=== PATIENT | male | born 1960 | race African-American/Black ===

== ENCOUNTER 2017-06-20 12:14 | Inpatient (IN) | payer OTHER ==
[~2017-06-20] VITALS: Ht 177.8 cm; Wt 77.1 kg
[~2017-06-20 12:14] MED LIST: DOXYCYCLINE HY100 M4 PO; HYDROXYZINE HCL25 M2 PO; IBUPROFEN600 M1 PO; ULTRAM50 M1 PO
[2017-06-20 13:00] LABS: ABSOLUTE BASOPHIL COUNT 0 /CUMM (0.0-0.2); ABSOLUTE EOSINOPHIL COUNT 0.6 /CUMM (0.0-0.7); ABSOLUTE GRANULOCYTE CT 2.3 /CUMM (1.4-6.5); ABSOLUTE LYMPH COUNT 2.7 /CUMM (1.2-3.4); ABSOLUTE MONOCYTE COUNT 0.5 /CUMM (0.10-0.60); BASOPHIL % 0.5 % (0.0-2.0); EOSINOPHIL % 9.7 % (0-5); GRANULOCYTE % 37.1 % (42.2-75.2); HEMATOCRIT 42.4 % (42-52); MEAN CORPUSCULAR HGB 28.7 PG (27.0-31.0); MEAN CORPUSCULAR HGB CONC 32.3 G/DL (33.0-37.0); MEAN CORPUSCULAR VOLUME 89.1 FL (80.0-94.0); MEAN PLATELET VOLUME 7.6 FL (7.4-10.4); RBC DISTRIBUTION WIDTH 15.8 % (11.5-14.5); RED BLOOD CELL CT 4.76 /CUMM (4.70-6.10); WHITE BLOOD CELL COUNT 6.1 /CUMM (4.8-10.8)
[2017-06-20 13:16] LABS: PLATELET COUNT 245 /CUMM (130-400)
--- NOTE | 2017-06-20 13:20 | ED AMS/SEIZURE/WEAK/DIZZY ---
History of Present Illness General Chief Complaint: General Adult Stated Complaint: DIZZY,WEAKNESS Source: patient, family (BROTHER) Exam Limitations: no limitations Vital Signs & Intake/Output Vital Signs & Intake/Output Vital Signs Date Time Temp Pulse Resp B/P B/P Pulse O2 O2 Flow FiO2 Mean Ox Delivery Rate 06/20 1845 46 16 122/74 100 Room Air 06/20 1834 97.4 50 16 122/72 97 Nasal 2.0L Cannula 06/20 1614 97.3 44 16 116/73 100 Room Air 06/20 1612 44 116/73 06/20 1442 98.0 46 18 142/90 100 Nasal Cannula 06/20 1311 99 Nasal 2.0L Cannula 06/20 1252 47 20 126/78 100 Room Air 06/20 1220 96.2 78 20 116/80 98 Room Air Allergies Coded Allergies: Iodinated Contrast- Oral and IV Dye (IODINATED CONTRAST MEDIA - IV DYE) (Severe, ANAPHYLAXIS 12/03/15) Sulfa (Sulfonamide Antibiotics) (Severe, HIVES 12/03/15) shellfish derived (Severe, ANAPHYLAXIS 12/03/15) Reconcile Medications Aspirin (Lo-Dose Aspirin EC) 81 MG TABLET.DR 1 TAB PO DAILY HEART/BLOOD ( Reported) Atorvastatin Calcium 20 MG TABLET 1 TAB PO DAILY CHOLESTEROL (Reported) Clopidogrel Bisulfate (Clopidogrel) 75 MG TABLET 1 TAB PO DAILY BLOOD THINNER (Reported) Levetiracetam 1,000 MG TABLET 1,500 MG PO BID SEIZURES (Reported) Lisinopril 2.5 MG TABLET 1 TAB PO DAILY BP (Reported) Metoprolol Tartrate 25 MG TABLET 1 TAB PO BID HEART/BP (Reported) Spironolactone 25 MG TABLET 1 TAB PO DAILY DIURETIC (Reported) Triage Note: PT TO ED C/O DIZZY AND LIGHTHEADED X 2 HOURS. DENIES ANY PAIN. H/O AR WITH CARDIAC STENTS. PT STATES "SOMETHING AIN'T RIGHT". PT APPEARS LETHARGIC IN TRIAGE, FALLING ASLEEP AND THEN TEXTING. Triage Nurses Notes Reviewed? yes Onset: Abrupt Duration: day(s): (1), changing over time, continues in ED Timing: single episode today Injury Environment: home Severity: moderate, severe No Modifying Factors: none Associated Symptoms: MEMORY LOSS, DIFFICULTY FINDING WORDS, WEAKNESS, LETHARGY HPI: 56-year-old male past medical history of coronary artery disease, AR with associated cardiac arrest and seizure disorder presents for evaluation of change in mental status weakness and dizziness. PatienTS brother reports that today he has been more lethargic than usual. He feels like he looks tired and his words have been slurred. His BRother feels like he is having difficulty finding words. Patient reports that he feels very dizzy both at rest and exertion. No chest pain no shortness of breath. No new medications. He says he smokes marijuana but no drug use. He is to take his medications as directed. Patients brother reports that he is concerned because patient has a history of seizures and had a seizure about a month and a half ago and these similar symptoms preceded the seizure. Additionally patient has a history of cardiac arrest back in January 2017 associated with the AR. Patient states he's been taking Keppra as directed. No sweats chills nausea vomiting fever or changes in vision. (Dino David) Past History Travel History Traveled to [place] past 21 day No Medical History Any Pertinent Medical History? see below for history Neurological: seizure EENT: NONE Cardiovascular: myocardial infarction Respiratory: NONE Gastrointestinal: NONE Hepatic: NONE Renal: NONE Musculoskeletal: NONE Psychiatric: NONE Endocrine: NONE Blood Disorders: NONE Cancer(s): NONE CHICKEN TENDER/Reproductive: NONE Surgical History Surgical History: non-contributory Psychosocial History What is your primary language Vietnamese Tobacco Use: Current Daily Use Daily Tobacco Use Amount/Type: => 5 Cigarettes daily ETOH Use: denies use Illicit Drug Use: denies illicit drug use Family History Hx Contributory? No (Dino David) Review of Systems Review of Systems Constitutional: Reports: malaise, weakness. EENTM: Reports: no symptoms. Respiratory: Reports: no symptoms. Cardiovascular: Reports: no symptoms. GI: Reports: no symptoms. Genitourinary: Reports: no symptoms. Musculoskeletal: Reports: no symptoms. Skin: Reports: no symptoms. Neurological/Psychological: Reports: see HPI, confusion, emotional problems, weakness, other (DIZZY, LIGHTHEADED). Hematologic/Endocrine: Reports: no symptoms. Immunologic/Allergic: Reports: no symptoms. All Other Systems: Reviewed and Negative (Dino David) Physical Exam Physical Exam General Appearance: well developed/nourished, no apparent distress, alert, awake Head: atraumatic, normal appearance Eyes: Bilateral: normal appearance, PERRL, EOMI. Ears, Nose, Throat: normal pharynx, normal ENT inspection, hearing grossly normal Neck: normal inspection, supple, full range of motion Respiratory: normal breath sounds, chest non-tender, no respiratory distress, lungs clear Cardiovascular: normal peripheral pulses, bradycardia (46 BPM) Peripheral Pulses: 2+ radial (R), 2+ radial (L) Gastrointestinal: soft, non-tender Back: normal inspection, normal range of motion, no vertebral tenderness Extremities: normal range of motion Neurologic/Psych: no motor/sensory deficits, awake, alert, oriented x 3, PATIENT IS SLURRING SOME WORDS AND SEEMS TO HAVE DIFFICULTY FINDING WORDS AND IS STUTTERING Skin: intact, normal color, warm/dry Lymphatic: no anterior cervical simin Core Measures ACS in differential dx? No CVA/TIA Diagnosis No NIH Stroke Scale (24 Hours) NIH Stroke Scale (24 Hours) Response Value Level of Consciousness alert 0 LOC Questions answers both correctly 0 LOC Commands obeys both correctly 0 Best Gaze normal 0 Visual Romero no visual loss 0 Facial Paresis normal 0 Motor Arm - Left no drift 0 Motor Arm - Right no drift 0 Motor Leg - Left no drift 0 Motor Leg - Right no drift 0 Limb Ataxia no ataxia 0 Sensory normal 0 Best Language mild to moderate aphasia 1 Dysarthria mild/mod slurring words 1 Extinction and Inattention no neglect 0 Total 2 Sepsis Present: No Sepsis Focused Exam Completed? No (Jorge A AVINA,Dino) Progress Differential Diagnosis: arrythmia, alcohol intoxication, anemia, CVA/stroke, dehydration, drug intoxication, electrolyte imbalance, postural hypotension, presyncope, seizure disorder, subarachnoid Hem., SICK SINUS SYNDROME, av BLOCK, MEDICATION SIDE EFFECT Plan of Care: Orders Procedure Date/time Status Heart Healthy Diet 06/21 B Active Patient Data 06/20 1844 Active ED Holding Orders 06/20 181 Active Admit to inpatient 06/20 1819 Active Vital Signs 06/20 1819 Active Code Status 06/20 1819 Active Add-on Test (ER Only) 06/20 1651 Active RAPID VIRAL INFLUENZA A 06/20 1643 Complete Add-on Test (ER Only) 06/20 1618 Active TROPONIN LEVEL 06/20 1604 Complete EKG 06/20 1604 Active URINALYSIS 06/20 1340 Complete Add-on Test (ER Only) 06/20 1320 Active MISTAKE 06/20 1311 Active Intake & Output 06/20 1256 Active TSH REFLEX 06/20 1241 Complete MAGNESIUM 06/20 1241 Complete FingerStick- Glucose 06/20 1227 Active URINE DRUG SCREEN FOR ER ONLY 06/20 1227 Complete TROPONIN LEVEL 06/20 1227 Complete COMPREHENSIVE METABOLIC PANEL 06/20 1227 Complete CBC WITHOUT DIFFERENTIAL 06/20 122 Complete EKG 06/20 1223 Active Laboratory Tests 06/20/17 1616: Troponin I < 0.01 06/20/17 1340: Urine Opiates Screen < 100.00, Methadone Screen < 40, Barbiturate Screen < 60, Ur Phencyclidine Scrn < 6.00, Amphetamines Screen < 100, U Benzodiazepines Scrn < 85, Urine Cocaine Screen < 50, Urine Cannabis Screen > 80.00 H, Urine Color YEL, Urine Clarity CLEAR, Urine pH 6.0, Ur Specific [place] <= 1.005, Urine Protein NEG, Urine Ketones NEG, Urine Nitrite NEG, Urine Bilirubin NEG, Urine Urobilinogen 0.2, Ur Leukocyte Esterase NEG, Ur Microscopic EXAM NOT REQUIRED, Urine Hemoglobin NEG, Urine Glucose NEG 06/20/17 1241: Anion Gap 12, Estimated GFR > 60, BUN/Creatinine Ratio 11.3, Glucose 113 H, Calcium 9.6, Magnesium 1.7, Total Bilirubin 0.4, AST 31, ALT 34, Alkaline Phosphatase 124, Troponin I < 0.01, Total Protein 7.6, Albumin 4.3, Globulin 3.3 , Albumin/Globulin Ratio 1.3, TSH &T3 &Free T4 Intrp 0.859, CBC w Diff NO MAN DIFF REQ, RBC 4.76, MCV 89.1, MCH 28.7, MCHC 32.3 L, RDW 15.8 H, MPV 7.6, Gran % 37.1 L, Lymphocytes % 43.9, Monocytes % 8.8, Eosinophils % 9.7 H, Basophils % 0.5, Absolute Granulocytes 2.3, Absolute Lymphocytes 2.7, Absolute Monocytes 0.5, Absolute Eosinophils 0.6, Absolute Basophils 0 Microbiology 06/20 1650 NASOPHARYN: Influenza Virus A & B Rapid Smear - COMP Patient seen and evaluated. He has a significant previous history of seizure disorder and acute coronary syndrome with cardiac arrest back in 2016. Patient denies any chest pain or shortness of breath but is reporting dizziness. He is bradycardic here to the 40s consistently for several hours now. He does take metoprolol 25 mg twice a day but this is nothing new. His EKG shows some inverted T waves in the chest leads that improved on the repeat EKG. Troponin is negative 2. Patient is not orthostatic. CT scan of the brain is not showing any acute findings. Additionally the patient's brother reports the patient is not acting like his usual self is more lethargic having difficulty finding words and slurring words. Patient denies any drug use other than marijuana. The brother also reports that patient presented this way before having a seizure. Spoke with Dr. 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 They did recommend ADDMission to rule out acute coronary syndrome/seizure disorder. Patient will be admitted to the hospital for symptomatically bradycardia and change in mental status. He will require serial labs, serial EKGs, telemetry, cardiology consult, medication adjustment, MRI, EEG, neurology consult. Premature discharge could result in a negative health effects that could include . Case discussed with Dr. Alaniz HE agrees. Diagnostic Imaging: Viewed by Me: Radiology Read, CT Scan. Discussed w/RAD: Radiology Read, CT Scan. Radiology Impression: PATIENT: LANA TOUSSAINT PRESENT AGE: 56 PATIENT ACCOUNT NO: [id number] : 61 LOCATION: [facility] ORDERING PHYSICIAN: Dino AVINA SERVICE DATE: 06/20/17 EXAM TYPE: CAT - CT HEAD WO IV CONTRAST EXAMINATION: CT HEAD WITHOUT CONTRAST CLINICAL INFORMATION: Dizziness and headache. COMPARISON: None. TECHNIQUE: Contiguous axial imaging was performed from the skull base to vertex without intravenous administration of contrast. DLP: 616 mGy-cm. FINDINGS: There is no intracranial hemorrhage, large infarction, or mass lesion. There is no extra-axial collection. The ventricles are normal in size and configuration without evidence of hydrocephalus. The visualized paranasal sinuses are essentially clear. The mastoids and middle ear cavities are clear. On the hamper maker view there is evidence of screw plate fixation within the mandible. IMPRESSION: No intracranial hemorrhage, large infarction, mass lesion or hydrocephalus. DICTATED BY: Connie Hunter MD DATE/TIME DICTATED:06/20/171343 ECONOMIC DEVELOPMENT SPECIALIST:GLORIA DATE/ TIME TRANSCRIBED:06/20/171343 CONFIDENTIAL, DO NOT COPY WITHOUT APPROPRIATE AUTHORIZATION. CXR Impression: PATIENT: LANA TOUSSAINT PRESENT AGE: 56 PATIENT ACCOUNT NO: [id number] : 62 LOCATION: [facility] ORDERING PHYSICIAN: Dino AVINA SERVICE DATE: 06/20/17 EXAM TYPE: RAD - XRY-CHEST XRAY, TWO VIEWS EXAMINATION: XR CHEST CLINICAL INFORMATION: Question pneumonia. Altered mental status. COMPARISON: None TECHNIQUE: 2 views of the chest were obtained. FINDINGS: Lungs are clear and well expanded. No focal consolidative disease, pleural effusion, or pneumothorax. The cardiac silhouette and upper mediastinal contours are normal. No acute osseous finding. IMPRESSION: Unremarkable chest radiograph. No consolidative disease or effusion. DICTATED BY : Sang Goode MD DATE/TIME DICTATED:06/20/171612 ECONOMIC DEVELOPMENT SPECIALIST: GLORIA DATE/TIME TRANSCRIBED:06/20/171612 CONFIDENTIAL, DO NOT COPY WITHOUT APPROPRIATE AUTHORIZATION. Initial ED EKG: SINUS BRADYCARDIA RATE 49, LEFT ATRIAL ABNORMALITY, t-WAVE INVERSIONS v2, 3 5 AND v6 Repeat EKG: unchanged (Dino David) Differential Diagnosis: arrythmia (Corbin GARCÍA,Rocky Garza) Departure Departure Disposition: STILL A PATIENT Condition: Stable Clinical Impression Primary Impression: Symptomatic bradycardia Secondary Impressions: Change in mental status Qualifiers: Altered mental status type: unspecified Qualified Code: R41.82 - Altered mental status, unspecified Referrals: Unknown (PCP/Family) Departure Forms: Customer Survey General Discharge Information (Dino David) Admission Note Spoke With: Tabitha Ardon MD Documentation of Exam: Documentation of any treatments & extenuating circumstances including Concerns Regarding Discharge (functional status, medication knowledge or non-compliance, living conditions, etc.) that warrant an admission rather than observation: [The patient remains bradycardic and thus needs continued cardiac monitoring, he has symptomatic bradycardia. He needs a cardiology consultation. Dr. Lombardi was notified. He will need serial troponins and observation after holding his beta ramiro. He will need consideration for pacemaker if does not improve] PA/POLICE JUDGE Co-Sign Statement Statement: ED Attending supervision documentation- [x] I saw and evaluated the patient. I have also reviewed all the pertinent lab results and diagnostic results. I agree with the findings and the plan of care as documented in the PA's/POLICE JUDGE's documentation. [] I have reviewed the ED Record and agree with the PA's/POLICE JUDGE's documentation. [] Additions or exceptions (if any) to the PAs/POLICE JUDGE's note and plan are summarized below: [] (Rocky Alaniz DO)
--- NOTE | 2017-06-20 13:51 | CT SCAN REPORT ---
EXAMINATION: CT HEAD WITHOUT CONTRAST CLINICAL INFORMATION: Dizziness and headache. COMPARISON: None. TECHNIQUE: Contiguous axial imaging was performed from the skull base to vertex without intravenous administration of contrast. DLP: 616 mGy-cm. FINDINGS: There is no intracranial hemorrhage, large infarction, or mass lesion. There is no extra-axial collection. The ventricles are normal in size and configuration without evidence of hydrocephalus. The visualized paranasal sinuses are essentially clear. The mastoids and middle ear cavities are clear. On the senior biostatistician view there is evidence of screw plate fixation within the mandible. IMPRESSION: No intracranial hemorrhage, large infarction, mass lesion or hydrocephalus.
--- NOTE | 2017-06-20 16:16 | RADIOLOGY REPORT ---
EXAMINATION: XR CHEST CLINICAL INFORMATION: Question pneumonia. Altered mental status. COMPARISON: None TECHNIQUE: 2 views of the chest were obtained. FINDINGS: Lungs are clear and well expanded. No focal consolidative disease, pleural effusion, or pneumothorax. The cardiac silhouette and upper mediastinal contours are normal. No acute osseous finding. IMPRESSION: Unremarkable chest radiograph. No consolidative disease or effusion.
[2017-06-20] MEDS ORDERED: ATORVASTATIN CA20 M1 PO (17:36)
[2017-06-20] MEDS ORDERED: LISINOPRIL2.5 M1 PO (17:36)
[2017-06-20] MEDS ORDERED: METOPROLOL TART25 M1 PO (17:36)
[2017-06-20] MEDS ORDERED: SPIRONOLACTONE25 M1 PO (17:36)
[2017-06-20] MEDS ORDERED: CLOPIDOGREL75 M1 PO (17:37)
[2017-06-20] MEDS ORDERED: LO-DOSE ASPIRIN81 MG PO (17:38)
[2017-06-20] MEDS ORDERED: LEVETIRACETAM1000 M1 PO (17:40)
--- NOTE | 2017-06-20 20:14 | History & Physical ---
Alvarez Riley MD 06/20/17 2013: General Information and HPI MD Statement: I have seen and personally examined LANA TOUSSAINT and documented this H&P. The patient is a 56 year old M who presented with a patient stated chief complaint of [altered mental status, dysarthria, aphasia]. Source of Information: patient, family Exam Limitations: poor historian History of Present Illness: Patient is a 51-year-old male with PMH significant for cardiac arrest status post 2 stents placed, CAD, seizure disorder, who presented to the ED complaining of lethargy, difficulty finding words, slurred speech and feeling "slow." This began the day of admission at 3-4 AM, he was able to sleep and awoke with similar symptoms. He also states that he hit his head on the corner of a table this morning but did not lose consciousness. He had one episode of diziness this morning with associated palpitations that lasted for less than one minute. He has never experienced symptoms like this before, but reports significant improvement of his symptoms since this moring. His most recent seizure was 1 month ago, and his Keppra dose was increased from 1 g BID to 1.5 g BID at this time. He denies any chest pain, chest discomfort, lightheadedness, LOC, numbness, or weakness. Allergies/Medications Allergies: Coded Allergies: Iodinated Contrast- Oral and IV Dye (IODINATED CONTRAST MEDIA - IV DYE) (Severe, ANAPHYLAXIS 12/03/15) Sulfa (Sulfonamide Antibiotics) (Severe, HIVES 12/03/15) shellfish derived (Severe, ANAPHYLAXIS 12/03/15) Home Med list Aspirin (Lo-Dose Aspirin EC) 81 MG TABLET.DR 1 TAB PO DAILY HEART/BLOOD ( Reported) Atorvastatin Calcium 20 MG TABLET 1 TAB PO DAILY CHOLESTEROL (Reported) Clopidogrel Bisulfate (Clopidogrel) 75 MG TABLET 1 TAB PO DAILY BLOOD THINNER (Reported) Levetiracetam 1,000 MG TABLET 1,500 MG PO BID SEIZURES (Reported) Lisinopril 2.5 MG TABLET 1 TAB PO DAILY BP (Reported) Metoprolol Tartrate 25 MG TABLET 1 TAB PO BID HEART/BP (Reported) Spironolactone 25 MG TABLET 1 TAB PO DAILY DIURETIC (Reported) Past History Travel History Traveled to [place] past 21 day No Medical History Neurological: seizure EENT: NONE Cardiovascular: myocardial infarction, cardaic arrest Respiratory: NONE Gastrointestinal: NONE Hepatic: NONE Renal: NONE Musculoskeletal: NONE Psychiatric: NONE Endocrine: NONE Blood Disorders: NONE Cancer(s): 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 brother and niece Primary Language: Jamaican Smoking Status: Current Everyday Smoker ETOH Use: denies use Illicit Drug Use: denies illicit drug use Review of Systems Review of Systems Constitutional: Reports: malaise. Denies: chills, fever, weakness. EENTM: Denies: blurred vision, double vision, visual changes, eye pain. Cardiovascular: Reports: palpitations. Denies: chest pain, syncope. Respiratory: Denies: cough, short of breath, wheezing. GI: Denies: abdominal pain, constipation, melena, nausea, bloody stool, vomiting. Genitourinary: Denies: dysuria, frequency, hematuria. Musculoskeletal: Reports: no symptoms. Skin: Reports: no symptoms. Neurological/Psychological: Reports: see HPI, headache, other. Denies: numbness, paresthesia, tingling, tremors. Exam & Diagnostic Data Last 24 Hrs of Vital Signs/I&O Vital Signs Date Time Temp Pulse Resp B/P B/P Pulse O2 O2 Flow FiO2 Mean Ox Delivery Rate 06/20 2233 97.9 64 20 104/68 98 Room Air 06/20 2132 97.8 48 18 110/57 99 Room Air 06/20 2015 51 16 118/72 100 Room Air 06/20 1845 46 16 122/74 100 Room Air 06/20 1834 97.4 50 16 122/72 97 Nasal 2.0L Cannula 06/20 1614 97.3 44 16 116/73 100 Room Air 06/20 1612 44 116/73 06/20 1442 98.0 46 18 142/90 100 Nasal Cannula 06/20 1311 99 Nasal 2.0L Cannula 06/20 1252 47 20 126/78 100 Room Air 06/20 1220 96.2 78 20 116/80 98 Room Air Intake & Output 06/21 0800 06/21 0000 06/20 1600 Intake Total Output Total Balance Patient 170 lb 170 lb Weight Weight Reported by Patient Reported by Patient Measurement Method Physical Exam General Appearance Alert, Oriented X3, Cooperative, No Acute Distress Skin Temp/Moisture Exam: Warm/Dry HEENT Atraumatic, PERRLA, EOMI, Mucous Membr. moist/pink, no maxillary teeth Cardiovascular Normal S1, Normal S2, No Murmurs, Gallops, Rubs, bradycardia, HR 48 Lungs Clear to Auscultation, Normal Air Movement Abdomen Soft, No Tenderness, large surgical midline scar Neurological Strength at 5/5 X4 Ext, Normal Tone, Sensation Intact, Cranial Nerves 3-12 NL, mild expressive aphasia, no dysarthria Extremities No Clubbing, No Cyanosis, No Edema, Normal Pulses, No Tenderness/ Swelling Last 24 Hrs of Labs/[place]: Laboratory Tests 06/21/17 0055: Troponin I Pending 06/20/17 1616: Troponin I < 0.01 06/20/17 1340: Urine Opiates Screen < 100.00, Methadone Screen < 40, Barbiturate Screen < 60, Ur Phencyclidine Scrn < 6.00, Amphetamines Screen < 100, U Benzodiazepines Scrn < 85, Urine Cocaine Screen < 50, Urine Cannabis Screen > 80.00 H, Urine Color YEL, Urine Clarity CLEAR, Urine pH 6.0, Ur Specific [place] <= 1.005, Urine Protein NEG, Urine Ketones NEG, Urine Nitrite NEG, Urine Bilirubin NEG, Urine Urobilinogen 0.2, Ur Leukocyte Esterase NEG, Ur Microscopic EXAM NOT REQUIRED, Urine Hemoglobin NEG, Urine Glucose NEG 06/20/17 1241: Anion Gap 12, Estimated GFR > 60, BUN/Creatinine Ratio 11.3, Glucose 113 H, Calcium 9.6, Magnesium 1.7, Total Bilirubin 0.4, AST 31, ALT 34, Alkaline Phosphatase 124, Troponin I < 0.01, Total Protein 7.6, Albumin 4.3, Globulin 3.3 , Albumin/Globulin Ratio 1.3, TSH &T3 &Free T4 Intrp 0.859, CBC w Diff NO MAN DIFF REQ, RBC 4.76, MCV 89.1, MCH 28.7, MCHC 32.3 L, RDW 15.8 H, MPV 7.6, Gran % 37.1 L, Lymphocytes % 43.9, Monocytes % 8.8, Eosinophils % 9.7 H, Basophils % 0.5, Absolute Granulocytes 2.3, Absolute Lymphocytes 2.7, Absolute Monocytes 0.5, Absolute Eosinophils 0.6, Absolute Basophils 0 Microbiology 06/20 1650 NASOPHARYN: Influenza Virus A & B Rapid Smear - COMP Diagnostic Data EKG Results sinus bradycardia CXR Results Unremarkable chest radiograph. No consolidative disease or effusion. Other Results Head CT No intracranial hemorrhage, large infarction, mass lesion or hydrocephalus. Assessment/Plan Assessment: Patient is a 51-year-old male with PMH significant for cardiac arrest status post 2 stents placed, CAD, seizure disorder, who presented to the ED complaining of lethargy, difficulty finding words, slurred speech and feeling "slow." Problem list #sinus bradycardia #rule out ACS #rule out TIA #chornic medical problems inlcuding seizure disorder, nicotine dependence, CAD Plan - admit to telemetry -continous tele monitoring - MRI head - seizure precuations -neuro checks Q4 hours - neuro consult placed - serial troponins and ekg - echocardiogram, may need ICD based on results - hold home metoprolol -cardiology consult - PT consult -continue home medicaitons including Keppra, Lisinopril, plavix, spironolactone - nicotine patch #DVT prophylaxis: Lovenox, ALPS #COde stauts: full code As Ranked By This Provider Problem List: 1. Change in mental status Qualifiers Altered mental status type: unspecified Qualified Code: R41.82 - Altered mental status, unspecified 2. Symptomatic bradycardia Core Measures/Misc (02/04) Acute Coronary Syndrome ACS Diagnosis: No Congestive Heart Failure Congestive Heart Failure Diagnosis No Cerebrovascular Accident CVA/TIA Diagnosis: No VTE (View Protocol) VTE Risk Factors Age>40 No Mechanical VTE Prophylaxis d/t N/A MechProphylax Ordered No VTE Pharm Prophylaxis d/t NA PharmProphylax ordered Sepsis (View protocol) Sepsis Present: No Nelida Trujillo MD 06/20/17 2237: Resident Review Statement Resident Statement: examined this patient, discussed with culinary internship Other Findings: H: Mr Toussaint is a 56-year-old gentleman with past medical history of coronary artery disease, stent placement in December of this year, Cardiac arrest (in February of this year, unsure of cause, Hospitalized at [facility], had to be placed in a medically induce coma > 2 months) and seizure disorder (status post anoxic event) who was brought into the emergency department by his brother after he felt that he was more lethargic and had also endorsed a change in mentation as the patient was off his baseline. The patient himself was a poor historian, although was able to provide some clinical information. He reported that his symptoms started at approximately 4 AM on the day of admission. He states he did "not feel himself". It must be noted that the patient has a tendency to remain awake all night and sleep during the day. The patient's reported that his speech was slurred and also concominanatly experienced heart palpitations. At this time he also reports that he had a brief feeling of the room spinning. He denies any loss of consciousness, but does state that he hit his head on the corner of a table. The patient has been on Keppra for seizure prophylaxis. His Keppra dose was recently increased approximately 1 month ago as the patient had recently had a seizure. He follows up with you neurologist Dr. Harkins ([phone]) at [place]. He has been following up with the shipping manager Dr Mcelroy since 05/29/17. He was currently undergoing a study with a 30 day event monitor. He is a current every day smoker approximately half a pack per day. Does not endorse any alcohol usage. Uses cannaboid derivatives, last smoked/Ingested this on the day prior to admission. R: The patient did not endorse any chest pain although did state that he had a brief episode of heart palpitations lasting approximately 1 minute. Denied any fever, chills, nausea, vomiting. E: Blood pressure: 96.2. RR: 20. Heart rate: 78--> 46. General Appearance: well developed/nourished, no apparent distress, alert and oriented. Head: atraumatic, normal appearance Eyes: PERRLA Ears, Nose, Throat: hearing grossly normal Neck: scar present from previous tracheostomy tube, supple, full range of motion Respiratory: Clear to auscultation. Chest non-tender, no respiratory distress Cardiovascular: Bradycardia, no murmurs gallops or rubs. Gastrointestinal: normal bowel sounds, soft, non-tender, surgical scar noted, anterior abdominal wall. Back: normal inspection, normal range of motion Extremities: normal inspection, normal range of motion. No Edema Neurologic/Psych: no motor/sensory deficits, awake, alert, oriented x 3 Skin: warm/dry L: WBC 6.1. H&H 13.7/42.4. Platelets 245. Sodium 142, potassium 4.0, BUN 9, creatinine 0.8. Chloride: 102. Cr 0.8. I: EXAMINATION: CT HEAD WITHOUT CONTRAST IMPRESSION: No intracranial hemorrhage, large infarction, mass lesion or hydrocephalus. SERVICE DATE: 06/20/17 EXAM TYPE: RAD - XRY-CHEST XRAY, TWO VIEWS EKG: Sinus Bradycardia. T Wave inversions noted on initial EKG IMPRESSION: Unremarkable chest radiograph. No consolidative disease or effusion. A/P Problem List: Coronary artery disease with stent placement in January 2017 Altered mentation likely due to polypharmacy versus recreational drug use vs hypoperfusion due to bradycardia Rule out ACS Sinus Bradycardia History of seizure disorder History of Nicotine dependence Admit the patient to telemetry. Will obtain neurology consultation in the a.m. to question adequate Keppra dosing. Will check a head MRI to rule out any acute pathology. Maintain Seizure Precautions. Maintain Neurochecks Q4 Hours. Trend Troponin and monitor EKG. Echocardiogram in AM, to evaluate LVEF. If < 35% will likely require an ICD If continues to be asymptomatic over admission, will likely benefit from Insertable Cardiac monitoring System as an outpatient. Hold beta blockers for now, may consider a lower dose prior to discharge. Continue Home Medications: Keppra 1500 mg BID, Lisinopril, Plavix, Spironolactone Nicotine Patch PRN. Bedside swallow evaluation showed no acute pathology, diet to be advance as tolerated. Obtain records from prior hospitalizations. 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 He had one episode of transient dizziness but did not lose consciousness at that time he also noticed his heart was racing. According to family patient had word finding difficulty. Only change of medication dimension is increased dose of Keppra approximately 4 weeks back when he had another seizure episode. He was expected to get MRI and 2-D echocardiogram tomorrow for follow-up. Vitals: Afebrile, pulse 78 decreased to 40s, RR 20, blood pressure 116/73, saturating well on room air On exam: A O 3, cooperative, slow to respond, no acute distress, neck supple, JVD normal, no lymphadenopathy, mucosa moist, complete neurological examination unremarkable, negative cerebellar signs, negative nystagmus, no dependent edema, no obvious skin rashes or inflammation CVS: S1-S2, RRR. RS: Clear to auscultate bilaterally. Abdomen: Soft, NT, ND, bowel sounds present. Labs: WBC 6.1, hemoglobin 13.7, hematocrit 42.4, platelet 245, sodium 142, potassium 4.0, chloride 102, bicarbonate 27, BUN 9, creatinine 0.8, glucose 113, calcium 9.6, LFT unremarkable troponin less than 0.012, TSH 0.859, rapid influenza negative UA unremarkable U tox positive for cannabis CT head:No intracranial hemorrhage, large infarction, mass lesion or hydrocephalus. CXR:Unremarkable chest radiograph. No consolidative disease or effusion. Assessment and plan 56-year-old male with past medical history significant for CAD, cardiac arrest S /P 2 stents, seizure disorder since that episode presented in ER for feeling weak and lethargic. Patient had a seizure episode approximately a month back when he had similar feeling PT at this time patient did not have any seizure- like episode but was worried about it. He also felt he had word finding difficulty which lasted for some time now much better. His found to have significant bradycardia up to 40s in ER. This could be cause of his lethargy but given his transient a face area TIA should be ruled out. Watch for seizure episode. Of note Keppra may be causing the sluggishness and lethargy. Patient may have residual effects of anoxic brain injury given his cardiac arrest and prolonged hospitalization history. + Symptomatic bradycardia + Rule out TIA + History of CAD S/P stents - Admit to telemetry - Continuous telemetry monitoring - Serial troponin and EKGs - Hold metoprolol - 2-D echocardiogram in a.m. - MRI brain without contrast - Serial neuro checks - Seizure precaution - Continue his home medications of aspirin, statin, Keppra, lisinopril, spironolactone, Plavix - Neurologic consult: ?. Adjust dose of Keppra
--- NOTE | 2017-06-20 20:36 | Cons- Cardiology ---
General Information and HPI Consulting Request Date of Consult: 06/20/17 Requested By: Tabitha Ardon MD Reason for Consult: bradycardia Source of Information: patient Exam Limitations: no limitations History of Present Illness: Asked by ER physician to evaluate patient in ER. 56 year old male with h/o CAD, LAD and LCX stents in [place] in 2016, s/p cardiac arrest in [place] in January,found to have ISR, s/p angioplasty, anoxic brain injury with resultant seizure.He is unable to work due seizure and anoxic brain injury. He still smokes 1/2 ppd. He had seizure episode in April 2017, troponin was 0.21, diagnostic cath revealed patent LAD, LCX stents, 30% distal RCA stenosis. Dose of Keppra was increased. I saw him in our office for the first time on 05/29/17. We decided to place 30 day event monitor to evaluate for bri or tachyarrhytmia as a cause of his seizure/ syncope. He states that monitor patch irritates his chest and he dose not wear it all the time. Today in the morning his sister noticed that his speed was more slurred and he acted slow. He felt weak and dizzy. Similar symptoms preceded his previous seizure episode so he was brought to ER. Ekg in ER showed sinus bradycardia with 2 junctional beats, rate 45 bpm. His LVEF is unknown and his sister is supposed to bring old records from [facility] in [facility]. Allergies/Medications Allergies: Coded Allergies: Iodinated Contrast- Oral and IV Dye (IODINATED CONTRAST MEDIA - IV DYE) (Severe, ANAPHYLAXIS 12/03/15) Sulfa (Sulfonamide Antibiotics) (Severe, HIVES 12/03/15) shellfish derived (Severe, ANAPHYLAXIS 12/03/15) Home Med List: Aspirin (Lo-Dose Aspirin EC) 81 MG TABLET.DR 1 TAB PO DAILY HEART/BLOOD ( Reported) Atorvastatin Calcium 20 MG TABLET 1 TAB PO DAILY CHOLESTEROL (Reported) Clopidogrel Bisulfate (Clopidogrel) 75 MG TABLET 1 TAB PO DAILY BLOOD THINNER (Reported) Levetiracetam 1,000 MG TABLET 1,500 MG PO BID SEIZURES (Reported) Lisinopril 2.5 MG TABLET 1 TAB PO DAILY BP (Reported) Metoprolol Tartrate 25 MG TABLET 1 TAB PO BID HEART/BP (Reported) Spironolactone 25 MG TABLET 1 TAB PO DAILY DIURETIC (Reported) Review of Systems Review of Systems Constitutional: Reports: weakness. Denies: no symptoms, see HPI, chills, diaphoresis, fever, malaise, unexplained weight loss. EENTM: Reports: blurred vision. Denies: no symptoms, see HPI, double vision, visual changes, eye pain, eye drainage, eye tearing, icterus, ear discharge, ear pain, ear redness, hearing changes, nasal congestion, epistaxis, nasal pain, throat pain, throat swelling, mouth pain, tooth pain. Cardiovascular: Denies: no symptoms, see HPI, chest pain, edema, orthopena, palpitations, peripheral edema, syncope. Respiratory: Denies: no symptoms, see HPI, cough, hemoptysis, orthopnea, short of breath, sputum production, stridor, wheezing. GI: Denies: no symptoms, see HPI, abdominal pain, bloating, constipation, diarrhea, distention, bowel incontinence, melena, nausea, bloody stool, changes in stool, vomiting, steatorrhea. Genitourinary: Denies: no symptoms, see HPI, discharge, dysuria, frequency, hematuria, hesitation, nocturia, pain, urgency. Musculoskeletal: Denies: no symptoms, see HPI, back pain, gout, joint pain, joint swelling, muscle pain, muscle stiffness, neck pain. Skin: Denies: no symptoms, see HPI, cysts, change in skin color, change in hair/nails, dryness, erythema, jaundice, lesions, lymphangitis, lumps, moles, rash. Neurological/Psychological: Reports: cognitive dysfunction (dizziness). Denies: no symptoms, see HPI, anxiety, ataxia, confusion, depressed, dementia, emotional problems, headache, numbness, paresthesia, pre-existing deficit, petit mal seizures, tingling, tremors, tonic-clonic seizures, unable to move lower ext, unable to move upper ext, weakness, other. Hematologic/Endocrine: Denies: no symptoms, see HPI, bruising, bleeding, polyuria, polydipsia, other. Immunologic/Allergic: Denies: no symptoms, see HPI, splenectomy, HIV/AIDS, lymphadenopathy, other. 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 Surgical History Surgical History: non-contributory Psychosocial History ETOH Use: denies use Illicit Drug Use: denies illicit drug use Exam & Diagnostic Data Vital Signs and I&O Vital Signs Date Time Temp Pulse Resp B/P B/P Pulse O2 O2 Flow FiO2 Mean Ox Delivery Rate 06/20 1845 46 16 122/74 100 Room Air 06/20 1834 97.4 50 16 122/72 97 Nasal 2.0L Cannula 06/20 1614 97.3 44 16 116/73 100 Room Air 06/20 1612 44 116/73 06/20 1442 98.0 46 18 142/90 100 Nasal Cannula 06/20 1311 99 Nasal 2.0L Cannula 06/20 1252 47 20 126/78 100 Room Air 06/20 1220 96.2 78 20 116/80 98 Room Air Intake & Output 06/20 1600 06/20 0800 06/20 0000 06/19 1600 06/19 0800 06/19 0000 Intake Total Output Total Balance Patient 170 lb Weight Weight Reported by Patient Measurement Method Physical Exam: HEENT-PERRLA Neck-JVP normal, no bruits Lungs-clear bilaterally Heart-S1S2 regular bradycardia, no murmur Abdomen-soft, not tender, BS+,no organomegaly, no masses Extr-no edema, 2+ pulses, Skin-no rash Neuro-non focal Vascular-no carotid bruits, good peripheral pulses Labs/Misbah Results: Laboratory Tests 06/20 06/20 1616 1340 Chemistry Troponin I (<0.11 ng/ml) < 0.01 Toxicology Urine Opiates Screen (>2000 NG/ML) < 100.00 Methadone Screen (>300 NG/ML) < 40 Barbiturate Screen (>200 NG/ML) < 60 Ur Phencyclidine Scrn (>25 NG/ML) < 6.00 Amphetamines Screen (>1000 NG/ML) < 100 U Benzodiazepines Scrn (>200 NG/ML) < 85 Urine Cocaine Screen (>300 NG/ML) < 50 Urine Cannabis Screen (>50 NG/ML) > 80.00 H Urines Urine Color (YEL,AMB,STR) YEL Urine Clarity (CLEAR) CLEAR Urine pH (5.0 - 8.0) 6.0 Ur Specific Moon (1.001 - 1.035) <= 1.005 Urine Protein (NEG,<30 MG/DL) NEG Urine Ketones (NEG) NEG Urine Nitrite (NEG) NEG Urine Bilirubin (NEG) NEG Urine Urobilinogen (0.1 - 1.0 EU/dl) 0.2 Ur Leukocyte Esterase (NEG) NEG Ur Microscopic EXAM NOT REQUIRED Urine Hemoglobin (NEG) NEG Urine Glucose (N MG/DL) NEG 06/20 1241 Chemistry Sodium (137 - 145 mmol/L) 142 Potassium (3.5 - 5.1 mmol/L) 4.0 Chloride (98 - 107 mmol/L) 102 Carbon Dioxide (22 - 30 mmol/L) 27 Anion Gap (5 - 16) 12 BUN (9 - 20 mg/dL) 9 Creatinine (0.7 - 1.2 mg/dL) 0.8 Estimated GFR (>60 ml/min) > 60 BUN/Creatinine Ratio (7 - 25 %) 11.3 Glucose (65 - 99 mg/dL) 113 H Calcium (8.4 - 10.2 mg/dL) 9.6 Magnesium (1.6 - 2.3 mg/dL) 1.7 Total Bilirubin (0.2 - 1.3 mg/dL) 0.4 AST (17 - 59 U/L) 31 ALT (21 - 72 U/L) 34 Alkaline Phosphatase (< 127 U/L) 124 Troponin I (<0.11 ng/ml) < 0.01 Total Protein (6.3 - 8.2 g/dL) 7.6 Albumin (3.5 - 5.0 g/dL) 4.3 Globulin (1.9 - 4.2 gm/dL) 3.3 Albumin/Globulin Ratio (1.1 - 2.2 %) 1.3 TSH &T3 &Free T4 Intrp (0.27 - 4.20 uIU/mL) 0.859 Hematology CBC w Diff NO MAN DIFF REQ WBC (4.8 - 10.8 /CUMM) 6.1 RBC (4.70 - 6.10 /CUMM) 4.76 Hgb (14.0 - 18.0 G/DL) 13.7 L Hct (42 - 52 %) 42.4 MCV (80.0 - 94.0 FL) 89.1 MCH (27.0 - 31.0 PG) 28.7 MCHC (33.0 - 37.0 G/DL) 32.3 L RDW (11.5 - 14.5 %) 15.8 H Plt Count (130 - 400 /CUMM) 245 MPV (7.4 - 10.4 FL) 7.6 Gran % (42.2 - 75.2 %) 37.1 L Lymphocytes % (20.5 - 51.1 %) 43.9 Monocytes % (1.7 - 9.3 %) 8.8 Eosinophils % (0 - 5 %) 9.7 H Basophils % (0.0 - 2.0 %) 0.5 Absolute Granulocytes (1.4 - 6.5 /CUMM) 2.3 Absolute Lymphocytes (1.2 - 3.4 /CUMM) 2.7 Absolute Monocytes (0.10 - 0.60 /CUMM) 0.5 Absolute Eosinophils (0.0 - 0.7 /CUMM) 0.6 Absolute Basophils (0.0 - 0.2 /CUMM) 0 Diagnostic Data EKG Results Sinus bradycardia, 2 junctional beats, 45 bpm, old septal Mi, early repolarization on inferior leads CXR Results CXR-NAD Other Results CT head-no acute IC abnormality Assessment/Plan Assessment/Plan 56 year old male with h/o CAD, LAD and LCX stents in [place] in 2016, s/p cardiac arrest in [place] in January,found to have ISR, s/p angioplasty, anoxic brain injury with resultant seizure disorder. He presents with slurred speech, dizziness. Found to have sinus bradycardia with intermittent junctional beats which likely contributes to his symptoms. He is on low dose betablockers. His LVEF is unknown. He is scheduled to have echo and MRI brain in [place] tomorrow. Non compliant with 30 day event monitor (he did not have it on today). Plan: cindy under hospitalist service hold metoprolol for now, will likely restart at lower dose given his significant CAD MRI brain and echo tomorrow continue ASA, statin, clopidogrel, Keppra, lisinopril, spironolactone If LVEF below 35%, he will need ICD Hopefully heart rate will improve on lower dose of metoprolol I discussed with him possible need of Linq to evaluate for severe bri or tachyarrhytmia causing syncope/seizure disorder (can be done as outpatient). Consult Acknowledgment - Thank you for your consult request.
[2017-06-20 22:34] VITALS: BP 104/68
[2017-06-21 06:00] VITALS: BP 108/78
--- NOTE | 2017-06-21 06:43 | PN- Housestaff ---
Tate WHITING,Kendra 06/21/17 0643: Subjective Follow-up For: Confusion Complaints: no complaints Tele-Events Since Last Visit: Sinus rhythm heart rate 70 Subjective: Patient was seen and examined at bedside. No overnight events. He offers no complaints. He is alert and oriented 3. He denies weakness, altered sensation , dizziness, imbalance, confusion, weakness, chest pain, palpitation. Review of Systems Constitutional: Reports: no symptoms. Cardiovascular: Reports: no symptoms. Respiratory: Reports: no symptoms. Gastrointestinal: Reports: no symptoms. Genitourinary: Reports: no symptoms. Musculoskeletal: Reports: no symptoms. Objective Last 24 Hrs of Vital Signs/I&O Vital Signs Date Time Temp Pulse Resp B/P B/P Pulse O2 O2 Flow FiO2 Mean Ox Delivery Rate 06/21 08 20 06/21 06 97.8 51 28 108/78 96 Room Air 06/21 0542 51 108/78 06/20 2234 97.9 64 20 104/68 98 Room Air 06/20 2132 97.8 48 18 110/57 99 Room Air 06/20 2014 51 16 118/72 100 Room Air 06/20 1845 46 16 122/74 100 Room Air 06/20 1834 97.4 50 16 122/72 97 Nasal 2.0L Cannula 06/20 1614 97.3 44 16 116/73 100 Room Air 06/20 1612 44 116/73 06/20 1442 98.0 46 18 142/90 100 Nasal Cannula Intake & Output 06/21 1600 06/21 0800 06/21 0000 Intake Total 480 Output Total Balance 480 Intake, Oral 480 Patient 170 lb Weight Weight Reported by Patient Measurement Method Physical Exam General Appearance: Alert, Oriented X3, Cooperative, No Acute Distress Cardiovascular: Regular Rate, Normal S1, Normal S2 Lungs: Normal Air Movement Abdomen: No Tenderness, No Hepatospenomegaly Neurological: Strength at 5/5 X4 Ext Extremities: No Edema Vascular: Pulses Symmetrical Current Medications: Current Medications Sig/Haven Start time Last Medication Dose Route Stop Time Status Admin Aspirin Buffered 81 MG DAILY 06/20 2040 AC 06/21 PO 0536 Atorvastatin Calcium 20 MG DAILY 06/20 2040 AC 06/21 PO 0536 Clopidogrel Bisulfate 75 MG DAILY 06/20 2040 AC 06/21 PO 0536 Enoxaparin Sodium 40 MG DAILY 06/21 1000 AC 06/21 SC 0824 Levetiracetam 1,500 MG BID 06/21 2199 AC PO Levetiracetam 1,500 MG BID 06/20 2200 DC 06/21 PO 0535 Lisinopril 2.5 MG DAILY 06/20 2040 AC 06/21 PO 0542 Metoprolol Succinate 12.5 MG DAILY 06/21 1419 AC PO Multivitamins 1 TAB DAILY 06/21 1000 AC 06/21 PO 0824 Nicotine 14 MG DAILY PRN 06/21 0200 AC TOP Spironolactone 25 MG DAILY 06/21 1000 AC 06/21 PO 0824 Last 24 Hrs of Lab/Misbah Results Last 24 Hrs of Labs/Mics: Laboratory Tests 06/21/17 1330: Lyme Disease Antibody Pending 06/21/17 0647: Anion Gap 12, Estimated GFR > 60, BUN/Creatinine Ratio 10.0, Troponin I 0.01, CBC w Diff NO MAN DIFF REQ, RBC 4.46 L, MCV 88.7, MCH 29.3, MCHC 33.0, RDW 15.5 H, MPV 8.0, Gran % 37.6 L, Lymphocytes % 41.6, Monocytes % 9.8 H, Eosinophils % 10.2 H, Basophils % 0.8, Absolute Granulocytes 2.3, Absolute Lymphocytes 2.6, Absolute Monocytes 0.6, Absolute Eosinophils 0.6, Absolute Basophils 0, Levetiracetam Pending 06/21/17 0055: Troponin I < 0.01 06/20/17 1616: Troponin I < 0.01 Microbiology 06/20 1650 NASOPHARYN: Influenza Virus A & B Rapid Smear - COMP Assessment/Plan Assessment: Patient is a 51-year-old male with PMH significant for cardiac arrest status post 2 stents placed, CAD, seizure disorder, who presented to the ED complaining of lethargy, difficulty finding words, slurred speech and feeling "slow." Problem list #sinus bradycardia #rule out ACS #rule out TIA #chornic medical problems inlcuding seizure disorder, nicotine dependence, CAD Plan Sinus bradycardia/ACS Patient is off beta ramiro. Lyme titer sent. No acute EKG changes. Troponin negative thus far. Head CT negative. MRI shows chronic small vessel ischemic changes. Awaiting echocardiogram. He was seen by charging board operator who suggested to start him on 12.5 mg of metoprolol. According to charging board operator if ejection fraction is less than 35 is a candidate for ICD on will send him with linQ monitor. Appreciate neurology CONSULT. Please recommend on the dose of Keppra. - PT consult -continue home medicaitons including Keppra, Lisinopril, plavix, spironolactone - nicotine patch #DVT prophylaxis: Lovenox, ALPS #COde stauts: full code Problem List: 1. Change in mental status 2. Symptomatic bradycardia Pain Ratin Pain Location: NONE Pain Goal: Remain pain free Pain Plan: TYLENOL Tomorrow's Labs & Rationales: CHARLES Bhatti MD,Edithrebeccaswathi 06/21/17 1326: Attending MD Review Statement Attending Statement Attending MD Statement: examined this patient, discuss w/resident/PA/CODING COMPLIANCE MANAGER, agreed w/resident/PA/CODING COMPLIANCE MANAGER, reviewed EMR data (avail), discussed with nursing, discussed with case mgmt, amended to note Attending Assessment/Plan: Patient seen and examined. Resting comfortably not in any acute distress. No issues overnight. No events on telemetry monitoring. Heart rate is in the 50s- 60s off beta-ramiro therapy. On examination he has no focal neurologic deficit. MRI of the brain showed no acute infarct. His neurologic symptoms likely related to hypoperfusion brought about by his bradycardia. Recommendations: Patient remains bradycardic with heart rate in the 50s-60s. His charging board operator is recommending reinitiation of metoprolol at a lower dose. We will start this medication today and monitor the patient overnight on telemetry. If he remains asymptomatic and clinically stable on this regimen he may be discharged home tomorrow. Follow-up results of echocardiogram.
--- NOTE | 2017-06-21 07:24 | Admission Certification ---
Admission Certification Certification Statement - As attending physician, I certify that at the time of - admission, based on clinical presentation, severity of - symptoms, need for further diagnostic testing and - therapeutic interventions, and risk of adverse outcomes - without in-hospital treatment, in my clinical assessment, - this patient requires an acute hospital stay for a minimum - of two nights or longer. I have also considered psychsocial - factors such as support system, advanced age, financial - issues, cognitive issues, and failed out-patient treatments, - past re-admission history, safety of patient, and lack of - compliance as applicable. Specific rationale supporting this admission is: Symptomatic bradycardia, rule out TIA
--- NOTE | 2017-06-21 07:44 | PN- Cardiology ---
Subjective Subjective: Patient feels better than yesterday, more energy, no CP or SOB Objective Vital Signs and I&Os Vital Signs Date Time Temp Pulse Resp B/P B/P Pulse O2 O2 Flow FiO2 Mean Ox Delivery Rate 06/21 0542 51 108/78 06/20 2234 97.9 64 20 104/68 98 Room Air 06/20 2132 97.8 48 18 110/57 99 Room Air 06/20 2014 51 16 118/72 100 Room Air 06/20 1845 46 16 122/74 100 Room Air 06/20 1834 97.4 50 16 122/72 97 Nasal 2.0L Cannula 06/20 1614 97.3 44 16 116/73 100 Room Air 06/20 1612 44 116/73 06/20 1442 98.0 46 18 142/90 100 Nasal Cannula 06/20 1311 99 Nasal 2.0L Cannula 06/20 1252 47 20 126/78 100 Room Air 06/20 1220 96.2 78 20 116/80 98 Room Air Intake & Output 06/21 0800 06/21 0000 06/20 1600 06/20 0800 06/20 0000 06/19 1600 Intake Total Output Total Balance Patient 170 lb 170 lb Weight Weight Reported by Patient Reported by Patient Measurement Method Physical Exam: HEENT-PERRLA Neck-JVP normal, no bruit Lungs-clear bilaterally Heart-S1S2 regular, rate 55 bpm Abdomen-soft, not tender, BS+, no organomegaly Extr-no edema, 2+ pulses Neuro-non focal Skin no rash Current Medications: Current Medications Sig/Haven Start time Last Medication Dose Route Stop Time Status Admin Aspirin Buffered 81 MG DAILY 06/20 2040 AC 06/21 PO 0536 Atorvastatin Calcium 20 MG DAILY 06/20 2040 AC 06/21 PO 0536 Clopidogrel Bisulfate 75 MG DAILY 06/20 2040 AC 06/21 PO 0536 Enoxaparin Sodium 40 MG DAILY 06/21 1000 AC SC Levetiracetam 1,500 MG BID 06/20 2199 AC 06/21 PO 0535 Lisinopril 2.5 MG DAILY 06/20 2040 AC 06/21 PO 0542 Multivitamins 1 TAB DAILY 06/21 1000 AC PO Nicotine 14 MG DAILY PRN 06/21 0200 AC TOP Spironolactone 25 MG DAILY 06/21 1000 AC PO Results Last 48 Hrs of Labs/Mics: Laboratory Tests 06/21/17 0647: Sodium Pending, Potassium Pending, Chloride Pending, Carbon Dioxide Pending, Anion Gap Pending, BUN Pending, Creatinine Pending, BUN/Creatinine Ratio Pending , Troponin I Pending, CBC w Diff Pending, WBC Pending, RBC Pending, Hgb Pending, Hct Pending, MCV Pending, MCH Pending, MCHC Pending, RDW Pending, Plt Count Pending, MPV Pending, Levetiracetam Pending 06/21/17 0055: Troponin I < 0.01 06/20/17 1616: Troponin I < 0.01 06/20/17 1340: Urine Opiates Screen < 100.00, Methadone Screen < 40, Barbiturate Screen < 60, Ur Phencyclidine Scrn < 6.00, Amphetamines Screen < 100, U Benzodiazepines Scrn < 85, Urine Cocaine Screen < 50, Urine Cannabis Screen > 80.00 H, Urine Color YEL, Urine Clarity CLEAR, Urine pH 6.0, Ur Specific [place] <= 1.005, Urine Protein NEG, Urine Ketones NEG, Urine Nitrite NEG, Urine Bilirubin NEG, Urine Urobilinogen 0.2, Ur Leukocyte Esterase NEG, Ur Microscopic EXAM NOT REQUIRED, Urine Hemoglobin NEG, Urine Glucose NEG 06/20/17 1241: Anion Gap 12, Estimated GFR > 60, BUN/Creatinine Ratio 11.3, Glucose 113 H, Calcium 9.6, Magnesium 1.7, Total Bilirubin 0.4, AST 31, ALT 34, Alkaline Phosphatase 124, Troponin I < 0.01, Total Protein 7.6, Albumin 4.3, Globulin 3.3 , Albumin/Globulin Ratio 1.3, TSH &T3 &Free T4 Intrp 0.859, CBC w Diff NO MAN DIFF REQ, RBC 4.76, MCV 89.1, MCH 28.7, MCHC 32.3 L, RDW 15.8 H, MPV 7.6, Gran % 37.1 L, Lymphocytes % 43.9, Monocytes % 8.8, Eosinophils % 9.7 H, Basophils % 0.5, Absolute Granulocytes 2.3, Absolute Lymphocytes 2.7, Absolute Monocytes 0.5, Absolute Eosinophils 0.6, Absolute Basophils 0 Microbiology 06/20 1650 NASOPHARYN: Influenza Virus A & B Rapid Smear - COMP Recent Imaging Studies: Tely-Sinus bradycardia 55-62 bpm, no ventricular ectopy Assessment/Plan Assessment/Plan 56 year old male with h/o CAD, LAD and LCX stents in [place] in 2016, s/p cardiac arrest in [place] in January,found to have ISR, s/p angioplasty, anoxic brain injury with resultant seizure disorder. He presents with slurred speech, dizziness. Found to have sinus bradycardia with intermittent junctional beats which likely contributes to his symptoms. He is on low dose betablockers. Rate improved now mostly in 50's, he feels better, troponins negative. Plan: hold metoprolol today MRI brain and echo today If LVEF below 35%, he will need ICD as outpatient Hopefully heart rate will improve on lower dose of metoprolol If he feels good, he can be discharged after echo and MRI done. Please give him prescription for metoprolol succinate 25 mg 1/2 tablet daily- starting tomorrow\ f/u with me next week (will schedule for next Sunday in [place] office). Continue telemetry? Yes
[2017-06-21 08:55] LABS: ABSOLUTE BASOPHIL COUNT 0 /CUMM (0.0-0.2); ABSOLUTE EOSINOPHIL COUNT 0.6 /CUMM (0.0-0.7); ABSOLUTE GRANULOCYTE CT 2.3 /CUMM (1.4-6.5); ABSOLUTE LYMPH COUNT 2.6 /CUMM (1.2-3.4); ABSOLUTE MONOCYTE COUNT 0.6 /CUMM (0.10-0.60); BASOPHIL % 0.8 % (0.0-2.0); EOSINOPHIL % 10.2 % (0-5); GRANULOCYTE % 37.6 % (42.2-75.2); HEMATOCRIT 39.6 % (42-52); MEAN CORPUSCULAR HGB 29.3 PG (27.0-31.0); MEAN CORPUSCULAR VOLUME 88.7 FL (80.0-94.0); RBC DISTRIBUTION WIDTH 15.5 % (11.5-14.5); RED BLOOD CELL CT 4.46 /CUMM (4.70-6.10); WHITE BLOOD CELL COUNT 6.2 /CUMM (4.8-10.8)
[2017-06-21 09:59] LABS: PLATELET COUNT 251 /CUMM (130-400)
--- NOTE | 2017-06-21 11:09 | MRI REPORT ---
EXAMINATION: MR BRAIN WITHOUT CONTRAST CLINICAL INFORMATION: History of seizure disorder. Speech irregularity. Worse finding difficulty. Evaluate for intracranial pathology. COMPARISON: CT head 06/20/2017. TECHNIQUE: MRI of the brain without contrast was obtained using routine sequences. FINDINGS: There are scattered nonspecific foci of T2 FLAIR signal hyperintensity within the periventricular white matter. No acute territorial infarct. No pathological magnetic susceptibility artifact. Intracranial vascular flow voids are grossly maintained. There is no intracranial mass effect or midline shift. No abnormal extra axial collection. Lateral and third ventricles are normal. No hydrocephalus. Midline structures including the cervicomedullary junction are normal. Bone marrow signal intensity is normal. There are trace bilateral mastoid tip effusions and mild paranasal sinus disease. Globes and orbits are symmetric. IMPRESSION: There are scattered chronic small vessel ischemic changes within the periventricular white matter. No evidence of acute territorial infarct or hemorrhage.
[2017-06-21 15:22] VITALS: BP 104/76
--- NOTE | 2017-06-21 19:54 | ECHOCARDIOGRAM REPORT ---
LANA TOUSSAINT Age: 56 : 1960 Gender: M Exam Date: 06/21/2017 10:13 Exam Location: [address] Ht (in): 70 Wt (lb): 170 BSA: 1.96 BP: 108 / 78 Ordering Physician: Nelida Trujillo MD Referring Physician: Nelida Trujillo MD Technologist: Elpidio Butt [facility] Room Number: 174-2 Indications: Bradycardia Rhythm: Sinus Technical Quality: Good FINDINGS Left Ventricle Normal size left ventricle. Normal left ventricular size and wall thickness. Normal left ventricular ejection fraction visually estimated at >60%. Normal left ventricular wall motion. Abnormal relaxation filling pattern of the left ventricle for age (stage 1 diastolic dysfunction). Right Ventricle Normal right ventricular size and function. Right Atrium Normal right atrial size. Left Atrium Normal left atrial size. Mitral Valve Mitral annular calcification. Trace mitral regurgitation. Aortic Valve Structurally normal trileaflet aortic valve. No aortic stenosis. No aortic regurgitation. Tricuspid Valve Tricuspid valve not well visualized, grossly normal. Trace tricuspid regurgitation. No evidence of pulmonary hypertension. Pulmonic Valve Pulmonic valve not well visualized, grossly normal. Trace pulmonic regurgitation. Pericardium No pericardial effusion. Great Vessels Normal size aortic root. CONCLUSIONS Normal size left ventricle. Normal left ventricular size and wall thickness. Normal left ventricular ejection fraction visually estimated at > 60%. Abnormal relaxation filling pattern of the left ventricle for age (stage 1 diastolic dysfunction). Trace mitral regurgitation. Trace tricuspid regurgitation. Trace pulmonic regurgitation. Tobi Macdonald M.D. (Electronically Signed) Final Date: 21 June 2017 19:54 MEASUREMENTS (Male / Female) Normal Values 2D ECHO LV Diastolic Diameter PLAX 4.8 cm 4.2 - 5.9 / 3.9 - 5.3 cm LV Systolic Diameter PLAX 3.2 cm 2.1 - 4.0 cm LV Fractional Shortening PLAX 33.3 % 25 - 46 % LV Ejection Fraction 2D Teich 61.9 % IVS Diastolic Thickness 0.9 cm LVPW Diastolic Thickness 0.9 cm LV Relative Wall Thickness 0.4 RV Internal Dim ED PLAX 3.0 cm 1.9 - 3.8 cm LVOT Diameter 2.2 cm LA Systolic Diameter LX 2.8 cm 3.0 - 4.0 / 2.7 - 3.8 cm LA Volume 39.0 cm 18 - 58 / 22 - 52 cm Ascending Aorta Diameter 2.8 cm DOPPLER AV Peak Velocity 121.0 cm/s AV Peak Gradient 5.9 mmHg AV Mean Velocity 83.7 cm/s AV Mean Gradient 3.0 mmHg AV Velocity Time Integral 29.9 cm LVOT Peak Velocity 95.5 cm/s LVOT Peak Gradient 3.6 mmHg LVOT Mean Velocity 56.7 cm/s LVOT Mean Gradient 2.0 mmHg LVOT Velocity Time Integral 20.1 cm LVOT Stroke Volume 76.4 cm AV Area Cont Eq vti 2.6 cm AV Area Cont Eq pk 3.0 cm MV Peak Velocity 84.1 cm/s MV Peak Gradient 2.8 mmHg MV Mean Velocity 45.7 cm/s MV Mean Gradient 1.0 mmHg Mitral E Point Velocity 73.5 cm/s Mitral A Point Velocity 87.9 cm/s Mitral E to A Ratio 0.8 MV PHT Velocity 81.4 cm/s MV Deceleration [place] 197.0 cm/s MV Pressure Half Time 124.0 ms MV Area PHT 1.8 cm MV Deceleration Time 264.0 ms TR Peak Velocity 170.0 cm/s TR Peak Gradient 11.6 mmHg Right Atrial Pressure 5.0 mmHg Pulmonary Artery Systolic Pressu 16.6 mmHg Right Ventricular Systolic Press 16.6 mmHg PV Peak Velocity 85.5 cm/s PV Peak Gradient 2.9 mmHg PV Mean Velocity 55.1 cm/s PV Mean Gradient 1.0 mmHg PV Velocity Time Integral 19.8 cm
--- NOTE | 2017-06-21 20:15 | Cons- Neurology ---
General Information and HPI Consulting Request Date of Consult: 06/21/17 Requested By: Davy WHITING,Casandra Source of Information: patient History of Present Illness: 56-year-old male with seizure disorder status post anoxic event About a month ago had an observed seizure and medications were adjusted where he was followed at [facility] Yesterday he felt out of sorts. He states that his speech slowed and he seemed more forgetful than usual There was no observed convulsion He has been taking his medications regularly There was no fall or head injury Symptoms seem to have improved today Allergies/Medications Allergies: Coded Allergies: Iodinated Contrast- Oral and IV Dye (IODINATED CONTRAST MEDIA - IV DYE) (Severe, ANAPHYLAXIS 12/03/15) Sulfa (Sulfonamide Antibiotics) (Severe, HIVES 12/03/15) shellfish derived (Severe, ANAPHYLAXIS 12/03/15) Home Med List: Aspirin (Lo-Dose Aspirin EC) 81 MG TABLET.DR 1 TAB PO DAILY HEART/BLOOD ( Reported) Atorvastatin Calcium 20 MG TABLET 1 TAB PO DAILY CHOLESTEROL (Reported) Clopidogrel Bisulfate (Clopidogrel) 75 MG TABLET 1 TAB PO DAILY BLOOD THINNER (Reported) Levetiracetam 1,000 MG TABLET 1,500 MG PO BID SEIZURES (Reported) Lisinopril 2.5 MG TABLET 1 TAB PO DAILY BP (Reported) Metoprolol Tartrate 25 MG TABLET 1 TAB PO BID HEART/BP (Reported) Spironolactone 25 MG TABLET 1 TAB PO DAILY DIURETIC (Reported) Current Medications: Current Medications Sig/Haven Start time Last Medication Dose Route Stop Time Status Admin Aspirin Buffered 81 MG DAILY 06/20 2040 AC 06/21 PO 0536 Atorvastatin Calcium 20 MG DAILY 06/20 2040 AC 06/21 PO 0536 Clopidogrel Bisulfate 75 MG DAILY 06/20 2040 AC 06/21 PO 0536 Enoxaparin Sodium 40 MG DAILY 06/21 999 AC 06/21 SC 0824 Levetiracetam 1,500 MG BID 06/21 2199 AC PO Levetiracetam 1,500 MG BID 06/20 2199 DC 06/21 PO 0535 Lisinopril 2.5 MG DAILY 06/20 2040 AC 06/21 PO 0542 Metoprolol Succinate 12.5 MG DAILY 06/21 1419 AC 06/21 PO 1715 Multivitamins 1 TAB DAILY 06/21 1000 AC 06/21 PO 0824 Nicotine 14 MG DAILY PRN 06/21 0200 TOP Spironolactone 25 MG DAILY 06/21 1000 AC 06/21 PO 0824 Review of Systems Review of Systems: No headache, diplopia, vertigo, fall, chest pain, breathing difficulty, nausea or vomiting, swelling, focal weakness Other systems reviewed and negative Past History Travel History Traveled to [place] past 21 day No Medical History Blood Transfusion Hx: No Neurological: seizure EENT: NONE Cardiovascular: myocardial infarction, cardaic arrest Respiratory: NONE Gastrointestinal: NONE Hepatic: NONE Renal: NONE Musculoskeletal: NONE Psychiatric: NONE Endocrine: NONE Blood Disorders: NONE Cancer(s): NONE CLOUD CONSULTANT/Reproductive: NONE Surgical History Surgical History: PCI with stent placemnet splenectomy Psychosocial History Where Do You Live? Home Who Do You Live With? brother and niece Primary Language: Bur[place]ian Smoking Status: Current Everyday Smoker ETOH Use: denies use Illicit Drug Use: denies illicit drug use Exam & Diagnostic Data Vital Signs and I&O Vital Signs Date Time Temp Pulse Resp B/P B/P Pulse O2 O2 Flow FiO2 Mean Ox Delivery Rate 06/21 1715 74 104/76 06/21 1522 97.3 74 20 104/76 98 06/21 0800 20 06/21 0600 97.8 51 28 108/78 96 Room Air 06/21 0542 51 108/78 06/20 2234 97.9 64 20 104/68 98 Room Air 06/20 2132 97.8 48 18 110/57 99 Room Air 06/20 2014 51 16 118/72 100 Room Air Intake & Output 06/21 1600 06/21 0800 06/21 0000 Intake Total 480 Output Total Balance 480 Intake, Oral 480 Patient 170 lb Weight Weight Reported by Patient Measurement Method Alert Speech mildly not fluent Extraocular movements full Memory difficulties Visual dunlap intact Pupils equal reactive Facial asymmetry but no weakness Palate tongue and shoulders intact Hearing grossly intact Normal tone and strength upper and lower extremities No sensory loss to light touch Deep tendon reflexes hypoactive throughout Adan to functions and gait intact Last 48 Hours of Lab Results: Laboratory Tests 06/21 06/21 06/21 1330 0647 0055 Chemistry Sodium (137 - 145 mmol/L) 143 Potassium (3.5 - 5.1 mmol/L) 4.0 Chloride (98 - 107 mmol/L) 103 Carbon Dioxide (22 - 30 mmol/L) 28 Anion Gap (5 - 16) 12 BUN (9 - 20 mg/dL) 9 Creatinine (0.7 - 1.2 mg/dL) 0.9 Estimated GFR (>60 ml/min) > 60 BUN/Creatinine Ratio (7 - 25 %) 10.0 Troponin I (<0.11 ng/ml) 0.01 < 0.01 Hematology CBC w Diff NO MAN DIFF REQ WBC (4.8 - 10.8 /CUMM) 6.2 RBC (4.70 - 6.10 /CUMM) 4.46 L Hgb (14.0 - 18.0 G/DL) 13.1 L Hct (42 - 52 %) 39.6 L MCV (80.0 - 94.0 FL) 88.7 MCH (27.0 - 31.0 PG) 29.3 MCHC (33.0 - 37.0 G/DL) 33.0 RDW (11.5 - 14.5 %) 15.5 H Plt Count (130 - 400 /CUMM) 251 MPV (7.4 - 10.4 FL) 8.0 Gran % (42.2 - 75.2 %) 37.6 L Lymphocytes % (20.5 - 51.1 %) 41.6 Monocytes % (1.7 - 9.3 %) 9.8 H Eosinophils % (0 - 5 %) 10.2 H Basophils % (0.0 - 2.0 %) 0.8 Absolute Granulocytes (1.4 - 6.5 /CUMM) 2.3 Absolute Lymphocytes (1.2 - 3.4 /CUMM) 2.6 Absolute Monocytes (0.10 - 0.60 /CUMM) 0.6 Absolute Eosinophils (0.0 - 0.7 /CUMM) 0.6 Absolute Basophils (0.0 - 0.2 /CUMM) 0 Serology Lyme Disease Antibody Pending Toxicology Levetiracetam Pending 06/20 06/20 1616 1340 Chemistry Troponin I (<0.11 ng/ml) < 0.01 Toxicology Urine Opiates Screen (>2000 NG/ML) < 100.00 Methadone Screen (>300 NG/ML) < 40 Barbiturate Screen (>200 NG/ML) < 60 Ur Phencyclidine Scrn (>25 NG/ML) < 6.00 Amphetamines Screen (>1000 NG/ML) < 100 U Benzodiazepines Scrn (>200 NG/ML) < 85 Urine Cocaine Screen (>300 NG/ML) < 50 Urine Cannabis Screen (>50 NG/ML) > 80.00 H Urines Urine Color (YEL,AMB,STR) YEL Urine Clarity (CLEAR) CLEAR Urine pH (5.0 - 8.0) 6.0 Ur Specific [place] (1.001 - 1.035) <= 1.005 Urine Protein (NEG,<30 MG/DL) NEG Urine Ketones (NEG) NEG Urine Nitrite (NEG) NEG Urine Bilirubin (NEG) NEG Urine Urobilinogen (0.1 - 1.0 EU/dl) 0.2 Ur Leukocyte Esterase (NEG) NEG Ur Microscopic EXAM NOT REQUIRED Urine Hemoglobin (NEG) NEG Urine Glucose (N MG/DL) NEG 06/20 1241 Chemistry Sodium (137 - 145 mmol/L) 142 Potassium (3.5 - 5.1 mmol/L) 4.0 Chloride (98 - 107 mmol/L) 102 Carbon Dioxide (22 - 30 mmol/L) 27 Anion Gap (5 - 16) 12 BUN (9 - 20 mg/dL) 9 Creatinine (0.7 - 1.2 mg/dL) 0.8 Estimated GFR (>60 ml/min) > 60 BUN/Creatinine Ratio (7 - 25 %) 11.3 Glucose (65 - 99 mg/dL) 113 H Calcium (8.4 - 10.2 mg/dL) 9.6 Magnesium (1.6 - 2.3 mg/dL) 1.7 Total Bilirubin (0.2 - 1.3 mg/dL) 0.4 AST (17 - 59 U/L) 31 ALT (21 - 72 U/L) 34 Alkaline Phosphatase (< 127 U/L) 124 Troponin I (<0.11 ng/ml) < 0.01 Total Protein (6.3 - 8.2 g/dL) 7.6 Albumin (3.5 - 5.0 g/dL) 4.3 Globulin (1.9 - 4.2 gm/dL) 3.3 Albumin/Globulin Ratio (1.1 - 2.2 %) 1.3 TSH &T3 &Free T4 Intrp (0.27 - 4.20 uIU/mL) 0.859 Hematology CBC w Diff NO MAN DIFF REQ WBC (4.8 - 10.8 /CUMM) 6.1 RBC (4.70 - 6.10 /CUMM) 4.76 Hgb (14.0 - 18.0 G/DL) 13.7 L Hct (42 - 52 %) 42.4 MCV (80.0 - 94.0 FL) 89.1 MCH (27.0 - 31.0 PG) 28.7 MCHC (33.0 - 37.0 G/DL) 32.3 L RDW (11.5 - 14.5 %) 15.8 H Plt Count (130 - 400 /CUMM) 245 MPV (7.4 - 10.4 FL) 7.6 Gran % (42.2 - 75.2 %) 37.1 L Lymphocytes % (20.5 - 51.1 %) 43.9 Monocytes % (1.7 - 9.3 %) 8.8 Eosinophils % (0 - 5 %) 9.7 H Basophils % (0.0 - 2.0 %) 0.5 Absolute Granulocytes (1.4 - 6.5 /CUMM) 2.3 Absolute Lymphocytes (1.2 - 3.4 /CUMM) 2.7 Absolute Monocytes (0.10 - 0.60 /CUMM) 0.5 Absolute Eosinophils (0.0 - 0.7 /CUMM) 0.6 Absolute Basophils (0.0 - 0.2 /CUMM) 0 Imaging/Other Studies: MRI brain IMPRESSION: There are scattered chronic small vessel ischemic changes within the periventricular white matter. No evidence of acute territorial infarct or hemorrhage. Assessment/Plan Assessment: Seizure disorder Possible unwitnessed nonconvulsive seizure Recommendations: Patient resumed previous status Follow-up with [facility] neurology Consult Acknowledgment - Thank you for your consult request.
[2017-06-21 22:45] VITALS: BP 94/58
[2017-06-22 06:43] VITALS: BP 118/72
--- NOTE | 2017-06-22 07:05 | PN- Housestaff ---
Tate WHITING,Kendra 06/22/17 0704: Subjective Follow-up For: Seizure Complaints: no complaints Tele-Events Since Last Visit: Sinus bradycardia heart rate 50 Subjective: Patient was seen and examined at bedside. No overnight events. He offers no complaints. He is alert and oriented 3 He denies confusion, weakness, lethargy, altered sensation, palpitations, chest pain Review of Systems Constitutional: Reports: no symptoms. Cardiovascular: Reports: no symptoms. Respiratory: Reports: no symptoms. Gastrointestinal: Reports: no symptoms. Genitourinary: Reports: no symptoms. Objective Last 24 Hrs of Vital Signs/I&O Vital Signs Date Time Temp Pulse Resp B/P B/P Pulse O2 O2 Flow FiO2 Mean Ox Delivery Rate 06/22 0841 49 118/72 06/22 0643 97.9 49 20 118/72 95 Room Air 06/21 2245 98.4 62 20 94/58 96 Room Air 06/21 1715 74 104/76 06/21 1522 97.3 74 20 104/76 98 Intake & Output 06/22 1600 06/22 0800 06/22 0000 Intake Total 240 450 Output Total Balance 240 450 Intake, Oral 240 450 Number 1 Bowel Movements Physical Exam General Appearance: Alert, Oriented X3, Cooperative, No Acute Distress Cardiovascular: Regular Rate, Normal S1, Normal S2, No Murmurs Lungs: Clear to Auscultation, Normal Air Movement Abdomen: Normal Bowel Sounds, Soft, No Tenderness, No Hepatospenomegaly Neurological: Strength at 5/5 X4 Ext, Normal Tone, Sensation Intact Extremities: No Edema Current Medications: Current Medications Sig/Haven Start time Last Medication Dose Route Stop Time Status Admin Aspirin Buffered 81 MG DAILY 06/20 2040 AC 06/22 PO 0841 Atorvastatin Calcium 20 MG DAILY 06/20 2040 AC 06/22 PO 0841 Clopidogrel Bisulfate 75 MG DAILY 06/20 2040 AC 06/22 PO 0841 Enoxaparin Sodium 40 MG DAILY 06/21 1000 AC 06/22 SC 0904 Levetiracetam 1,500 MG BID 06/21 2199 AC 06/22 PO 0841 Levetiracetam 1,500 MG BID 06/20 2199 DC 06/21 PO 0535 Lisinopril 2.5 MG DAILY 06/20 2040 06/22 PO 0841 Metoprolol Succinate 12.5 MG DAILY 06/21 1419 DC 06/21 PO 1715 Multivitamins 1 TAB DAILY 06/21 1000 AC 06/22 PO 0841 Nicotine 14 MG DAILY PRN 06/21 0200 AC TOP Spironolactone 25 MG DAILY 06/21 1000 AC 06/22 PO 0841 Last 24 Hrs of Lab/Misbah Results Last 24 Hrs of Labs/Mics: Laboratory Tests 06/22/17 0625: Anion Gap 12, Estimated GFR > 60, BUN/Creatinine Ratio 13.0 06/21/17 1330: Lyme Disease Antibody Pending Assessment/Plan Assessment: Patient is a 51-year-old male with PMH significant for cardiac arrest status post 2 stents placed, CAD, seizure disorder, who presented to the ED complaining of lethargy, difficulty finding words, slurred speech and feeling "slow." Problem list #sinus bradycardia #rule out ACS #rule out TIA #chornic medical problems inlcuding seizure disorder, nicotine dependence, CAD Plan Sinus bradycardia/ACS Patient is off beta ramiro. Lyme titer sent. No acute EKG changes. Troponin negative thus far. Head CT negative. MRI shows chronic small vessel ischemic changes. His confusion upon admission can be secondary due to unwitnessed seizures. Echocardiogram shows stage I diastolic dysfunction with an ejection fraction of 60. He is advised to follow up with steam cleaner Dr. Gerber Foster next Sunday. Patient planned to discharge to home today. He is advised to follow-up with the primary care provider and neurologist. He will continue rest of his home medication. #DVT prophylaxis: Lovenox, ALPS #COde stauts: full code Problem List: 1. Change in mental status 2. Symptomatic bradycardia Pain Ratin Pain Location: none Pain Goal: Remain pain free Pain Plan: tylenol Tomorrow's Labs & Rationales: cbc,bep Davy WHITING,Casandra 06/22/17 1138: Attending MD Review Statement Attending Statement Attending MD Statement: examined this patient, discuss w/resident/PA/DIRECTOR OF STUDENT AID, agreed w/resident/PA/DIRECTOR OF STUDENT AID, discussed with family, reviewed EMR data (avail), discussed with nursing, discussed with case mgmt, amended to note Attending Assessment/Plan: Patient seen and examined. Resting comfortably and not in any acute distress. Beta-ramiro therapy was resumed yesterday at the lower dose as recommended by the cardiology service. Overnight he was bradycardic with heart rate in the 40s. He was asymptomatic. He is alert and oriented 3. He is conversing appropriately. MRI shows no evidence of an acute intracranial process. Echocardiogram shows normal ejection fraction with no wall motion abnormality. Symptoms on presentation were likely related to his bradycardia. Cardiology service is recommending discontinuation of beta-ramiro therapy for now. Patient will be discharged home with recommendations to follow-up with the cardiology service as an outpatient.
--- NOTE | 2017-06-22 07:26 | PN- Cardiology ---
Subjective Subjective: Patient remained on tely. He reports no complaints. Objective Vital Signs and I&Os Vital Signs Date Time Temp Pulse Resp B/P B/P Pulse O2 O2 Flow FiO2 Mean Ox Delivery Rate 06/22 0643 97.9 49 20 118/72 95 Room Air 06/21 2245 98.4 62 20 94/58 96 Room Air 06/21 1715 74 104/76 02 1522 97.3 74 20 104/76 98 06/21 0800 20 Intake & Output 06/22 0806/22 0000 06/21 1600 06/21 0806/21 0000 06/20 1600 Intake Total 240 450 480 Output Total Balance 240 450 480 Intake, Oral 240 450 480 Number 1 Bowel Movements Patient 170 lb 170 lb Weight Weight Reported by Patient Reported by Patient Measurement Method Physical Exam: HEENT-PERRLA Neck-JVP normal, no bruits Lungs-clear bilaterally Heart-S1S2 regular bradycardia, no murmur Abdomen-soft, not tender, BS+,no organomegaly, no masses Extr-no edema, 2+ pulses, Skin-no rash Neuro-non focal Vascular-no carotid bruits, 2+ distal pulses Current Medications: Current Medications Sig/Haven Start time Last Medication Dose Route Stop Time Status Admin Aspirin Buffered 81 MG DAILY 06/20 2040 AC 06/21 PO 0536 Atorvastatin Calcium 20 MG DAILY 06/20 2040 AC 06/21 PO 0536 Clopidogrel Bisulfate 75 MG DAILY 06/20 2040 AC 06/21 PO 0536 Enoxaparin Sodium 40 MG DAILY 06/21 999 AC 06/21 SC 0824 Levetiracetam 1,500 MG BID 06/21 2199 AC 06/21 PO 2049 Levetiracetam 1,500 MG BID 06/20 2199 DC 06/21 PO 0535 Lisinopril 2.5 MG DAILY 06/20 2040 AC 06/21 PO 0542 Metoprolol Succinate 12.5 MG DAILY 06/21 1419 AC 06/21 PO 1715 Multivitamins 1 TAB DAILY 06/21 999 AC 06/21 PO 0824 Nicotine 14 MG DAILY PRN 06/21 0200 AC TOP Spironolactone 25 MG DAILY 06/21 999 AC 06/21 PO 0824 Results Last 48 Hrs of Labs/Mics: Laboratory Tests 06/22/17 0625: Sodium Pending, Potassium Pending, Chloride Pending, Carbon Dioxide Pending, Anion Gap Pending, BUN Pending, Creatinine Pending, BUN/Creatinine Ratio Pending 06/21/17 1330: Lyme Disease Antibody Pending 06/21/17 0647: Anion Gap 12, Estimated GFR > 60, BUN/Creatinine Ratio 10.0, Troponin I 0.01, CBC w Diff NO MAN DIFF REQ, RBC 4.46 L, MCV 88.7, MCH 29.3, MCHC 33.0, RDW 15.5 H, MPV 8.0, Gran % 37.6 L, Lymphocytes % 41.6, Monocytes % 9.8 H, Eosinophils % 10.2 H, Basophils % 0.8, Absolute Granulocytes 2.3, Absolute Lymphocytes 2.6, Absolute Monocytes 0.6, Absolute Eosinophils 0.6, Absolute Basophils 0, Levetiracetam Pending 06/21/17 0055: Troponin I < 0.01 06/20/17 1616: Troponin I < 0.01 06/20/17 1340: Urine Opiates Screen < 100.00, Methadone Screen < 40, Barbiturate Screen < 60, Ur Phencyclidine Scrn < 6.00, Amphetamines Screen < 100, U Benzodiazepines Scrn < 85, Urine Cocaine Screen < 50, Urine Cannabis Screen > 80.00 H, Urine Color YEL, Urine Clarity CLEAR, Urine pH 6.0, Ur Specific [place] <= 1.005, Urine Protein NEG, Urine Ketones NEG, Urine Nitrite NEG, Urine Bilirubin NEG, Urine Urobilinogen 0.2, Ur Leukocyte Esterase NEG, Ur Microscopic EXAM NOT REQUIRED, Urine Hemoglobin NEG, Urine Glucose NEG 06/20/17 1241: Anion Gap 12, Estimated GFR > 60, BUN/Creatinine Ratio 11.3, Glucose 113 H, Calcium 9.6, Magnesium 1.7, Total Bilirubin 0.4, AST 31, ALT 34, Alkaline Phosphatase 124, Troponin I < 0.01, Total Protein 7.6, Albumin 4.3, Globulin 3.3 , Albumin/Globulin Ratio 1.3, TSH &T3 &Free T4 Intrp 0.859, CBC w Diff NO MAN DIFF REQ, RBC 4.76, MCV 89.1, MCH 28.7, MCHC 32.3 L, RDW 15.8 H, MPV 7.6, Gran % 37.1 L, Lymphocytes % 43.9, Monocytes % 8.8, Eosinophils % 9.7 H, Basophils % 0.5, Absolute Granulocytes 2.3, Absolute Lymphocytes 2.7, Absolute Monocytes 0.5, Absolute Eosinophils 0.6, Absolute Basophils 0 Microbiology 06/20 1650 NASOPHARYN: Influenza Virus A & B Rapid Smear - COMP Recent Imaging Studies: Echo-normal LVEF, trace MR, TR, MR MRI-results noted Assessment/Plan Assessment/Plan 56 year old male with h/o CAD, LAD and LCX stents in [place] in 2016, s/p cardiac arrest in [place] in January,found to have ISR, s/p angioplasty, anoxic brain injury with resultant seizure disorder. He presents with slurred speech, dizziness. Found to have sinus bradycardia with intermittent junctional beats with resolution of symptoms off beta blockers. Rate improved now mostly in 50's, he feels better, troponins negative. Plan: His LVEF is normal, risk of malignant ventricular arrhytmia is low and we can keep him off betablockers for little longer. I will restart metoprolol succinate when he sees me next week. OK to discharge home off beta blockers. f/u with me next week, then I will schedule ILR (Linq) to evaluated unexplained syncope. Continue Keppra for now. continue other cardiac medications Continue telemetry? No
[2017-06-22 08:41] VITALS: BP 118/72
--- NOTE | 2017-06-22 09:11 | Patient Discharge Instructions ---
Discharge Instructions General Discharge Information You were seen/treated for: Possible unwitnessed seizure, symptomatic bradycardia, Watch for these problems: In case of chest pain, chest pressure, palpitation, loss of consciousness, she says please go to the nearest emergency room Special Instructions: Please follow-up with your neurologist at [facility] within 1-2 weeks of discharge. please follow-up with your primary care physician Kylie Navarro within 1-2 weeks of discharge Please follow-up with your pipe fitter next 06/26/2017 We have held your metoprolol medicine, please discuss with your pipe fitter regarding resuming the medication. Diet Continue normal diet: No Recommended Diet: Heart Healthy Activity Full Activity/No Limits: No Activity Self Limited: Yes Acute Coronary Syndrome Inclusion Criteria At DC or during hospital stay patient has or had the following: ACS DIAGNOSIS No Discharge Core Measures Meds if any: Prescribed or Continued at Discharge Meds if any: NOT Prescribed or Continued at Discharge Congestive Heart Failure Inclusion Criteria At DC or during hospital stay patient has or had the following: CHF DIAGNOSIS No Discharge Core Measures Meds if any: Prescribed or Continued at Discharge Meds if any: NOT Prescribed or Continued at Discharge Cerebrovascular accident Inclusion Criteria At DC or during hospital stay patient has or had the following: CVA/TIA Diagnosis No Discharge Core Measures Meds if any: Prescribed or Continued at Discharge Meds if any: NOT Prescribed or Continued at Discharge Venous thromboembolism Inclusion Criteria VTE Diagnosis No VTE Type NONE VTE Confirmed by (Test) NONE Discharge Core Measures - Per Current guidelines, there needs to be overlap - treatment for the first 5 days of Warfarin therapy. - If discharged on Warfarin prior to 5 days of - overlap therapy, the patient will need to be - assessed for post discharge needs including - *Post discharge parental anticoagulation - *Warfarin and/or parental anticoagulation education - *Follow up date to check INR post discharge At least 5 days overlap therapy as Inpatient No Meds if any: Prescribed or Continued at Discharge Note: Overlap Therapy is Warfarin and Anticoagulant Meds if any: NOT Prescribed or Continued at Discharge
--- NOTE | 2017-06-22 10:31 | Discharge Summary ---
Visit Information Visit Dates Admission Date: 06/20/17 Discharge Date: 06/22/17 Hospital Course Course Attending Physician: Casandra Bhatti MD Primary Care Physician: Unknown Hospital Course: Patient is a 51-year-old male with PMH significant for cardiac arrest status post 2 stents placed, CAD, seizure disorder, who presented to the ED complaining of lethargy, difficulty finding words, slurred speech and feeling "slow." This began the day of admission at 3-4 AM, he was able to sleep and awoke with similar symptoms. He also stated that he hit his head on the corner of a table, but did not lose consciousness. He had one episode of diziness this morning with associated palpitations that lasted for less than one minute. He has never experienced symptoms like this before, but reported significant improvement of his symptoms since this moring. His most recent seizure was 1 month ago, and his Keppra dose was increased from 1 g BID to 1.5 g BID at this time. He denied any chest pain, chest discomfort, lightheadedness, LOC, numbness, or weakness. He follows a neurologist at [facility]. Patient previously used to live in [place] 9 months ago. Recently he moved to [place]. He is following Dr. Smith crisis mental health therapist as an outpatient for the past 2 weeks. Hospital course Possible Unwitnessed seizure/symptomatic bradycardia: His acute confusion and altered mental status can be secondary due to unwitnessed seizures/stroke-head CT and MRI-were negative. He had elevated troponin with no EKG changes. This was most likely demand ischemia. He also presented with symptomatic bradycardia. His metoprolol was held during the hospital course. He was followed by Dr. Alvarez who suggested to monitor him off metoprolol and follow up with him next week. He has planned to do Linq monitor as outpatient. Lyme titer sent. We will send him home today with his home medication. He is advised to follow- up with Dr. Lombardi, his neurologist and primary care physician as outpatient. Complications: none Allergies: Coded Allergies: Iodinated Contrast- Oral and IV Dye (IODINATED CONTRAST MEDIA - IV DYE) (Severe, ANAPHYLAXIS 12/03/15) Sulfa (Sulfonamide Antibiotics) (Severe, HIVES 12/03/15) shellfish derived (Severe, ANAPHYLAXIS 12/03/15) Pertinent Lab Results: heat ct IMPRESSION: No intracranial hemorrhage, large infarction, mass lesion or hydrocephalus. chest xray IMPRESSION: Unremarkable chest radiograph. No consolidative disease or effusion. Echo CONCLUSIONS Normal size left ventricle. Normal left ventricular size and wall thickness. Normal left ventricular ejection fraction visually estimated at > 60%. Abnormal relaxation filling pattern of the left ventricle for age (stage 1 diastolic dysfunction). Trace mitral regurgitation. Trace tricuspid regurgitation. Trace pulmonic regurgitation. head MRI IMPRESSION: There are scattered chronic small vessel ischemic changes within the periventricular white matter. No evidence of acute territorial infarct or hemorrhage. Disposition Summary Disposition Principal Diagnosis: Symptomatic bradycardia Seizure disorder Additional Diagnosis: Coronary artery disease. Discharge Disposition: home or self care Discharge Instructions General Discharge Information Code Status: Full Code Patient's Diet: REGULAR DIET Patient's Activity: TOLERATED Follow-Up Instructions/Appts: Special Instructions: Please follow-up with your neurologist at [facility] within 1-2 weeks of discharge. please follow-up with your primary care physician Kylie Navarro within 1-2 weeks of discharge Please follow-up with your crisis mental health therapist next 06/26/2017 We have held your metoprolol medicine, please discuss with your crisis mental health therapist regarding resuming the medication. Medications at Discharge Discharge Medications: Stop taking the following medications: Metoprolol Tartrate (Metoprolol Tartrate) 25 MG TABLET ORAL TWICE DAILY Qty = 180 Continue taking these medications: Lisinopril (Lisinopril) 2.5 MG TABLET 1 Tablet ORAL DAILY Qty = 90 Comments: Last Taken: 06/22/17 Time: 0840 AM Atorvastatin Calcium (Atorvastatin Calcium) 20 MG TABLET 1 Tablet ORAL DAILY Qty = 90 Comments: Last Taken: 06/22/17 Time: 0840 AM Spironolactone (Spironolactone) 25 MG TABLET 1 Tablet ORAL DAILY Qty = 90 Comments: Last Taken: 06/22/17 Time: 0840 AM Clopidogrel Bisulfate (Clopidogrel) 75 MG TABLET 1 Tablet ORAL DAILY Qty = 90 Comments: Last Taken: 06/22/17 Time: 0840 AM Aspirin (Lo-Dose Aspirin EC) 81 MG TABLET.DR 1 Tablet ORAL DAILY Qty = 30 Comments: Last Taken: 06/22/17 Time: 0840 AM Levetiracetam (Levetiracetam) 1,000 MG TABLET 1,500 Milligram ORAL TWICE DAILY Qty = 90 Comments: Last Taken: 06/22/17 Time: 0840 AM Copies To: Lilibeth WHITING,Gerber Attending MD Review Statement Documenting Attending: Casandra Bhatti MD Other Findings: Discharged in stable condition.
== END 2017-06-22 12:00 | DRG 53 ==
LOC: ERH 12:14 → 1NO 18:19 → ERHI 18:19 → ENRESERV 19:39 → ENTRNSPT 22:10 → EDTRNSPTSTS 22:16 → 1NO 22:23 → CMPTRNSPT 22:35 → 1NO 06-21 08:22 → ENPENDDIS 06-22 10:27 → 1NO 06-22 12:00
PROVIDERS: Emergency Medicine; Student in an Organized Health Care Education/Training Program
DX: G40.909 Epilepsy, unspecified, not intractable, without status epilepticus (principal); R00.1 Bradycardia, unspecified; F17.200 Nicotine dependence, unspecified, uncomplicated; I25.10 Atherosclerotic heart disease of native coronary artery without angina pectoris; Z95.5 Presence of coronary angioplasty implant and graft; I25.2 Old myocardial infarction; Z86.74 Personal history of sudden cardiac arrest; F17.210 Nicotine dependence, cigarettes, uncomplicated; Z91.19 Patient's noncompliance with other medical treatment and regimen; G93.1 Anoxic brain damage, not elsewhere classified; I65.21 Occlusion and stenosis of right carotid artery
CPT/HCPCS: 1NSP; 70551; 86618; 36415; 71046; 80307; 81003; 82436; 87804; 87804-59; 93005; 93010; 93306; J1650; J1953

== ENCOUNTER 2017-07-25 17:07 | Inpatient (IN) | payer OTHER ==
[~2017-07-25] VITALS: Ht 175.3 cm; Wt 83.6 kg
[~2017-07-25 17:07] MED LIST changes: +ATORVASTATIN CA20 M1 PO; +CLOPIDOGREL75 M1 PO; +LEVETIRACETAM1000 M1 PO; +LISINOPRIL2.5 M1 PO; +LO-DOSE ASPIRIN81 MG PO; +METOPROLOL TART25 M1 PO; +SPIRONOLACTONE25 M1 PO
--- NOTE | 2017-07-25 17:21 | ED CARDIAC/CP/PALPITATIONS ---
History of Present Illness General Chief Complaint: General Adult Stated Complaint: PT IS HAVING SEZUIRES AND LIGHT HEADED Source: patient, old records Exam Limitations: no limitations Vital Signs & Intake/Output Vital Signs & Intake/Output Vital Signs Date Time Temp Pulse Resp B/P B/P Pulse O2 O2 Flow FiO2 Mean Ox Delivery Rate 07/25 1815 78 18 127/84 100 Room Air 07/25 1714 103 15 151/99 97 Room Air Room Air Allergies Coded Allergies: Iodinated Contrast- Oral and IV Dye (IODINATED CONTRAST MEDIA - IV DYE) (Severe, ANAPHYLAXIS 07/25/17) Sulfa (Sulfonamide Antibiotics) (Severe, HIVES 07/25/17) shellfish derived (Severe, ANAPHYLAXIS 07/25/17) blueberry (HIVES 07/25/17) Reconcile Medications Aspirin (Lo-Dose Aspirin EC) 81 MG TABLET.DR 1 TAB PO DAILY HEART/BLOOD ( Reported) Atorvastatin Calcium 20 MG TABLET 1 TAB PO DAILY CHOLESTEROL (Reported) Clopidogrel Bisulfate (Clopidogrel) 75 MG TABLET 1 TAB PO DAILY BLOOD THINNER (Reported) Levetiracetam 1,000 MG TABLET 1,500 MG PO BID SEIZURES (Reported) Lisinopril 2.5 MG TABLET 1 TAB PO DAILY BP (Reported) Metoprolol Tartrate 25 MG TABLET 1 TAB PO BID HEART/BP (Reported) Spironolactone 25 MG TABLET 1 TAB PO DAILY DIURETIC (Reported) Triage Note: PT TO ED FOR C/C OF SUDDEN ONSET OF CHEST PAIN 10 WHILE WATCHING TV 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 PT HAS HX OF MA AND CARDIAC ARREST. ALSO FEELS LIGHTHEADED AND FEELS LIKE HE MIGHT HAVE A SEIZURE. Triage Nurses Notes Reviewed? yes Onset: Abrupt Duration: minute(s): (30), better, resolved prior to arrival Timing: recent history Quality/Severity: moderate, aching Location: substernal Radiation: no radiation Activities at Onset: none Prior Chest Pain/Card Workup: cardiac cath, heart attack Nitro Today/Relief: no nitro taken today Aspirin Today: 325 mg x 1, provided at home Associated Symptoms: denies HPI: 56 Year old male with history of CAD, LAD and LCX stents in 2017, s/p cardiac arres,found to have anoxic brain injury with resultant seizure disorder compliant on keppra presents to the ER for evaluation today c/o sudden onset of chest pain substernal in nature nonradiating 30 minutes ago now resolved. pain was nonradiating he was watching TV when it started. no dyspnea, no abd pain, n/ v/d however pt reports he feels like he is going to have a seizure. last seizure was 1 week ago. his firmware developer is dr samson. no pain at this time. he reports to cannabis use, no cocaine etoh or drug use. He took asa captain cannery tender. nothing made pain better or worse. (Sai Murphy) Past History Travel History Traveled to [place] past 21 day No Medical History Any Pertinent Medical History? see below for history Neurological: seizure EENT: NONE Cardiovascular: myocardial infarction, cardaic arrest Respiratory: NONE Gastrointestinal: NONE Hepatic: NONE Renal: NONE Musculoskeletal: NONE Psychiatric: NONE Endocrine: NONE Blood Disorders: NONE Cancer(s): NONE FAMILY DINNER SERVICE SPECIALIST/Reproductive: NONE History of MRSA: No History of VRE: No History of CDIFF: No Surgical History Surgical History: PCI with stent placemnet splenectomy Psychosocial History Who do you live with Brother What is your primary language Azeri Tobacco Use: Current Daily Use Daily Tobacco Use Amount/Type: => 5 Cigarettes daily ETOH Use: denies use Illicit Drug Use: marijuana Family History Hx Contributory? No (Sai Murphy) Review of Systems Review of Systems Constitutional: Reports: see HPI. Comments Review of systems: See HPI, All other systems negative. Constitutional, no chills no fever, HEENT: no sore throat no congestion Cardiovascular: chest pain, no palpitation Skin: no rashes, no change in skin Respiratory: No dyspnea no cough no sputum GI: No nausea no vomiting, no diarrhea, Muscle skeletal: No joint pain, no back pain Neurologic: , no headache Heme/endocrine: No bruising (Sai Murphy) Physical Exam Physical Exam General Appearance: well developed/nourished, no apparent distress, alert Cardiovascular: regular rate/rhythm Comments: Well-developed well-nourished person in no acute distress HEENT: Normal EENT exam; PERRL, EOMI. HEAD is atraumatic. moist mucous membranes. Neck: Supple, no lymphadenopathy, normal range of motion Back: Nontender, no CVA tenderness. Full range of motion Cardiovascular: Regular rate and rhythms no murmurs rub Respiratory: Chest nontender.There were no bony deformities, no asymmetry. No respiratory distress. Patient speaking in full complete sentences. Breath sounds clear to auscultation bilaterally: NO W/R/R Abdomen: Soft, nontender nondistended Extremity: No edema, full range of motion of extremities, Neuro: Alert oriented x3, motor sensory normal, There were no obvious focal neurologic abnormalities. Skin: No appreciable rash on exposed skin, skin is warm and dry. Psych: Mood and affect is normal, memory and judgment is normal. Core Measures ACS in differential dx? Yes CVA/TIA Diagnosis No Sepsis Present: No Sepsis Focused Exam Completed? No (Mayito AVINA,Sai) Progress Differential Diagnosis: AMI, aortic dissection, atrial fibrillation, CHF/pulm edema, musculoskeletal pain, myocarditis, pancreatitis, pericarditis, pneumonia, pneumothorax, pulmonary embolism, PVCs/PACs, unstable angina Plan of Care: Orders Procedure Date/time Status Heart Healthy Diet 07/[address] in observation 07/25 1904 Active ED Holding Orders 07/25 190 Active Vital Signs 07/25 190 Active Code Status 07/25 190 Active PARTIAL THROMBOPLASTIN TIME 07/25 172 Complete PROTHROMBIN TIME 07/25 1724 Complete Telemetry/Card Lacer 07/25 1721 Active URINE DRUG SCREEN FOR ER ONLY 07/25 1721 Active TROPONIN LEVEL 07/25 1721 Complete ETHANOL 07/25 172 Complete COMPREHENSIVE METABOLIC PANEL 07/25 1721 Complete CBC WITHOUT DIFFERENTIAL 07/25 172 Complete EKG 07/25 1708 Active Laboratory Tests 07/25/17 1723: Anion Gap 12, Estimated GFR > 60, BUN/Creatinine Ratio 15.0, Glucose 83, Calcium 9.5, Total Bilirubin 0.6, AST 34, ALT 42, Alkaline Phosphatase 141 H, Troponin I < 0.01, Total Protein 7.5, Albumin 4.4, Globulin 3.1, Albumin/Globulin Ratio 1.4, PT 12.4, INR 1.14, APTT 33, CBC w Diff NO MAN DIFF REQ, RBC 4.98, MCV 88.8, MCH 28.4, MCHC 32.0 L, RDW 15.1 H, MPV 7.6, Gran % 54.9, Lymphocytes % 33.0, Monocytes % 9.8 H, Eosinophils % 1.9, Basophils % 0.4, Absolute Granulocytes 6.1, Absolute Lymphocytes 3.7 H, Absolute Monocytes 1.1 H, Absolute Eosinophils 0.2, Absolute Basophils 0, Serum Alcohol < 10.0 Labs ordered old records reviewed patient denies pain at this time case discussed with Dr. Krueger who agrees with plan. 1800 pt resting in nad, nsr on monitor. call placed to dr samson 1819 I left a message with Dr. Samson's voicemail for callback, case d/w and signed out to dr krueger pending call back from cardio (Sai Murphy) 7 PM D/W DR SAMSON, WILL EVALUATE THE PATIENT. D/W HOSPITALIST DR SORIANO FOR TELE OBSERVATION. (Gabi Krueger MD) Diagnostic Imaging: Viewed by Me: Radiology Read. Discussed w/RAD: Radiology Read. Radiology Impression: PATIENT: LANA TOUSSAINT PRESENT AGE: 56 PATIENT ACCOUNT NO: [id number] : 61 LOCATION: [facility] ORDERING PHYSICIAN: Sai AVINA SERVICE DATE: 07/25/17 EXAM TYPE: RAD - XRY- PORTABLE CHEST XRAY EXAMINATION: XR PORTABLE CHEST CLINICAL INFORMATION: Chest pain. COMPARISON: Chest x-ray 06/20/2017 TECHNIQUE: Portable frontal view of the chest was obtained. 5:23 PM FINDINGS: No significant abnormality is noted involving the heart, lungs, mediastinum, bony thorax or soft tissues. There is an electronic device projecting over the left cardiac silhouette. There is a tiny metallic foci in the left upper quadrant unchanged since prior chest x-ray. IMPRESSION: No acute abnormality of the chest. DICTATED BY: Ant Estrada MD DATE /TIME DICTATED:07/25/171754 MANAGER MAC:GLORIA DATE/TIME TRANSCRIBED: 07/25/171754 CONFIDENTIAL, DO NOT COPY WITHOUT APPROPRIATE AUTHORIZATION. < Electronically signed in Other Vendor System> SIGNED BY: Ant Estrada MD 1800 Initial ED EKG: normal sinus rhythm, nonspecific ST T wave chg Prior EKG: changed (06/2017) Rhythm Strip: normal sinus rhythm Hand-Off Endorsed To: Gabi Krueger MD Endorsed Time: 1837 Pending: consult (cardio) (Sai Murphy) Departure Departure Disposition: STILL A PATIENT Condition: Stable Clinical Impression Primary Impression: Chest pain Secondary Impressions: Acute electrocardiogram changes Referrals: Unknown (PCP/Family) Departure Forms: Customer Survey General Discharge Information (Sai Murphy) Departure Time of Disposition: 1905 Observation Note Spoke With: Nomi WHITING,Bryce Physician Advisor Notified: LESLIE GARCÍAMARGARITA Greg Place Patient In: Non-ED OBS Care Area Rationale for Observation: My rational for observation is as follows [TELE MONITOR, SERIAL EKG/TROPONIN, ASPIRIN, NITRATES, BETA BLOCKERS, ECHOCARDIOGRAM, CARDIOLOGY EVALUATION]. PA/MACHINE COMPOSITOR Co-Sign Statement Statement: ED Attending supervision documentation- [X] I saw and evaluated the patient. I have also reviewed all the pertinent lab results and diagnostic results. I agree with the findings and the plan of care as documented in the PA's/MACHINE COMPOSITOR's documentation. [X] I have reviewed the ED Record and agree with the PA's/MACHINE COMPOSITOR's documentation. [] Additions or exceptions (if any) to the PAs/MACHINE COMPOSITOR's note and plan are summarized below: [] (Jas WHITING,Gabi) Critical Care Note Critical Care Note Critical Care Time: non-applicable (Sai Murphy)
[2017-07-25 17:33] LABS: ABSOLUTE BASOPHIL COUNT 0 /CUMM (0.0-0.2); ABSOLUTE EOSINOPHIL COUNT 0.2 /CUMM (0.0-0.7); ABSOLUTE GRANULOCYTE CT 6.1 /CUMM (1.4-6.5); ABSOLUTE LYMPH COUNT 3.7 /CUMM (1.2-3.4); ABSOLUTE MONOCYTE COUNT 1.1 /CUMM (0.10-0.60); BASOPHIL % 0.4 % (0.0-2.0); EOSINOPHIL % 1.9 % (0-5); GRANULOCYTE % 54.9 % (42.2-75.2); HEMATOCRIT 44.2 % (42-52); MEAN CORPUSCULAR HGB 28.4 PG (27.0-31.0); MEAN CORPUSCULAR VOLUME 88.8 FL (80.0-94.0); MEAN PLATELET VOLUME 7.6 FL (7.4-10.4); PLATELET COUNT 259 /CUMM (130-400); RBC DISTRIBUTION WIDTH 15.1 % (11.5-14.5); RED BLOOD CELL CT 4.98 /CUMM (4.70-6.10); WHITE BLOOD CELL COUNT 11.1 /CUMM (4.8-10.8)
[2017-07-25 17:41] LABS: PT 12.4 SEC (9.4-12.5); PTT 33 SEC (25-37)
--- NOTE | 2017-07-25 18:00 | RADIOLOGY REPORT ---
EXAMINATION: XR PORTABLE CHEST CLINICAL INFORMATION: Chest pain. COMPARISON: Chest x-ray 06/20/2017 TECHNIQUE: Portable frontal view of the chest was obtained. 5:23 PM FINDINGS: No significant abnormality is noted involving the heart, lungs, mediastinum, bony thorax or soft tissues. There is an electronic device projecting over the left cardiac silhouette. There is a tiny metallic foci in the left upper quadrant unchanged since prior chest x-ray. IMPRESSION: No acute abnormality of the chest.
[2017-07-25] MEDS ORDERED: METOPROLOL TART25 M1 PO (18:26)
--- NOTE | 2017-07-25 20:01 | History & Physical ---
Alejo WHITING,[facility] 07/25/17 2000: General Information and HPI Statement: I have seen and personally examined LANA TOUSSAINT and documented this H&P. The patient is a 56 year old M who presented with a patient stated chief complaint of [CHEST PAIN]. Source of Information: patient Exam Limitations: no limitations History of Present Illness: 51-year-old male with PMH significant for cardiac arrest status post 2 stents placed, CAD, and seizure disorder presenting for chest pain. The patient states he was sitting in his chair and states he had a palpitation and then diffuse left chest pain. States he had had this pain before but does not exactly remember. The patient states that he walked to the ED. He states that the CP subsided in the ED after his medication (which was lorazepam). He also states that his hands were cramping and he is unsure wether this is a seizure symptom because he cannot remember his seizures. The patient staets he was in [place] last week and also had a seizure. He states that he had increased keppra. He also states he had sweating, fatigue, and lightheadedness. He denies SOB and dizzyness. Allergies/Medications Allergies: Coded Allergies: Iodinated Contrast- Oral and IV Dye (IODINATED CONTRAST MEDIA - IV DYE) (Severe, ANAPHYLAXIS 07/25/17) Sulfa (Sulfonamide Antibiotics) (Severe, HIVES 07/25/17) shellfish derived (Severe, ANAPHYLAXIS 07/25/17) blueberry (HIVES 07/25/17) Past History Travel History Traveled to [place] past 21 day No Medical History Neurological: seizure EENT: NONE Cardiovascular: myocardial infarction, cardaic arrest Respiratory: NONE Gastrointestinal: NONE Hepatic: NONE Renal: NONE Musculoskeletal: NONE Psychiatric: NONE Endocrine: NONE Blood Disorders: NONE Cancer(s): NONE 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 brother and niece Primary Language: Indonesian Smoking Status: Current Everyday Smoker ETOH Use: denies use Illicit Drug Use: marijuana Review of Systems Review of Systems Constitutional: Reports: see HPI, diaphoresis, malaise, weakness. Neurological/Psychological: Reports: see HPI (lightheadedness). Exam & Diagnostic Data Last 24 Hrs of Vital Signs/I&O Vital Signs Date Time Temp Pulse Resp B/P B/P Pulse O2 O2 Flow FiO2 Mean Ox Delivery Rate 07/25 2149 Room Air 07/25 2120 87 16 112/78 97 Room Air 07/25 2005 89 18 112/67 97 Room Air 07/25 1815 78 18 127/84 100 Room Air 07/25 1714 103 15 151/99 97 Room Air Room Air Physical Exam General Appearance Alert, Oriented X3, Cooperative, patient appears lethargic. possibly 2/2 to lorazepam. states he uses marijuana and continues to smoke cigarettes Cardiovascular Regular Rate, Normal S1, Normal S2 Lungs Clear to Auscultation, Normal Air Movement Abdomen Normal Bowel Sounds, Soft, No Tenderness Extremities 2+ radial, mild L chest tenderness to palpation Last 24 Hrs of Labs/Misbah: Laboratory Tests 07/25/17 1723: Anion Gap 12, Estimated GFR > 60, BUN/Creatinine Ratio 15.0, Glucose 83, Calcium 9.5, Total Bilirubin 0.6, AST 34, ALT 42, Alkaline Phosphatase 141 H, Troponin I < 0.01, Total Protein 7.5, Albumin 4.4, Globulin 3.1, Albumin/Globulin Ratio 1.4, PT 12.4, INR 1.14, APTT 33, CBC w Diff NO MAN DIFF REQ, RBC 4.98, MCV 88.8, MCH 28.4, MCHC 32.0 L, RDW 15.1 H, MPV 7.6, Gran % 54.9, Lymphocytes % 33.0, Monocytes % 9.8 H, Eosinophils % 1.9, Basophils % 0.4, Absolute Granulocytes 6.1, Absolute Lymphocytes 3.7 H, Absolute Monocytes 1.1 H, Absolute Eosinophils 0.2, Absolute Basophils 0, Serum Alcohol < 10.0 Assessment/Plan Assessment: A: 51-year-old male with PMH significant for cardiac arrest status post 2 stents placed, CAD, and seizure disorder presenting for chest pain. P: #chest pain r/o ACS Trop <.01 CXR negative -serial ekg and trops to r/o ACS #hx of seizures Pt thought he was about to have a seizure in ED Received 1mg lorazepam -cont keppra 1500 BID #lethargy? ?2/2 to ativan or illicit drugs -f/u utox #mild leukocytosis WBC 11.1 -most likely reactive. cont to monitor. pt afebrile #cad s/p stent -cont aspirin, plavix #hx of bradycardia seen by cardiology in ED -will reduce metorpolol to 12.5mg BID in AM #htn -cont spironolactone, lisinopril, #DVT ppx -heparin subq #FULL CODE As Ranked By This Provider Problem List: 1. Chest pain 2. Seizure Core Measures/Misc (02/04) Acute Coronary Syndrome ACS Diagnosis: No Congestive Heart Failure Congestive Heart Failure Diagnosis No Cerebrovascular Accident CVA/TIA Diagnosis: No VTE (View Protocol) VTE Risk Factors Acute Medical Illness No Mechanical VTE Prophylaxis d/t Other No VTE Pharm Prophylaxis d/t NA PharmProphylax ordered Sepsis (View protocol) Sepsis Present: No Nomi WHITING, [facility] 07/25/17 2006: Attending MD Review Statement Attending Statement Attending MD Statement: examined this patient, discuss w/resident/PA/FACING CUTTING MACHINE OPERATOR, agreed w/resident/PA/FACING CUTTING MACHINE OPERATOR, reviewed images, amended to note Attending Assessment/Plan: 56 yo M smoker, with h/o CAD s/p LAD and LCX stents (2016), subsequent cardiac arrest in Jan 2017 instent thrombosis requiring angioplasty, anoxic brain injury resulting in seizure disorder, is here for evaluation of left sided sharp chest pain that occurred at rest while he was watching TV. This was associated with dyspnea, headache, dizziness and palpitations. He felt as if he was going to have a seizure. So he walked up to the ED. He received ativan but did not have a tonic-clonic seizure. His last seizure was 1 week ago when he was at [place] unclear if his keppra dose was increased (claim history reports 1500 BID). He reports he is compliant with his medications. He continues to use marijuana. Patient was recently admitted to [facility] (06/20 06/22) for symptomatic bradycardia, was taken off metoprolol and he followed up with Dr. Mcelroy who placed a Linq monitor 3 weeks ago. Vitals stable, except for HR 80-100's. Exam: awake, slightly lethargic but reports that he is feeling tired. Linq device subcutaneous in the left chest. Unremarkable exam. Labs: WBC 11.1, trop neg. Alcohol < 10. CXR: no abnormality. EKG: sinus rhythm, T-wave flattening V4-6 (were inverted on previous EKG), Qtc 450. Echo (2018): EF > 60%, stage 1 diastolic dysfunction. Assessment and plan: 1. Chest pain, rule out ACS 2. History of CAD s/p stents and cardiac arrest from instent thrombosis 3. History of bradycardia 4. Seizure disorder from underlying anoxic brain injury - 23 hour observation on Telemetry - Monitor for arrhythmias - Serial EKG and troponin - No need to repeat echo - Resume metoprolol at lower dose, watch for bradycardia - ?Interrogate Linq device - Cardio Dr. Mcelroy seen patient in ER - PRN nitro SL for chest pain - Continue aspirin, plavix, atorvastatin, lisinopril and spirinolactone - Watch for seizures - Continue keppra 1500 BID - Consider checking keppra levels - Smoking cessation counseling - Check urine tox screen - Hold off nicotine patch DVT ppx Lovenox. Full code. Observation Initial Note - I have personally examined LANA TOUSSAINT on 07/25/17 at 2006. The disposition of LANA TOUSSAINT is uncertain at this time and before a determination can be made, he requires a period of observation for the following reasons [Chest pain at rest in a patient with history of CAD] Isabella Silva 07/25/17 2017: General Information and HPI Allergies/Medications Home Med list Aspirin (Lo-Dose Aspirin EC) 81 MG TABLET.DR 1 TAB PO DAILY HEART/BLOOD ( Reported) Atorvastatin Calcium 20 MG TABLET 1 TAB PO DAILY CHOLESTEROL (Reported) Clopidogrel Bisulfate (Clopidogrel) 75 MG TABLET 1 TAB PO DAILY BLOOD THINNER (Reported) Levetiracetam 1,000 MG TABLET 1,500 MG PO BID SEIZURES (Reported) Lisinopril 2.5 MG TABLET 1 TAB PO DAILY BP (Reported) Metoprolol Tartrate 25 MG TABLET 1 TAB PO DAILY ARRYTHMIA Spironolactone 25 MG TABLET 1 TAB PO DAILY DIURETIC (Reported) Resident Review Statement Resident Statement: discussed with international banker, agreed with international banker, amended to note Other Findings: Ms Toussaint is a 56 year old man with a past history of coronary artery disease status post PCI (LAD, LCx dx'ed 2017 , history of cardiac arrest resulting in anoxic brain injury and seizure disorder on Keppra, 9 history of stent stenosis status post angioplasty, came to [facility] for chief concern of acute onset of chest pain that started approximately 30 minutes prior to presentation. Nonexertional, he was watching TV at the time, and walked up to the ED. Symptoms resolved after he received ativan in the ED. No associated dyspnea, abdominal pain, nausea or vomiting. As per the patient, it felt like he was going to have a seizure at that time. Follows up with Dr. Foster. No history of IVDA, but uses cannabis regularly. Last use of cocaine was many years ago, and give no history of recent use of cocaine. Linq device in place. Current smoker 30 pack year history, but decreased to 2-5cigarettes a day. At the time of admission, vitals pulse rate 103, blood pressure 151/99 (improved to 127/84, pulse ox 97% on room air. White count 11.1, hemoglobin 14.1, platelets 259. Sodium 140, potassium 3.7, bicarbonate 27, renal function: BUN 12, serum creatinine 0.8, liver chemistries-AST 34, ALT 42, alkaline phosphatase 141. Cardiac enzymes-troponin I0.01, required ventilation profile: PT 12.4, INR 1.14. U jfw-[id number]-[id number] alcohol less than 10. General Exam: AAOx3, No acute distress, Skin: No rashes, no breakdown, mild tenderness around the area where the device is in place. HEENT: PERRLA, EOMI Neck: Supple, No JVD No cervical lymphadenopathy CVS: Reg Rate, Normal S1,S2, No MGR Resp: Normal air entry, no ronchi/rales Abdomen: Soft, No tenderness, Normal Bowel Sounds Neuro: Normal Speech, Strength 5/5 b/l x 4 extremities, Sensation intact, CN III -XII NL, Reflexes 2+ Extremities: No cyanosis, pedal edema Last echocardiogram 2018: Normal size left ventricle. Normal left ventricular size and wall thickness. Normal left ventricular ejection fraction visually estimated at > 60%. Abnormal relaxation filling pattern of the left ventricle for age (stage 1 diastolic dysfunction). Trace mitral regurgitation. Trace tricuspid regurgitation. Trace pulmonic regurgitation. #1 rule out ACS #2 history of seizures Etiology in his case would very well be cardiac, given his risk factors and his recent cardiac history. Other causes such as costochondritis, gastroesophageal reflux, anxiety could be possible. Regardless, he needs to be monitored for at least 24 hours with serial EKGs and cardiac enzymes. Plan: #1 chest pain-likely unstable angina, rule out ACS -Aspirin 3251 given in ED - Monitor - 23 hr obs on tele -Aspirin 81 mg, plavix daily -Serial EKGs, troponins -Beta ramiro, statin. -Monitor for any chest pain, nitroglycerin if needed #2 history of seizure secondary to anoxic brain injury -Continue home dose of Keppra - Check Keppra levels #3 history of bradycardia - Currently has HR above 90s - As per the mud mixer, would start metoprolol at a low dose 12.5 mg BID. Housekeeping: #1 DVT prophylaxis-subcutaneous heparin #2 GI prophylaxis-Protonix prn #3 medical reconciliation- #4 CODE STATUS-full code #5 diet-heart healthy diet #6 lines-peripheral
--- NOTE | 2017-07-25 21:03 | Cons- Cardiology ---
General Information and HPI Consulting Request Date of Consult: 07/25/17 Requested By: Gabi Mark MD Reason for Consult: Chest pain Source of Information: patient Exam Limitations: no limitations History of Present Illness: I was asked by Dr. Gabi Mark in ED to evaluate patient for chest pain. 56 year old male with h/o CAD, LAD and LCX stents in [place] in 2016, s/p cardiac arrest in [place] in January,found to have ISR, s/p angioplasty, anoxic brain injury with resultant seizure.He is unable to work due seizure and anoxic brain injury. He still smokes 1/2 ppd. He had seizure episode in April 2017, troponin was 0.21, diagnostic cath revealed patent LAD, LCX stents, 30% distal RCA stenosis. Patient was hospitalized at [facility] 5 weeks ago with generalized weakniess, bradycardia, weaned off metoprolol. He was discharged home and I implanted Linq monitor 2 weeks later for unexplained syncope. His echo showed normal LVEF, MRI brain normal. He was hospitalized in [place] last week with another seizure episode without syncope. Patient tells me that his dose of Keppra was increased. He developed left sided chest pressure today in the afernoon which lasted for about 30 min and was associated with diaphoresis. He did not feel good and walked to ER. He is currently chest pain free. Allergies/Medications Allergies: Coded Allergies: Iodinated Contrast- Oral and IV Dye (IODINATED CONTRAST MEDIA - IV DYE) (Severe, ANAPHYLAXIS 07/25/17) Sulfa (Sulfonamide Antibiotics) (Severe, HIVES 07/25/17) shellfish derived (Severe, ANAPHYLAXIS 07/25/17) blueberry (HIVES 07/25/17) Home Med List: Aspirin (Lo-Dose Aspirin EC) 81 MG TABLET.DR 1 TAB PO DAILY HEART/BLOOD ( Reported) Atorvastatin Calcium 20 MG TABLET 1 TAB PO DAILY CHOLESTEROL (Reported) Clopidogrel Bisulfate (Clopidogrel) 75 MG TABLET 1 TAB PO DAILY BLOOD THINNER (Reported) Levetiracetam 1,000 MG TABLET 1,500 MG PO BID SEIZURES (Reported) Lisinopril 2.5 MG TABLET 1 TAB PO DAILY BP (Reported) Metoprolol Tartrate 25 MG TABLET 1 TAB PO BID HEART/BP (Reported) Spironolactone 25 MG TABLET 1 TAB PO DAILY DIURETIC (Reported) Current Medications: Current Medications Sig/Haven Start time Last Medication Dose Route Stop Time Status Admin Aspirin 0 .STK-MED ONE 07/25 2053 DC PO Aspirin 325 MG ONCE ONE 07/25 2044 UNVr 07/25 PO 07/25 Lorazepam 1 MG ONCE ONE 07/25 1814 DC 07/25 IV 07/25 Lorazepam 0 .STK-MED ONE 07/25 1813 DC .ROUTE Review of Systems Review of Systems Constitutional: Reports: weakness. Denies: no symptoms, see HPI, chills, diaphoresis, fever, malaise, unexplained weight loss. EENTM: Denies: no symptoms, see HPI, blurred vision, double vision, visual changes, eye pain, eye drainage, eye tearing, icterus, ear discharge, ear pain, ear redness, hearing changes, nasal congestion, epistaxis, nasal pain, throat pain, throat swelling, mouth pain, tooth pain. Cardiovascular: Reports: chest pain. Denies: no symptoms, see HPI, edema, orthopena, palpitations, peripheral edema, syncope. Respiratory: Denies: no symptoms, see HPI, cough, hemoptysis, orthopnea, short of breath, sputum production, stridor, wheezing. GI: Denies: no symptoms, see HPI, abdominal pain, bloating, constipation, diarrhea, distention, bowel incontinence, melena, nausea, bloody stool, changes in stool, vomiting, steatorrhea. Genitourinary: Denies: no symptoms, see HPI, discharge, dysuria, frequency, hematuria, hesitation, nocturia, pain, urgency. Musculoskeletal: Denies: no symptoms, see HPI, back pain, gout, joint pain, joint swelling, muscle pain, muscle stiffness, neck pain. Skin: Denies: no symptoms, see HPI, cysts, change in skin color, change in hair/nails, dryness, erythema, jaundice, lesions, lymphangitis, lumps, moles, rash. Neurological/Psychological: Denies: no symptoms, see HPI, anxiety, ataxia, cognitive dysfunction, confusion, depressed, dementia, emotional problems, headache, numbness, paresthesia, pre- existing deficit, petit mal seizures, tingling, tremors, tonic-clonic seizures, unable to move lower ext, unable to move upper ext, weakness, other. Hematologic/Endocrine: Denies: no symptoms, see HPI, bruising, bleeding, polyuria, polydipsia, other. Immunologic/Allergic: Denies: no symptoms, see HPI, splenectomy, HIV/AIDS, lymphadenopathy, other. 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 brother and niece Primary Language: Mauritanian ETOH Use: denies use Illicit Drug Use: marijuana Exam & Diagnostic Data Vital Signs and I&O Vital Signs Date Time Temp Pulse Resp B/P B/P Pulse O2 O2 Flow FiO2 Mean Ox Delivery Rate 07/25 2005 89 18 112/67 97 Room Air 07/25 1815 78 18 127/84 100 Room Air 07/25 1714 103 15 151/99 97 Room Air Room Air Physical Exam: He appers somwhat lethargic No acute distress Skin-no rash HEENT-PERRLA Neck-JVP normal, no bruits Lungs-clear bilaterally Heart-S1S2 regular, no murmur, rub or gallop +mild tenderness on palpation over left chest Linq device stable Abdomen-soft, not tender, BS+, no organomegaly, no masses Extremities-no edema, 2+ pulses Neuro-non focal, AAOx3, mildly lethargic Vascular-2+ distal pulses, no bruits Labs/Misbah Results: Laboratory Tests 07/25 1723 Chemistry Sodium (137 - 145 mmol/L) 140 Potassium (3.5 - 5.1 mmol/L) 3.7 Chloride (98 - 107 mmol/L) 101 Carbon Dioxide (22 - 30 mmol/L) 27 Anion Gap (5 - 16) 12 BUN (9 - 20 mg/dL) 12 Creatinine (0.7 - 1.2 mg/dL) 0.8 Estimated GFR (>60 ml/min) > 60 BUN/Creatinine Ratio (7 - 25 %) 15.0 Glucose (65 - 99 mg/dL) 83 Calcium (8.4 - 10.2 mg/dL) 9.5 Total Bilirubin (0.2 - 1.3 mg/dL) 0.6 AST (17 - 59 U/L) 34 ALT (21 - 72 U/L) 42 Alkaline Phosphatase (< 127 U/L) 141 H Troponin I (<0.11 ng/ml) < 0.01 Total Protein (6.3 - 8.2 g/dL) 7.5 Albumin (3.5 - 5.0 g/dL) 4.4 Globulin (1.9 - 4.2 gm/dL) 3.1 Albumin/Globulin Ratio (1.1 - 2.2 %) 1.4 Coagulation PT (9.4 - 12.5 SEC) 12.4 INR (0.90 - 1.17) 1.14 APTT (25 - 37 SEC) 33 Hematology CBC w Diff NO MAN DIFF REQ WBC (4.8 - 10.8 /CUMM) 11.1 H RBC (4.70 - 6.10 /CUMM) 4.98 Hgb (14.0 - 18.0 G/DL) 14.1 Hct (42 - 52 %) 44.2 MCV (80.0 - 94.0 FL) 88.8 MCH (27.0 - 31.0 PG) 28.4 MCHC (33.0 - 37.0 G/DL) 32.0 L RDW (11.5 - 14.5 %) 15.1 H Plt Count (130 - 400 /CUMM) 259 MPV (7.4 - 10.4 FL) 7.6 Gran % (42.2 - 75.2 %) 54.9 Lymphocytes % (20.5 - 51.1 %) 33.0 Monocytes % (1.7 - 9.3 %) 9.8 H Eosinophils % (0 - 5 %) 1.9 Basophils % (0.0 - 2.0 %) 0.4 Absolute Granulocytes (1.4 - 6.5 /CUMM) 6.1 Absolute Lymphocytes (1.2 - 3.4 /CUMM) 3.7 H Absolute Monocytes (0.10 - 0.60 /CUMM) 1.1 H Absolute Eosinophils (0.0 - 0.7 /CUMM) 0.2 Absolute Basophils (0.0 - 0.2 /CUMM) 0 Toxicology Serum Alcohol (<10 MG/DL) < 10.0 Diagnostic Data EKG Results SR, septal old infarct, non specific diffuse T flattening-improved T abnormalities compared to previous tracing CXR Results No acute disease Assessment/Plan Assessment/Plan 56 year old male with h/o CAD, LAD and LCX stents in [place] in 2016, s/p cardiac arrest in [place] in January,found to have ISR, s/p angioplasty, anoxic brain injury with resultant seizure, HLP, unexplained syncope (s/p Linq implant 3 weeks ago) presents with chest pain, probably musculoskeletal (+ tenderness on palpation). Ekg showed improved T abnormalities. CAth on 05/01/17 revealed patents stents, 30% distal RCA stenosis. Plan observation on telemetry serial troponins continue ASA, plavix, statin he has h/o bradycardia and I would lower metrolol and use long acting metoprolol succinate 12.5 mg qd continue Keppra for seizure disorder. Plan discussed with patient and housestaff Consult Acknowledgment - Thank you for your consult request.
[2017-07-25 21:30] VITALS: BP 132/90
--- NOTE | 2017-07-26 06:01 | Event Note ---
Event Note Event Note: S: New ?EKG changes in V4 B: Pt admitted for chest pain A/R: Spoke with Dr. Mcelroy regarding sending him a picture of the ekg with changes. V2,V3 and V4 appears to have an ?ST elevation vs reporalizartion artifact with new changes in V4. He stated there was no need tot send the ekg.
[2017-07-26 07:20] VITALS: BP 124/76
--- NOTE | 2017-07-26 07:29 | PN- Cardiology ---
Subjective Subjective: Patient feels littly dizzy (chronic) but otherwise OK. No recurrent chest pain. Objective Vital Signs and I&Os Vital Signs Date Time Temp Pulse Resp B/P B/P Pulse O2 O2 Flow FiO2 Mean Ox Delivery Rate 07/27 719 98.2 72 18 124/76 94 Room Air 07/25 2251 100 112/78 07/25 2148 Room Air 07/25 2129 98.0 94 16 132/90 95 Room Air 07/25 2120 87 16 112/78 97 Room Air 07/25 2005 89 18 112/67 97 Room Air 07/25 1815 78 18 127/84 100 Room Air 07/25 1714 103 15 151/99 97 Room Air Room Air Intake & Output 07/26 0000 07/25 1600 07/25 0807/25 0000 07/24 1600 Intake Total 0 Output Total Balance 0 Intake, Oral 0 Patient 176 lb 180 lb Weight Physical Exam: HEENT-PERRLA Neck-JVP normal, no bruit Lungs-clear bilaterally Heart-S1S2 regular, no murmur, rub or gallop\ +tenderness on chest palpation Abdomen-soft, not tender, BS+, no organomegaly Extr-no edema, 2+ pulses Neuro-non focal Current Medications: Current Medications Sig/Haven Start time Last Medication Dose Route Stop Time Status Admin Acetaminophen 650 MG Q8P PRN 07/26 0030 AC PO Aspirin 0 .STK-MED ONE 07/25 2053 DC PO Aspirin 325 MG ONCE ONE 07/25 2044 DC 07/25 PO 07/25 Aspirin Buffered 81 MG DAILY 07/26 1000 AC PO Atorvastatin Calcium 20 MG DAILY 07/26 1000 AC PO Clopidogrel Bisulfate 75 MG DAILY 07/26 1000 AC PO Heparin Sodium 5,000 UNIT Q8 07/25 2199 AC 07/26 (Porcine) SC 0656 Levetiracetam 1,500 MG BID 07/25 2199 AC 07/25 PO 2250 Lisinopril 2.5 MG DAILY 07/26 999 AC PO Lorazepam 1 MG ONCE ONE 07/25 1814 DC 07/25 IV 07/25 Lorazepam 0 .STK-MED ONE 07/25 1813 DC .ROUTE Metoprolol Succinate 12.5 MG DAILY 07/26 999 AC PO Metoprolol Tartrate 12.5 MG BID 07/25 2199 DC 07/25 PO 2251 Nitroglycerin 0.4 MG Q 5 MINUTES X 3 DO.. 07/26 0615 AC SL Spironolactone 25 MG DAILY 07/26 1000 AC PO Tramadol HCl 50 MG Q8P PRN 07/26 0030 AC PO Results Last 48 Hrs of Labs/Mics: Laboratory Tests 07/26/17 0630: Sodium Pending, Potassium Pending, Chloride Pending, Carbon Dioxide Pending, Anion Gap Pending, BUN Pending, Creatinine Pending, BUN/Creatinine Ratio Pending , CBC w Diff Pending, WBC Pending, RBC Pending, Hgb Pending, Hct Pending, MCV Pending, MCH Pending, MCHC Pending, RDW Pending, Plt Count Pending, MPV Pending, Levetiracetam Pending 07/26/17 0230: Troponin I < 0.01 07/25/17 1723: Anion Gap 12, Estimated GFR > 60, BUN/Creatinine Ratio 15.0, Glucose 83, Calcium 9.5, Total Bilirubin 0.6, AST 34, ALT 42, Alkaline Phosphatase 141 H, Troponin I < 0.01, Total Protein 7.5, Albumin 4.4, Globulin 3.1, Albumin/Globulin Ratio 1.4, PT 12.4, INR 1.14, APTT 33, CBC w Diff NO MAN DIFF REQ, RBC 4.98, MCV 88.8, MCH 28.4, MCHC 32.0 L, RDW 15.1 H, MPV 7.6, Gran % 54.9, Lymphocytes % 33.0, Monocytes % 9.8 H, Eosinophils % 1.9, Basophils % 0.4, Absolute Granulocytes 6.1, Absolute Lymphocytes 3.7 H, Absolute Monocytes 1.1 H, Absolute Eosinophils 0.2, Absolute Basophils 0, Serum Alcohol < 10.0 Recent Imaging Studies: f/u ekg-sr, old septal infarct1 mm ST elevation with biphasic T wave in V3, V4- present on previous ekg from early June Assessment/Plan Assessment/Plan Impression: 1. Chest pain, likely musculoskeletal-tendernss on chest palpation, troponin negative. 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 Cath in April showed patent stent 30% distal RCA stenosis 2. h/o bradycardia on betablockers 3. h/o Seizure-now on higher dose of Keppra Plan: repeat Troponin today ambulate patient if troponin negative, OK to discharge home, f/u with me tomorrow is scheduled continue pre admit meds but use lower dose of long acting metoprolol succinate 25 mg qd (patient was on tartarate 25 mg bid) Continue telemetry? Yes
[2017-07-26] MEDS ORDERED: METOPROLOL TART25 M1 PO (07:49)
--- NOTE | 2017-07-26 07:59 | Patient Discharge Instructions ---
Discharge Instructions General Discharge Information You were seen/treated for: Chest pain,we observed you in telemetry floor. Serial troponins were negative. 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 Please f/u with your new GI specialist in 1-2 weeks for persistent nase[place] and vomiting. Diet Recommended Diet: Heart Healthy Acute Coronary Syndrome Inclusion Criteria At DC or during hospital stay patient has or had the following: ACS DIAGNOSIS No Discharge Core Measures Meds if any: Prescribed or Continued at Discharge Meds if any: NOT Prescribed or Continued at Discharge Congestive Heart Failure Inclusion Criteria At DC or during hospital stay patient has or had the following: CHF DIAGNOSIS No Discharge Core Measures Meds if any: Prescribed or Continued at Discharge Meds if any: NOT Prescribed or Continued at Discharge Cerebrovascular accident Inclusion Criteria At DC or during hospital stay patient has or had the following: CVA/TIA Diagnosis No Discharge Core Measures Meds if any: Prescribed or Continued at Discharge Meds if any: NOT Prescribed or Continued at Discharge Venous thromboembolism Inclusion Criteria VTE Diagnosis No VTE Type NONE VTE Confirmed by (Test) NONE Discharge Core Measures - Per Current guidelines, there needs to be overlap - treatment for the first 5 days of Warfarin therapy. - If discharged on Warfarin prior to 5 days of - overlap therapy, the patient will need to be - assessed for post discharge needs including - *Post discharge parental anticoagulation - *Warfarin and/or parental anticoagulation education - *Follow up date to check INR post discharge At least 5 days overlap therapy as Inpatient No Meds if any: Prescribed or Continued at Discharge Note: Overlap Therapy is Warfarin and Anticoagulant Meds if any: NOT Prescribed or Continued at Discharge
[2017-07-26 08:21] LABS: ABSOLUTE BASOPHIL COUNT 0 /CUMM (0.0-0.2); ABSOLUTE EOSINOPHIL COUNT 0.5 /CUMM (0.0-0.7); ABSOLUTE GRANULOCYTE CT 2.7 /CUMM (1.4-6.5); ABSOLUTE LYMPH COUNT 2.6 /CUMM (1.2-3.4); ABSOLUTE MONOCYTE COUNT 0.6 /CUMM (0.10-0.60); BASOPHIL % 0.6 % (0.0-2.0); EOSINOPHIL % 8.3 % (0-5); GRANULOCYTE % 41.3 % (42.2-75.2); HEMATOCRIT 42.3 % (42-52); MEAN CORPUSCULAR HGB 29.1 PG (27.0-31.0); MEAN CORPUSCULAR HGB CONC 33.1 G/DL (33.0-37.0); MEAN CORPUSCULAR VOLUME 88.1 FL (80.0-94.0); MEAN PLATELET VOLUME 8.1 FL (7.4-10.4); PLATELET COUNT 263 /CUMM (130-400); RBC DISTRIBUTION WIDTH 15.7 % (11.5-14.5); WHITE BLOOD CELL COUNT 6.5 /CUMM (4.8-10.8)
--- NOTE | 2017-07-26 08:46 | PN-Observation ---
See Addendum Observation Note Observation Note _ I have personally examined LANA TOUSSAINT. him disposition is uncertain at this time. Before a determination can be made, he requires continued observation for the following reasons L-sided CP. Assessment/Plan Medical Assessment: Mr. Toussaint is a 56 year old male current smoke (1/2 PPD) with PMH of CAD s/p LAD and LCX stents (2016), s/p cardiac arrest in [place] (01/2017) found to have ISR, s/p angioplasty, anoxic brain injury with resultant seizure who presented with L- sided CP. His PCP Kylie Navarro L-sided CP most likely [facility] Patient reported he feels a tenderness on L side of chest. Serial ECG shows an old infart. Patient had a cath recently that showed a patent stent 30% distal RCA stenosis. Patient was initially on Metoprolol 25 mg BID that has been changed as per Cardio to Metoprolol 25 mg daily most likely due to his history of bradycardia * TROP negative * Utox positive for cocaine and cannabis * Discontinue Metoprolol because will exacerbate alpha action that will lead to vasocontriction History of seizures Hospitalized in [place] last week for a seizure episode without LOC and another episode this morning with ? seizure with post ictal confusion without LOC or jerky movements * Continue Keppra dose * EEG pending * Prolactin wnl * CT head reports a small scalp contusion in the right parasagittal parietal region Problem List: 1. Chest pain Subjective Follow-up For: L-sided CP Seizure without LOC Tele-Events Since Last Visit: NS HR 74-87 Subjective: Patient reports chest tenderness this morning and lightheadedness Review of Systems Constitutional: Reports: see HPI. Objective Last 24 Hrs of Vital Signs/I&O Vital Signs Date Time Temp Pulse Resp B/P B/P Pulse O2 O2 Flow FiO2 Mean Ox Delivery Rate 07/26 0834 118/74 /08 0833 118/74 /08 0720 98.2 72 18 124/76 94 Room Air / 2251 100 112/78 /2148 Room Air 07/25 2129 98.0 94 16 132/90 95 Room Air 07/25 2120 87 16 112/78 97 Room Air 07/25 2005 89 18 112/67 97 Room Air 07/25 1815 78 18 127/84 100 Room Air 07/25 1714 103 15 151/99 97 Room Air Room Air Intake & Output 07/26 1600 07/26 0800 07/26 0000 Intake Total 420 0 Output Total 525 Balance -105 0 Intake, Oral 420 0 Output, Urine 525 Patient 176 lb 180 lb Weight Physical Exam General Appearance: Alert, Oriented X3, Cooperative, No Acute Distress Cardiovascular: Regular Rate, Normal S1, Normal S2, No Murmurs, Chest tenderness on palpation Lungs: Clear to Auscultation, Normal Air Movement Abdomen: Normal Bowel Sounds, Soft, No Tenderness Current Medications: Current Medications Sig/Haven Start time Last Medication Dose Route Stop Time Status Admin Acetaminophen 650 MG Q8P PRN 07/26 0030 AC PO Aspirin 0 .STK-MED ONE 07/25 2053 DC PO Aspirin 325 MG ONCE ONE 07/25 2044 DC 07/25 PO 07/25 Aspirin Buffered 81 MG DAILY 07/26 999 AC 07/26 PO 0834 Atorvastatin Calcium 20 MG DAILY 07/26 1000 AC 07/26 PO 0834 Clopidogrel Bisulfate 75 MG DAILY 07/26 1000 AC 07/26 PO 0834 Heparin Sodium 5,000 UNIT Q8 07/25 2199 AC 07/26 (Porcine) SC 0656 Levetiracetam 1,500 MG BID 07/25 2199 AC 07/26 PO 0834 Lisinopril 2.5 MG DAILY 07/26 1000 AC 07/26 PO 0834 Lorazepam 1 MG ONCE ONE 07/25 1814 DC 07/25 IV 07/26 1815 181 Lorazepam 0 .STK-MED ONE 07/25 1813 DC .ROUTE Metoprolol Succinate 12.5 MG DAILY 07/26 1000 AC 07/26 PO 0833 Metoprolol Tartrate 12.5 MG BID 07/25 2199 DC 07/25 PO 2251 Nitroglycerin 0.4 MG Q 5 MINUTES X 3 DO.. 07/26 0615 AC SL Spironolactone 25 MG DAILY 07/26 1000 AC 07/26 PO 0834 Tramadol HCl 50 MG Q8P PRN 07/26 0030 AC PO Last 24 Hrs of Labs/Mics: Laboratory Tests 07/26/17 0630: Anion Gap 14, Estimated GFR > 60, BUN/Creatinine Ratio 17.0, CBC w Diff NO MAN DIFF REQ, RBC 4.80, MCV 88.1, MCH 29.1, MCHC 33.1, RDW 15.7 H, MPV 8.1, Gran % 41.3 L, Lymphocytes % 40.8, Monocytes % 9.0, Eosinophils % 8.3 H, Basophils % 0.6, Absolute Granulocytes 2.7, Absolute Lymphocytes 2.6, Absolute Monocytes 0.6 , Absolute Eosinophils 0.5, Absolute Basophils 0, Levetiracetam Pending 07/26/17 0230: Troponin I < 0.01 07/25/17 1723: Anion Gap 12, Estimated GFR > 60, BUN/Creatinine Ratio 15.0, Glucose 83, Calcium 9.5, Total Bilirubin 0.6, AST 34, ALT 42, Alkaline Phosphatase 141 H, Troponin I < 0.01, Total Protein 7.5, Albumin 4.4, Globulin 3.1, Albumin/Globulin Ratio 1.4, PT 12.4, INR 1.14, APTT 33, CBC w Diff NO MAN DIFF REQ, RBC 4.98, MCV 88.8, MCH 28.4, MCHC 32.0 L, RDW 15.1 H, MPV 7.6, Gran % 54.9, Lymphocytes % 33.0, Monocytes % 9.8 H, Eosinophils % 1.9, Basophils % 0.4, Absolute Granulocytes 6.1, Absolute Lymphocytes 3.7 H, Absolute Monocytes 1.1 H, Absolute Eosinophils 0.2, Absolute Basophils 0, Serum Alcohol < 10.0
--- NOTE | 2017-07-26 09:33 | Event Note ---
Event Note Event Note: S: RN reported approx 9:30 am patient seem to be having a seizure. Housestaff and Attending evaluated patient. Patient mildly confused. Patient's neuro exam was unremarkable except slurred speech and unsteadiness. No events on the director of human resources noted. B: Mr. Roth is a 56 year old male current smoke (1/2 PPD) with PMH of CAD s/p LAD and LCX stents (2016), s/p cardiac arrest in [place] (01/2017) found to have ISR, s/p angioplasty, anoxic brain injury with resultant seizure who presented with L -sided CP, hospitalized in [place] last week for a seizure episode without LOC. A/R: * Vitals * STAT EEG and Prolactin level * Continue Levetiracetam dose * Neuro consult * Consider extendeing OBS if labs abnormal Update: RN called rapid response approx 10:20 am because patient was diaphoretic , vomiting and could not get an audible blood pressure. No events on the director of human resources noted. Stat ECG, CT head ordered. Repeat vitals stable. NS IVF x 1 bag given. Neurology updated.
--- NOTE | 2017-07-26 11:04 | CT SCAN REPORT ---
EXAMINATION: CT HEAD WITHOUT CONTRAST CLINICAL INFORMATION: Seizures. Assess for acute pathology. COMPARISON: MRI scan of the head 06/21/2017. CT scan of the head 06/20/2017. TECHNIQUE: Contiguous axial imaging was performed from the skull base to vertex without intravenous administration of contrast. DLP: 687.55 mGy-cm FINDINGS: There is no evidence of acute intracranial hemorrhage or territorial infarction. No abnormal mass effect or midline shift is seen. Resendiz to white matter differentiation is well preserved. No extra-axial fluid collections are identified. The ventricles are normal in size. There is no abnormal attenuation within the brain parenchyma. There are no acute osseous findings. There is a small scalp contusion in the right parasagittal parietal region. There is no adjacent or remote acute osseous finding. The mastoid air cells are well-aerated. There is mild mucoperiosteal thickening in the bilateral maxillary, ethmoid and sphenoid sinuses. IMPRESSION: 1. There are no acute bleeds or territorial infarcts. No masses or fluid collections are demonstrated. 2. There is a small scalp contusion in the right parasagittal parietal region. There are no acute osseous findings.
[2017-07-26 15:08] VITALS: BP 112/60
--- NOTE | 2017-07-26 15:51 | Cons- Neurology ---
General Information and HPI Consulting Request Date of Consult: 07/26/17 Requested By: Stella Moss MD Reason for Consult: evaluate for possible seizure Source of Information: patient, old records Exam Limitations: poor historian History of Present Illness: 51-year-old man with hx of cardiac arrest, anoxic brain injury and seizures on keppra was admitted yesterday with chest pain. This AM a rapid response was called due to suspicion of a seizure. The patient was found diaphoretic with confusion and slurred speech, nausea, but remained at least partially awake with no seizure activity, incontinence, Prolactin level drawn and returned normal. He reports seizures dating from last January when the cardiac arrest occurred. He describes them as occurring when he stands up, he becomes dizzy and sometimes tremulous. When asked if he shakes he says whenever he is cold. Seemed unwilling to speak or elaborate further on his medical history. Tox screen for cocaine positive Allergies/Medications Allergies: Coded Allergies: Iodinated Contrast- Oral and IV Dye (IODINATED CONTRAST MEDIA - IV DYE) (Severe, ANAPHYLAXIS 07/25/17) Sulfa (Sulfonamide Antibiotics) (Severe, HIVES 07/25/17) shellfish derived (Severe, ANAPHYLAXIS 07/25/17) blueberry (HIVES 07/25/17) Home Med List: Aspirin (Lo-Dose Aspirin EC) 81 MG TABLET.DR 1 TAB PO DAILY HEART/BLOOD ( Reported) Atorvastatin Calcium 20 MG TABLET 1 TAB PO DAILY CHOLESTEROL (Reported) Clopidogrel Bisulfate (Clopidogrel) 75 MG TABLET 1 TAB PO DAILY BLOOD THINNER (Reported) Levetiracetam 1,000 MG TABLET 1,500 MG PO BID SEIZURES (Reported) Lisinopril 2.5 MG TABLET 1 TAB PO DAILY BP (Reported) Metoprolol Tartrate 25 MG TABLET 1 TAB PO DAILY ARRYTHMIA Spironolactone 25 MG TABLET 1 TAB PO DAILY DIURETIC (Reported) Current Medications: Current Medications Sig/Haven Start time Last Medication Dose Route Stop Time Status Admin Acetaminophen 650 MG Q8P PRN 07/26 0030 AC PO Aspirin 0 .STK-MED ONE 07/25 2053 DC PO Aspirin 325 MG ONCE ONE 07/25 2044 DC 07/25 PO 07/25 Aspirin Buffered 81 MG DAILY 07/26 1000 AC 07/26 PO 833 Atorvastatin Calcium 20 MG DAILY 07/26 1000 AC 07/26 PO 0834 Clopidogrel Bisulfate 75 MG DAILY 07/26 1000 AC 07/26 PO 0834 Heparin Sodium 5,000 UNIT Q8 07/25 2200 AC 07/26 (Porcine) SC 1413 Levetiracetam 1,500 MG BID 07/25 2200 AC 07/26 PO 0834 Lisinopril 2.5 MG DAILY 07/26 1000 AC 07/26 PO 0834 Lorazepam 1 MG ONCE ONE 07/25 1815 DC 07/25 IV 07/25 1816 1814 Lorazepam 0 .STK-MED ONE 07/25 1814 DC .ROUTE Metoprolol Succinate 12.5 MG DAILY 07/26 1000 DC 07/26 PO 0833 Metoprolol Tartrate 12.5 MG BID 07/25 2200 DC 07/25 PO 2251 Nitroglycerin 0.4 MG Q 5 MINUTES X 3 DO.. 07/26 0615 AC SL Ondansetron HCl 4 MG Q6P PRN 07/26 1030 AC 07/26 IV 1029 Sodium Chloride 1,000 ML ONCE ONE 07/26 1145 AC 07/26 IV 07/27 0104 1144 Spironolactone 25 MG DAILY 07/26 1000 AC 07/26 PO 0834 Tramadol HCl 50 MG Q8P PRN 07/26 0030 AC PO Review of Systems Review of Systems: ROS: A complete medical systems review was obtained. No pertinent complaints were found. Past History Travel History Traveled to [place] past 21 day No Medical History Blood Transfusion Hx: No Neurological: seizure, ANOXIC BRAIN INJURY EENT: NONE Cardiovascular: myocardial infarction, CARDIAC ARREST Respiratory: NONE Gastrointestinal: NONE Hepatic: NONE Renal: NONE Musculoskeletal: NONE Psychiatric: NONE Endocrine: NONE Blood Disorders: NONE Cancer(s): NONE CLUTCH SPECIALIST/Reproductive: NONE Surgical History Surgical History: PCI with stent placemnet splenectomy Psychosocial History Where Do You Live? Home Who Do You Live With? brother and niece Primary Language: Slovenian Smoking Status: Current Everyday Smoker ETOH Use: denies use Illicit Drug Use: marijuana Exam & Diagnostic Data Vital Signs and I&O Vital Signs Date Time Temp Pulse Resp B/P B/P Pulse O2 O2 Flow FiO2 Mean Ox Delivery Rate 07/26 1508 98.5 77 20 112/60 96 07/26 0834 118/74 07/26 0833 118/74 07/26 0720 98.2 72 18 124/76 94 Room Air 07/25 2251 100 112/78 07/259 Room Air 07/250 98.0 94 16 132/90 95 Room Air 07/25 2120 87 16 112/78 97 Room Air 07/25 2005 89 18 112/67 97 Room Air 07/25 1815 78 18 127/84 100 Room Air 07/25 1714 103 15 151/99 97 Room Air Room Air Intake & Output 07/26 1600 07/26 0800 07/26 0000 Intake Total 1050 420 0 Output Total 200 525 Balance 850 -105 0 Intake, IV 450 Intake, Oral 600 420 0 Number 1 Bowel Movements Output, Urine 200 525 Patient 176 lb 180 lb Weight Physical Exam: On exam the patient appeared generally well and in no distress. Mental status: Sleepy, rolled over to try to go back to sleep during the exam. Oriented, no language errors Visual dunlap full , Eye movements full without nystagmus, pupils midsize equal round and reactive to light. Facial movement normal bilaterally Hearing intact bilaterally Tongue protrusion is midline Motor power and tone normal in all 4 extremities Sensation intact to primary modes Tendon reflexes normal and symmetric without pathologic signs Coordination no ataxia Gait [testing deferred Last 48 Hours of Lab Results: Laboratory Tests 07/26 07/26 07/26 0940 0929 0630 Chemistry Sodium (137 - 145 mmol/L) 141 Potassium (3.5 - 5.1 mmol/L) 4.5 Chloride (98 - 107 mmol/L) 102 Carbon Dioxide (22 - 30 mmol/L) 24 Anion Gap (5 - 16) 14 BUN (9 - 20 mg/dL) 17 Creatinine (0.7 - 1.2 mg/dL) 1.0 Estimated GFR (>60 ml/min) > 60 BUN/Creatinine Ratio (7 - 25 %) 17.0 Troponin I (<0.11 ng/ml) < 0.01 Prolactin (3.7 - 17.9 ng/mL) 6.2 Cancelled Hematology CBC w Diff NO MAN DIFF REQ WBC (4.8 - 10.8 /CUMM) 6.5 RBC (4.70 - 6.10 /CUMM) 4.80 Hgb (14.0 - 18.0 G/DL) 14.0 Hct (42 - 52 %) 42.3 MCV (80.0 - 94.0 FL) 88.1 MCH (27.0 - 31.0 PG) 29.1 MCHC (33.0 - 37.0 G/DL) 33.1 RDW (11.5 - 14.5 %) 15.7 H Plt Count (130 - 400 /CUMM) 263 MPV (7.4 - 10.4 FL) 8.1 Gran % (42.2 - 75.2 %) 41.3 L Lymphocytes % (20.5 - 51.1 %) 40.8 Monocytes % (1.7 - 9.3 %) 9.0 Eosinophils % (0 - 5 %) 8.3 H Basophils % (0.0 - 2.0 %) 0.6 Absolute Granulocytes (1.4 - 6.5 /CUMM) 2.7 Absolute Lymphocytes (1.2 - 3.4 /CUMM) 2.6 Absolute Monocytes (0.10 - 0.60 /CUMM) 0.6 Absolute Eosinophils (0.0 - 0.7 /CUMM) 0.5 Absolute Basophils (0.0 - 0.2 /CUMM) 0 Toxicology Urine Opiates Screen (>2000 NG/ML) < 100 Methadone Screen (>300 NG/ML) < 40 Barbiturate Screen (>200 NG/ML) 67 Levetiracetam Pending Ur Phencyclidine Scrn (>25 NG/ML) < 6.00 Amphetamines Screen (>1000 NG/ML) < 100 U Benzodiazepines Scrn (>200 NG/ML) < 85 Urine Cocaine Screen (>300 NG/ML) > 800 H Urine Cannabis Screen (>50 NG/ML) 77.20 H 07/26 02/ 0230 1723 Chemistry Sodium (137 - 145 mmol/L) 140 Potassium (3.5 - 5.1 mmol/L) 3.7 Chloride (98 - 107 mmol/L) 101 Carbon Dioxide (22 - 30 mmol/L) 27 Anion Gap (5 - 16) 12 BUN (9 - 20 mg/dL) 12 Creatinine (0.7 - 1.2 mg/dL) 0.8 Estimated GFR (>60 ml/min) > 60 BUN/Creatinine Ratio (7 - 25 %) 15.0 Glucose (65 - 99 mg/dL) 83 Calcium (8.4 - 10.2 mg/dL) 9.5 Total Bilirubin (0.2 - 1.3 mg/dL) 0.6 AST (17 - 59 U/L) 34 ALT (21 - 72 U/L) 42 Alkaline Phosphatase (< 127 U/L) 141 H Troponin I (<0.11 ng/ml) < 0.01 < 0.01 Total Protein (6.3 - 8.2 g/dL) 7.5 Albumin (3.5 - 5.0 g/dL) 4.4 Globulin (1.9 - 4.2 gm/dL) 3.1 Albumin/Globulin Ratio (1.1 - 2.2 %) 1.4 Coagulation PT (9.4 - 12.5 SEC) 12.4 INR (0.90 - 1.17) 1.14 APTT (25 - 37 SEC) 33 Hematology CBC w Diff NO MAN DIFF REQ WBC (4.8 - 10.8 /CUMM) 11.1 H RBC (4.70 - 6.10 /CUMM) 4.98 Hgb (14.0 - 18.0 G/DL) 14.1 Hct (42 - 52 %) 44.2 MCV (80.0 - 94.0 FL) 88.8 MCH (27.0 - 31.0 PG) 28.4 MCHC (33.0 - 37.0 G/DL) 32.0 L RDW (11.5 - 14.5 %) 15.1 H Plt Count (130 - 400 /CUMM) 259 MPV (7.4 - 10.4 FL) 7.6 Gran % (42.2 - 75.2 %) 54.9 Lymphocytes % (20.5 - 51.1 %) 33.0 Monocytes % (1.7 - 9.3 %) 9.8 H Eosinophils % (0 - 5 %) 1.9 Basophils % (0.0 - 2.0 %) 0.4 Absolute Granulocytes (1.4 - 6.5 /CUMM) 6.1 Absolute Lymphocytes (1.2 - 3.4 /CUMM) 3.7 H Absolute Monocytes (0.10 - 0.60 /CUMM) 1.1 H Absolute Eosinophils (0.0 - 0.7 /CUMM) 0.2 Absolute Basophils (0.0 - 0.2 /CUMM) 0 Toxicology Serum Alcohol (<10 MG/DL) < 10.0 Imaging/Other Studies: CT scan of head: There is no evidence of acute intracranial hemorrhage or territorial infarction. No abnormal mass effect or midline shift is seen. Resendiz to white matter differentiation is well preserved. No extra-axial fluid collections are identified. The ventricles are normal in size. There is no abnormal attenuation within the brain parenchyma. There are no acute osseous findings. There is a small scalp contusion in the right parasagittal parietal region. There is no adjacent or remote acute osseous finding. The mastoid air cells are well-aerated. There is mild mucoperiosteal thickening in the bilateral maxillary, ethmoid and sphenoid sinuses. Assessment/Plan Assessment: The event described is more consistent with a syncopal or presyncopal episode than with a seizure. The patient's descriptions of his prehospital seizures also sounds more like syncope Recommendations: Will check EEG Continue Keppra empirically at the current dose No additional neurodiagnostic testing Further cardiac evaluation Consult Acknowledgment - Thank you for your consult request.
--- NOTE | 2017-07-26 18:55 | ELECTROENCEPHALOGRAM REPORT ---
Electroencephalogram Report Electroencephalogram Results Date of service: 07/26/17 Attending MD: Stella Moss MD Programmable Logic Controller Assembler: Greg Nelson EEG Number: [id number] Test Utilizes: 10-20 system, 21 lead 18 channel digital recording Pertinent Hx/Physical/Neuro Findings/Clin Diagnosis: 56-year-old man being evaluated for possible seizures. History of anoxic brain injury from cardiac arrest in January 2017 and carrying a diagnosis of seizures Inpatient Medications: Current Medications Sig/Haven Start time Last Medication Dose Route Stop Time Status Admin Acetaminophen 650 MG Q8P PRN 07/26 0030 AC PO Aspirin 0 .STK-MED ONE 07/25 2053 DC PO Aspirin 325 MG ONCE ONE 07/25 2044 DC 07/25 PO 07/25 Aspirin Buffered 81 MG DAILY 07/26 1000 AC 07/26 PO 0834 Atorvastatin Calcium 20 MG DAILY 07/26 1000 AC 07/26 PO 0834 Clopidogrel Bisulfate 75 MG DAILY 07/26 1000 AC 07/26 PO 0834 Heparin Sodium 5,000 UNIT Q8 07/25 2200 AC 07/26 (Porcine) SC 1413 Levetiracetam 1,500 MG BID 07/25 2200 AC 07/26 PO 0834 Lisinopril 2.5 MG DAILY 07/26 1000 AC 07/26 PO 0834 Metoprolol Succinate 12.5 MG DAILY 07/26 1000 DC 07/26 PO 0833 Metoprolol Tartrate 12.5 MG BID 07/25 2200 DC 07/25 PO 2251 Nitroglycerin 0.4 MG Q 5 MINUTES X 3 DO.. 07/26 0615 AC SL Ondansetron HCl 4 MG Q6P PRN 07/26 1030 AC 07/26 IV 1818 Sodium Chloride 1,000 ML ONCE ONE 07/26 1145 AC 07/26 IV 07/27 0104 1144 Spironolactone 25 MG DAILY 07/26 1000 AC 07/26 PO 0834 Tramadol HCl 50 MG Q8P PRN 07/26 0030 AC PO Interpretation: The background is composed of somewhat irregular posterior rhythms ranging from 7-9 Hz. Low voltage beta is intermixed in the frontal regions. Occasional muscle artifact is seen. There is a run of small sharp waves phase reversing at the T6 electrode lasting about 20 seconds, the sharp waves are rhythmic starting at 7 Hz, increasing to about 10 and then trailing off at the end. There is no spread to any adjacent channels on the EEG. Activation procedures were deferred as the patient was nauseous during the test Impression: Abnormal due to mild generalized slowing of the backgrounds and also due to a single run of small sharp waves in the right temporal region which are potentially epileptogenic
[2017-07-26 23:03] VITALS: BP 122/80
[2017-07-27 06:16] VITALS: BP 128/80
--- NOTE | 2017-07-27 07:36 | PN- Cardiology ---
Subjective Subjective: Events noted, he feels good now, no complaints Objective Vital Signs and I&Os Vital Signs Date Time Temp Pulse Resp B/P B/P Pulse O2 O2 Flow FiO2 Mean Ox Delivery Rate 07/27 0516 98.6 80 22 128/80 95 07/26 2303 98.9 70 16 122/80 94 Room Air 07/26 1508 98.5 77 20 112/60 96 07/26 0834 118/74 07/26 0833 118/74 Intake & Output 07/27 0807/27 0000 07/26 1600 07/26 0807/26 0000 07/25 1600 Intake Total 642 641 3985 420 0 Output Total 300 600 200 525 Balance 310 -180 850 -105 0 Intake, IV 610 300 450 Intake, Oral 120 600 420 0 Number 1 Bowel Movements Output, Urine 300 600 200 525 Patient 181 lb 176 lb 180 lb Weight Physical Exam: No acute distress HEENT-PERRLA Neck-JVP normal, no bruits Lungs-clear bilaterally Heart-S1S2 regular, no murmur Abdomen-soft, not tender, BS+, no organomegaly Extr-no edema, 2+ pulsesl, no cyanosis Neuro-non focal, alert and oriented Vascular-good peripheral pulsation Skin-no rash Current Medications: Current Medications Sig/Haven Start time Last Medication Dose Route Stop Time Status Admin Acetaminophen 650 MG Q8P PRN 07/26 0030 AC PO Aspirin Buffered 81 MG DAILY 07/26 1000 AC 07/26 PO 0834 Atorvastatin Calcium 20 MG DAILY 07/26 1000 AC 07/26 PO 0834 Clopidogrel Bisulfate 75 MG DAILY 07/26 1000 AC 07/26 PO 0834 Heparin Sodium 5,000 UNIT Q8 07/250 AC 07/27 (Porcine) SC 0543 Levetiracetam 1,500 MG Q12 07/26 2200 AC 07/26 N/A 1 UNIT IV 2144 Levetiracetam 1,500 MG BID 07/25 2200 DC 07/26 PO 0834 Lisinopril 2.5 MG DAILY 07/26 1000 AC 07/26 PO 0834 Metoprolol Succinate 12.5 MG DAILY 07/26 1000 DC 07/26 PO 0833 Nitroglycerin 0.4 MG Q 5 MINUTES X 3 DO.. 07/26 0615 AC SL Ondansetron HCl 4 MG Q6P PRN 07/26 1030 AC 07/26 IV 1818 Sodium Chloride 1,000 ML ONCE ONE 07/27 0200 AC 07/27 IV 07/27 1519 0228 Sodium Chloride 1,000 ML ONCE ONE 07/26 1145 DC 07/26 IV 07/27 0104 1144 Spironolactone 25 MG DAILY 07/26 1000 AC 07/26 PO 0834 Tramadol HCl 50 MG Q8P PRN 07/26 0030 AC PO Trimethobenzamide HCl 200 MG ONCE ONE 07/26 2114 DC 07/26 IM 07/26 Results Last 48 Hrs of Labs/Mics: Laboratory Tests 07/27/17 0520: Troponin I < 0.01 07/26/17 2345: Lactic Acid 0.8 07/26/17 0940: Troponin I < 0.01, Prolactin 6.2 07/26/17 0929: Prolactin Cancelled, Urine Opiates Screen < 100, Methadone Screen < 40, Barbiturate Screen 67, Ur Phencyclidine Scrn < 6.00, Amphetamines Screen < 100, U Benzodiazepines Scrn < 85, Urine Cocaine Screen > 800 H, Urine Cannabis Screen 77.20 H 07/26/17 0630: Anion Gap 14, Estimated GFR > 60, BUN/Creatinine Ratio 17.0, CBC w Diff NO MAN DIFF REQ, RBC 4.80, MCV 88.1, MCH 29.1, MCHC 33.1, RDW 15.7 H, MPV 8.1, Gran % 41.3 L, Lymphocytes % 40.8, Monocytes % 9.0, Eosinophils % 8.3 H, Basophils % 0.6, Absolute Granulocytes 2.7, Absolute Lymphocytes 2.6, Absolute Monocytes 0.6 , Absolute Eosinophils 0.5, Absolute Basophils 0, Levetiracetam Pending 07/26/17 0230: Troponin I < 0.01 07/25/17 1723: Anion Gap 12, Estimated GFR > 60, BUN/Creatinine Ratio 15.0, Glucose 83, Calcium 9.5, Total Bilirubin 0.6, AST 34, ALT 42, Alkaline Phosphatase 141 H, Troponin I < 0.01, Total Protein 7.5, Albumin 4.4, Globulin 3.1, Albumin/Globulin Ratio 1.4, PT 12.4, INR 1.14, APTT 33, CBC w Diff NO MAN DIFF REQ, RBC 4.98, MCV 88.8, MCH 28.4, MCHC 32.0 L, RDW 15.1 H, MPV 7.6, Gran % 54.9, Lymphocytes % 33.0, Monocytes % 9.8 H, Eosinophils % 1.9, Basophils % 0.4, Absolute Granulocytes 6.1, Absolute Lymphocytes 3.7 H, Absolute Monocytes 1.1 H, Absolute Eosinophils 0.2, Absolute Basophils 0, Serum Alcohol < 10.0 Recent Imaging Studies: CT head-no acute intracranial abnormality Assessment/Plan Assessment/Plan Problems: 1. CAD, s/p cardiac arrest, s/p PCI stable, no recurrent chest pain 2. cocaine, cannabis screen postive-chest pain could be due to cocaine but he was not hypertensive on admission and clearly had some chest tenderness, which he still has, but only mild. 3. Episode of ?vasovagal syncope vs seizure yesterday am. He now feels good, no symptoms. No arrhytmia on tely during the episode. CT head was negative. Prolactin level normal. 4. Tobacco use Plan: agree to keep him of beta blockers for now continue ASA+Plavix, spironolactone, statin, Keppra, low dose lisinopril patient can be discharged from cardiac standpoint later today if no recurrent symptoms increase oral fluid intake f/u with me next week (I will schedule) Continue telemetry? Yes
--- NOTE | 2017-07-27 07:59 | PN- Housestaff ---
See Addendum Subjective Follow-up For: Seizures CAD chest pain Tele-Events Since Last Visit: sinus rhythm HR 60s-80s, no arrhythmias Subjective: patient had multiple episodes of nausea and vomiting that he attributed to chicken salad chest pain is improved, rapid response yesterday for confusion, dysarthria, diaphoresis concerning for seizure without arrythmia on telemetry currently NPO but requesting to eat Review of Systems Constitutional: Reports: see HPI. Objective Last 24 Hrs of Vital Signs/I&O Vital Signs Date Time Temp Pulse Resp B/P B/P Pulse O2 O2 Flow FiO2 Mean Ox Delivery Rate 07/27 0616 98.6 80 22 128/80 95 07/26 2303 98.9 70 16 122/80 94 Room Air 07/26 1508 98.5 77 20 112/60 96 Intake & Output 07/27 1600 07/27 0800 07/27 0000 Intake Total 610 420 Output Total 300 600 Balance 310 -180 Intake, IV 610 300 Intake, Oral 120 Output, Urine 300 600 Patient 82.129 kg Weight Physical Exam General Appearance: Alert, Oriented X3, Cooperative, No Acute Distress Cardiovascular: Regular Rate, Normal S1, Normal S2, No Murmurs Lungs: Clear to Auscultation, Normal Air Movement Abdomen: Normal Bowel Sounds, Soft, No Tenderness, No Masses Extremities: No Clubbing, No Cyanosis, No Edema, Normal Pulses Current Medications: Current Medications Sig/Haven Start time Last Medication Dose Route Stop Time Status Admin Acetaminophen 650 MG Q8P PRN 07/26 0030 AC PO Aspirin Buffered 81 MG DAILY 07/26 999 AC 07/26 PO 0834 Atorvastatin Calcium 20 MG DAILY 07/26 1000 AC 07/26 PO 0834 Clopidogrel Bisulfate 75 MG DAILY 07/26 1000 AC 07/26 PO 0834 Heparin Sodium 5,000 UNIT Q8 07/25 2199 AC 07/27 (Porcine) SC 0543 Levetiracetam 1,500 MG Q12 07/26 2199 AC 07/26 N/A 1 UNIT IV 2144 Levetiracetam 1,500 MG BID 07/25 2199 DC 07/26 PO 0834 Lisinopril 2.5 MG DAILY 07/26 999 AC 07/26 PO 0834 Metoprolol Succinate 12.5 MG DAILY 07/26 999 DC 07/26 PO 0833 Nitroglycerin 0.4 MG Q 5 MINUTES X 3 DO.. 07/26 0615 AC SL Ondansetron HCl 4 MG Q6P PRN 07/26 1030 AC 07/26 IV 1818 Sodium Chloride 1,000 ML ONCE ONE 07/27 0200 AC 07/27 IV 07/27 1519 0228 Sodium Chloride 1,000 ML ONCE ONE 07/26 1145 DC 07/26 IV 07/27 0104 1144 Spironolactone 25 MG DAILY 07/26 1000 AC 07/26 PO 0834 Tramadol HCl 50 MG Q8P PRN 07/26 0030 AC PO Trimethobenzamide HCl 200 MG ONCE ONE 07/26 2115 DC 07/26 IM 07/26 Last 24 Hrs of Lab/Misbah Results Last 24 Hrs of Labs/Mics: Laboratory Tests 07/27/17 0520: Troponin I < 0.01 07/26/17 2345: Lactic Acid 0.8 07/26/17 0940: Troponin I < 0.01, Prolactin 6.2 07/26/17 0929: Prolactin Cancelled, Urine Opiates Screen < 100, Methadone Screen < 40, Barbiturate Screen 67, Ur Phencyclidine Scrn < 6.00, Amphetamines Screen < 100, U Benzodiazepines Scrn < 85, Urine Cocaine Screen > 800 H, Urine Cannabis Screen 77.20 H Assessment/Plan Assessment: 51-year-old male with PMH significant for CAD s/p cardiac arrest and LAD Lcx stents and seizure disorder presented with chest pain. Chest pain: Nausea and vomiting Evaluated by cardiology, appreciate recommendations, outpatient follow up Serial troponins all <.01 Urine toxicology positive for cocaine/MJ, beta blockade held Patient denying use CXR negative Echocardiogram 07/08-lvef wnl, stage I diastolic dysfunction, no sig valvular disease Seizures: Neurology evaluation, appreciate recommendations Continue Keppra 1500mg IV BID, resume PO dose if tolerating diet CAD s/p LAD/Lcx stent Continue statin, aspirin, and plavix HTN Continue lisinopril very low dose, off beta ramiro for now, spironolactone? not class 3-4 NPO-advanced to full liquid diet with plan to advance as tolerated DVT ppx: heparin 5000 units subcutaneous Q8H Full code Problem List: 1. Chest pain 2. Seizure Pain Ratin Pain Location: n/a Pain Goal: Pain 4 or less Pain Plan: prn Tomorrow's Labs & Rationales: none
[2017-07-27 14:00] VITALS: BP 118/70
[2017-07-27 22:25] VITALS: BP 112/70
[2017-07-28 00:20] VITALS: BP 108/74
--- NOTE | 2017-07-28 08:38 | PN- Housestaff ---
Miladis Chinchilla 07/28/17 0837: Subjective Follow-up For: Seizures CAD chest pain Subjective: Patient reports nausea and vomiting throughout the morning accompanied by abdominal discomfort. Review of Systems Constitutional: Reports: see HPI. Objective Last 24 Hrs of Vital Signs/I&O Vital Signs Date Time Temp Pulse Resp B/P B/P Pulse O2 O2 Flow FiO2 Mean Ox Delivery Rate 07/28 1451 98.5 65 18 110/68 95 Room Air 07/28 1119 98.5 53 18 108/68 94 Room Air 07/28 0020 98.3 56 18 108/74 95 Room Air 07/27 2225 98.2 57 19 112/70 97 Intake & Output 07/28 1600 07/28 0800 07/28 0000 Intake Total 616 305 1989 Output Total 425 225 Balance -75 -25 1260 Intake, IV 827 138 0674 Intake, Oral 200 100 160 Output, Urine 425 225 Patient 192 lb Weight Physical Exam General Appearance: Alert, Oriented X3, Cooperative, Mild Distress Cardiovascular: Regular Rate, Normal S1, Normal S2, No Murmurs, Gallops, Rubs Lungs: Clear to Auscultation, Normal Air Movement Abdomen: Normal Bowel Sounds, Soft, No Tenderness, No Hepatospenomegaly, No Masses Current Medications: Current Medications Sig/Haven Start time Last Medication Dose Route Stop Time Status Admin Acetaminophen 650 MG Q8P PRN 07/26 0030 AC PO Al Hydroxide/Mg 30 ML Q4-6 PRN PRN 07/27 1500 AC Hydroxide PO Aspirin Buffered 81 MG DAILY 07/26 1000 AC 07/27 PO 1017 Atorvastatin Calcium 20 MG DAILY 07/26 1000 AC 07/27 PO 1018 Clopidogrel Bisulfate 75 MG DAILY 07/26 1000 AC 07/27 PO 1019 Heparin Sodium 5,000 UNIT Q8 07/25 2200 AC 07/28 (Porcine) SC 1505 Levetiracetam 1,500 MG Q12 07/27 2200 AC 07/28 N/A 1 UNIT IV 1022 Lisinopril 2.5 MG DAILY 07/26 1000 AC 07/27 PO 1019 Metoclopramide HCl 10 MG ONCE ONE 07/28 1245 DC 07/28 IV 07/28 1246 1300 Metoclopramide HCl 10 MG ONCE ONE 07/28 1015 DC 07/28 PO 07/28 1016 1021 Nitroglycerin 0.4 MG Q 5 MINUTES X 3 DO.. 07/26 0615 AC SL Ondansetron HCl 4 MG .STK-MED ONE 07/28 0748 DC IM 07/28 0749 Ondansetron HCl 4 MG .STK-MED ONE 07/27 1903 DC IM 07/27 1904 Ondansetron HCl 4 MG Q6P PRN 07/26 1030 AC 07/28 IV 0749 Sodium Chloride 1,000 ML Q8H 07/27 1600 DC 07/27 IV 07/27 2359 1604 Spironolactone 25 MG DAILY 07/26 1000 AC 07/27 PO 1017 Tramadol HCl 50 MG Q8P PRN 07/26 0030 AC PO Last 24 Hrs of Lab/Misbah Results Last 24 Hrs of Labs/Mics: Laboratory Tests 07/28/17 1435: Troponin I < 0.01 07/28/17 1435: Anion Gap 7, Estimated GFR > 60, BUN/Creatinine Ratio 10.0, CBC w Diff NO MAN DIFF REQ, RBC 4.26 L, MCV 88.2, MCH 29.6, MCHC 33.6, RDW 15.4 H, MPV 7.7, Gran % 50.9, Lymphocytes % 34.6, Monocytes % 9.0, Eosinophils % 5.0, Basophils % 0.5, Absolute Granulocytes 4.8, Absolute Lymphocytes 3.3, Absolute Monocytes 0.8 H, Absolute Eosinophils 0.5, Absolute Basophils 0 Assessment/Plan Assessment: Mr. Roth is a 56 year old male current smoke (1/2 PPD) with PMH of CAD s/p LAD and LCX stents (2016), s/p cardiac arrest in [place] (01/2017) found to have ISR, s/p angioplasty, anoxic brain injury with resultant seizure who presented with L- sided CP. His PCP ? Kylie Navarro L-sided CP most likely [facility] Patient reported he feels a tenderness on L side of chest. Serial ECG shows an old infart. Patient had a cath recently that showed a patent stent 30% distal RCA stenosis. Patient was initially on Metoprolol 25 mg BID that has been changed as per Cardio to Metoprolol 25 mg daily most likely due to his history of bradycardia * TROP negative * Utox positive for cocaine and cannabis * Discontinue Metoprolol because will exacerbate alpha action that will lead to vasocontriction * Cardiology recommendations appreciated History of seizures Hospitalized in [place] last week for a seizure episode without LOC and another episode this morning with ? 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 Chest pain 2. Seizure 3. Abdominal discomfort 4. Fall Pain Ratin Pain Location: NA Pain Goal: Remain pain free Pain Plan: NA Tomorrow's Labs & Rationales: CBC, BEP Stella Moss 07/28/17 1339: Attending MD Review Statement Attending Statement Attending MD Statement: examined this patient, discuss w/resident/PA/[employer], agreed w/resident/PA/[employer], reviewed EMR data (avail), discussed with nursing Attending Assessment/Plan: Pt doing ok but still having persistent nausea . given the pts history of abdominal surgery in the past would get abdominal xray. Pt denies any abdominal pain and has been passing gas. Had BM on day of admission. Given one dose of Reglan, if it helps would cont with prn reglan and f/u on xray results.
--- NOTE | 2017-07-28 08:48 | PN- Cardiology ---
Subjective Subjective: Patient developed nausea, unable to keep food down yesterday. Feels little better but he received Zofran prior to breakfast today. He reports intermittent palpitations corrrelating with PVC's. Objective Vital Signs and I&Os Vital Signs Date Time Temp Pulse Resp B/P B/P Pulse O2 O2 Flow FiO2 Mean Ox Delivery Rate 07/28 0020 98.3 56 18 108/74 95 Room Air 07/27 2225 98.2 57 19 112/70 97 07/27 1400 98.5 73 20 118/70 98 Room Air 07/27 1019 80 124/70 Intake & Output 07/28 1600 07/28 0800 07/28 0000 07/27 1600 07/27 0800 07/27 0000 Intake Total 200 1260 1400 610 420 Output Total 225 600 300 600 Balance -25 1260 800 310 -180 Intake, IV 100 1100 600 610 300 Intake, Oral 100 160 800 120 Output, 200 Emesis Output, Urine 225 400 300 600 Patient 192 lb 181 lb Weight Physical Exam: Heent-PERRLA Neck-JVP normal,no bruits Lungs-clear bilaterally Heart-S1S2 regular, no murmur Abdomen-soft, BS+, mild epigastric tenderness, no organomegaly Extr-no edema, 2+pulses Neuro-non focal Current Medications: Current Medications Sig/Haven Start time Last Medication Dose Route Stop Time Status Admin Acetaminophen 650 MG Q8P PRN 07/26 0030 AC PO Al Hydroxide/Mg 30 ML Q4-6 PRN PRN 07/27 1500 AC Hydroxide PO Aspirin Buffered 81 MG DAILY 07/26 1000 AC 07/27 PO 1017 Atorvastatin Calcium 20 MG DAILY 07/26 1000 AC 07/27 PO 1018 Clopidogrel Bisulfate 75 MG DAILY 07/26 1000 AC 07/27 PO 1019 Heparin Sodium 5,000 UNIT Q8 07/25 2199 AC 07/27 (Porcine) SC 2147 Levetiracetam 1,500 MG Q12 07/27 2199 AC 07/27 N/A 1 UNIT IV 2148 Levetiracetam 1,500 MG BID 07/27 1000 DC 07/27 PO 1018 Levetiracetam 1,500 MG Q12 07/260 DC 07/26 N/A 1 UNIT IV 2144 Lisinopril 2.5 MG DAILY 07/26 1000 AC 07/27 PO 1019 Nitroglycerin 0.4 MG Q 5 MINUTES X 3 DO.. 07/26 0615 AC SL Omeprazole 40 MG ONCE ONE 07/27 1515 DC PO 07/27 1516 Ondansetron HCl 4 MG .STK-MED ONE 07/27 1903 DC IM 07/27 1904 Ondansetron HCl 4 MG Q6P PRN 07/26 1030 AC 07/28 IV 0749 Sodium Chloride 1,000 ML Q8H 07/27 1600 DC 07/27 IV 07/27 2359 1604 Sodium Chloride 1,000 ML ONCE ONE 07/27 0200 DC 07/27 IV 07/27 1519 0228 Spironolactone 25 MG DAILY 07/26 1000 AC 07/27 PO 1017 Tramadol HCl 50 MG Q8P PRN 07/26 0030 AC PO Trimethobenzamide HCl 200 MG ONCE ONE 07/27 1515 DC 07/27 IM 07/27 1516 1550 Results Last 48 Hrs of Labs/Mics: Laboratory Tests 07/27/17 0520: Troponin I < 0.01 07/26/17 2345: Lactic Acid 0.8 07/26/17 0940: Troponin I < 0.01, Prolactin 6.2 07/26/17 0929: Prolactin Cancelled, Urine Opiates Screen < 100, Methadone Screen < 40, Barbiturate Screen 67, Ur Phencyclidine Scrn < 6.00, Amphetamines Screen < 100, U Benzodiazepines Scrn < 85, Urine Cocaine Screen > 800 H, Urine Cannabis Screen 77.20 H Assessment/Plan Assessment/Plan Problems: 1. CAD, s/p cardiac arrest, s/p PCI stable, no recurrent chest pain 2. Nausea, mild epigastric tenderness, slightly improved 3. Palpitations with occasional PVC's. Will keep off beta blockers given recent cocaine use. 4. Tobacco use Plan: keep him off beta blockers for now, will restart low dose as outpatient if frequent palpitations. continue ASA+Plavix, spironolactone, statin, Keppra, low dose lisinopril hopefully he will be able to keep food and meds down and be discharged later today f/u with me next week (I will schedule) Continue telemetry? Yes
[2017-07-28 11:19] VITALS: BP 108/68
--- NOTE | 2017-07-28 14:28 | CT SCAN REPORT ---
EXAMINATION: CT HEAD WITHOUT CONTRAST CLINICAL INFORMATION: Dizziness. Fall. COMPARISON: 07/26/17. 06/20/17. MRI of 06/21/17. TECHNIQUE: Contiguous axial imaging was performed from the skull base to vertex without intravenous administration of contrast. DLP: 1262.03 mGy-cm FINDINGS: There is no evidence of acute intracranial hemorrhage or territorial infarction. No abnormal mass effect or midline shift is seen. Resendiz to white matter differentiation is well preserved. No extra-axial fluid collections are identified. The ventricles are normal in size. There is no abnormal attenuation within the brain parenchyma. The osseous structures and soft tissues are normal. The mastoid air cells and visualized portions of the paranasal sinuses are well aerated. IMPRESSION: No acute intracranial pathology.
--- NOTE | 2017-07-28 14:39 | CT SCAN REPORT ---
EXAMINATION: CT ABDOMEN WITH ORAL CONTRAST CLINICAL INFORMATION: Abdominal pain. Nausea and vomiting. COMPARISON: None TECHNIQUE: Multidetector volumetric imaging was performed of the abdomen following administration of oral contrast. Sagittal and coronal reformatted images were obtained on the technologist's workstation. Examination is limited by artifact with the patient's arms at the side. DLP: 282.83 mGy-cm FINDINGS: LUNG BASES: The visualized lung bases are unremarkable. A coronary artery stent is partially visualized. LIVER, GALLBLADDER, AND BILIARY TREE: The liver is normal in size, shape, and attenuation. No focal hepatic lesion or biliary ductal dilatation is present. The gallbladder is unremarkable with no evidence of radiopaque gallstones, gallbladder wall thickening, or obvious pericholecystic inflammatory changes. PANCREAS: Unremarkable. SPLEEN: There is no normal splenic spleen. Several small splenules are noted. This could represent regrowth status post bunionectomy or congenital polysplenia. ADRENAL GLANDS: Unremarkable. KIDNEYS AND URETERS: The kidneys are normal in size, shape, and attenuation. No hydronephrosis, hydroureter, or calculi seen. No perinephric stranding. GASTROINTESTINAL TRACT: No abnormality of the stomach or duodenum is demonstrated. Visualized segments of small bowel and mesentery are unremarkable. Visualized segments of the colon are unremarkable. The appendix is not visualized. ABDOMINAL WALL: No significant hernia is appreciated. LYMPH NODES: Normal. VASCULAR: Limited assessment without contrast. No abnormality is seen. OSSEOUS STRUCTURES: Severe degenerative disc disease is present at L2-L3 with disc space narrowing and marginal osteophytosis. Mild compression deformity of the superior endplate of L2 suggests previous trauma as cause. Mild spondylosis is seen at other levels. No suspicious lesion. IMPRESSION: 1. Somewhat limited evaluation with artifact from the patient's arms at the side and lack of intravenous contrast. 2. No acute intra-abdominal abnormality demonstrated. No bowel obstruction. 3. Polysplenia. 4. 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
[2017-07-28 14:51] VITALS: BP 110/68
[2017-07-28 15:03] LABS: ABSOLUTE BASOPHIL COUNT 0 /CUMM (0.0-0.2); ABSOLUTE EOSINOPHIL COUNT 0.5 /CUMM (0.0-0.7); ABSOLUTE GRANULOCYTE CT 4.8 /CUMM (1.4-6.5); ABSOLUTE LYMPH COUNT 3.3 /CUMM (1.2-3.4); ABSOLUTE MONOCYTE COUNT 0.8 /CUMM (0.10-0.60); BASOPHIL % 0.5 % (0.0-2.0); GRANULOCYTE % 50.9 % (42.2-75.2); HEMATOCRIT 37.5 % (42-52); MEAN CORPUSCULAR HGB 29.6 PG (27.0-31.0); MEAN CORPUSCULAR HGB CONC 33.6 G/DL (33.0-37.0); MEAN CORPUSCULAR VOLUME 88.2 FL (80.0-94.0); MEAN PLATELET VOLUME 7.7 FL (7.4-10.4); PLATELET COUNT 251 /CUMM (130-400); RBC DISTRIBUTION WIDTH 15.4 % (11.5-14.5); RED BLOOD CELL CT 4.26 /CUMM (4.70-6.10); WHITE BLOOD CELL COUNT 9.4 /CUMM (4.8-10.8)
[2017-07-28 22:32] VITALS: BP 118/76
[2017-07-29 07:23] VITALS: BP 118/72
[2017-07-29 07:53] LABS: ABSOLUTE BASOPHIL COUNT 0 /CUMM (0.0-0.2); ABSOLUTE EOSINOPHIL COUNT 0.5 /CUMM (0.0-0.7); ABSOLUTE GRANULOCYTE CT 4.1 /CUMM (1.4-6.5); ABSOLUTE LYMPH COUNT 2.7 /CUMM (1.2-3.4); ABSOLUTE MONOCYTE COUNT 0.6 /CUMM (0.10-0.60); BASOPHIL % 0.4 % (0.0-2.0); EOSINOPHIL % 5.9 % (0-5); GRANULOCYTE % 51.7 % (42.2-75.2); HEMATOCRIT 38.2 % (42-52); MEAN CORPUSCULAR HGB 29.4 PG (27.0-31.0); MEAN CORPUSCULAR VOLUME 88.9 FL (80.0-94.0); MEAN PLATELET VOLUME 7.9 FL (7.4-10.4); PLATELET COUNT 260 /CUMM (130-400); RBC DISTRIBUTION WIDTH 15.2 % (11.5-14.5); WHITE BLOOD CELL COUNT 7.9 /CUMM (4.8-10.8)
--- NOTE | 2017-07-29 09:39 | PN- Housestaff ---
Dada Wong 07/29/17 0939: Subjective Follow-up For: Chest pain Nausea, vomiting Abdomen discomfort Constipation Tele-Events Since Last Visit: Patient was in normal sinus rhythm, rate 68, no acute events overnight Subjective: Patient was seen and examined. He is alert awake and oriented 3. No acute events overnight. Patient denies any chest pain, short of breath, palpitations, fever, chills this morning. However patient continues to report nausea, denies any vomiting. He was constipated, has small bowel movement this morning. patient was started on Dulcolax. Reports some abdominal discomfort Vitals were stable. Review of Systems Constitutional: Reports: see HPI. Objective Last 24 Hrs of Vital Signs/I&O Vital Signs Date Time Temp Pulse Resp B/P B/P Pulse O2 O2 Flow FiO2 Mean Ox Delivery Rate 07/29 1457 97.8 62 18 122/78 96 Room Air 07/29 1035 57 118/72 07/29 0723 98.0 57 18 118/72 97 Room Air 07/28 2232 98.1 69 18 118/76 95 Room Air Intake & Output 07/29 1600 07/29 0800 07/29 0000 Intake Total 240 720 400 Output Total 700 375 Balance -460 720 25 Intake, IV 120 Intake, Oral 240 600 400 Output, Urine 700 375 Patient 84.85 kg Weight Weight Bed scale Measurement Method Physical Exam General Appearance: Alert, Oriented X3, Cooperative, No Acute Distress Other Physical Findings: General Appearance: Alert, Oriented X3, Cooperative, Mild Distress Cardiovascular: Regular Rate, Normal S1, Normal S2, No Murmurs, Gallops, Rubs Lungs: Clear to Auscultation, Normal Air Movement Abdomen: Normal Bowel Sounds, Soft, No Tenderness, No Hepatospenomegaly, No Masses Current Medications: Current Medications Sig/Haven Start time Last Medication Dose Route Stop Time Status Admin Acetaminophen 650 MG Q8P PRN 07/26 0030 AC PO Al Hydroxide/Mg 30 ML Q4-6 PRN PRN 07/27 1500 DC Hydroxide PO Aspirin Buffered 81 MG DAILY 07/26 1000 AC 07/29 PO 1035 Atorvastatin Calcium 20 MG 1700 07/29 1700 AC PO Atorvastatin Calcium 20 MG DAILY 07/26 1000 DC 07/27 PO 1018 Bisacodyl 10 MG ONCE ONE 07/29 0945 DC [place] 07/29 0946 Clopidogrel Bisulfate 75 MG DAILY 07/26 1000 AC 07/29 PO 1035 Heparin Sodium 5,000 UNIT Q8 07/25 2200 AC 07/29 (Porcine) SC 1449 Levetiracetam 1,500 MG Q12 07/27 2200 AC 07/29 N/A 1 UNIT IV 1039 Lisinopril 2.5 MG DAILY 07/26 1000 AC 07/29 PO 1035 Nitroglycerin 0.4 MG Q 5 MINUTES X 3 DO.. 07/26 0615 AC SL Ondansetron HCl 4 MG .STK-MED ONE 07/29 0742 DC IM 07/29 0743 Ondansetron HCl 4 MG Q6P PRN 07/26 1030 DC 07/29 IV 0744 Spironolactone 25 MG DAILY 07/26 1000 AC 07/29 PO 1035 Tramadol HCl 50 MG Q8P PRN 07/26 0030 AC 07/29 PO 1134 Trimethobenzamide HCl 200 MG ONCE ONE 07/29 1500 DC 07/29 IM 07/29 1501 1508 Last 24 Hrs of Lab/Misbah Results Last 24 Hrs of Labs/Mics: Laboratory Tests 07/29/17 0645: Anion Gap 6, Estimated GFR > 60, BUN/Creatinine Ratio 8.0, CBC w Diff NO MAN DIFF REQ, RBC 4.30 L, MCV 88.9, MCH 29.4, MCHC 33.0, RDW 15.2 H, MPV 7.9, Gran % 51.7, Lymphocytes % 33.8, Monocytes % 8.2, Eosinophils % 5.9 H, Basophils % 0.4, Absolute Granulocytes 4.1, Absolute Lymphocytes 2.7, Absolute Monocytes 0.6 , Absolute Eosinophils 0.5, Absolute Basophils 0 Assessment/Plan Assessment: Mr. Roth is a 56 year old male current smoke (1/2 PPD) with PMH of CAD s/p LAD and LCX stents (2016), s/p cardiac arrest in [place] (01/2017) found to have ISR, s/p angioplasty, anoxic brain injury with resultant seizure who presented with L- sided CP. His PCP ? Kylie Navarro L-sided CP most likely [facility] * TROP negative * Utox positive for cocaine and cannabis * Discontinue Metoprolol because it will exacerbate alpha action that will lead to vasocontriction * Cardiology recommendations appreciated * keep him off beta blockers for now, will restart low dose as outpatient if frequent palpitations. * continue ASA+Plavix, spironolactone, statin, Keppra, low dose lisinopril History of seizures Hospitalized in [place] last week for a seizure episode without LOC and another episode 07/28with ? seizure with post ictal confusion without LOC or jerky movements * Continue Keppra dose * EEG demonstrated abnormal due to mild generalized slowing of the backgrounds and also due to a single run of small sharp waves in the right temporal region which are potentially epileptogenic * Prolactin wnl * CT head reports a small scalp contusion in the right parasagittal parietal region * Neurology recommendations appreciated Nausea, vomiting Pt doing ok but still having persistent nausea . Pt denies any abdominal pain and has been passing gas. Had small bm. 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 Abdominal discomfort 2. Chest pain Pain Ratin Pain Location: abdomen Pain Goal: Remain pain free Pain Plan: tylinol Tomorrow's Labs & Rationales: cbc bep Stella Moss 07/29/17 1424: Attending MD Review Statement Attending Statement Attending MD Statement: examined this patient, discuss w/resident/PA/JAVA DESIGNER, agreed w/resident/PA/JAVA DESIGNER, reviewed EMR data (avail), discussed with nursing, discussed with case mgmt Attending Assessment/Plan: Pt still having some nausea . Had small BM last night. Will give duloclax suppository and dc dulcolax suppository.
[2017-07-29 14:57] VITALS: BP 122/78
[2017-07-29 16:00] VITALS: BP 124/78
[2017-07-29 22:50] VITALS: BP 128/72
[2017-07-30 07:01] VITALS: BP 110/74
--- NOTE | 2017-07-30 07:28 | PN- Housestaff ---
See Addendum Subjective Follow-up For: Chest pain Nausea, vomiting Abdomen discomfort Tele-Events Since Last Visit: SR, PVC HR 55-77 Subjective: Patient had 1 episode of vomiting. He reports persistent abdominal discomfort Review of Systems Constitutional: Reports: see HPI. Objective Last 24 Hrs of Vital Signs/I&O Vital Signs Date Time Temp Pulse Resp B/P B/P Pulse O2 O2 Flow FiO2 Mean Ox Delivery Rate 07/30 0821 59 110/74 07/30 0701 97.8 61 20 110/74 93 Room Air 07/29 2250 97.0 64 18 128/72 97 Room Air 07/29 1600 97.8 62 16 124/78 96 Room Air 07/29 1457 97.8 62 18 122/78 96 Room Air Intake & Output 07/30 1600 07/30 0800 07/30 0000 Intake Total 450 260 Output Total 300 Balance 450 -40 Intake, IV 140 Intake, Oral 450 120 Output, Urine 300 Patient 186 lb Weight Weight Bed scale Measurement Method Physical Exam General Appearance: Alert, Oriented X3, Cooperative Cardiovascular: Regular Rate, Normal S1, Normal S2, No Murmurs, Gallops, Rubs Lungs: Clear to Auscultation, Normal Air Movement Abdomen: Normal Bowel Sounds, Soft, No Tenderness Current Medications: Current Medications Sig/Haven Start time Last Medication Dose Route Stop Time Status Admin Acetaminophen 650 MG Q8P PRN 07/26 0030 AC PO Aspirin Buffered 81 MG DAILY 07/26 1000 AC 07/30 PO 0821 Atorvastatin Calcium 20 MG 1700 07/29 1700 AC 07/29 PO 1831 Bisacodyl 10 MG ONCE ONE 07/30 0800 DC [place] 07/30 0801 Clopidogrel Bisulfate 75 MG DAILY 07/26 1000 AC 07/30 PO 0821 Heparin Sodium 5,000 UNIT Q8 07/25 2200 AC 07/30 (Porcine) SC 0620 Levetiracetam 1,500 MG Q12 07/27 2200 AC 07/30 N/A 1 UNIT IV 0822 Lisinopril 2.5 MG DAILY 07/26 1000 AC 07/30 PO 0821 Metoclopramide HCl 10 MG ONCE ONE 07/30 1330 DC PO 07/30 1331 Nitroglycerin 0.4 MG Q 5 MINUTES X 3 DO.. 07/26 0615 AC SL Ondansetron HCl 4 MG Q6P PRN 07/26 1030 DC 07/29 IV 0744 Spironolactone 25 MG DAILY 07/26 1000 AC 07/30 PO 0821 Tramadol HCl 50 MG Q8P PRN 07/26 0030 AC 07/30 PO 0901 Trimethobenzamide HCl 200 MG ONCE ONE 07/29 2145 DC 07/29 IM 07/29 2146 2222 Trimethobenzamide HCl 200 MG ONCE ONE 07/29 1500 DC 07/29 IM 07/29 1501 1508 Last 24 Hrs of Lab/Misbah Results Last 24 Hrs of Labs/Mics: Laboratory Tests 07/30/17 0614: Anion Gap 9, Estimated GFR > 60, BUN/Creatinine Ratio 8.9, CBC w Diff NO MAN DIFF REQ, RBC 4.34 L, MCV 89.2, MCH 29.4, MCHC 33.0, RDW 15.0 H, MPV 8.0, Gran % 45.3, Lymphocytes % 39.1, Monocytes % 8.1, Eosinophils % 6.9 H, Basophils % 0.6, Absolute Granulocytes 3.1, Absolute Lymphocytes 2.7, Absolute Monocytes 0.6 , Absolute Eosinophils 0.5, Absolute Basophils 0 Assessment/Plan Assessment: Mr. Roth is a 56 year old male current smoke (1/2 PPD) with PMH of CAD s/p LAD and LCX stents (2016), s/p cardiac arrest in [place] (01/2017) found to have ISR, s/p angioplasty, anoxic brain injury with resultant seizure who presented with L- sided CP. His PCP ? Kylie Navarro L-sided CP most likely 2/2 cocaine use * TROP negative * Utox positive for cocaine and cannabis * Discontinue Metoprolol because it will exacerbate alpha action that will lead to vasocontriction * Cardiology recommendations appreciated * keep him off beta blockers for now, will restart low dose as outpatient if frequent palpitations. * continue ASA+Plavix, spironolactone, statin, Keppra, low dose lisinopril History of seizures Hospitalized in [place] last week for a seizure episode without LOC and another episode 3/10with ? 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 Abdominal discomfort 2. Fall 3. Chest pain 4. Seizure Pain Ratin Pain Location: NA Pain Goal: Remain pain free Pain Plan: NA Tomorrow's Labs & Rationales: BEP, CBC
[2017-07-30 08:23] LABS: ABSOLUTE BASOPHIL COUNT 0 /CUMM (0.0-0.2); ABSOLUTE EOSINOPHIL COUNT 0.5 /CUMM (0.0-0.7); ABSOLUTE GRANULOCYTE CT 3.1 /CUMM (1.4-6.5); ABSOLUTE LYMPH COUNT 2.7 /CUMM (1.2-3.4); ABSOLUTE MONOCYTE COUNT 0.6 /CUMM (0.10-0.60); BASOPHIL % 0.6 % (0.0-2.0); EOSINOPHIL % 6.9 % (0-5); GRANULOCYTE % 45.3 % (42.2-75.2); HEMATOCRIT 38.8 % (42-52); MEAN CORPUSCULAR HGB 29.4 PG (27.0-31.0); MEAN CORPUSCULAR VOLUME 89.2 FL (80.0-94.0); PLATELET COUNT 259 /CUMM (130-400); RED BLOOD CELL CT 4.34 /CUMM (4.70-6.10); WHITE BLOOD CELL COUNT 6.9 /CUMM (4.8-10.8)
[2017-07-30 15:13] VITALS: BP 90/60
--- NOTE | 2017-07-30 16:01 | Discharge Summary ---
Hospital Course Allergies: Coded Allergies: Iodinated Contrast- Oral and IV Dye (IODINATED CONTRAST MEDIA - IV DYE) (Severe, ANAPHYLAXIS 07/25/17) Sulfa (Sulfonamide Antibiotics) (Severe, HIVES 07/25/17) shellfish derived (Severe, ANAPHYLAXIS 07/25/17) blueberry (HIVES 07/25/17) Discharge Instructions Medications at Discharge Discharge Medications: Continue taking these medications: Lisinopril (Lisinopril) 2.5 MG TABLET 1 Tablet ORAL DAILY Qty = 90 Comments: Last Taken: 07/30/17 Time: 0821 Atorvastatin Calcium (Atorvastatin Calcium) 20 MG TABLET 1 Tablet ORAL DAILY Qty = 90 Comments: Last Taken: 07/29/17 Time: 1831 Spironolactone (Spironolactone) 25 MG TABLET 1 Tablet ORAL DAILY Qty = 90 Comments: Last Taken: 07/02/17 Time: 0821 Clopidogrel Bisulfate (Clopidogrel) 75 MG TABLET 1 Tablet ORAL DAILY Qty = 90 Comments: Last Taken: 07/30/17 Time: 08 Aspirin (Lo-Dose Aspirin EC) 81 MG TABLET.DR 1 Tablet ORAL DAILY Qty = 30 Comments: NOT GIVEN Levetiracetam (Levetiracetam) 1,000 MG TABLET 1,500 Milligram ORAL TWICE DAILY Qty = 90 Comments: Last Taken: 07/30/17 Time: 08 Start taking the following new medications: Metoclopramide HCl (Reglan) 10 MG TABLET 1 Tablet ORAL THREE TIMES DAILY as needed for NAUSEA Qty = 90 No Refills Instructions: 30 minutes before meals and bedtime
--- NOTE | 2017-07-30 19:28 | Cons- Gastroenterology ---
General Information and HPI Consulting Request Date of Consult: 07/30/17 Requested By: Stella Moss MD Reason for Consult: Abdominal pain, vomiting History of Present Illness: The patient was admitted with chest pain, seizures/syncope. He was found to be positive for cocaine, and uses marijuana. During this hospitalization he has developed lower abdominal pain, and nausea. He has not been able to hold down food because of vomiting. There has been no hematemesis. He last had a normal bowel movement 2 days ago. There has been no blood per rectum or melena. Prior to this hospitalization, he did not have significant GI symptoms such as heartburn, indigestion, pain, or irregular bowel habits. He has no known history of liver disease. There is no family history of GI or liver disease. He denies significant alcohol use. Allergies/Medications Allergies: Coded Allergies: Iodinated Contrast- Oral and IV Dye (IODINATED CONTRAST MEDIA - IV DYE) (Severe, ANAPHYLAXIS 07/25/17) Sulfa (Sulfonamide Antibiotics) (Severe, HIVES 07/25/17) shellfish derived (Severe, ANAPHYLAXIS 07/25/17) blueberry (HIVES 07/25/17) Home Med List: Aspirin (Lo-Dose Aspirin EC) 81 MG TABLET.DR 1 TAB PO DAILY HEART/BLOOD ( Reported) Atorvastatin Calcium 20 MG TABLET 1 TAB PO DAILY CHOLESTEROL (Reported) Clopidogrel Bisulfate (Clopidogrel) 75 MG TABLET 1 TAB PO DAILY BLOOD THINNER (Reported) Levetiracetam 1,000 MG TABLET 1,500 MG PO BID SEIZURES (Reported) Lisinopril 2.5 MG TABLET 1 TAB PO DAILY BP (Reported) Spironolactone 25 MG TABLET 1 TAB PO DAILY DIURETIC (Reported) Current Medications: Current Medications Sig/Haven Start time Last Medication Dose Route Stop Time Status Admin Acetaminophen 650 MG Q8P PRN 07/26 0030 AC PO Aspirin Buffered 81 MG DAILY 07/26 1000 AC 07/30 PO 0821 Atorvastatin Calcium 20 MG 1700 07/29 1700 AC 07/30 PO 1553 Bisacodyl 10 MG ONCE ONE 07/30 0800 DC [place] 07/30 0801 Clopidogrel Bisulfate 75 MG DAILY 07/26 1000 AC 07/30 PO 0821 Heparin Sodium 5,000 UNIT Q8 07/25 2200 AC 07/30 (Porcine) SC 1553 Levetiracetam 1,500 MG Q12 07/27 2200 AC 07/30 N/A 1 UNIT IV 0822 Lisinopril 2.5 MG DAILY 07/26 1000 AC 07/30 PO 0821 Metoclopramide HCl 10 MG ONCE ONE 07/30 1330 DC 07/30 PO 07/30 1331 1554 Nitroglycerin 0.4 MG Q 5 MINUTES X 3 DO.. 07/26 0615 AC SL Spironolactone 25 MG DAILY 07/26 1000 AC 07/30 PO 0821 Tramadol HCl 50 MG Q8P PRN 07/26 0030 AC 07/30 PO 0901 Trimethobenzamide HCl 200 MG ONCE ONE 07/29 2145 DC 07/29 IM 07/29 2146 2222 Past History Travel History Traveled to [place] past 21 day No Medical History Blood Transfusion Hx: No Neurological: seizure, ANOXIC BRAIN INJURY EENT: NONE Cardiovascular: myocardial infarction, CARDIAC ARREST Respiratory: NONE Gastrointestinal: NONE Hepatic: NONE Renal: NONE Musculoskeletal: NONE Psychiatric: NONE Endocrine: NONE Blood Disorders: NONE Cancer(s): NONE MANAGER CHANGE/Reproductive: NONE Surgical History Surgical History: PCI with stent placemnet splenectomy Psychosocial History Where Do You Live? Home Who Do You Live With? brother and niece Primary Language: Upper Sorbian Smoking Status: Current Everyday Smoker ETOH Use: denies use Illicit Drug Use: marijuana Exam & Diagnostic Data Vital Signs and I&O Vital Signs Date Time Temp Pulse Resp B/P B/P Pulse O2 O2 Flow FiO2 Mean Ox Delivery Rate 07/30 1513 97.9 52 20 90/60 96 07/30 0821 59 110/74 07/30 0701 97.8 61 20 110/74 93 Room Air 07/29 2250 97.0 64 18 128/72 97 Room Air Intake & Output 07/30 1600 07/30 0400 07/29 1600 07/29 0400 07/28 1600 07/28 0400 Intake Total 676 625 7492 149 955 1224 Output Total 1100 300 950 375 650 Balance -280 -40 370 25 -100 1260 Intake, IV 120 140 463 490 9925 Intake, Oral 102 281 3008 400 300 160 Output, Urine 1100 300 950 375 650 Patient 186 lb 187 lb 192 lb Weight Weight Bed scale Bed scale Measurement Method Physical Exam: Alert and oriented. Normal cognition. Sclera anicteric. No oropharyngeal lesions. Neck supple without thyromegaly or mass. No adenopathy. Heart regular rhythm. Lungs clear. Abdomen is soft and nondistended with normal bowel sounds, long midline scar, and lower abdominal tenderness (right greater than left), and no mass, fullness or organomegaly. Extremities without edema, and with normal distal pulses. Results Pertinent Lab Results: Laboratory Tests 07/30 07/29 0614 0645 Chemistry Sodium (137 - 145 mmol/L) 138 138 Potassium (3.5 - 5.1 mmol/L) 4.3 4.0 Chloride (98 - 107 mmol/L) 104 105 Carbon Dioxide (22 - 30 mmol/L) 25 27 Anion Gap (5 - 16) 9 6 BUN (9 - 20 mg/dL) 8 L 8 L Creatinine (0.7 - 1.2 mg/dL) 0.9 1.0 Estimated GFR (>60 ml/min) > 60 > 60 BUN/Creatinine Ratio (7 - 25 %) 8.9 8.0 Hematology CBC w Diff NO MAN DIFF REQ NO MAN DIFF REQ WBC (4.8 - 10.8 /CUMM) 6.9 7.9 RBC (4.70 - 6.10 /CUMM) 4.34 L 4.30 L Hgb (14.0 - 18.0 G/DL) 12.8 L 12.6 L Hct (42 - 52 %) 38.8 L 38.2 L MCV (80.0 - 94.0 FL) 89.2 88.9 MCH (27.0 - 31.0 PG) 29.4 29.4 MCHC (33.0 - 37.0 G/DL) 33.0 33.0 RDW (11.5 - 14.5 %) 15.0 H 15.2 H Plt Count (130 - 400 /CUMM) 259 260 MPV (7.4 - 10.4 FL) 8.0 7.9 Gran % (42.2 - 75.2 %) 45.3 51.7 Lymphocytes % (20.5 - 51.1 %) 39.1 33.8 Monocytes % (1.7 - 9.3 %) 8.1 8.2 Eosinophils % (0 - 5 %) 6.9 H 5.9 H Basophils % (0.0 - 2.0 %) 0.6 0.4 Absolute Granulocytes (1.4 - 6.5 /CUMM) 3.1 4.1 Absolute Lymphocytes (1.2 - 3.4 /CUMM) 2.7 2.7 Absolute Monocytes (0.10 - 0.60 /CUMM) 0.6 0.6 Absolute Eosinophils (0.0 - 0.7 /CUMM) 0.5 0.5 Absolute Basophils (0.0 - 0.2 /CUMM) 0 0 07/28 07/28 1435 1435 Chemistry Sodium (137 - 145 mmol/L) 137 Potassium (3.5 - 5.1 mmol/L) 4.0 Chloride (98 - 107 mmol/L) 102 Carbon Dioxide (22 - 30 mmol/L) 28 Anion Gap (5 - 16) 7 BUN (9 - 20 mg/dL) 9 Creatinine (0.7 - 1.2 mg/dL) 0.9 Estimated GFR (>60 ml/min) > 60 BUN/Creatinine Ratio (7 - 25 %) 10.0 Troponin I (<0.11 ng/ml) < 0.01 Hematology CBC w Diff NO MAN DIFF REQ WBC (4.8 - 10.8 /CUMM) 9.4 RBC (4.70 - 6.10 /CUMM) 4.26 L Hgb (14.0 - 18.0 G/DL) 12.6 L Hct (42 - 52 %) 37.5 L MCV (80.0 - 94.0 FL) 88.2 MCH (27.0 - 31.0 PG) 29.6 MCHC (33.0 - 37.0 G/DL) 33.6 RDW (11.5 - 14.5 %) 15.4 H Plt Count (130 - 400 /CUMM) 251 MPV (7.4 - 10.4 FL) 7.7 Gran % (42.2 - 75.2 %) 50.9 Lymphocytes % (20.5 - 51.1 %) 34.6 Monocytes % (1.7 - 9.3 %) 9.0 Eosinophils % (0 - 5 %) 5.0 Basophils % (0.0 - 2.0 %) 0.5 Absolute Granulocytes (1.4 - 6.5 /CUMM) 4.8 Absolute Lymphocytes (1.2 - 3.4 /CUMM) 3.3 Absolute Monocytes (0.10 - 0.60 /CUMM) 0.8 H Absolute Eosinophils (0.0 - 0.7 /CUMM) 0.5 Absolute Basophils (0.0 - 0.2 /CUMM) 0 Imaging/Other Studies: CT scan of abdomen and pelvis 2 days ago: IMPRESSION: 1. Somewhat limited evaluation with artifact from the patient's arms at the side and lack of intravenous contrast. 2. No acute intra-abdominal abnormality demonstrated. No bowel obstruction. 3. Polysplenia. 4. 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 Assessment/Plan Assessment/Recommendations: Abdominal pain and vomiting, which have occurred during this hospitalization. In the setting of recent cocaine and cannabis use. No GI tract (such as obstruction) or biliary abnormalities on CT scan. Rule out gastritis/peptic ulcer disease, enteritis, etc. Recommendations * [id number] intravenous ondansetron, with metoclopramide when necessary for breakthrough nausea * IV PPI twice a day * Nothing by mouth after midnight * EGD tomorrow * Further recommendations to follow the above Consult Acknowledgment - Thank you for your consult request.
[2017-07-30 22:27] VITALS: BP 100/70
[2017-07-31 06:48] VITALS: BP 106/70
--- NOTE | 2017-07-31 08:26 | PN- Housestaff ---
Alejo WHITING,[facility] 07/31/17 0826: Subjective Follow-up For: Chest pain Nausea, vomiting Abdomen discomfort Tele-Events Since Last Visit: NSR 60-71 QRS .1 NM .16 Subjective: No acute events overnight. States no issues overnight. Has no pain. No naseau/ vomiting last night. Requesting socks. Review of Systems Constitutional: Reports: no symptoms. Cardiovascular: Reports: no symptoms. Respiratory: Reports: no symptoms. Gastrointestinal: Reports: no symptoms, see HPI. Genitourinary: Reports: no symptoms. Musculoskeletal: Reports: no symptoms. Objective Last 24 Hrs of Vital Signs/I&O Vital Signs Date Time Temp Pulse Resp B/P B/P Pulse O2 O2 Flow FiO2 Mean Ox Delivery Rate 07/31 1516 97.6 50 20 110/60 96 07/31 1234 Room Air Room Air 07/31 1135 54 114/70 07/31 1123 Room Air Room Air 07/31 0815 Room Air Room Air 07/31 0648 97.9 50 20 106/70 96 Room Air 07/30 2227 97.0 54 20 100/70 97 Room Air Intake & Output 07/31 1600 07/31 0800 07/31 0000 Intake Total 700 120 220 Output Total 1300 750 500 Balance -600 -630 -280 Intake, IV 100 100 Intake, Oral 600 120 120 Output, Urine 1300 750 500 Patient 184 lb 184 lb Weight Weight Bed scale Measurement Method Physical Exam General Appearance: Alert, Oriented X3, Cooperative Cardiovascular: Regular Rate, ?disatolic click Lungs: Clear to Auscultation, Normal Air Movement Abdomen: Normal Bowel Sounds, Soft, No Tenderness Extremities: 2+ radial pulses, no LE edema Last 24 Hrs of Lab/Misbah Results Last 24 Hrs of Labs/Mics: Laboratory Tests 07/31/17 0620: Anion Gap 8, Estimated GFR > 60, BUN/Creatinine Ratio 8.9, CBC w Diff NO MAN DIFF REQ, RBC 4.50 L, MCV 88.4, MCH 29.1, MCHC 32.9 L, RDW 15.2 H, MPV 8.0, Gran % 42.6, Lymphocytes % 42.1, Monocytes % 8.0, Eosinophils % 6.8 H, Basophils % 0.5, Absolute Granulocytes 3.0, Absolute Lymphocytes 3.0, Absolute Monocytes 0.6, Absolute Eosinophils 0.5, Absolute Basophils 0 Assessment/Plan Assessment: Mr. Roth is a 56 year old male current smoke (1/2 PPD) with PMH of CAD s/p LAD and LCX stents (2016), s/p cardiac arrest in [place] (01/2017) found to have ISR, s/p angioplasty, anoxic brain injury with resultant seizure who presented with L- sided CP. His PCP ? Kylie Nvaarro L-sided CP most likely 2/2 cocaine use * TROP negative * Utox positive for cocaine and cannabis * Discontinue Metoprolol because it will exacerbate alpha action that will lead to vasocontriction * Cardiology recommendations appreciated * keep him off beta blockers for now, will restart low dose as outpatient if frequent palpitations. * continue ASA+Plavix, spironolactone, statin, Keppra, low dose lisinopril History of seizures Hospitalized in [place] last week for a seizure episode without LOC and another episode 07/28with ? 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 Fall 2. Abdominal discomfort 3. Chest pain 4. Seizure Pain Ratin Pain Location: none Pain Goal: Pain 4 or less Pain Plan: pain pathway Tomorrow's Labs & Rationales: cbc Stella Johns 07/31/17 1350: Attending MD Review Statement Attending Statement Attending MD Statement: examined this patient, discuss w/resident/PA/MANAGER LIFE, agreed w/resident/PA/MANAGER LIFE, reviewed EMR data (avail), discussed with nursing, discussed with case mgmt Attending Assessment/Plan: Pt underwent EGD which was unrevealing. Plan is to dc to [facility] when bed becomes available. pt encouraged to abstain from drug abuse - utox was positive for cocaine and marijuana
[2017-07-31 08:51] LABS: ABSOLUTE BASOPHIL COUNT 0 /CUMM (0.0-0.2); ABSOLUTE EOSINOPHIL COUNT 0.5 /CUMM (0.0-0.7); ABSOLUTE MONOCYTE COUNT 0.6 /CUMM (0.10-0.60); BASOPHIL % 0.5 % (0.0-2.0); EOSINOPHIL % 6.8 % (0-5); GRANULOCYTE % 42.6 % (42.2-75.2); HEMATOCRIT 39.7 % (42-52); MEAN CORPUSCULAR HGB 29.1 PG (27.0-31.0); MEAN CORPUSCULAR HGB CONC 32.9 G/DL (33.0-37.0); MEAN CORPUSCULAR VOLUME 88.4 FL (80.0-94.0); PLATELET COUNT 262 /CUMM (130-400); RBC DISTRIBUTION WIDTH 15.2 % (11.5-14.5)
--- NOTE | 2017-07-31 09:30 | Proc Note Endoscopy ---
Endoscopy Procedure Procedure Date: 07/31/17 Procedure Type: EGD Physician In Private Practice: Avery Durant M.D. ASA Classification: IV Indications: Nausea, vomiting Abdominal pain Instrument: diagnostic gastroscope Meds Received: MAC (O2 via mask) Patient's Tolerance: good Complications: none Extent Reached: second part of duodenum Procedure: The patient signed informed consent, and was medicated. Lidocaine pharyngeal spray was administered. Pulse oximetry, blood pressure and cardiac monitoring were performed continuously throughout the procedure. The Olympus high- definition gastroscope was inserted into the mouth and advanced to the duodenum. Retroflexion was performed within the stomach to examine the cardia. Careful examination was performed. Of note, after 600 mg of propofol, there was no appreciable sedation effect and as such the procedure was started. A total of 800 mg of propofol were given throughout the procedure. The patient remained awake. Findings: Esophagus had normal caliber and contour. There were no varices. The mucosa was intact throughout. The GE junction was normal but patulous. There was a hiatal hernia. Stomach had normal distention. There was active antral peristalsis. The cardia was normal aside from the hernia. The mucosa and folds were normal throughout. The pyloric channel was normal. The duodenal bulb was normal without erosion, ulceration or deformity. Mucosa and folds of the duodenal sweep were normal. Impression: * Hiatal hernia Recommendations: * Ondansetron, given [id number] (4 times a day, before meals and at bedtime) * PPI twice a day * Restart clear liquid diet and advance as tolerated
[2017-07-31] MEDS ORDERED: REGLAN10 M1 PO (11:20)
--- NOTE | 2017-07-31 11:25 | Discharge Summary ---
Visit Information Visit Dates Admission Date: 07/26/17 Discharge Date: 08/01/2017 Hospital Course Course Attending Physician: Isa WHITING,Stella Cazares Primary Care Physician: Need to have PCP, most of his work up at [facility] Hospital Course: 56 year old male with h/o CAD, LAD and LCX stents in [place] in 2016, s/p cardiac arrest in [place] in January 2017,found to have ISR, s/p angioplasty, anoxic brain injury with resultant seizure.He is unable to work due seizure and anoxic brain injury.He still smokes 1/2 ppd. He had seizure episode in April 2017, troponin was 0.21, diagnostic cath revealed patent LAD, LCX stents, 30% distal RCA stenosis.Patient was hospitalized at [facility](06/20/2017 - 06/22/2017) with generalized weakniess, bradycardia,weaned off metoprolol. He was discharged home and was placed on Linq monitor 2 weeks later for unexplained syncope.His echo showed normal LVEF, MRI brain normal. He was hospitalized in [place] a week before admission with another seizure episode without syncope and his dose of Keppra was increased. He presented with left sided chest pain with diaphoresis so admitted in telemtry for further evalaution. ED course - Vitals stable, except for HR 80-100's. Exam: awake, slightly lethargic but reports that he is feeling tired. Linq device subcutaneous in the left chest. Unremarkable exam. Labs: WBC 11.1, trop neg. Alcohol < 10. UA - positive for cocaine and [place] CXR: no abnormality. EKG: sinus rhythm, T-wave flattening V4-6 (were inverted on previous EKG), Qtc 450. Chest Pain, possibly due to cocaine abuse ruled out ACS - We admitted the patient to telemetry floor. Serial troponins and EKGs were negative. We obtained a consult from the art psychotherapist or therapist advised to stop the metoprolol and gave symptomatic management. Cyclic nausea and vomiting, Non Specific, possibly secondary to cannabis abuse - Patient had episodes of diaphoresis, nausea, vomiting and abdominal pain.We did give symptomatic management initially by giving Reglan/tigan. We did lactic acid which was normal, Abdominal CT showed polysplenia. We obtained gastroenterology consult who advised for upper GI endoscopy. Upper GI endoscopy show evidence of hiatus hernia without any evidence of erosion or ulcers. We discharged patient with antinausea medication including metoclopramide as needed and advised to follow-up with PCP/zanjero for further evaluation and management. History of seizure secondary to anoxic brain injury - Patient had multiple episodes of rapid responses and every time he was having confusion, slurring of speech and diaphoresis. We obtained neurological consult who advised to continue patient on Keppra and EEG.EEG was done which was abnormal - there were mild generalized slowing of the backgrounds and also a single run of small sharp waves in the right temporal region which are potentially epileptogenic. He advised to continue same keppra and follow up as an out patient. Allergies: Coded Allergies: Iodinated Contrast- Oral and IV Dye (IODINATED CONTRAST MEDIA - IV DYE) (Severe, ANAPHYLAXIS 07/25/17) Sulfa (Sulfonamide Antibiotics) (Severe, HIVES 07/25/17) shellfish derived (Severe, ANAPHYLAXIS 07/25/17) blueberry (HIVES 07/25/17) mushroom (UNKNOWN 07/31/17) Disposition Summary Disposition Principal Diagnosis: Chest Pain, possibly due to cocaine abuse ruled out ACS Cyclic nausea and vomiting, Non Specific, possibly secondary to cannabis abuse Additional Diagnosis: History of seizure secondary to anoxic brain injury Discharge Disposition: SNF Discharge Instructions General Discharge Information Code Status: Full Code Patient's Diet: Regular diet Patient's Activity: as tolerated with all fall precaution Follow-Up Instructions/Appts: Advised to follow-up with the PCP and art psychotherapist or therapist for further management of nausea and bradycardia. Please avoid cocaine and cannabis. Medications at Discharge Discharge Medications: Continue taking these medications: Lisinopril (Lisinopril) 2.5 MG TABLET 1 Tablet ORAL DAILY Qty = 90 Comments: Last Taken: 08/01/17 Time: 10 AM Atorvastatin Calcium (Atorvastatin Calcium) 20 MG TABLET 1 Tablet ORAL DAILY Qty = 90 Comments: Last Taken: 07/31/17 Time: 4:30 PM Spironolactone (Spironolactone) 25 MG TABLET 1 Tablet ORAL DAILY Qty = 90 Comments: Last Taken: 08/01/17 Time: 10 AM Clopidogrel Bisulfate (Clopidogrel) 75 MG TABLET 1 Tablet ORAL DAILY Qty = 90 Comments: Last Taken: 08/01/17 Time: 10 AM Aspirin (Lo-Dose Aspirin EC) 81 MG TABLET.DR 1 Tablet ORAL DAILY Qty = 30 Comments: Last Taken: 08/01/17 Time: 10 AM Levetiracetam (Levetiracetam) 1,000 MG TABLET 1,500 Milligram ORAL TWICE DAILY Qty = 90 Comments: Last Taken: 08/01/17 Time: 10 AM Start taking the following new medications: Trimethobenzamide HCl (Tigan) 300 MG CAPSULE 1 Capsule ORAL 4 TIMES LOREN Qty = 120 No Refills Comments: RECIEVED IM TIGAN IN HOSPITAL LAST DOSE 07/31/17 1130 AM Omeprazole (Omeprazole) 40 MG CAPSULE.DR 1 Capsule ORAL TWICE DAILY Qty = 60 No Refills Comments: DID NOT RECIEVE IN HOSPITAL WAS RECIEVING IV PROTONIX LAST DOSE 08/01/17 10 AM Copies To: Grisel WHITING,Sai Ryan; Lilibeth WHITING,Gerber Mark MD Review Statement Documenting Attending: Isa WHITING,Stella Cazares
[2017-07-31 15:16] VITALS: BP 110/60
[2017-07-31 21:57] VITALS: BP 104/60
[2017-08-01 06:51] VITALS: BP 130/96
--- NOTE | 2017-08-01 07:19 | PN- Housestaff ---
Alejo WHITING,[facility] 08/01/17 0718: Subjective Follow-up For: Chest pain Nausea, vomiting Abdomen discomfort Tele-Events Since Last Visit: SB, NSR HR 57-70 QRS .1 PA .16 Subjective: No acute issues overnight. Still has abd soreness which he states was before EGD. No N/V. Oral liquids tolerated. Tried some eggs this AM without any issues. Review of Systems Constitutional: Reports: no symptoms. Cardiovascular: Denies: chest pain. Respiratory: Reports: no symptoms. Gastrointestinal: Reports: abdominal pain. Denies: nausea, vomiting. Objective Last 24 Hrs of Vital Signs/I&O Vital Signs Date Time Temp Pulse Resp B/P B/P Pulse O2 O2 Flow FiO2 Mean Ox Delivery Rate 08/01 0651 98.1 57 20 130/96 95 Room Air 07/31 2157 97.9 83 20 104/60 95 07/31 1516 97.6 50 20 110/60 96 07/31 1234 Room Air Room Air 07/31 1135 54 114/70 07/31 1123 Room Air Room Air Intake & Output 08/01 1600 08/01 0800 08/01 0000 Intake Total 110 300 Output Total 600 950 Balance -490 -650 Intake, IV 10 100 Intake, Oral 100 200 Output, Urine 600 950 Patient 184 lb Weight Physical Exam General Appearance: Alert, Oriented X3, Cooperative, No Acute Distress HEENT: PERRLA Cardiovascular: Regular Rate, Normal S1, Normal S2 Lungs: Clear to Auscultation, Normal Air Movement Abdomen: Normal Bowel Sounds, Soft, No Tenderness Vascular: 2+ radial pulses Current Medications: Current Medications Sig/Haven Start time Last Medication Dose Route Stop Time Status Admin Acetaminophen 650 MG Q8P PRN 07/26 0030 AC PO Aspirin Buffered 81 MG DAILY 07/26 1000 AC 07/31 PO 1135 Atorvastatin Calcium 20 MG 1700 / 1700 AC 07/31 PO 1627 Clopidogrel Bisulfate 75 MG DAILY 07/26 1000 AC 07/31 PO 1135 Heparin Sodium 5,000 UNIT Q8 07/25 2200 AC 08/01 (Porcine) SC 0633 Levetiracetam 1,500 MG BID 08/01 1000 AC PO Levetiracetam 1,500 MG Q12 07/27 2200 DC 07/31 N/A 1 UNIT IV 205 Lisinopril 2.5 MG DAILY 07/26 1000 AC 07/31 PO 1135 Nitroglycerin 0.4 MG Q 5 MINUTES X 3 DO.. 07/26 0615 AC SL Omeprazole 40 MG DAILY AC 08/02 0700 AC PO Pantoprazole Sodium 40 MG Q12H 07/31 0108 DC 08/01 IV 0130 Spironolactone 25 MG DAILY 07/26 1000 AC 07/31 PO 1135 Tramadol HCl 50 MG Q8P PRN 07/26 0030 AC 07/30 PO 0901 Trimethobenzamide HCl 200 MG 4 TIMES/DAY 07/31 0145 AC 07/31 IM 1135 Last 24 Hrs of Lab/[place] Results Last 24 Hrs of Labs/Mics: Laboratory Tests 08/01/17 0636: Anion Gap 10, Estimated GFR > 60, BUN/Creatinine Ratio 6.7 L, Magnesium 1.7, CBC w Diff NO MAN DIFF REQ, RBC 4.64 L, MCV 88.1, MCH 29.3, MCHC 33.3, RDW 15.2 H, MPV 7.8, Gran % 41.9 L, Lymphocytes % 40.3, Monocytes % 7.5, Eosinophils % 9.8 H, Basophils % 0.5, Absolute Granulocytes 2.7, Absolute Lymphocytes 2.6, Absolute Monocytes 0.5, Absolute Eosinophils 0.6, Absolute Basophils 0 Assessment/Plan Assessment: Mr. Roth is a 56 year old male current smoke (1/2 PPD) with PMH of CAD s/p LAD and LCX stents (2016), s/p cardiac arrest in [place] (01/2017) found to have ISR, s/p angioplasty, anoxic brain injury with resultant seizure who presented with L- sided CP. His PCP ? Kylie Navarro L-sided CP most likely 2/2 cocaine use * TROP negative * Utox positive for cocaine and cannabis * Discontinue Metoprolol because it will exacerbate alpha action that will lead to vasocontriction * Cardiology recommendations appreciated * keep him off beta blockers for now, will restart low dose as outpatient if frequent palpitations. * continue ASA+Plavix, spironolactone, statin, Keppra, low dose lisinopril and outpatien cardiology f/u after rehab History of seizures Hospitalized in [place] last week for a seizure episode without LOC and another episode 07/28with ? 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 f/u outpatient with GI. Constipation * bowel regimen #DVT prophylaxis - heparin subq #FULL CODE Problem List: 1. Fall 2. Vomiting 3. Seizure 4. Chest pain 5. Substance abuse Pain Ratin Pain Location: abd Pain Goal: Pain 4 or less Pain Plan: pain pathway Tomorrow's Labs & Rationales: none Stella Moss 08/01/17 1306: Attending MD Review Statement Attending Statement Attending MD Statement: examined this patient, discuss w/resident/PA/FIELD HAULER, agreed w/resident/PA/FIELD HAULER, reviewed EMR data (avail), discussed with nursing, discussed with case mgmt Attending Assessment/Plan: Pt being dced to [facility] . Pt was cousnelled to stay away from drugs and told to be compliant with his medications/ See dc summary for more details.
--- NOTE | 2017-08-01 08:18 | PN- Cardiology ---
Subjective Subjective: He states he feels OK, still mild nausea, no chest pain or dyspnea Objective Vital Signs and I&Os Vital Signs Date Time Temp Pulse Resp B/P B/P Pulse O2 O2 Flow FiO2 Mean Ox Delivery Rate 08/01 0551 98.1 57 20 130/96 95 Room Air 07/31 2157 97.9 83 20 104/60 95 07/31 1516 97.6 50 20 110/60 96 07/31 1234 Room Air Room Air 07/31 1135 54 114/70 07/31 1123 Room Air Room Air 07/31 0815 Room Air Room Air Intake & Output 08/01 1600 08/01 0800 08/01 0000 07/31 1600 07/31 0800 07/31 0000 Intake Total 110 300 700 120 220 Output Total 662 689 0294 750 500 Balance -490 -650 -600 -630 -280 Intake, IV 10 100 100 100 Intake, Oral 100 200 600 120 120 Output, Urine 212 045 3270 750 500 Patient 184 lb 184 lb 184 lb Weight Weight Bed scale Measurement Method Physical Exam: HEENT-PERRLA Neck-JVP normal, no bruit Lungs-clear bilaterally Heart-S1S2 regular, no murmur Abdomen-soft, not tender, BS+, no organomegaly Extr-no edema, 2+ pulses Neuro-non focal Current Medications: Current Medications Sig/Haven Start time Last Medication Dose Route Stop Time Status Admin Acetaminophen 650 MG Q8P PRN 07/26 0030 AC PO Aspirin Buffered 81 MG DAILY 07/26 1000 AC 07/31 PO 1135 Atorvastatin Calcium 20 MG 1700 / 1700 AC 07/31 PO 1627 Clopidogrel Bisulfate 75 MG DAILY 07/26 1000 AC 07/31 PO 1135 Heparin Sodium 5,000 UNIT Q8 07/25 2199 AC 08/01 (Porcine) MN 0633 Levetiracetam 1,500 MG Q12 07/27 2200 AC 07/31 N/A 1 UNIT IV 2054 Lidocaine 2 JOB .STK-MED ONE 07/31 933 OH TOP 07/31 934 Lidocaine 50 ML .STK-MED ONE 07/31 933 OH TOP 07/31 934 Lisinopril 2.5 MG DAILY 07/26 1000 AC 07/31 PO 1135 Nitroglycerin 0.4 MG Q 5 MINUTES X 3 DO.. 07/26 0615 AC Pantoprazole Sodium 40 MG Q12H 07/31 0108 08/01 IV 0130 Spironolactone 25 MG DAILY 07/26 1000 07/31 PO 1135 Tramadol HCl 50 MG Q8P PRN 07/26 0030 07/30 PO 0901 Trimethobenzamide HCl 200 MG 4 TIMES/DAY 07/31 0145 07/31 IM 1135 Results Last 48 Hrs of Labs/Mics: Laboratory Tests 08/01/17 0636: Sodium Pending, Potassium Pending, Chloride Pending, Carbon Dioxide Pending, Anion Gap Pending, BUN Pending, Creatinine Pending, BUN/Creatinine Ratio Pending , Magnesium Pending, CBC w Diff Pending, WBC Pending, RBC Pending, Hgb Pending, Hct Pending, MCV Pending, MCH Pending, MCHC Pending, RDW Pending, Plt Count Pending, MPV Pending 07/31/17 0620: Anion Gap 8, Estimated GFR > 60, BUN/Creatinine Ratio 8.9, CBC w Diff NO MAN DIFF REQ, RBC 4.50 L, MCV 88.4, MCH 29.1, MCHC 32.9 L, RDW 15.2 H, MPV 8.0, Gran % 42.6, Lymphocytes % 42.1, Monocytes % 8.0, Eosinophils % 6.8 H, Basophils % 0.5, Absolute Granulocytes 3.0, Absolute Lymphocytes 3.0, Absolute Monocytes 0.6, Absolute Eosinophils 0.5, Absolute Basophils 0 Assessment/Plan Assessment/Plan Problems: 1. CAD, s/p cardiac arrest, s/p PCI stable, no recurrent chest pain 2. Nausea, mild epigastric tenderness, slightly improved-EGD showed only hiatal hernia 3. Occasional PVC's. Will keep off beta blockers given recent cocaine use and underlying sinus bradycardia and normal LVEF. Will monitor of ventricular arrhytmia via Linq monitor. 4. Tobacco use 5. s/p Linq monitor-1 loose stitch removed Plan: keep him off beta blockers for now, will restart low dose as outpatient if frequent palpitations. continue ASA+Plavix, spironolactone, statin, Keppra, low dose lisinopril STR hopefully today f/u with me in 2 weeks (will schedule) when out of rehab Continue telemetry? No
[2017-08-01 08:20] LABS: ABSOLUTE BASOPHIL COUNT 0 /CUMM (0.0-0.2); ABSOLUTE EOSINOPHIL COUNT 0.6 /CUMM (0.0-0.7); ABSOLUTE GRANULOCYTE CT 2.7 /CUMM (1.4-6.5); ABSOLUTE LYMPH COUNT 2.6 /CUMM (1.2-3.4); ABSOLUTE MONOCYTE COUNT 0.5 /CUMM (0.10-0.60); BASOPHIL % 0.5 % (0.0-2.0); EOSINOPHIL % 9.8 % (0-5); GRANULOCYTE % 41.9 % (42.2-75.2); HEMATOCRIT 40.9 % (42-52); MEAN CORPUSCULAR HGB 29.3 PG (27.0-31.0); MEAN CORPUSCULAR HGB CONC 33.3 G/DL (33.0-37.0); MEAN CORPUSCULAR VOLUME 88.1 FL (80.0-94.0); MEAN PLATELET VOLUME 7.8 FL (7.4-10.4); PLATELET COUNT 291 /CUMM (130-400); RBC DISTRIBUTION WIDTH 15.2 % (11.5-14.5); RED BLOOD CELL CT 4.64 /CUMM (4.70-6.10); WHITE BLOOD CELL COUNT 6.5 /CUMM (4.8-10.8)
[2017-08-01] MEDS ORDERED: TIGAN300 MG PO (09:50)
[2017-08-01] MEDS ORDERED: OMEPRAZOLE40 M1 PO (09:54)
[2017-08-01 10:06] VITALS: BP 118/60
== END 2017-08-01 12:35 | DRG 198 ==
LOC: ERH 17:07 → 1NO 19:05 → ERHI 19:05 → ENRESERV 20:49 → ENTRNSPT 21:13 → EDTRNSPTSTS 21:24 → 1NO 21:35 → CMPTRNSPT 21:52 → 1NO 07-26 07:30 → ENPENDDIS 08-01 10:42 → 1NO 08-01 12:35
PROVIDERS: Hospitalist; Internal Medicine Endocrinology, Diabetes & Metabolism; Physician Assistant Medical; Student in an Organized Health Care Education/Training Program
PROC: 0DJ08ZZ Inspection of Upper Intestinal Tract, Via Natural or Artificial Opening Endoscopic (ICD-10-PCS; principal; 2017-07-31)
DX: R07.89 Other chest pain (principal); G40.909 Epilepsy, unspecified, not intractable, without status epilepticus; I25.10 Atherosclerotic heart disease of native coronary artery without angina pectoris; F17.200 Nicotine dependence, unspecified, uncomplicated; F12.929 Cannabis use, unspecified with intoxication, unspecified; F14.10 Cocaine abuse, uncomplicated; T40.5X1A Poisoning by cocaine, accidental (unintentional), initial encounter; T40.7X1A Poisoning by cannabis (derivatives), accidental (unintentional), initial encounter; I25.2 Old myocardial infarction; Z98.61 Coronary angioplasty status; Z88.2 Allergy status to sulfonamides; Z91.041 Radiographic dye allergy status; Z91.013 Allergy to seafood; D72.829 Elevated white blood cell count, unspecified; I10 Essential (primary) hypertension; G93.1 Anoxic brain damage, not elsewhere classified; K59.00 Constipation, unspecified; R55 Syncope and collapse; K44.9 Diaphragmatic hernia without obstruction or gangrene
CPT/HCPCS: 1NP; 36592; 71045; 80307; 82436; 93005; 93010; 95816; 96374; 97110-GO; 97161-GP; 97530-GO; G0480; J1644; J1953; J2405; J2765; J3250

== ENCOUNTER 2017-08-09 21:49 | Inpatient (IN) | payer OTHER ==
[~2017-08-09] VITALS: Ht 177.8 cm; Wt 80.7 kg
[~2017-08-09 21:49] MED LIST changes: +OMEPRAZOLE40 M1 PO; +REGLAN10 M1 PO; +TIGAN300 MG PO
--- NOTE | 2017-08-09 21:55 | ED CARDIAC/CP/PALPITATIONS ---
History of Present Illness General Chief Complaint: Chest Pain Stated Complaint: BIBA WITH CHEST PAIN Source: patient Exam Limitations: no limitations Vital Signs & Intake/Output Vital Signs & Intake/Output Vital Signs Date Time Temp Pulse Resp B/P B/P Pulse O2 O2 Flow FiO2 Mean Ox Delivery Rate 08/09 2153 97.1 90 16 121/74 97 Room Air ED Intake and Output 08/10 0000 08/09 1200 Intake Total Output Total 500 Balance -500 Output, Urine 500 Patient 178 lb Weight Allergies Coded Allergies: Iodinated Contrast- Oral and IV Dye (IODINATED CONTRAST MEDIA - IV DYE) (Severe, ANAPHYLAXIS 08/09/17) Sulfa (Sulfonamide Antibiotics) (Severe, HIVES 08/09/17) shellfish derived (Severe, ANAPHYLAXIS 08/09/17) blueberry (HIVES 08/09/17) mushroom (UNKNOWN 08/09/17) Reconcile Medications Acetaminophen (Acephen) 650 MG SUPP.RECT 1 SUPP OR Q6H PRN PAIN/TEMP>101 ( Reported) Acetaminophen (Tylenol) 325 MG TABLET 2 TAB PO Q6H PRN PAIN/TEMP>101 ( Reported) Aspirin (Lo-Dose Aspirin EC) 81 MG TABLET.DR 1 TAB PO DAILY HEART/BLOOD ( Reported) Atorvastatin Calcium 20 MG TABLET 1 TAB PO DAILY CHOLESTEROL (Reported) Bisacodyl (Dulcolax) 10 MG SUPP.RECT 1 SUP RC DAILY PRN CONSTIPATION ( Reported) Clopidogrel Bisulfate (Clopidogrel) 75 MG TABLET 1 TAB PO DAILY BLOOD THINNER (Reported) Levetiracetam 1,000 MG TABLET 1,500 MG PO BID SEIZURES (Reported) Lisinopril 2.5 MG TABLET 1 TAB PO DAILY BP (Reported) Magnesium Hydroxide (Milk Of Magnesia) 400 MG/5 ML ORAL.SUSP 30 ML PO Q3D PRN CONSTIPATION (Reported) Na Phos,M-B/Na Phos,Di-Ba (Fleet Enema) 19 GRAM-7 GRAM/118 ML ENEMA 1 E RC DAILY PRN CONSTIPATION (Reported) Naloxone HCl (Narcan) 4 MG/ACTUATION SPRAY 4 MG LUIS AD PRN OPIOID INDUCED RESP. DEPRESSIO (Reported) Nicotine (Nicotine Patch) 14 MG/24 HOUR PATCH.TD24 1 PAT TOP DAILY SMOKING CESSATION (Reported) Omeprazole 40 MG CAPSULE.DR 1 CAP PO BID VOMITING Spironolactone 25 MG TABLET 1 TAB PO DAILY DIURETIC (Reported) Trimethobenzamide HCl (Tigan) 300 MG CAPSULE 1 CAP PO 4 TIMES LOREN NASEAU Triage Nurses Notes Reviewed? yes Onset: Abrupt Duration: minute(s): Timing: single episode today Location: left sided chest pain per medics, with seizure upon arrival. Radiation: no radiation Activities at Onset: none Associated Symptoms: seizure HPI: 56 yo gentleman from [facility], h/o stents, convulsions, presents with left sided chest pain x several hours, was evaluated by [employer]IVE FIRER/FIREMAN and refered to the ED. En route, he was given aspirin and nitro, which he reported improved his discomfort. Upon arrival to the ED, he became minimally responsive, had a seizure which lasted approximately 2-3 minutes, and fell out of bed landing on his left shoulder. His seizure self resolved, but remained somnolent. Past History Travel History Traveled to [place] past 21 day No Medical History Any Pertinent Medical History? 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 No Review of Systems Review of Systems Constitutional: Reports: no symptoms. EENTM: Reports: no symptoms. Respiratory: Reports: no symptoms. Cardiovascular: Reports: no symptoms. GI: Reports: no symptoms. Genitourinary: Reports: no symptoms. Musculoskeletal: Reports: no symptoms. Skin: Reports: no symptoms. Neurological/Psychological: Reports: no symptoms. Hematologic/Endocrine: Reports: no symptoms. Immunologic/Allergic: Reports: no symptoms. All Other Systems: Reviewed and Negative Physical Exam Physical Exam General Appearance: moderate distress, severe distress Head: atraumatic, normal appearance Eyes: Bilateral: normal appearance, PERRL, EOMI. Ears, Nose, Throat: normal pharynx, normal ENT inspection Neck: normal inspection, supple, full range of motion Respiratory: normal breath sounds, chest non-tender Cardiovascular: regular rate/rhythm Gastrointestinal: normal bowel sounds, soft, non-tender, no organomegaly Back: normal inspection Extremities: normal inspection, normal capillary refill, normal range of motion, no edema Neurologic/Psych: pt actively seizing with tonic clonic activity of upper and lower extremities, pt foaming at mouth, unconcious. Reflexes: 1+: bicep (R), bicep (L), knee (R), knee (L). Skin: intact, normal color, warm/dry Core Measures ACS in differential dx? No CVA/TIA Diagnosis No Sepsis Present: No Sepsis Focused Exam Completed? No Progress Differential Diagnosis: AMI, seizure vs unstable angina vs other. Plan of Care: Orders Procedure Date/time Status Nothing by Mouth 08/10 B Active Patient Data 08/11 107 Active Saline Lock 08/10 45 Active Misc Message 08/10 45 Active ED Holding Orders 08/10 45 Active Admit to inpatient 08/10 45 Active Vital Signs 08/10 45 Active Code Status 08/10 45 Active ETHANOL 08/09 2214 Complete URINE DRUG SCREEN FOR ER ONLY 08/09 2202 Complete URINALYSIS 08/09 2202 Complete TROPONIN LEVEL 08/09 2154 Complete LIPASE 08/09 2154 Complete HEPATIC FUNCTION PANEL 08/09 2154 Complete D-DIMER 08/09 2154 Complete CBC WITHOUT DIFFERENTIAL 08/09 2154 Complete BASIC METABOLIC PANEL 08/09 2154 Complete AMYLASE 08/09 2154 Complete EKG 08/09 2150 Active Current Medications Sig/Haven Start time Last Medication Dose Stop Time Status Admin Levetiracetam 1,500 MG Q12 08/10 41 UNVr 08/10 (Keppra) 0130 N/A 1 UNIT (No Carrier) Laboratory Tests 08/09/172219: Urine Opiates Screen < 100, Methadone Screen < 40, Barbiturate Screen < 60, Ur Phencyclidine Scrn < 6.00, Amphetamines Screen < 100, U Benzodiazepines Scrn < 85, Urine Cocaine Screen < 50, Urine Cannabis Screen 54.20 H, Urine Color YEL, Urine Clarity CLEAR, Urine pH 6.5, Ur Specific [place] 1.015, Urine Protein NEG, Urine Ketones NEG, Urine Nitrite NEG, Urine Bilirubin NEG, Urine Urobilinogen 0.2, Ur Leukocyte Esterase NEG, Ur Microscopic EXAM NOT REQUIRED, Urine Hemoglobin NEG, Urine Glucose NEG 08/09/172214: Serum Alcohol Cancelled 08/09/172214: Anion Gap 10, Estimated GFR > 60, BUN/Creatinine Ratio 13.0, Glucose 73, Calcium 9.6, Total Bilirubin 0.5, Direct Bilirubin 0.4, AST 21, ALT 33, Alkaline Phosphatase 93, Troponin I < 0.01, Total Protein 7.1, Albumin 3.8, Amylase 88, Lipase 161, D-Dimer High Sensitivty < 200, CBC w Diff NO MAN DIFF REQ, RBC 4.35 L, MCV 87.9, MCH 29.3, MCHC 33.4, RDW 15.6 H, MPV 7.7, Gran % 46.4, Lymphocytes % 36.7, Monocytes % 11.0 H, Eosinophils % 5.5 H, Basophils % 0.4, Absolute Granulocytes 4.0, Absolute Lymphocytes 3.2, Absolute Monocytes 1.0 H, Absolute Eosinophils 0.5, Absolute Basophils 0, Serum Alcohol < 10.0 Diagnostic Imaging: Viewed by Me: Radiology Read, CT Scan. Discussed w/RAD: Radiology Read, CT Scan. Radiology Impression: PATIENT: LANA TOUSSAINT PRESENT AGE: 56 PATIENT ACCOUNT NO: [id number] : 61 LOCATION: [facility] ORDERING PHYSICIAN: Syd Snider MD SERVICE DATE: 08/09/17 EXAM TYPE: CAT - CT CERV SPINE WO IV CONTRAST; CT HEAD WO IV CONTRAST EXAMINATION: CT HEAD WITHOUT CONTRAST CT CERVICAL SPINE WITHOUT CONTRAST CLINICAL INFORMATION: Seizure. COMPARISON: CT head 07/28/2017 TECHNIQUE: Imaging was performed from the skull base to vertex without intravenous administration of contrast. In addition, helical noncontrast CT imaging was acquired through the cervical spine and source images were reviewed along with axial reconstructions and sagittal and coronal MPRs. DLP: 1188.37 mGy-cm FINDINGS: HEAD: No intracranial mass, hemorrhage, or midline shift is visualized. The ventricles and sulci are age- appropriate. No extra-axial collections are identified. The paranasal sinuses and mastoid air cells are well aerated. CERVICAL SPINE: There is no evidence of acute cervical spine fracture. Vertebral bodies remain normal in height. Cervical vertebrae have normal alignment. There is multilevel degenerative spondylosis of the cervical spine with disc height narrowing and endplate spurs and facet joint arthrosis which is most significant at the C5-C6 disc level. No pre- or paravertebral soft tissue abnormality is identified. Limited assessment of the lung apices is unremarkable. IMPRESSION: 1. No acute intracranial pathology. 2. No CT evidence of acute cervical spine fracture or traumatic subluxation DICTATED BY: Ant Estrada MD DATE/TIME DICTATED:08/09/172310 EXPLOSIVE OPERATOR FUSE:GLORIA DATE/TIME TRANSCRIBED:08/09/172310 CONFIDENTIAL, DO NOT COPY WITHOUT APPROPRIATE AUTHORIZATION. <Electronically signed in Other Vendor System> SIGNED BY: Ant Estrada MD 08/09/172319, PATIENT: LANA TOUSSAINT PRESENT AGE: 56 PATIENT ACCOUNT NO: [id number] : 61 LOCATION: [facility] ORDERING PHYSICIAN: Syd Snider MD SERVICE DATE: 08/09/17- EXAM TYPE: CAT - CT ABD & PELVIS W/O IV CONTRAS; CT CHEST WO IV CONTRAST Indication: Trauma EXAMINATION: CT of the chest abdomen pelvis noncontrast. FINDINGS: Comparison previous dated 07/28/[address] chest FINDINGS: Coronary calcifications. No fluid centrally. Limited exam due to noncontrast. Some left basilar atelectasis or infiltrate. Upper abdomen The liver within normal limits. Spleen comparable to previous lobulated. May indicate previous injury. No free fluid in the area. Kidneys are within normal limits grossly. Grossly normal bowel pattern. There is no free fluid. The pelvis there is no free fluid. The bowel pattern is felt to be within normal limits. Review of the bone windows demonstrates limitation from motion. No convincing evidence for fracture. IMPRESSION: Limited exam. Lack of intravenous contrast and motion. There is no convincing evidence for acute visceral injury. There is a left basilar atelectasis or infiltrate. Note is made of sclerotic change in the right iliac bone and this extends into the posterior aspect of the acetabular region. Findings may suggest Paget's disease but underlying malignancy cannot be excluded. Recommend bone scan and/or MRI for further workup DICTATED BY: Rocky Gould MD DATE/TIME DICTATED:08/09/172320 EXPLOSIVE OPERATOR FUSE:GLORIA DATE/TIME TRANSCRIBED:08/09/172320 CONFIDENTIAL, DO NOT COPY WITHOUT APPROPRIATE AUTHORIZATION. <Electronically signed in Other Vendor System> SIGNED BY: Rocky Gould MD 08/09/172331 Initial ED EKG: FLIPPED T'S IN V4-V6 Departure Departure Disposition: STILL A PATIENT Condition: Stable Clinical Impression Primary Impression: Seizure Secondary Impressions: Chest pain, Contusion, Fall Referrals: Kishore WHITING,Tsering Dickerson (PCP/Family) Departure Forms: Customer Survey General Discharge Information Admission Note Sp[facility] With: [facility]omi [facility] Documentation of Exam: Documentation of any treatments & extenuating circumstances including Concerns Regarding Discharge (functional status, medication knowledge or non-compliance, living conditions, etc.) that warrant an admission rather than observation: pt with seizure requiring iv ativan to break. pt also with chest pain reported prior to his seizure with abnormal ekg. pt merits telemetry admission for neuro check, serial trops/ekg, cards to evaluate in the AM. Critical Care Note Critical Care Note Critical Care Time: 30-74 min Comments: pt given ativan 2mg iv to stop the seizures. given keppra load per hospitalist. pt received extensive ct scans after fall
[2017-08-09 22:32] LABS: ABSOLUTE BASOPHIL COUNT 0 /CUMM (0.0-0.2); ABSOLUTE EOSINOPHIL COUNT 0.5 /CUMM (0.0-0.7); ABSOLUTE LYMPH COUNT 3.2 /CUMM (1.2-3.4); BASOPHIL % 0.4 % (0.0-2.0); EOSINOPHIL % 5.5 % (0-5); GRANULOCYTE % 46.4 % (42.2-75.2); HEMATOCRIT 38.3 % (42-52); MEAN CORPUSCULAR HGB 29.3 PG (27.0-31.0); MEAN CORPUSCULAR HGB CONC 33.4 G/DL (33.0-37.0); MEAN CORPUSCULAR VOLUME 87.9 FL (80.0-94.0); MEAN PLATELET VOLUME 7.7 FL (7.4-10.4); PLATELET COUNT 265 /CUMM (130-400); RBC DISTRIBUTION WIDTH 15.6 % (11.5-14.5); RED BLOOD CELL CT 4.35 /CUMM (4.70-6.10); WHITE BLOOD CELL COUNT 8.7 /CUMM (4.8-10.8)
[2017-08-09] MEDS ORDERED: NARCAN4 MG NAS (23:12)
[2017-08-09] MEDS ORDERED: NICOTINE PATCH1 EAC2 TOP (23:14)
[2017-08-09] MEDS ORDERED: ACEPHEN650 M1 PR (23:15)
[2017-08-09] MEDS ORDERED: TYLENOL325 M1 PO (23:16)
[2017-08-09] MEDS ORDERED: DULCOLAX10 M1 RC (23:16)
[2017-08-09] MEDS ORDERED: FLEET ENEMA133 ML RC (23:17)
[2017-08-09] MEDS ORDERED: MILK OF MA400 MG/52 PO (23:18)
--- NOTE | 2017-08-09 23:20 | CT SCAN REPORT ---
EXAMINATION: CT HEAD WITHOUT CONTRAST CT CERVICAL SPINE WITHOUT CONTRAST CLINICAL INFORMATION: Seizure. COMPARISON: CT head 07/28/2017 TECHNIQUE: Imaging was performed from the skull base to vertex without intravenous administration of contrast. In addition, helical noncontrast CT imaging was acquired through the cervical spine and source images were reviewed along with axial reconstructions and sagittal and coronal MPRs. DLP: 1188.37 mGy-cm FINDINGS: HEAD: No intracranial mass, hemorrhage, or midline shift is visualized. The ventricles and sulci are age-appropriate. No extra-axial collections are identified. The paranasal sinuses and mastoid air cells are well aerated. CERVICAL SPINE: There is no evidence of acute cervical spine fracture. Vertebral bodies remain normal in height. Cervical vertebrae have normal alignment. There is multilevel degenerative spondylosis of the cervical spine with disc height narrowing and endplate spurs and facet joint arthrosis which is most significant at the C5-C6 disc level. No pre- or paravertebral soft tissue abnormality is identified. Limited assessment of the lung apices is unremarkable. IMPRESSION: 1. No acute intracranial pathology. 2. No CT evidence of acute cervical spine fracture or traumatic subluxation
--- NOTE | 2017-08-09 23:32 | CT SCAN REPORT ---
Indication: Trauma EXAMINATION: CT of the chest abdomen pelvis noncontrast. FINDINGS: Comparison previous dated 07/28/[address] chest FINDINGS: Coronary calcifications. No fluid centrally. Limited exam due to noncontrast. Some left basilar atelectasis or infiltrate. Upper abdomen The liver within normal limits. Spleen comparable to previous lobulated. May indicate previous injury. No free fluid in the area. Kidneys are within normal limits grossly. Grossly normal bowel pattern. There is no free fluid. The pelvis there is no free fluid. The bowel pattern is felt to be within normal limits. Review of the bone windows demonstrates limitation from motion. No convincing evidence for fracture. IMPRESSION: Limited exam. Lack of intravenous contrast and motion. There is no convincing evidence for acute visceral injury. There is a left basilar atelectasis or infiltrate. Note is made of sclerotic change in the right iliac bone and this extends into the posterior aspect of the acetabular region. Findings may suggest Paget's disease but underlying malignancy cannot be excluded. Recommend bone scan and/or MRI for further workup
--- NOTE | 2017-08-10 01:59 | History & Physical ---
Adrienne WHITING,[facility] 08/10/17 0159: General Information and HPI MD Statement: I have seen and personally examined LANA TOUSSAINT and documented this H&P. The patient is a 56 year old M who presented with a patient stated chief complaint of [left-sided chest pain]. Source of Information: ECF Exam Limitations: clinical condition History of Present Illness: Mr. Toussaint is a 56-year-old gentleman with past medical history significant for IN s/p stent placement(2016), subsequent cardiac arrest in jan 2017 and in stent thrombosis requiring angioplasty, and anoxic brain injury resulting in seizure disorder, chronic constipation, hypertension, GERD, recently admitted to the [facility] in May for symptomatic bradycardia and from 07/25-07/31 for Cocaine induced chest pain and nausea/vomiting s/p EGD [facility]. History obtained from the ECF, who mentioned that patient was complaining of left-sided chest pain, 5/10 intensity. Patient was sent in for further evaluation as the pain was similar to the chest pain in the past when he had the IN. Pain is nonradiating but is relieved by nitroglycerin and aspirin given by EMS. Denies any shortness of breath or palpitations. Patient had an episodes of seizure after arrival in the ER, landing on his left shoulder. CT head, chest, abdomen and pelvis were done which remained negative for any acute fractures or pathology. Patient was given IV Ativan 2 gm and Keppra 1500 mg once. Currently oriented 3 but somnolent/drowsy. Allergies/Medications Allergies: Coded Allergies: Iodinated Contrast- Oral and IV Dye (IODINATED CONTRAST MEDIA - IV DYE) (Severe, ANAPHYLAXIS 08/09/17) Sulfa (Sulfonamide Antibiotics) (Severe, HIVES 08/09/17) shellfish derived (Severe, ANAPHYLAXIS 08/09/17) blueberry (HIVES 08/09/17) mushroom (UNKNOWN 08/09/17) Home Med list Acetaminophen (Acephen) 650 MG SUPP.RECT 1 SUPP SD Q6H PRN PAIN/TEMP>101 ( Reported) Acetaminophen (Tylenol) 325 MG TABLET 2 TAB PO Q6H PRN PAIN/TEMP>101 ( Reported) Aspirin (Lo-Dose Aspirin EC) 81 MG TABLET.DR 1 TAB PO DAILY HEART/BLOOD ( Reported) Atorvastatin Calcium 20 MG TABLET 1 TAB PO DAILY CHOLESTEROL (Reported) Bisacodyl (Dulcolax) 10 MG SUPP.RECT 1 SUP RC DAILY PRN CONSTIPATION ( Reported) Clopidogrel Bisulfate (Clopidogrel) 75 MG TABLET 1 TAB PO DAILY BLOOD THINNER (Reported) Levetiracetam 1,000 MG TABLET 1,500 MG PO BID SEIZURES (Reported) Lisinopril 2.5 MG TABLET 1 TAB PO DAILY BP (Reported) Magnesium Hydroxide (Milk Of Magnesia) 400 MG/5 ML ORAL.SUSP 30 ML PO Q3D PRN CONSTIPATION (Reported) Na Phos,M-B/Na Phos,Di-Ba (Fleet Enema) 19 GRAM-7 GRAM/118 ML ENEMA 1 E RC DAILY PRN CONSTIPATION (Reported) Naloxone HCl (Narcan) 4 MG/ACTUATION SPRAY 4 MG LUIS AD PRN OPIOID INDUCED RESP. DEPRESSIO (Reported) Nicotine (Nicotine Patch) 14 MG/24 HOUR PATCH.TD24 1 PAT TOP DAILY SMOKING CESSATION (Reported) Omeprazole 40 MG CAPSULE.DR 1 CAP PO BID VOMITING Spironolactone 25 MG TABLET 1 TAB PO DAILY DIURETIC (Reported) Trimethobenzamide HCl (Tigan) 300 MG CAPSULE 1 CAP PO 4 TIMES LOREN NASEAU Past History Travel History Traveled to [place] past 21 day No Medical History Neurological: seizure, ANOXIC BRAIN INJURY EENT: NONE Cardiovascular: hypertension, myocardial infarction, CARDIAC ARREST Respiratory: NONE Gastrointestinal: constipation, GERD Hepatic: NONE Renal: NONE Musculoskeletal: NONE Psychiatric: NONE Endocrine: NONE Blood Disorders: NONE Cancer(s): NONE GERIATRIC CARE MANAGER/Reproductive: NONE History of MRSA: No History of VRE: No History of CDIFF: No Influenza Vaccine: 07/19/17 Surgical History Surgical History: PCI with stent placemnet splenectomy , Spleenectomy Past Family/Social History Psychosocial History Who Do You Live With? brother and niece Primary Language: Turkmen Smoking Status: Current Everyday Smoker ETOH Use: denies use Illicit Drug Use: denies illicit drug use Functional Ability ADLs Independent: dressing, eating, toileting, bathing. Ambulation: independent Review of Systems Review of Systems Constitutional: Reports: no symptoms. Exam & Diagnostic Data Last 24 Hrs of Vital Signs/I&O Vital Signs Date Time Temp Pulse Resp B/P B/P Pulse O2 O2 Flow FiO2 Mean Ox Delivery Rate 08/10 0525 97.0 78 22 118/72 97 Room Air 08/10 0222 97.0 78 22 118/72 97 Room Air 08/09 2153 97.1 90 16 121/74 97 Room Air Intake & Output 08/10 0800 08/10 0000 08/09 1600 Intake Total Output Total 500 Balance -500 Output, Urine 500 Patient 178 lb 178 lb Weight Physical Exam General Appearance Oriented X3, Cooperative, No Acute Distress Skin No Rashes, No Breakdown Cardiovascular Regular Rate, Normal S1, Normal S2 Lungs Clear to Auscultation, Normal Air Movement Abdomen Normal Bowel Sounds, Soft, No Tenderness Extremities No Clubbing, No Cyanosis, No Edema Last 24 Hrs of Labs/[place]is[place]: Laboratory Tests 08/10/17 0445: Troponin I < 0.01 08/09/170: Urine Opiates Screen < 100, Methadone Screen < 40, Barbiturate Screen < 60, Ur Phencyclidine Scrn < 6.00, Amphetamines Screen < 100, U Benzodiazepines Scrn < 85, Urine Cocaine Screen < 50, Urine Cannabis Screen 54.20 H, Urine Color YEL, Urine Clarity CLEAR, Urine pH 6.5, Ur Specific [place] 1.015, Urine Protein NEG, Urine Ketones NEG, Urine Nitrite NEG, Urine Bilirubin NEG, Urine Urobilinogen 0.2, Ur Leukocyte Esterase NEG, Ur Microscopic EXAM NOT REQUIRED, Urine Hemoglobin NEG, Urine Glucose NEG 08/09/172214: Serum Alcohol Cancelled 08/09/172214: Anion Gap 10, Estimated GFR > 60, BUN/Creatinine Ratio 13.0, Glucose 73, Calcium 9.6, Total Bilirubin 0.5, Direct Bilirubin 0.4, AST 21, ALT 33, Alkaline Phosphatase 93, Troponin I < 0.01, Total Protein 7.1, Albumin 3.8, Amylase 88, Lipase 161, D-Dimer High Sensitivty < 200, CBC w Diff NO MAN DIFF REQ, RBC 4.35 L, MCV 87.9, MCH 29.3, MCHC 33.4, RDW 15.6 H, MPV 7.7, Gran % 46.4, Lymphocytes % 36.7, Monocytes % 11.0 H, Eosinophils % 5.5 H, Basophils % 0.4, Absolute Granulocytes 4.0, Absolute Lymphocytes 3.2, Absolute Monocytes 1.0 H, Absolute Eosinophils 0.5, Absolute Basophils 0, Serum Alcohol < 10.0 Diagnostic Data EKG Results Normal sinus rhythm Heart rate 61. QTC 426 Daily inversion in V3 to V6 Other Results CT ABD & PELVIS W/O IV CONTRAS; CT CHEST WO IV CONTRAST IMPRESSION: Limited exam. Lack of intravenous contrast and motion. There is no convincing evidence for acute visceral injury. There is a left basilar atelectasis or infiltrate. Note is made of sclerotic change in the right iliac bone and this extends into the posterior aspect of the acetabular region. Findings may suggest Paget's disease but underlying malignancy cannot be excluded. Recommend bone scan and/or MRI for further workup Assessment/Plan Assessment: Mr. Toussaint is a 56-year-old gentleman with past medical history significant for IN s/p stent placement(2016), subsequent cardiac arrest in jan 2017 and in stent thrombosis requiring angioplasty, and anoxic brain injury resulting in seizure disorder, chronic constipation, hypertension, GERD, recently admitted to the [facility] in May for symptomatic bradycardia and from 07/25-07/31 for Cocaine induced chest pain and nausea/vomiting s/p EGD now was sent in from [facility] for left-sided chest pain starting earlier today. Problem list 1. Chest pain rule out ACS 2. Seizure disorder - one episode of seizure in the ER 3. Chronic medical conditions - Will admit the patient to telemetry floor. - Troponin and EKG 3 to rule out ACS - Cardiology consult with Dr. Mcelroy - Hx of cocaine abuse, we will avoid beta blockers - Start the patient on IV Keppra 1500 mg twice daily - Seizure precautions - Aspiration precautions, currently nothing by mouth, swallow evaluation in the morning - EEG on July 26 showed epileptiform waveforms, will repeat the EEG. - Neuro consult in a.m. - Continue home medications i.e, lisinopril, aspirin, Plavix, Lipitor and omeprazole. DVT prophylaxis; subcutaneous Lovenox Patient is full code As Ranked By This Provider Problem List: 1. Seizure 2. Chest pain Core Measures/Misc (02/04) Acute Coronary Syndrome ACS Diagnosis: No Congestive Heart Failure Congestive Heart Failure Diagnosis No Cerebrovascular Accident CVA/TIA Diagnosis: No VTE (View Protocol) VTE Risk Factors Age>40 No Mechanical VTE Prophylaxis d/t N/A MechProphylax Ordered No VTE Pharm Prophylaxis d/t NA PharmProphylax ordered Sepsis (View protocol) Sepsis Present: No Dada Wong 08/10/17 0340: Resident Review Statement Resident Statement: examined this patient, discussed with internal control manager, agreed with internal control manager, discussed with family, reviewed EMR data (avail), discussed with nursing , discussed with case mgmt, reviewed images, amended to note Other Findings: This is a 56-year-old male with past medical history significant for IN, status post stent placement LAD, LCx in 2016, subsequent cardiac arrest in jan 2017 and in stent thrombosis requiring angioplasty, and anoxic brain injury resulting in seizure disorder, chronic constipation, frequent seizures, hypertension, GERD presented to the hospital from [facility] for evaluation of left-sided chest pain this evening. Patient was admitted to [facility] from 06/20-06/22 for bradycardia, chest pain. He was again admitted to [facility] from 07/25 - 07/31 for chest pain from cocaine abuse, nausea, vomiting, bradycardia. He was discharged to [facility]. Patient presented from [facility] this evening for evaluation of chest pain, 5 out of 10, nonradiating. Received aspirin, nitroglycerin on the way to hospital , chest pain was relieved. However when he was in the emergency room he had an episode of seizure, fell from the bed to the floor. Stat neck collar was placed and and head/cervical spine CT was done/Ruled out fractures.He was given 2 mg of Ativan in the emergency room after seizure. He is very somnolent, couldn't provide much history. As per [facility] nurse patient had an episode of chest pain and he was brought in for further evaluation. Review of systems he denied any chest pain currently, palpitations, fever, chills, syncope, dizzy or lightheadedness, nausea, vomiting, abdominal pain, change in bladder or bowel habits. On further questioning he also denied any smoking, alcohol abuse, cocaine abuse as he is in [facility] now ---- Vitals afebrile, heart rate 90, respiratory 16, blood pressure 121/70, saturating at 97 on room air. Exam HEENT within normal limit, S1-S2 normal, breath sounds normal, Abdomen soft nontender nondistended. Labs CBC, BEP within normal limits d-dimer less than 200 LFT normal Troponin negative EKG shows sinus rhythm, QTC 426, no ST-T wave changes, T-wave inversions V3 V4 V5 V6 U tox positive for cannabis CT head and cervical spine 1. No acute intracranial pathology. 2. No CT evidence of acute cervical spine fracture or traumatic subluxation CT abdomen, chest unremarkable Last echocardiogram 2018: Normal left ventricular ejection fraction visually estimated at > 60%. Abnormal relaxation filling pattern of the left ventricle for age (stage 1 diastolic dysfunction). --- 1.Chest pain patient presented from [facility] with an episode of chest pain, relieved with aspirin, nitroglycerin. He has an extensive cardiac history with IN, status post stent placement LAD, LCx in 2016, subsequent cardiac arrest in jan 2017 and in stent thrombosis requiring angioplasty. He has 2 admissions recently for chest pain, one from cocaine induced chest pain. Given his extensive history we 'll admit him to telemetry for further evaluation. Vitals were within normal limits. Troponin was negative. EKG no ST-T wave changes. * Etiology in his case would very well be cardiac, given his risk factors and his recent cardiac history. Other causes such as costochondritis, gastroesophageal reflux, anxiety could be possible. * Regardless, he needs to be monitored for at least 24 hours with serial EKGs and cardiac enzymes. * Monitor in telemetry floor * Continuous telemetry monitoring * Vitals every shift * Serial troponin and EKG * Please consult Dr. Mott in a.m. * Avoid beta blockers given his cocaine abuse * Ativan if necessary for agitation * Continue aspirin 81 daily * Continue Plavix 75 daily * Continue Lipitor 20 daily 2. History of seizures Patient takes Keppra 1500 mg twice daily. Last EEG in 2017 showed right temporal region epileptic form spikes. He had an episode of witnessed seizure in the emergency room. Ativan was given. Started on IV Keppra. * Continue IV Keppra 1500 mg twice daily * Fall precautions * Aspiration precautions * Seizure precautions * Neuro consult in a.m. * Follow-up EEG * Head CT was negative. * Nothing by mouth for now as he is very lethargic * Swallow evaluation in the a.m. 3. Hypertension continue lisinopril 2.5 daily 4. GERD continue omeprazole 40 dailY Patient is full code Nothing by mouth pending swallow evaluation DVT prophylaxis subcutaneous Lovenox Nomi WHITING, [facility] 08/10/17 0719: Attending MD Review Statement Attending Statement Attending MD Statement: examined this patient, discuss w/resident/PA/HUMAN RESOURCES BENEFITS ASSISTANT, agreed w/resident/PA/HUMAN RESOURCES BENEFITS ASSISTANT, reviewed images, amended to note Attending Assessment/Plan: 56 yo M with h/o CAD s/p LAD and LCX stents (2016), subsequent cardiac arrest in Jan 2017 instent thrombosis requiring angioplasty, anoxic brain injury resulting in seizure disorder, was recently admitted to [facility] (07/26 08/01) for cocaine induced chest pain and intractable N/V which was evaluated with EGD. He was then discharged to [facility] for STR. He is sent in today for evaluation of chest pain. EMS gave aspirin and nitro with relief of his symptoms. On ER arrival, patient had a tonic clonic seizure, was minimally responsive and fell out of bed landing on his left shoulder. He received ativan 2 mg. On my evaluation, patient was lethargic and answered only a few questions for us. He denied chest pain, dyspnea, palpitations or lightheadedness. Patient denies use of cocaine or marijuana, however his urine tox screen is positive for cannabis. Vitals stable. Exam as above. Labs: no leukocytosis, eosinophills 5.5%, trop neg. UA neg. Utox positive for cannabis. Imaging reviewed: no fractures or acute abnormality. EKG: sinus rhythm, TWI/ flattening in V3-6 (old). Echo (2018): EF > 60%, stage 1 diastolic dysfunction. Assessment and plan: 1. Seizure - ?breakthrough ?recurrent from anoxic brain injury 2. Recurrent chest pain, h/o CAD s/p stents and instent thrombosis 3. Nonspecific EKG changes 4. Marijuana use 5. Fall at bedside - Admit to Telemetry - Neurochecks Q2 - Monitor for arrhythmias - IV keppra BID - Neuro consult - EEG - Serial EKG and troponin - Cardio consult Dr. Mcelroy - Continue aspirin, plavix, statin - NPO - IV protonix - Continue nicotine patch DVT ppx lovenox. Full code.
[2017-08-10 05:25] VITALS: BP 118/72
--- NOTE | 2017-08-10 06:02 | Admission Certification ---
Admission Certification Certification Statement - As attending physician, I certify that at the time of - admission, based on clinical presentation, severity of - symptoms, need for further diagnostic testing and - therapeutic interventions, and risk of adverse outcomes - without in-hospital treatment, in my clinical assessment, - this patient requires an acute hospital stay for a minimum - of two nights or longer. I have also considered psychsocial - factors such as support system, advanced age, financial - issues, cognitive issues, and failed out-patient treatments, - past re-admission history, safety of patient, and lack of - compliance as applicable. Specific rationale supporting this admission is: Breakthrough seizures, chest pain, nonspecific EKG changes, needs Telemetry monitoring and Neuro consult.
--- NOTE | 2017-08-10 08:23 | PN- Housestaff ---
Isabella Silva 08/10/17 0820: Subjective Follow-up For: Unstable angina Subjective: Pt feels better. He doesnt have any chest pain or palpitations or dypnea. Vitals remained stable overnight. Review of Systems Constitutional: Reports: see HPI. Objective Last 24 Hrs of Vital Signs/I&O Vital Signs Date Time Temp Pulse Resp B/P B/P Pulse O2 O2 Flow FiO2 Mean Ox Delivery Rate 08/10 0753 97.6 73 18 112/73 99 Room Air 08/10 0525 97.0 78 22 118/72 97 Room Air 08/10 0222 97.0 78 22 118/72 97 Room Air 08/09 2153 97.1 90 16 121/74 97 Room Air Intake & Output 08/10 1600 08/10 0800 08/10 0000 Intake Total Output Total 500 Balance -500 Output, Urine 500 Patient 178 lb 178 lb Weight Physical Exam General Appearance: No Acute Distress Other Physical Findings: General Exam: AAOx3, No acute distress, Skin: No rashes, no breakdown;HEENT: PERRLA, EOMI;Neck: Supple, No JVD, No cervical lymphadenopathy;CVS: Reg Rate, Normal S1,S2, No MGR;Resp: Normal air entry, no ronchi/rales;Abdomen: Soft, No tenderness, Normal Bowel Sounds;Neuro: Normal Speech, Strength 5/5 b/l x 4 extremities, Sensation intact, CN III-XII NL, Reflexes 2+;Extremities: No cyanosis, trace pedal edema, no musculoskeletal tenderness. Current Medications: Current Medications Sig/Haven Start time Last Medication Dose Route Stop Time Status Admin Acetaminophen 0 .STK-MED ONE 08/10 0551 DC IV Acetaminophen 1,000 MG Q6P PRN 08/10 0215 AC 08/10 IV 0500 Aspirin Buffered 81 MG DAILY 08/10 1000 AC PO Atorvastatin Calcium 20 MG DAILY 08/10 1000 AC PO Clopidogrel Bisulfate 75 MG DAILY 08/10 1000 AC PO Enoxaparin Sodium 40 MG DAILY 08/10 1000 AC SC Levetiracetam 1,500 MG Q12 08/10 0042 AC 08/10 N/A 1 UNIT IV 0130 Lisinopril 2.5 MG DAILY 08/10 1000 AC PO Lorazepam 2 MG ONE ONE 08/09 2214 DC 08/09 IV 03/22 2216 2224 Lorazepam 0 .STK-MED ONE 08/10 2203 DC .ROUTE Omeprazole 40 MG DAILY AC 08/10 0700 AC PO Pantoprazole Sodium 40 MG DAILY 08/10 1000 AC IV Spironolactone 25 MG DAILY 08/10 1000 AC PO Last 24 Hrs of Lab/Misbah Results Last 24 Hrs of Labs/Mics: Laboratory Tests 08/10/17 0445: Troponin I < 0.01 08/09/17 2220: Urine Opiates Screen < 100, Methadone Screen < 40, Barbiturate Screen < 60, Ur Phencyclidine Scrn < 6.00, Amphetamines Screen < 100, U Benzodiazepines Scrn < 85, Urine Cocaine Screen < 50, Urine Cannabis Screen 54.20 H, Urine Color YEL, Urine Clarity CLEAR, Urine pH 6.5, Ur Specific [place] 1.015, Urine Protein NEG, Urine Ketones NEG, Urine Nitrite NEG, Urine Bilirubin NEG, Urine Urobilinogen 0.2, Ur Leukocyte Esterase NEG, Ur Microscopic EXAM NOT REQUIRED, Urine Hemoglobin NEG, Urine Glucose NEG 08/09/172214: Serum Alcohol Cancelled 08/09/172214: Anion Gap 10, Estimated GFR > 60, BUN/Creatinine Ratio 13.0, Glucose 73, Calcium 9.6, Total Bilirubin 0.5, Direct Bilirubin 0.4, AST 21, ALT 33, Alkaline Phosphatase 93, Troponin I < 0.01, Total Protein 7.1, Albumin 3.8, Amylase 88, Lipase 161, D-Dimer High Sensitivty < 200, CBC w Diff NO MAN DIFF REQ, RBC 4.35 L, MCV 87.9, MCH 29.3, MCHC 33.4, RDW 15.6 H, MPV 7.7, Gran % 46.4, Lymphocytes % 36.7, Monocytes % 11.0 H, Eosinophils % 5.5 H, Basophils % 0.4, Absolute Granulocytes 4.0, Absolute Lymphocytes 3.2, Absolute Monocytes 1.0 H, Absolute Eosinophils 0.5, Absolute Basophils 0, Serum Alcohol < 10.0 Assessment/Plan Assessment: Ms Roth is a 56 year old man with a PMHx of CAD s/p PCI (LAD, LCx dx'ed 2017 , h/o of cardiac arrest resulting in anoxic brain injury and seizure disorder on Keppra) history of stent restenosis s/p angioplasty, frequent seizures was brought from an STR in w/ a chief concern of acute onset of left sided chest pain that started in the evening of presentation to the ED. Nonexertional, he was lying on his bed at that time, located in the left side of the chest, 10/28, with no radiation, subsided before the EMS arrived. Also reported being clammy, but did not have any dyspnea. Reported increased frequency of workouts with the physical therapy in the last few days. Reported occassional pre-syncopal episodes and has a LInq device in place that was implanted a few weeks ago. No unusual heart rhythm was noted as per Dr. Mcelroy. No recent history of IVDA, but uses cannabis regularly. Current smoker 30 pack year history, but decreased to 2-5cigarettes a day. While he was in the emergency room, he had an episode of seizure after which he received intravenous Keppra and Ativan. The episode was witnessed. Recently admitted to for unstable angina, and the hospital course was completed by intractable nausea and vomiting for which extensive workup was done including CAT scan which did not reveal any structural abnormalities. [facility] recommendation to use antiemetics as needed. He also had an EEG done, which revealed abnormal rhythm changes. At the time of admission- temperature, heart rate 90, respirations 16, blood pressure 121/70, pulse ox 97% on room air. CT scan head, neck, abdomen, chest- did not reveal any acute changes. Incidental finding of sclerotic changes in the iliac bone was found. EKG revealed normal sinus rhythm, heart rate 78, normal axis, Q waves, slight ST elevations in V1 and V2 likely from previousseptal infarct, T-wave inversions in V4 V5 and V6. Subsequent EKG revealed normalization of T waves in V4 V5 and V6, but had persistent Q waves and ST elevations in V1 and V2. Discussed these EKG findings with Dr. Foster. Pertinent Findings: WBC 8.7, hemoglobin 12.8, platelets 265, sodium 138, potassium 3.8, renal function-BUN 13, creatinine 1.0, troponin 0.01, 0.01, d-dimer less than 200, U tox was negative for cocaine, but positive for cannabis 54.2. Urinalysis was clear. Etiology in this case is likely unstable angina with symptoms of unstable angina w/o elevated cardiac enzymes with positive cardiac risk factors smoking,age > 35 ,HTN previous h/o of CAD. Other etiologies such as anxiety, aortic dissection, catonary artery spasm are to considered as differentials. Patients with unstable angina and seizures requiring inpatient admission to inpatient hospital. Since he has recurrent chest pains, he needs to be monitored closely given his cardiac history. In regards to his seizures, he would likely need adjustment to his dose of keppra. Other likelihood is that he has syncope, that precipitate seizures. #1 monitor on telemetry #2 continue daily aspirin and statin #3 serial electrocardiograms, cardiac enzymes every 8 hours #4 sublingual nitroglycerin for pain control(hold for low BP) #5 IV morphine for pain relief, if needed. #6 Avoid beta ramiro given his previous history of bradycardia #7 No AC at this time. #8 discuss early intervention with cardiac catheterization, if these chest pains persist. #9 continue Protonix #10 and continue IV Keppra for seizures at this time. #11 neurology evaluation, if the dose of Keppra needs to be increased or an another antiepileptic medication needs to be chosen. #12 follow-up EEG. #13 Seizure prophylaxis Code: Full code Diet- heart healthy diet DVT prophylaxis-Lovenox subcutaneous. Problem List: 1. Chest pain 2. Seizure 3. Substance abuse Pain Ratin Pain Location: back Pain Goal: Pain 4 or less Pain Plan: tylenol prn Tomorrow's Labs & Rationales: BEP- to monitor for seizures. Davy WHITING,[facility] 08/10/17 1614: Attending MD Review Statement Attending Statement Attending MD Statement: examined this patient, discuss w/resident/PA/CALL CENTER ANALYST, agreed w/resident/PA/CALL CENTER ANALYST, reviewed EMR data (avail), discussed with nursing, discussed with case mgmt, amended to note Attending Assessment/Plan: Patient seen and examined. Resting comfortably not in any acute distress. Denies any further chest pain. Denies shortness of breath or palpitations. No events of on telemetry monitoring. On examination heart sounds are regular. Lungs are clear to auscultation bilaterally. Abdomen soft and nontender. He has no peripheral edema. Recommendations: -Cardiac enzymes are negative 2. Follow-up with cardiology service regarding need for further ischemic workup. -Neurology consultation appreciated. It is unclear if patient indeed had a seizure when he presented to the emergency room. When I asked patient about episodes of seizures prior to hospitalization he reported a few incidents however from his history it appears more like falls rather than seizure activities. Please confirm from patient's family regarding any episodes of true seizures prior to hospitalization. -If no episodes of seizures recorded in the hospital and no further ischemic workup is recommended by the cardiology service he may be discharged over the weekend.
--- NOTE | 2017-08-10 08:44 | Cons- Cardiology ---
General Information and HPI Consulting Request Date of Consult: 08/10/17 Requested By: Davy WHITING,Casandra Reason for Consult: chest pain Source of Information: patient, old records Exam Limitations: no limitations History of Present Illness: I was asked by Dr. Bhatti to evaluate patient for chest pain. 56 year old male with h/o CAD, LAD and LCX stents in [place] in 2016, s/p cardiac arrest in [place] in January,found to have ISR, s/p angioplasty, anoxic brain injury with resultant seizure.He is unable to work due seizure and anoxic brain injury. He still smokes 1/2 ppd. He had seizure episode in April 2017, troponin was 0.21, diagnostic cath revealed patent LAD, LCX stents, 30% distal RCA stenosis. Patient was hospitalized at [facility] 4 weeks ago for chest pain, nausea, vomiting , seizure. He ruled out for DC, his tox screen was positive for cocaine and cannabis. He underwent endoscopy for cyclic vomitin, no cause found. He was sent to [facility] rehab. Yesterday afternoon he developed left sided sharp chest pain radiating to the right side which lasted about an hour while doing rehab. He also reports dizziness and weakness with position change. He was sent to ER. Upon arrival he developed seizure, whole body shaking. He was given ativan and iv Keppra. He now feels OK, excpet some weakness. No recurrent chest pain. Allergies/Medications Allergies: Coded Allergies: Iodinated Contrast- Oral and IV Dye (IODINATED CONTRAST MEDIA - IV DYE) (Severe, ANAPHYLAXIS 08/09/17) Sulfa (Sulfonamide Antibiotics) (Severe, HIVES 08/09/17) shellfish derived (Severe, ANAPHYLAXIS 08/09/17) blueberry (HIVES 08/09/17) mushroom (UNKNOWN 08/09/17) Home Med List: Acetaminophen (Acephen) 650 MG SUPP.RECT 1 SUPP KS Q6H PRN PAIN/TEMP>101 ( Reported) Acetaminophen (Tylenol) 325 MG TABLET 2 TAB PO Q6H PRN PAIN/TEMP>101 ( Reported) Aspirin (Lo-Dose Aspirin EC) 81 MG TABLET.DR 1 TAB PO DAILY HEART/BLOOD ( Reported) Atorvastatin Calcium 20 MG TABLET 1 TAB PO DAILY CHOLESTEROL (Reported) Bisacodyl (Dulcolax) 10 MG SUPP.RECT 1 SUP RC DAILY PRN CONSTIPATION ( Reported) Clopidogrel Bisulfate (Clopidogrel) 75 MG TABLET 1 TAB PO DAILY BLOOD THINNER (Reported) Levetiracetam 1,000 MG TABLET 1,500 MG PO BID SEIZURES (Reported) Lisinopril 2.5 MG TABLET 1 TAB PO DAILY BP (Reported) Magnesium Hydroxide (Milk Of Magnesia) 400 MG/5 ML ORAL.SUSP 30 ML PO Q3D PRN CONSTIPATION (Reported) Na Phos,M-B/Na Phos,Di-Ba (Fleet Enema) 19 GRAM-7 GRAM/118 ML ENEMA 1 E RC DAILY PRN CONSTIPATION (Reported) Naloxone HCl (Narcan) 4 MG/ACTUATION SPRAY 4 MG LUIS AD PRN OPIOID INDUCED RESP. DEPRESSIO (Reported) Nicotine (Nicotine Patch) 14 MG/24 HOUR PATCH.TD24 1 PAT TOP DAILY SMOKING CESSATION (Reported) Omeprazole 40 MG CAPSULE.DR 1 CAP PO BID VOMITING Spironolactone 25 MG TABLET 1 TAB PO DAILY DIURETIC (Reported) Trimethobenzamide HCl (Tigan) 300 MG CAPSULE 1 CAP PO 4 TIMES LOREN NASEAU Current Medications: Current Medications Sig/Haven Start time Last Medication Dose Route Stop Time Status Admin Acetaminophen 0 .STK-MED ONE 08/10 0551 DC IV Acetaminophen 1,000 MG Q6P PRN 08/10 0215 AC 08/10 IV 0500 Aspirin Buffered 81 MG DAILY 08/10 1000 AC PO Atorvastatin Calcium 20 MG DAILY 08/10 1000 AC PO Clopidogrel Bisulfate 75 MG DAILY 08/10 1000 AC PO Enoxaparin Sodium 40 MG DAILY 08/10 1000 AC SC Levetiracetam 1,500 MG Q12 08/10 0042 AC 08/10 N/A 1 UNIT IV 0130 Lisinopril 2.5 MG DAILY 08/10 1000 AC PO Lorazepam 2 MG ONE ONE 08/09 2215 DC 08/09 IV 08/09 221 2224 Lorazepam 0 .STK-MED ONE 08/10 2203 DC .ROUTE Omeprazole 40 MG DAILY AC 08/10 0700 AC PO Pantoprazole Sodium 40 MG DAILY 08/10 1000 AC IV Spironolactone 25 MG DAILY 08/10 1000 AC PO Review of Systems Review of Systems Constitutional: Reports: weakness. EENTM: Denies: no symptoms, see HPI, blurred vision, double vision, visual changes, eye pain, eye drainage, eye tearing, icterus, ear discharge, ear pain, ear redness, hearing changes, nasal congestion, epistaxis, nasal pain, throat pain, throat swelling, mouth pain, tooth pain. Cardiovascular: Reports: chest pain. Denies: no symptoms, see HPI, edema, orthopena, palpitations, peripheral edema, syncope. Respiratory: Denies: no symptoms, see HPI, cough, hemoptysis, orthopnea, short of breath, sputum production, stridor, wheezing. GI: Denies: no symptoms, see HPI, abdominal pain, bloating, constipation, diarrhea, distention, bowel incontinence, melena, nausea, bloody stool, changes in stool, vomiting, steatorrhea. Genitourinary: Denies: no symptoms, see HPI, discharge, dysuria, frequency, hematuria, hesitation, nocturia, pain, urgency. Musculoskeletal: Denies: no symptoms, see HPI, back pain, gout, joint pain, joint swelling, muscle pain, muscle stiffness, neck pain. Skin: Denies: no symptoms, see HPI, cysts, change in skin color, change in hair/nails, dryness, erythema, jaundice, lesions, lymphangitis, lumps, moles, rash. Neurological/Psychological: Reports: tonic-clonic seizures. Denies: no symptoms, see HPI, anxiety, ataxia, cognitive dysfunction, confusion, depressed, dementia, emotional problems, headache, numbness, paresthesia, pre-existing deficit, petit mal seizures, tingling, tremors, unable to move lower ext, unable to move upper ext, weakness, other. Hematologic/Endocrine: Denies: no symptoms, see HPI, bruising, bleeding, polyuria, polydipsia, other. Immunologic/Allergic: Denies: no symptoms, see HPI, splenectomy, HIV/AIDS, lymphadenopathy, other. 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 [facility]-Way Facility Who Do You Live With? brother and niece Primary Language: Martiniquais Smoking Status: Current Everyday Smoker ETOH Use: denies use Illicit Drug Use: denies illicit drug use Functional Ability ADLs Independent: dressing, eating, toileting, bathing. Ambulation: independent Exam & Diagnostic Data Vital Signs and I&O Vital Signs Date Time Temp Pulse Resp B/P B/P Pulse O2 O2 Flow FiO2 Mean Ox Delivery Rate 08/10 0753 97.6 73 18 112/73 99 Room Air 08/10 0525 97.0 78 22 118/72 97 Room Air 08/10 0222 97.0 78 22 118/72 97 Room Air 08/09 2153 97.1 90 16 121/74 97 Room Air Intake & Output 08/10 1600 08/10 0800 08/10 0000 08/09 1600 08/09 0800 08/09 0000 Intake Total Output Total 500 Balance -500 Output, Urine 500 Patient 178 lb 178 lb Weight Physical Exam: No acute distress Skin-no rash Neck-JVP normal, no carotid bruit Lungs-clear bilaterally Heart-S1S2 regular, no murmur, rub or gallop mild left chest tenderness Linq monitor intact Abdomen-soft, not tender, BS+, no organomegaly Extr-no edema, 2+ pulses Neuro-slightly lethargic, no seizure activity, non focal Vascular-good distal pulses, no carotid bruits Labs/Misbah Results: Laboratory Tests 08/10 08/09 08/09 0445 2220 2215 Chemistry Troponin I (<0.11 ng/ml) < 0.01 Toxicology Urine Opiates Screen (>2000 NG/ML) < 100 Methadone Screen (>300 NG/ML) < 40 Barbiturate Screen (>200 NG/ML) < 60 Ur Phencyclidine Scrn (>25 NG/ML) < 6.00 Amphetamines Screen (>1000 NG/ML) < 100 U Benzodiazepines Scrn (>200 NG/ML) < 85 Urine Cocaine Screen (>300 NG/ML) < 50 Urine Cannabis Screen (>50 NG/ML) 54.20 H Serum Alcohol Cancelled Urines Urine Color (YEL,AMB,STR) YEL Urine Clarity (CLEAR) CLEAR Urine pH (5.0 - 8.0) 6.5 Ur Specific Duck (1.001 - 1.035) 1.015 Urine Protein (NEG,<30 MG/DL) NEG Urine Ketones (NEG) NEG Urine Nitrite (NEG) NEG Urine Bilirubin (NEG) NEG Urine Urobilinogen (0.1 - 1.0 EU/dl) 0.2 Ur Leukocyte Esterase (NEG) NEG Ur Microscopic EXAM NOT REQUIRED Urine Hemoglobin (NEG) NEG Urine Glucose (N MG/DL) NEG 08/09 2214 Chemistry Sodium (137 - 145 mmol/L) 138 Potassium (3.5 - 5.1 mmol/L) 3.8 Chloride (98 - 107 mmol/L) 99 Carbon Dioxide (22 - 30 mmol/L) 29 Anion Gap (5 - 16) 10 BUN (9 - 20 mg/dL) 13 Creatinine (0.7 - 1.2 mg/dL) 1.0 Estimated GFR (>60 ml/min) > 60 BUN/Creatinine Ratio (7 - 25 %) 13.0 Glucose (65 - 99 mg/dL) 73 Calcium (8.4 - 10.2 mg/dL) 9.6 Total Bilirubin (0.2 - 1.3 mg/dL) 0.5 Direct Bilirubin (< 0.4 mg/dL) 0.4 AST (17 - 59 U/L) 21 ALT (21 - 72 U/L) 33 Alkaline Phosphatase (< 127 U/L) 93 Troponin I (<0.11 ng/ml) < 0.01 Total Protein (6.3 - 8.2 g/dL) 7.1 Albumin (3.5 - 5.0 g/dL) 3.8 Amylase (30 - 110 U/L) 88 Lipase (23 - 300 U/L) 161 Coagulation D-Dimer High Sensitivty (0 - 243 ng/ml) < 200 Hematology CBC w Diff NO MAN DIFF REQ WBC (4.8 - 10.8 /CUMM) 8.7 RBC (4.70 - 6.10 /CUMM) 4.35 L Hgb (14.0 - 18.0 G/DL) 12.8 L Hct (42 - 52 %) 38.3 L MCV (80.0 - 94.0 FL) 87.9 MCH (27.0 - 31.0 PG) 29.3 MCHC (33.0 - 37.0 G/DL) 33.4 RDW (11.5 - 14.5 %) 15.6 H Plt Count (130 - 400 /CUMM) 265 MPV (7.4 - 10.4 FL) 7.7 Gran % (42.2 - 75.2 %) 46.4 Lymphocytes % (20.5 - 51.1 %) 36.7 Monocytes % (1.7 - 9.3 %) 11.0 H Eosinophils % (0 - 5 %) 5.5 H Basophils % (0.0 - 2.0 %) 0.4 Absolute Granulocytes (1.4 - 6.5 /CUMM) 4.0 Absolute Lymphocytes (1.2 - 3.4 /CUMM) 3.2 Absolute Monocytes (0.10 - 0.60 /CUMM) 1.0 H Absolute Eosinophils (0.0 - 0.7 /CUMM) 0.5 Absolute Basophils (0.0 - 0.2 /CUMM) 0 Toxicology Serum Alcohol (<10 MG/DL) < 10.0 Diagnostic Data EKG Results SR, old septal DC, no new ekg changes CXR Results CT chest-? atelectasis, limited exam ?sclerotic lesion in illiac bone Other Results Head CT-no acute abnormality Assessment/Plan Assessment/Plan Impression: 1> CAD, s/p DC. recurrent chest pain-chest pain is atypical, ekg without changed , mild tenderness on chest palpation, [id number] 2. Anoxic brain injury with recurrent seizures, GM seizure in ER 3. Substance abuse-previously cocaine and cannabis +, yesterday tox screen + for cannabis only 4. Sclerotic lesion in illiac bone-?unclear etiology 5. h/o sinus bradycardia. Off beta blockers for now due to h/o cocaine use and previous bradycardia Recommend: keep on tely repeat troponin x1 neurology consult-? increase Kera psych social worker-patient considers drug rehab workup for illiac bone sclerotic lesion-if patient needs MRI, Linq monitor is MRI compatible for full body scans continue ASA, Plavix, statin and other pre-admission cardiac medications Consult Acknowledgment - Thank you for your consult request.
[2017-08-10 09:51] LABS: ABSOLUTE BASOPHIL COUNT 0 /CUMM (0.0-0.2); ABSOLUTE EOSINOPHIL COUNT 0.4 /CUMM (0.0-0.7); ABSOLUTE GRANULOCYTE CT 5.1 /CUMM (1.4-6.5); ABSOLUTE LYMPH COUNT 2.2 /CUMM (1.2-3.4); ABSOLUTE MONOCYTE COUNT 0.8 /CUMM (0.10-0.60); BASOPHIL % 0.3 % (0.0-2.0); EOSINOPHIL % 4.3 % (0-5); GRANULOCYTE % 60.3 % (42.2-75.2); HEMATOCRIT 40.4 % (42-52); MEAN CORPUSCULAR HGB 29.2 PG (27.0-31.0); MEAN CORPUSCULAR VOLUME 88.7 FL (80.0-94.0); MEAN PLATELET VOLUME 7.9 FL (7.4-10.4); PLATELET COUNT 273 /CUMM (130-400); RBC DISTRIBUTION WIDTH 15.8 % (11.5-14.5); RED BLOOD CELL CT 4.55 /CUMM (4.70-6.10); WHITE BLOOD CELL COUNT 8.5 /CUMM (4.8-10.8)
[2017-08-10 10:17] VITALS: BP 119/83
--- NOTE | 2017-08-10 11:47 | Cons- Neurology ---
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 Treated with Keppra 1500 mg twice a day. The patient describes orthostatic symptoms for which she is receiving [facility] rehabilitation. He was readmitted to [facility] yesterday from the [facility] with complaints of chest pain. According to the nurses notes, upon arrival he was awake but nonverbal, which is not his baseline. When the nurse was attempting to get him to respond, Notes indicate that he sat up from the stretcher and subsequently fell. There is no documentation of any convulsive activity, although the presumption based on the notes was that he had had a "seizure ". He was given lorazepam and loaded with Keppra. There've been no further events. He currently denies chest pain dizziness or headaches. He is fully articulate, but states that he sometimes loses his train of thought when speaking. Tox screen on a recent past admission was positive for cocaine. Tox screen on this admission was positive for cannabis. Allergies/Medications Allergies: Coded Allergies: Iodinated Contrast- Oral and IV Dye (IODINATED CONTRAST MEDIA - IV DYE) (Severe, ANAPHYLAXIS 08/09/17) Sulfa (Sulfonamide Antibiotics) (Severe, HIVES 08/09/17) shellfish derived (Severe, ANAPHYLAXIS 08/09/17) blueberry (HIVES 08/09/17) mushroom (UNKNOWN 08/09/17) Home Med List: Acetaminophen (Acephen) 650 MG SUPP.RECT 1 SUPP MN Q6H PRN PAIN/TEMP>101 ( Reported) Acetaminophen (Tylenol) 325 MG TABLET 2 TAB PO Q6H PRN PAIN/TEMP>101 ( Reported) Aspirin (Lo-Dose Aspirin EC) 81 MG TABLET.DR 1 TAB PO DAILY HEART/BLOOD ( Reported) Atorvastatin Calcium 20 MG TABLET 1 TAB PO DAILY CHOLESTEROL (Reported) Bisacodyl (Dulcolax) 10 MG SUPP.RECT 1 SUP RC DAILY PRN CONSTIPATION ( Reported) Clopidogrel Bisulfate (Clopidogrel) 75 MG TABLET 1 TAB PO DAILY BLOOD THINNER (Reported) Levetiracetam 1,000 MG TABLET 1,500 MG PO BID SEIZURES (Reported) Lisinopril 2.5 MG TABLET 1 TAB PO DAILY BP (Reported) Magnesium Hydroxide (Milk Of Magnesia) 400 MG/5 ML ORAL.SUSP 30 ML PO Q3D PRN CONSTIPATION (Reported) Na Phos,M-B/Na Phos,Di-Ba (Fleet Enema) 19 GRAM-7 GRAM/118 ML ENEMA 1 E RC DAILY PRN CONSTIPATION (Reported) Naloxone HCl (Narcan) 4 MG/ACTUATION SPRAY 4 MG LUIS AD PRN OPIOID INDUCED RESP. DEPRESSIO (Reported) Nicotine (Nicotine Patch) 14 MG/24 HOUR PATCH.TD24 1 PAT TOP DAILY SMOKING CESSATION (Reported) Omeprazole 40 MG CAPSULE.DR 1 CAP PO BID VOMITING Spironolactone 25 MG TABLET 1 TAB PO DAILY DIURETIC (Reported) Trimethobenzamide HCl (Tigan) 300 MG CAPSULE 1 CAP PO 4 TIMES LOREN NASEAU Current Medications: Current Medications Sig/Haven Start time Last Medication Dose Route Stop Time Status Admin Acetaminophen 0 .STK-MED ONE 08/10 0551 DC IV Acetaminophen 1,000 MG Q6P PRN 08/10 0215 AC 08/10 IV 0500 Aspirin Buffered 81 MG DAILY 08/10 1000 AC 08/10 PO 1002 Atorvastatin Calcium 20 MG DAILY 08/10 1000 AC 08/10 PO 1002 Clopidogrel Bisulfate 75 MG DAILY 08/10 1000 AC 08/10 PO 1002 Enoxaparin Sodium 40 MG DAILY 08/10 1000 AC 08/10 SC 1002 Levetiracetam 1,500 MG Q12 08/10 0042 AC 08/10 N/A 1 UNIT IV 1002 Lisinopril 2.5 MG DAILY 08/10 1000 AC 08/10 PO 1002 Lorazepam 2 MG ONE ONE 08/09 2215 DC 08/09 IV 08/09 2216 2224 Lorazepam 0 .STK-MED ONE 08/09 2204 DC .ROUTE Omeprazole 40 MG DAILY AC 08/10 0700 AC 08/10 PO 0913 Pantoprazole Sodium 40 MG DAILY 08/10 1000 AC 08/10 IV 1002 Spironolactone 25 MG DAILY 08/10 1000 AC 08/10 PO 1002 Tramadol HCl 0 .STK-MED ONE 08/10 1105 DC PO Tramadol HCl 50 MG Q8P PRN 08/10 1015 AC 08/10 PO 1103 Review of Systems Review of Systems: REVIEW OF SYSTEMS: (-) = negative / normal blank = not discussed Neurologic: see HPI Eyes: (-) ENT: Upper dentures Constitutional: (-) CV: See HPI Respiratory: (-) /Renal: (-) Musculoskeletal: (-) Skin: (-) Psychiatric: (-) Heme: (-) GI: (-) Allergy/Immune: (-) Endocrine: (-) Other: (-) Past History Travel History Traveled to [place] past 21 day No Medical History Neurological: seizure, ANOXIC BRAIN INJURY EENT: NONE Cardiovascular: hypertension, myocardial infarction, CARDIAC ARREST Respiratory: NONE Gastrointestinal: constipation, GERD Hepatic: NONE Renal: NONE Musculoskeletal: NONE Psychiatric: NONE Endocrine: NONE Blood Disorders: NONE Cancer(s): NONE 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 [facility] Who Do You Live With? brother and niece Primary Language: Stateless Smoking Status: Current Everyday Smoker ETOH Use: denies use Illicit Drug Use: denies illicit drug use Functional Ability ADLs Independent: dressing, eating, toileting, bathing. Ambulation: independent Exam & Diagnostic Data Vital Signs and I&O Vital Signs Date Time Temp Pulse Resp B/P B/P Pulse O2 O2 Flow FiO2 Mean Ox Delivery Rate 08/10 1017 98.8 72 18 119/83 95 Room Air 08/10 1002 98.0 72 18 119/83 08/10 0914 98.0 72 18 119/83 95 Room Air 08/10 0753 97.6 73 18 112/73 99 Room Air 08/10 0525 97.0 78 22 118/72 97 Room Air 08/10 0222 97.0 78 22 118/72 97 Room Air 08/09 2153 97.1 90 16 121/74 97 Room Air Intake & Output 08/10 1600 08/10 0800 08/10 0000 Intake Total 160 Output Total 500 500 Balance -340 -500 Intake, IV 100 Intake, Oral 60 Output, Urine 500 500 Patient 178 lb 178 lb Weight Physical Exam: PHYSICAL EXAMINATION: nl = normal NT or blank = not tested GENERAL Appearance: nl Head: nl Eyes: nl ENT: nl, no evidence of tongue biting Neck: nl Carotids: nl Lungs: nl Heart: nl Extremities: nl NEUROLOGIC MENTAL STATUS Level of consciousness: nl Orientation: nl Attention / Concentration: Occasionally looses history of thought in conversation Memory: nt Fund of Knowledge: nl Speech / Language: nl NEUROLOGIC CRANIAL NERVES I: Olfaction: NT II: Optic nerves: nl Visual dunlap: nl III: Pupils: nl Levator palpebrae: nl III, IV, : Ocular alignment: nl Extraocular motility: nl Pursuits/ saccades: nl V: Facial sensation: nl Masseter/Pterygoids: nl VII: Facial Motor: nl VIII: Hearing (finger rub): nl IX, X: Uvula and palate: nl XI: SCM, Upper trap.: nl XII: Tongue: nl MOTOR / NEUROMUSCULAR Bulk: nl Tone: nl Strength: nl Rapid alternating movements: nl Fine motor movements: nl Abnormal / involuntary movements: none CEREBELLAR / COORDINATION: intact SENSATION: intact to light touch DTR's symmetrically trace to 1+ PLANTARS: flexor GAIT: Not tested Last 48 Hours of Lab Results: Laboratory Tests 08/10 08/10 08/10 1000 0855 0445 Chemistry Sodium (137 - 145 mmol/L) 139 Potassium (3.5 - 5.1 mmol/L) 4.4 Chloride (98 - 107 mmol/L) 99 Carbon Dioxide (22 - 30 mmol/L) 28 Anion Gap (5 - 16) 11 BUN (9 - 20 mg/dL) 12 Creatinine (0.7 - 1.2 mg/dL) 0.9 Estimated GFR (>60 ml/min) > 60 BUN/Creatinine Ratio (7 - 25 %) 13.3 Troponin I (<0.11 ng/ml) Cancelled < 0.01 < 0.01 Hematology CBC w Diff NO MAN DIFF REQ WBC (4.8 - 10.8 /CUMM) 8.5 RBC (4.70 - 6.10 /CUMM) 4.55 L Hgb (14.0 - 18.0 G/DL) 13.3 L Hct (42 - 52 %) 40.4 L MCV (80.0 - 94.0 FL) 88.7 MCH (27.0 - 31.0 PG) 29.2 MCHC (33.0 - 37.0 G/DL) 33.0 RDW (11.5 - 14.5 %) 15.8 H Plt Count (130 - 400 /CUMM) 273 MPV (7.4 - 10.4 FL) 7.9 Gran % (42.2 - 75.2 %) 60.3 Lymphocytes % (20.5 - 51.1 %) 25.9 Monocytes % (1.7 - 9.3 %) 9.2 Eosinophils % (0 - 5 %) 4.3 Basophils % (0.0 - 2.0 %) 0.3 Absolute Granulocytes (1.4 - 6.5 /CUMM) 5.1 Absolute Lymphocytes (1.2 - 3.4 /CUMM) 2.2 Absolute Monocytes (0.10 - 0.60 /CUMM) 0.8 H Absolute Eosinophils (0.0 - 0.7 /CUMM) 0.4 Absolute Basophils (0.0 - 0.2 /CUMM) 0 08/09 2215 Toxicology Urine Opiates Screen (>2000 NG/ML) < 100 Methadone Screen (>300 NG/ML) < 40 Barbiturate Screen (>200 NG/ML) < 60 Ur Phencyclidine Scrn (>25 NG/ML) < 6.00 Amphetamines Screen (>1000 NG/ML) < 100 U Benzodiazepines Scrn (>200 NG/ML) < 85 Urine Cocaine Screen (>300 NG/ML) < 50 Urine Cannabis Screen (>50 NG/ML) 54.20 H Serum Alcohol Cancelled Urines Urine Color (YEL,AMB,STR) YEL Urine Clarity (CLEAR) CLEAR Urine pH (5.0 - 8.0) 6.5 Ur Specific Star (1.001 - 1.035) 1.015 Urine Protein (NEG,<30 MG/DL) NEG Urine Ketones (NEG) NEG Urine Nitrite (NEG) NEG Urine Bilirubin (NEG) NEG Urine Urobilinogen (0.1 - 1.0 EU/dl) 0.2 Ur Leukocyte Esterase (NEG) NEG Ur Microscopic EXAM NOT REQUIRED Urine Hemoglobin (NEG) NEG Urine Glucose (N MG/DL) NEG 08/09 2214 Chemistry Sodium (137 - 145 mmol/L) 138 Potassium (3.5 - 5.1 mmol/L) 3.8 Chloride (98 - 107 mmol/L) 99 Carbon Dioxide (22 - 30 mmol/L) 29 Anion Gap (5 - 16) 10 BUN (9 - 20 mg/dL) 13 Creatinine (0.7 - 1.2 mg/dL) 1.0 Estimated GFR (>60 ml/min) > 60 BUN/Creatinine Ratio (7 - 25 %) 13.0 Glucose (65 - 99 mg/dL) 73 Calcium (8.4 - 10.2 mg/dL) 9.6 Total Bilirubin (0.2 - 1.3 mg/dL) 0.5 Direct Bilirubin (< 0.4 mg/dL) 0.4 AST (17 - 59 U/L) 21 ALT (21 - 72 U/L) 33 Alkaline Phosphatase (< 127 U/L) 93 Troponin I (<0.11 ng/ml) < 0.01 Total Protein (6.3 - 8.2 g/dL) 7.1 Albumin (3.5 - 5.0 g/dL) 3.8 Amylase (30 - 110 U/L) 88 Lipase (23 - 300 U/L) 161 Coagulation D-Dimer High Sensitivty (0 - 243 ng/ml) < 200 Hematology CBC w Diff NO MAN DIFF REQ WBC (4.8 - 10.8 /CUMM) 8.7 RBC (4.70 - 6.10 /CUMM) 4.35 L Hgb (14.0 - 18.0 G/DL) 12.8 L Hct (42 - 52 %) 38.3 L MCV (80.0 - 94.0 FL) 87.9 MCH (27.0 - 31.0 PG) 29.3 MCHC (33.0 - 37.0 G/DL) 33.4 RDW (11.5 - 14.5 %) 15.6 H Plt Count (130 - 400 /CUMM) 265 MPV (7.4 - 10.4 FL) 7.7 Gran % (42.2 - 75.2 %) 46.4 Lymphocytes % (20.5 - 51.1 %) 36.7 Monocytes % (1.7 - 9.3 %) 11.0 H Eosinophils % (0 - 5 %) 5.5 H Basophils % (0.0 - 2.0 %) 0.4 Absolute Granulocytes (1.4 - 6.5 /CUMM) 4.0 Absolute Lymphocytes (1.2 - 3.4 /CUMM) 3.2 Absolute Monocytes (0.10 - 0.60 /CUMM) 1.0 H Absolute Eosinophils (0.0 - 0.7 /CUMM) 0.5 Absolute Basophils (0.0 - 0.2 /CUMM) 0 Toxicology Serum Alcohol (<10 MG/DL) < 10.0 Imaging/Other Studies: CT head and cervical spine 08/09/2017: IMPRESSION: 1. No acute intracranial pathology. 2. No CT evidence of acute cervical spine fracture or traumatic subluxation DICTATED BY: Ant Estrada MD DATE/TIME DICTATED:08/09/172310 AIRPORT SCREENER:GLORIA DATE/TIME TRANSCRIBED:08/09/172310 EEG 07/26/2017 Interpretation: The background is composed of somewhat irregular posterior rhythms ranging from 7-9 Hz. Low voltage beta is intermixed in the frontal regions. Occasional muscle artifact is seen. There is a run of small sharp waves phase reversing at the T6 electrode lasting about 20 seconds, the sharp waves are rhythmic starting at 7 Hz, increasing to about 10 and then trailing off at the end. There is no spread to any adjacent channels on the EEG. Activation procedures were deferred as the patient was nauseous during the test Impression: Abnormal due to mild generalized slowing of the backgrounds and also due to a single run of small sharp waves in the right temporal region which are potentially epileptogenic DICTATED BY: Grisel WHITING,Sai Ryan DATE/TIME DICTATED:07/26/171850 AIRPORT SCREENER:KINDRA DATE/TIME TRANSCRIBED:07/26/171850 REPORT NUMBER:[id number] CONFIDENTIAL, DO NOT COPY WITHOUT APPROPRIATE AUTHORIZATION. <Electronically signed by Sai Recinos MD> 07/26/171854 Brain MRI to 06/21/17 TECHNIQUE: MRI of the brain without contrast was obtained using routine sequences. FINDINGS: There are scattered nonspecific foci of T2 FLAIR signal hyperintensity within the periventricular white matter. No acute territorial infarct. No pathological magnetic susceptibility artifact. Intracranial vascular flow voids are grossly maintained. There is no intracranial mass effect or midline shift. No abnormal extra axial collection. Lateral and third ventricles are normal. No hydrocephalus. Midline structures including the cervicomedullary junction are normal. Bone marrow signal intensity is normal. There are trace bilateral mastoid tip effusions and mild paranasal sinus disease. Globes and orbits are symmetric. IMPRESSION: There are scattered chronic small vessel ischemic changes within the periventricular white matter. No evidence of acute territorial infarct or hemorrhage. DICTATED BY: Sang Goode MD DATE/TIME DICTATED:06/21/171101 AIRPORT SCREENER:HASSAN DATE/TIME TRANSCRIBED:06/21/171101 Assessment/Plan Assessment: Seizure versus syncope/orthostasis Recommendations: EEG Continue Keppra 1500 mg twice a day Consult Acknowledgment - Thank you for your consult request.
[2017-08-10 13:50] VITALS: BP 131/81
[2017-08-10 14:54] VITALS: BP 112/78
[2017-08-10 22:14] VITALS: BP 110/60
[2017-08-11 07:15] VITALS: BP 114/72
--- NOTE | 2017-08-11 08:32 | PN- Housestaff ---
Subjective Follow-up For: Chest pain Seizures Complaints: no complaints Tele-Events Since Last Visit: NSR, HR 70-80, no tele events. Subjective: Mr Roth feels better. No new complaints. He did not have any new seizures. Couldnt get his MRI done yesteray, and was hoping to get it done today. He couldnt get out of his bed because he feels weak. Discussed with him, if he would need physical therapy. Also might have to change his medication- intravenous to PO today after his next dose. Review of Systems Constitutional: Reports: see HPI. Objective Last 24 Hrs of Vital Signs/I&O Vital Signs Date Time Temp Pulse Resp B/P B/P Pulse O2 O2 Flow FiO2 Mean Ox Delivery Rate 08/11 0715 98.0 79 18 114/72 95 Room Air 08/10 2214 98.1 84 18 110/60 95 Room Air 08/10 1454 98.0 73 20 112/78 96 Room Air 08/10 1350 97.6 78 18 131/81 97 Room Air 08/10 1310 97.6 78 18 131/81 97 Room Air 08/10 1017 98.8 72 18 119/83 95 Room Air 08/10 1002 98.0 72 18 119/83 08/10 0914 98.0 72 18 119/83 95 Room Air Intake & Output 08/11 1600 08/11 0800 08/11 0000 Intake Total 240 Output Total 350 150 Balance -350 90 Intake, Oral 240 Output, Urine 350 150 Physical Exam General Appearance: No Acute Distress Other Physical Findings: General Exam: AAOx3, No acute distress, Skin: No rashes, no breakdown;HEENT: PERRLA, EOMI;Neck: Supple, No JVD, No cervical lymphadenopathy;CVS: Reg Rate, Normal S1,S2, No MGR;Resp: Normal air entry, no ronchi/rales;Abdomen: Soft, No tenderness, Normal Bowel Sounds;Neuro: Normal Speech, Strength 5/5 b/l x 4 extremities, Sensation intact, CN III-XII NL, Reflexes 2+;Extremities: No cyanosis, trace pedal edema, no musculoskeletal tenderness. Current Medications: Current Medications Sig/Haven Start time Last Medication Dose Route Stop Time Status Admin Acetaminophen 1,000 MG Q6P PRN 08/10 0215 AC 08/10 IV 0500 Aspirin Buffered 81 MG DAILY 08/10 1000 AC 08/10 PO 1002 Atorvastatin Calcium 20 MG DAILY 08/10 1000 AC 08/10 PO 1002 Clopidogrel Bisulfate 75 MG DAILY 08/10 1000 AC 08/10 PO 1002 Diphenhydramine HCl 50 MG ONCE ONE 08/11 0130 DC 08/11 PO 08/11 0131 0132 Enoxaparin Sodium 40 MG DAILY 08/10 1000 AC 08/10 SC 1002 Levetiracetam 1,500 MG Q12 08/10 0042 AC 08/11 N/A 1 UNIT IV 0016 Lidocaine 1 PAT DAILY 08/11 1000 AC EXT Lisinopril 2.5 MG DAILY 08/10 1000 AC 08/10 PO 1002 Nicotine 14 MG DAILY 08/10 1500 AC 08/10 TOP 2004 Omeprazole 40 MG DAILY AC 08/10 0700 AC 08/11 PO 0641 Pantoprazole Sodium 40 MG DAILY 08/10 1000 AC 08/10 IV 1002 Spironolactone 25 MG DAILY 08/10 1000 AC 08/10 PO 1002 Tramadol HCl 0 .STK-MED ONE 08/10 1105 DC PO Tramadol HCl 50 MG Q8P PRN 08/10 1015 AC 08/11 PO 0137 Last 24 Hrs of Lab/M[place]ah Results Last 24 Hrs of Labs/Mics: Laboratory Tests 08/10/17 1000: Troponin I Cancelled 08/10/17 0855: Anion Gap 11, Estimated GFR > 60, BUN/Creatinine Ratio 13.3, Troponin I < 0.01, CBC w Diff NO MAN DIFF REQ, RBC 4.55 L, MCV 88.7, MCH 29.2, MCHC 33.0, RDW 15.8 H, MPV 7.9, Gran % 60.3, Lymphocytes % 25.9, Monocytes % 9.2, Eosinophils % 4.3 , Basophils % 0.3, Absolute Granulocytes 5.1, Absolute Lymphocytes 2.2, Absolute Monocytes 0.8 H, Absolute Eosinophils 0.4, Absolute Basophils 0 Assessment/Plan Assessment: Ms Roth is a 56 year old man with a PMHx of CAD s/p PCI (LAD, LCx dx'ed 2017 , h/o of cardiac arrest resulting in anoxic brain injury and seizure disorder on Keppra) history of stent restenosis s/p angioplasty, frequent seizures was brought from an STR in w/ a chief concern of acute onset of left sided chest pain that started in the evening of presentation to the ED likely secondary to unstable angin, also had a witnessed seizure while in was in the ED. CT scan head, neck, abdomen, chest- did not reveal any acute changes. Incidental finding of sclerotic changes in the iliac bone was found. EKG revealed normal sinus rhythm, heart rate 78, normal axis, Q waves, slight ST elevations in V1 and V2 likely from previousseptal infarct, T-wave inversions in V4 V5 and V6. Subsequent EKG revealed normalization of T waves in V4 V5 and V6, but had persistent Q waves and ST elevations in V1 and V2. Pertinent Findings in the last 24 hours:: WBC 8.5, hemoglobin 13.3, platelets 273, sodium 139, potassium 4.4, BUN 12, creatinine 0.9, troponin 0.01, 0.01, 0.01. Etiology in this case is likely unstable angina with symptoms of unstable angina w/o elevated cardiac enzymes with positive cardiac risk factors smoking,age > 35 ,HTN previous h/o of CAD. Other etiologies such as anxiety, aortic dissection, catonary artery spasm are to considered as differentials. Patients with unstable angina and seizures requiring inpatient admission to inpatient hospital. Since he has recurrent chest pains, he needs to be monitored closely given his cardiac history. In regards to his seizures, he would likely need adjustment to his dose of keppra. Other likelihood is that he has syncope, that precipitate seizures. #1 monitor on telemetry #2 continue daily aspirin and statin #4 sublingual nitroglycerin for pain control(hold for low BP) #5 IV morphine for pain relief, if needed. Currently pain medication-tramadol every 8 hourly. #6 Avoid beta ramiro given his previous history of bradycardia #7 No AC at this time. #8 discuss early intervention with cardiac catheterization, if these chest pains recurs. #9 continue Protonix #10 and continue IV Keppra for seizures at this time. Change to by mouth after discussing with the attending. #11 as per neurology, the dose of Keppra could be continued at 1500 mg twice a day. #12 follow-up EEG. #13 Seizure prophylaxis #14 follow-up MRI for evaluation of sclerotic lesions. 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 Code: Full code Diet- heart healthy diet DVT prophylaxis-Lovenox subcutaneous. Problem List: 1. Substance abuse 2. Chest pain 3. Seizure Pain Ratin Pain Location: back Pain Goal: Pain 4 or less Pain Plan: tramadol Tomorrow's Labs & Rationales: no labs
--- NOTE | 2017-08-11 09:13 | ELECTROENCEPHALOGRAM REPORT ---
Electroencephalogram Report Electroencephalogram Results Date of service: 08/10/17 Attending MD: Casandra Bhatti MD Veneer Glue Spreader: Greg Nelson EEG Number: [id number] Test Utilizes: 10-20 system, 21 lead 18 channel digital recording Pertinent Hx/Physical/Neuro Findings/Clin Diagnosis: Seizures vs Syncope/pre-syncope. Hx anoxic brain injury Jan 2017 Inpatient Medications: Current Medications Sig/Haven Start time Last Medication Dose Route Stop Time Status Admin Acetaminophen 1,000 MG Q6P PRN 08/10 0215 AC 08/10 IV 0500 Aspirin Buffered 81 MG DAILY 08/10 1000 AC 08/10 PO 1002 Atorvastatin Calcium 20 MG DAILY 08/10 1000 AC 08/10 PO 1002 Clopidogrel Bisulfate 75 MG DAILY 08/10 1000 AC 08/10 PO 1002 Diphenhydramine HCl 50 MG ONCE ONE 08/11 0130 DC 08/11 PO 08/11 0131 0132 Enoxaparin Sodium 40 MG DAILY 08/10 1000 AC 08/10 SC 1002 Levetiracetam 1,500 MG Q12 08/10 0042 AC 08/11 N/A 1 UNIT IV 0016 Lidocaine 1 PAT DAILY 08/11 1000 AC EXT Lisinopril 2.5 MG DAILY 08/10 1000 AC 08/10 PO 1002 Nicotine 14 MG DAILY 08/10 1500 AC 08/10 TOP 2004 Omeprazole 40 MG DAILY AC 08/10 0700 AC 08/11 PO 0641 Pantoprazole Sodium 40 MG DAILY 08/10 1000 AC 08/10 IV 1002 Spironolactone 25 MG DAILY 08/10 1000 AC 08/10 PO 1002 Tramadol HCl 0 .STK-MED ONE 08/10 1105 DC PO Tramadol HCl 50 MG Q8P PRN 08/10 1015 AC 08/11 PO 0137 Interpretation: Background: well formed 9 hz posterior alpha of moderate amplitude, low voltage frontal beta Transients: none HV deferred (cardiac history) Photic: unremarkable Impression: Normal, no focal or epileptiform abnormalities.
--- NOTE | 2017-08-11 11:12 | PN- Cardiology ---
Subjective Subjective: Patient feels better, still chest mildly tender, no dyspnea or nausea Objective Vital Signs and I&Os Vital Signs Date Time Temp Pulse Resp B/P B/P Pulse O2 O2 Flow FiO2 Mean Ox Delivery Rate 08/11 0907 79 114/72 08/11 0715 98.0 79 18 114/72 95 Room Air 08/10 2214 98.1 84 18 110/60 95 Room Air 08/10 1454 98.0 73 20 112/78 96 Room Air 08/10 1350 97.6 78 18 131/81 97 Room Air 08/10 1310 97.6 78 18 131/81 97 Room Air Intake & Output 08/11 1600 08/11 0800 08/11 0000 08/10 1600 08/10 0800 08/10 0000 Intake Total 240 160 Output Total 350 150 500 500 Balance -350 90 -340 -500 Intake, IV 100 Intake, Oral 240 60 Output, Urine 350 150 500 500 Patient 178 lb 178 lb 178 lb Weight Physical Exam: HEENT-PERRLA Neck-JVP normal, no bruits Lungs-clear bilaterally Heart-S1S2 regular, no murmur Abdomen-soft, not tender, BS+, no organomegaly Extr-no edema, 2+ pulses Neuro-non focal Current Medications: Current Medications Sig/Haven Start time Last Medication Dose Route Stop Time Status Admin Acetaminophen 1,000 MG Q6P PRN 08/10 0215 AC 08/10 IV 0500 Aspirin Buffered 81 MG DAILY 08/10 1000 AC 08/11 PO 0907 Atorvastatin Calcium 20 MG DAILY 08/10 1000 AC 08/11 PO 0907 Clopidogrel Bisulfate 75 MG DAILY 08/10 1000 AC 08/11 PO 0907 Diphenhydramine HCl 50 MG .STK-MED ONE 08/11 0132 DC PO 08/11 0133 Diphenhydramine HCl 50 MG ONCE ONE 08/11 0130 DC 08/11 PO 08/11 0131 0132 Enoxaparin Sodium 40 MG DAILY 08/10 1000 AC 08/11 SC 0908 Levetiracetam 1,500 MG BID 08/11 1015 AC PO Levetiracetam 1,500 MG Q12 08/10 0042 DC 08/11 N/A 1 UNIT IV 0016 Lidocaine 1 PAT DAILY 08/11 1000 AC 08/11 EXT 0930 Lisinopril 2.5 MG DAILY 08/10 1000 AC 08/11 PO 0907 Nicotine 14 MG DAILY 08/10 1500 AC 08/11 TOP 0926 Omeprazole 40 MG DAILY AC 08/10 0700 AC 08/11 PO 0641 Pantoprazole Sodium 40 MG DAILY 08/10 1000 AC 08/11 IV 0913 Spironolactone 25 MG DAILY 08/10 1000 AC 08/11 PO 0907 Tramadol HCl 50 MG .STK-MED ONE 08/11 0135 DC PO 08/11 0136 Tramadol HCl 50 MG Q8P PRN 08/10 1015 AC 08/11 PO 0137 Assessment/Plan Assessment/Plan 1> CAD, s/p RI. recurrent chest pain-chest pain is atypical, ekg without changed , mild tenderness on chest palpation, troponin negative 2. Anoxic brain injury with recurrent seizures, GM seizure in ER, no recurrence 3. Substance abuse-previously cocaine and cannabis +, this admission tox screen + for cannabis only 4. Sclerotic lesion in illiac bone-?unclear etiology 5. h/o sinus bradycardia. Off beta blockers for now due to h/o cocaine use and previous bradycardia Telemetry-no arrhytmia overnight Recommend: continue cardiac medications neurology consult-? increase Kera social media director-patient considers drug rehab workup for illiac bone sclerotic lesion-if patient needs MRI, Linq monitor is MRI compatible for full body scans check orthostasis Patient has f/u appointment with me on 08/16/17 will sign off, please call with any questions Continue telemetry? Yes
--- NOTE | 2017-08-11 12:04 | PN- Att Addend ---
Attending Addendum Attending Brief Note Patient seen and examined. Plan of care discussed with the medical team and the patient. Available lab work and radiology test reports were reviewed. Patient is awake able to talk and denies any recurrent seizures. He complains of a bilateral leg weakness and states that he has not been able to ambulate. No other complaints were offered by patient. Exam: General: Patient awake alert oriented without any distress CVS: S1 plus S2 without any murmur or gallops Chest: Few scattered crepitation without any wheeze. There is no respiratory distress. 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 alert oriented without any focal neuro deficit except hip girdle muscle weakness and follows commands appropriately Extremities: No edema; no clubbing or cyanosis noted Current Medications Sig/Haven Start time Last Medication Dose Route Stop Time Status Admin Acetaminophen 1,000 MG Q6P PRN 08/10 0215 AC 08/10 IV 0500 Aspirin Buffered 81 MG DAILY 08/10 1000 AC 08/11 PO 0907 Atorvastatin Calcium 20 MG DAILY 08/10 1000 AC 08/11 PO 0907 Clopidogrel Bisulfate 75 MG DAILY 08/10 1000 AC 08/11 PO 0907 Diphenhydramine HCl 50 MG ONCE ONE 08/11 1145 DC 08/11 PO 08/11 1146 1144 Diphenhydramine HCl 50 MG .STK-MED ONE 08/11 0132 DC PO 08/11 0133 Diphenhydramine HCl 50 MG ONCE ONE 08/11 0130 DC 08/11 PO 08/11 0131 0132 Enoxaparin Sodium 40 MG DAILY 08/10 1000 AC 08/11 SC 0908 Levetiracetam 1,500 MG BID 08/11 1015 AC 08/11 PO 1135 Levetiracetam 1,500 MG Q12 08/10 0042 DC 08/11 N/A 1 UNIT IV 0016 Lidocaine 1 PAT DAILY 08/11 1000 AC 08/11 EXT 0930 Lisinopril 2.5 MG DAILY 08/10 1000 AC 08/11 PO 0907 Nicotine 14 MG DAILY 08/10 1500 AC 08/11 TOP 0926 Omeprazole 40 MG DAILY AC 08/10 0700 AC 08/11 PO 0641 Pantoprazole Sodium 40 MG DAILY 08/10 1000 AC 08/11 IV 0913 Spironolactone 25 MG DAILY 08/10 1000 AC 08/11 PO 0907 Tramadol HCl 50 MG .STK-MED ONE 08/11 0135 DC PO 08/11 0136 Tramadol HCl 50 MG Q8P PRN 08/10 1015 AC 08/11 PO 1141 Laboratory Tests 08/10/17 1000: Troponin I Cancelled 08/10/17 0855: Anion Gap 11, Estimated GFR > 60, BUN/Creatinine Ratio 13.3, Troponin I < 0.01, CBC w Diff NO MAN DIFF REQ, RBC 4.55 L, MCV 88.7, MCH 29.2, MCHC 33.0, RDW 15.8 H, MPV 7.9, Gran % 60.3, Lymphocytes % 25.9, Monocytes % 9.2, Eosinophils % 4.3 , Basophils % 0.3, Absolute Granulocytes 5.1, Absolute Lymphocytes 2.2, Absolute Monocytes 0.8 H, Absolute Eosinophils 0.4, Absolute Basophils 0 08/10/17 0445: Troponin I < 0.01 08/09/17 2220: Urine Opiates Screen < 100, Methadone Screen < 40, Barbiturate Screen < 60, Ur Phencyclidine Scrn < 6.00, Amphetamines Screen < 100, U Benzodiazepines Scrn < 85, Urine Cocaine Screen < 50, Urine Cannabis Screen 54.20 H, Urine Color YEL, Urine Clarity CLEAR, Urine pH 6.5, Ur Specific [place] 1.015, Urine Protein NEG, Urine Ketones NEG, Urine Nitrite NEG, Urine Bilirubin NEG, Urine Urobilinogen 0.2, Ur Leukocyte Esterase NEG, Ur Microscopic EXAM NOT REQUIRED, Urine Hemoglobin NEG, Urine Glucose NEG 08/09/17 2215: Serum Alcohol Cancelled 08/09/17 2215: Anion Gap 10, Estimated GFR > 60, BUN/Creatinine Ratio 13.0, Glucose 73, Calcium 9.6, Total Bilirubin 0.5, Direct Bilirubin 0.4, AST 21, ALT 33, Alkaline Phosphatase 93, Troponin I < 0.01, Total Protein 7.1, Albumin 3.8, Amylase 88, Lipase 161, D-Dimer High Sensitivty < 200, CBC w Diff NO MAN DIFF REQ, RBC 4.35 L, MCV 87.9, MCH 29.3, MCHC 33.4, RDW 15.6 H, MPV 7.7, Gran % 46.4, Lymphocytes % 36.7, Monocytes % 11.0 H, Eosinophils % 5.5 H, Basophils % 0.4, Absolute Granulocytes 4.0, Absolute Lymphocytes 3.2, Absolute Monocytes 1.0 H, Absolute Eosinophils 0.5, Absolute Basophils 0, Serum Alcohol < 10.0 Vital Signs Date Time Temp Pulse Resp B/P B/P Pulse O2 O2 Flow FiO2 Mean Ox Delivery Rate 08/11 1050 Room Air 08/11 0907 79 114/72 08/11 0715 98.0 79 18 114/72 95 Room Air 08/10 2214 98.1 84 18 110/60 95 Room Air 08/10 1454 98.0 73 20 112/78 96 Room Air 08/10 1350 97.6 78 18 131/81 97 Room Air 08/10 1310 97.6 78 18 131/81 97 Room Air Intake & Output 08/11 1600 08/11 0800 08/11 0000 Intake Total 240 Output Total 350 150 Balance -350 90 Intake, Oral 240 Output, Urine [address] head 1. No acute intracranial pathology. 2. No CT evidence of acute cervical spine fracture or traumatic subluxation EEG was normal Assessment plan CAD s/p PCI (LAD, LCx dx'ed 2017 , h/o of cardiac arrest resulting in anoxic brain injury History of recurrent seizure disorder on Keppra) history of stent restenosis s/p angioplasty, History of cocaine abuse Plan * Please change Keppra to oral * MRI of the hip to evaluate sclerotic lesion * Possible discharge on Sunday to short-term rehabilitation
--- NOTE | 2017-08-11 12:19 | PN- Neurology ---
Objective Vital Signs and I&Os Vital Signs Date Time Temp Pulse Resp B/P B/P Pulse O2 O2 Flow FiO2 Mean Ox Delivery Rate 08/11 1050 Room Air 08/11 0907 79 114/72 08/11 0715 98.0 79 18 114/72 95 Room Air 08/10 2214 98.1 84 18 110/60 95 Room Air 08/10 1454 98.0 73 20 112/78 96 Room Air 08/10 1350 97.6 78 18 131/81 97 Room Air 08/10 1310 97.6 78 18 131/81 97 Room Air Intake & Output 08/11 1600 08/11 0800 08/11 0000 08/10 1600 08/10 0800 08/10 0000 Intake Total 240 160 Output Total 350 150 500 500 Balance -350 90 -340 -500 Intake, IV 100 Intake, Oral 240 60 Output, Urine 350 150 500 500 Patient 178 lb 178 lb 178 lb Weight Current Medications: Current Medications Sig/Haven Start time Last Medication Dose Route Stop Time Status Admin Acetaminophen 1,000 MG Q6P PRN 08/10 0215 AC 08/10 IV 0500 Aspirin Buffered 81 MG DAILY 08/10 1000 AC 08/11 PO 0907 Atorvastatin Calcium 20 MG DAILY 08/10 1000 AC 08/11 PO 0907 Clopidogrel Bisulfate 75 MG DAILY 08/10 1000 AC 08/11 PO 0907 Diphenhydramine HCl 50 MG ONCE ONE 08/11 1145 DC 08/11 PO 08/11 1146 1144 Diphenhydramine HCl 50 MG .STK-MED ONE 08/11 0132 DC PO 08/11 0133 Diphenhydramine HCl 50 MG ONCE ONE 08/11 0130 DC 08/11 PO 08/11 0131 0132 Enoxaparin Sodium 40 MG DAILY 08/10 1000 AC 08/11 SC 0908 Levetiracetam 1,500 MG BID 08/11 1015 AC 08/11 PO 1135 Levetiracetam 1,500 MG Q12 08/10 0042 DC 08/11 N/A 1 UNIT IV 0016 Lidocaine 1 PAT DAILY 08/11 1000 AC 08/11 EXT 0930 Lisinopril 2.5 MG DAILY 08/10 1000 AC 08/11 PO 0907 Nicotine 14 MG DAILY 08/10 1500 AC 08/11 TOP 0926 Omeprazole 40 MG DAILY AC 08/10 0700 AC 08/11 PO 0641 Pantoprazole Sodium 40 MG DAILY 08/10 1000 AC 08/11 IV 0913 Spironolactone 25 MG DAILY 08/10 1000 AC 08/11 PO 0907 Tramadol HCl 50 MG .STK-MED ONE 08/11 0135 DC PO 08/11 0136 Tramadol HCl 50 MG Q8P PRN 08/10 1015 AC 08/11 PO 1141 Results Recent Imaging Studies: EEG 07-13-17: Interpretation: Background: well formed 9 hz posterior alpha of moderate amplitude, low voltage frontal beta Transients: none HV deferred (cardiac history) Photic: unremarkable Impression: Normal, no focal or epileptiform abnormalities. DICTATED BY: Grisel WHITING,Sai Ryan DATE/TIME DICTATED:08/11/17908
--- NOTE | 2017-08-11 14:23 | PN- Neurology ---
Subjective Subjective: Possible seizures No spells since admission Sitting up in the recliner chair Objective Vital Signs and I&Os Vital Signs Date Time Temp Pulse Resp B/P B/P Pulse O2 O2 Flow FiO2 Mean Ox Delivery Rate 08/11 1050 Room Air 08/11 0907 79 114/72 08/11 0715 98.0 79 18 114/72 95 Room Air 08/10 2214 98.1 84 18 110/60 95 Room Air 08/10 1454 98.0 73 20 112/78 96 Room Air Intake & Output 08/11 1600 08/11 0800 08/11 0000 08/10 1600 08/10 0800 08/10 0000 Intake Total 550 240 160 Output Total 750 350 150 500 500 Balance -200 -350 90 -340 -500 Intake, IV 100 Intake, Oral 550 240 60 Output, Urine 750 350 150 500 500 Patient 178 lb 178 lb 178 lb Weight Physical Exam: Awake, alert, oriented Speech fluent At times a bit slow expressing his thoughts Cranial nerves II through XII intact Motor 5 out of 5 No limb ataxia Intact light touch sensation Current Medications: Current Medications Sig/Haven Start time Last Medication Dose Route Stop Time Status Admin Acetaminophen 1,000 MG Q6P PRN 08/10 0215 AC 08/10 IV 0500 Aspirin Buffered 81 MG DAILY 08/10 1000 AC 08/11 PO 0907 Atorvastatin Calcium 20 MG DAILY 08/10 1000 AC 08/11 PO 0907 Clopidogrel Bisulfate 75 MG DAILY 08/10 1000 AC 08/11 PO 0907 Diphenhydramine HCl 50 MG ONCE ONE 08/11 1145 DC 08/11 PO 08/11 1146 1144 Diphenhydramine HCl 50 MG .STK-MED ONE 08/11 0132 DC PO 08/11 0133 Diphenhydramine HCl 50 MG ONCE ONE 08/11 0130 DC 08/11 PO 08/11 0131 0132 Enoxaparin Sodium 40 MG DAILY 08/10 1000 AC 08/11 SC 0908 Levetiracetam 1,500 MG BID 08/11 1015 AC 08/11 PO 1135 Levetiracetam 1,500 MG Q12 08/10 0042 DC 08/11 N/A 1 UNIT IV 0016 Lidocaine 1 PAT DAILY 08/11 1000 AC 08/11 EXT 0930 Lisinopril 2.5 MG DAILY 08/10 1000 AC 08/11 PO 0907 Nicotine 14 MG DAILY 08/10 1500 AC 08/11 TOP 0926 Omeprazole 40 MG DAILY AC 08/10 0700 AC 08/11 PO 0641 Pantoprazole Sodium 40 MG DAILY 08/10 1000 AC 08/11 IV 0913 Spironolactone 25 MG DAILY 08/10 1000 AC 08/11 PO 0907 Tramadol HCl 50 MG .STK-MED ONE 08/11 0135 DC PO 08/11 0136 Tramadol HCl 50 MG Q8P PRN 08/10 1015 AC 08/11 PO 1141 Results Last 24 Hours of Lab Results: EEG 08/10/2017: Interpretation: Background: well formed 9 hz posterior alpha of moderate amplitude, low voltage frontal beta Transients: none HV deferred (cardiac history) Photic: unremarkable Impression: Normal, no focal or epileptiform abnormalities. DICTATED BY: Grisel WHITING,Sai Ryan DATE/TIME DICTATED:08/11/17908 CONTINUOUS IMPROVEMENT INTERN:KINDRA DATE/TIME TRANSCRIBED:08/11/17908 REPORT NUMBER:[id number] CONFIDENTIAL, DO NOT COPY WITHOUT APPROPRIATE AUTHORIZATION. <Electronically signed by Sai Recinos MD> 08/11/17912 Assessment/Plan Assessment: Seizure disorder versus convulsive syncope/orthostasis Plan: Continue Keppra at the current dose of 1500 mg twice a day for now (PO) Suggest follow-up at [facility] Will see prn
[2017-08-11 16:01] VITALS: BP 112/70
[2017-08-11 22:31] VITALS: BP 120/80
[2017-08-12 05:36] VITALS: BP 115/80
--- NOTE | 2017-08-12 09:14 | PN- Housestaff ---
Subjective Follow-up For: Chest pain Seizures Tele-Events Since Last Visit: NSR [id number] Subjective: Patient requesting Benadryl multiple times last night for continued itching. Patient complains of diffuse itching following. Asking to shower. Review of Systems Constitutional: Reports: see HPI. Objective Last 24 Hrs of Vital Signs/I&O Vital Signs Date Time Temp Pulse Resp B/P B/P Pulse O2 O2 Flow FiO2 Mean Ox Delivery Rate 08/12 1425 97.5 86 18 122/74 96 Room Air 08/12 0536 97.9 70 18 115/80 98 Room Air 08/11 2231 97.9 66 20 120/80 96 Room Air Intake & Output 08/12 1600 08/12 0800 08/12 0000 Intake Total 550 310 550 Output Total 198 542 3004 Balance -200 -190 -650 Intake, IV 10 100 Intake, Oral 550 300 450 Output, Urine 189 812 [id number] Patient 178 lb Weight Weight Bed scale Measurement Method Physical Exam General Appearance: Alert, Oriented X3, Cooperative Cardiovascular: Regular Rate, Normal S1, Normal S2 Lungs: Clear to Auscultation, Normal Air Movement Abdomen: Normal Bowel Sounds, Soft, No Tenderness Extremities: multiple track irvin of bilateral except extremities Vascular: 2+ radial pulse Current Medications: Current Medications Sig/Haven Start time Last Medication Dose Route Stop Time Status Admin Acetaminophen 1,000 MG Q6P PRN 08/10 0215 AC 08/11 IV 1614 Aspirin Buffered 81 MG DAILY 08/10 1000 AC 08/12 PO 0910 Atorvastatin Calcium 20 MG DAILY 08/10 1000 AC 08/12 PO 0911 Clopidogrel Bisulfate 75 MG DAILY 08/10 1000 AC 08/12 PO 0911 Diphenhydramine HCl 12.5 MG ONCE ONE 08/12 0545 DC 08/12 PO 08/12 0546 0617 Diphenhydramine HCl 12.5 MG ONCE ONE 08/12 0530 CAN PO 08/12 0700 Diphenhydramine HCl 25 MG ONCE ONE 08/12 0100 DC 08/12 PO 08/12 0101 0115 Diphenhydramine HCl 25 MG ONCE ONE 08/11 1800 DC 08/11 PO 08/11 1801 1804 Enoxaparin Sodium 40 MG DAILY 08/10 1000 AC 08/12 SC 0911 Hydroxyzine HCl 25 MG TID PRN 08/12 1345 AC 08/12 PO 1500 Levetiracetam 1,500 MG BID 08/11 1015 AC 08/12 PO 0910 Lidocaine 1 PAT DAILY 08/11 1000 AC 08/12 EXT 1059 Lisinopril 2.5 MG DAILY 08/10 1000 AC 08/12 PO 0911 Multi-Ingred Cream/ 1 JOB Q6-PRN PRN 08/12 1345 AC Lotion/Oil/Oint EXT Nicotine 14 MG DAILY 08/10 1500 AC 08/12 TOP 1158 Omeprazole 40 MG DAILY AC 08/10 0700 AC 08/12 PO 0617 Pantoprazole Sodium 40 MG DAILY 08/10 1000 DC 08/11 IV 0913 Spironolactone 25 MG DAILY 08/10 1000 AC 08/12 PO 0910 Tramadol HCl 50 MG Q8P PRN 08/10 1015 AC 08/12 PO 0914 Assessment/Plan Assessment: Mr. Roth is a 56-year-old gentleman with past medical history significant for ND s/p stent placement(2016), subsequent cardiac arrest in jan 2017 and in stent thrombosis requiring angioplasty, and anoxic brain injury resulting in seizure disorder, chronic constipation, hypertension, GERD, recently admitted to the [facility] in May for symptomatic bradycardia and from 07/25-07/31 for Cocaine induced chest pain and nausea/vomiting s/p EGD now was sent in from [facility] for left-sided chest pain starting earlier today. Problem list 1. Chest pain rule out ACS 2. Seizure disorder - one episode of seizure in the ER 3. Chronic medical conditions -Itching most likely secondary to cocaine withdrawal and possible localized reaction to tape on skin - treat with hydroxyzine, and calamine lotion -f.u hip MRI for sclerotic region -Troponins and EKG negative for ACS -Continue with Dr. Mcelroy cardiology recommendations - Hx of cocaine abuse, we will avoid beta blockers -Continue Keppra and seizure precautions, passed swallow eval - EEG on July 26 showed epileptiform waveforms, will repeat the EEG. -Continue neurology recommendations - Continue home medications i.e, lisinopril, aspirin, Plavix, Lipitor and omeprazole. DVT prophylaxis; subcutaneous Lovenox Patient is full code Problem List: 1. Substance abuse 2. Chest pain 3. Abnormal EEG Pain Ratin Pain Location: none Pain Goal: Pain 4 or less Pain Plan: pain pathway Tomorrow's Labs & Rationales: cbc bep
--- NOTE | 2017-08-12 11:28 | PN- Att Addend ---
Attending Addendum Attending Brief Note Patient seen and examined. Plan of care discussed with the medical team and the patient. Available lab work and radiology test reports were reviewed. Patient is sitting in chair this morning. Patient is awake able to talk and denies any recurrent seizures. He complains of a bilateral leg weakness and states that he has not been able to ambulate. Patient is complaining of for pruritus all over his body. He was given Benadryl but it is not helping. Exam: General: Patient awake alert oriented without any distress CVS: S1 plus S2 without any murmur or gallops Chest: Few scattered crepitation without any wheeze. There is no respiratory distress. 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 without any focal neuro deficit except hip girdle muscle weakness and follows commands appropriately Extremities: No edema; no clubbing or cyanosis noted; no rashes noted Assessment plan * CAD s/p PCI (LAD, LCx dx'ed 2017 , * h/o of cardiac arrest resulting in anoxic brain injury * History of recurrent seizure disorder on Keppra) * history of stent restenosis s/p angioplasty, * History of cocaine abuse Plan * Continue oral Keppra at current dose * MRI of the hip to evaluate sclerotic lesion * Possible discharge on Sunday to short-term rehabilitation * Add Atarax when necessary for itching * Calamine lotion for itching Current Medications Sig/Haven Start time Last Medication Dose Route Stop Time Status Admin Acetaminophen 1,000 MG Q6P PRN 08/10 0215 AC 08/11 IV 1614 Aspirin Buffered 81 MG DAILY 08/10 1000 AC 08/12 PO 0910 Atorvastatin Calcium 20 MG DAILY 08/10 1000 AC 08/12 PO 0911 Clopidogrel Bisulfate 75 MG DAILY 08/10 1000 AC 08/12 PO 0911 Diphenhydramine HCl 12.5 MG ONCE ONE 08/12 0545 DC 08/12 PO 08/12 0546 0617 Diphenhydramine HCl 12.5 MG ONCE ONE 08/12 0530 CAN PO 08/12 0700 Diphenhydramine HCl 25 MG ONCE ONE 08/12 0100 DC 08/12 PO 08/12 0101 0115 Diphenhydramine HCl 25 MG ONCE ONE 08/11 1800 DC 08/11 PO 08/11 1801 1804 Diphenhydramine HCl 50 MG ONCE ONE 08/11 1145 DC 08/11 PO 08/11 1146 1144 Enoxaparin Sodium 40 MG DAILY 08/10 1000 AC 08/12 SC 0911 Levetiracetam 1,500 MG BID 08/11 1015 AC 08/12 PO 0910 Lidocaine 1 PAT DAILY 08/11 1000 AC 08/11 EXT 0930 Lisinopril 2.5 MG DAILY 08/10 1000 AC 08/12 PO 0911 Nicotine 14 MG DAILY 08/10 1500 AC 08/11 TOP 0926 Omeprazole 40 MG DAILY AC 08/10 0700 AC 08/12 PO 0617 Pantoprazole Sodium 40 MG DAILY 08/10 1000 DC 08/11 IV 0913 Spironolactone 25 MG DAILY 08/10 1000 AC 08/12 PO 0910 Tramadol HCl 50 MG Q8P PRN 08/10 1015 AC 08/12 PO 0914 Laboratory Tests 08/10/17 1000: Troponin I Cancelled 08/10/17 0855: Anion Gap 11, Estimated GFR > 60, BUN/Creatinine Ratio 13.3, Troponin I < 0.01, CBC w Diff NO MAN DIFF REQ, RBC 4.55 L, MCV 88.7, MCH 29.2, MCHC 33.0, RDW 15.8 H, MPV 7.9, Gran % 60.3, Lymphocytes % 25.9, Monocytes % 9.2, Eosinophils % 4.3 , Basophils % 0.3, Absolute Granulocytes 5.1, Absolute Lymphocytes 2.2, Absolute Monocytes 0.8 H, Absolute Eosinophils 0.4, Absolute Basophils 0 08/10/17 0445: Troponin I < 0.01 08/09/17 2220: Urine Opiates Screen < 100, Methadone Screen < 40, Barbiturate Screen < 60, Ur Phencyclidine Scrn < 6.00, Amphetamines Screen < 100, U Benzodiazepines Scrn < 85, Urine Cocaine Screen < 50, Urine Cannabis Screen 54.20 H, Urine Color YEL, Urine Clarity CLEAR, Urine pH 6.5, Ur Specific [place] 1.015, Urine Protein NEG, Urine Ketones NEG, Urine Nitrite NEG, Urine Bilirubin NEG, Urine Urobilinogen 0.2, Ur Leukocyte Esterase NEG, Ur Microscopic EXAM NOT REQUIRED, Urine Hemoglobin NEG, Urine Glucose NEG 08/09/17 2215: Serum Alcohol Cancelled 08/09/17 2215: Anion Gap 10, Estimated GFR > 60, BUN/Creatinine Ratio 13.0, Glucose 73, Calcium 9.6, Total Bilirubin 0.5, Direct Bilirubin 0.4, AST 21, ALT 33, Alkaline Phosphatase 93, Troponin I < 0.01, Total Protein 7.1, Albumin 3.8, Amylase 88, Lipase 161, D-Dimer High Sensitivty < 200, CBC w Diff NO MAN DIFF REQ, RBC 4.35 L, MCV 87.9, MCH 29.3, MCHC 33.4, RDW 15.6 H, MPV 7.7, Gran % 46.4, Lymphocytes % 36.7, Monocytes % 11.0 H, Eosinophils % 5.5 H, Basophils % 0.4, Absolute Granulocytes 4.0, Absolute Lymphocytes 3.2, Absolute Monocytes 1.0 H, Absolute Eosinophils 0.5, Absolute Basophils 0, Serum Alcohol < 10.0 Vital Signs Date Time Temp Pulse Resp B/P B/P Pulse O2 O2 Flow FiO2 Mean Ox Delivery Rate 08/12 0536 97.9 70 18 115/80 98 Room Air 08/11 2231 97.9 66 20 120/80 96 Room Air 08/11 1601 97.9 82 18 112/70 95 Intake & Output 08/12 1600 08/12 0800 08/12 0000 Intake Total 310 550 Output Total 500 1200 Balance -190 -650 Intake, IV 10 100 Intake, Oral 300 450 Output, Urine 500 1200 Patient 178 lb Weight Weight Bed scale Measurement Method
[2017-08-12 14:25] VITALS: BP 122/74
[2017-08-12 23:00] VITALS: BP 124/72
[2017-08-13 06:33] VITALS: BP 120/70
--- NOTE | 2017-08-13 07:33 | PN- Housestaff ---
Subjective Follow-up For: - Chest pain - Seizures Complaints: no complaints Tele-Events Since Last Visit: NSR, no tele events Subjective: pt was comfortable. No new complaints. He is still concerned about pruritis. Vitals remained stable overnight. Review of Systems Constitutional: Reports: see HPI. Objective Last 24 Hrs of Vital Signs/I&O Vital Signs Date Time Temp Pulse Resp B/P B/P Pulse O2 O2 Flow FiO2 Mean Ox Delivery Rate 08/13 0633 98.0 80 20 120/70 95 Room Air 08/12 2300 97.7 84 18 124/72 96 Room Air 08/12 1425 97.5 86 18 122/74 96 Room Air Intake & Output 08/13 0800 08/13 0000 08/12 1600 Intake Total 550 550 Output Total 600 1100 750 Balance -600 -550 -200 Intake, Oral 550 550 Number 0 Bowel Movements Output, Urine 600 1100 750 Patient 178 lb Weight Weight Bed scale Measurement Method Physical Exam General Appearance: No Acute Distress Other Physical Findings: General Exam: AAOx3, No acute distress, Skin: No rashes, no breakdown;HEENT: PERRLA, EOMI;Neck: Supple, No JVD, No cervical lymphadenopathy;CVS: Reg Rate, Normal S1,S2, No MGR;Resp: Normal air entry, no ronchi/rales;Abdomen: Soft, No tenderness, Normal Bowel Sounds;Neuro: Normal Speech, Strength 5/5 b/l x 4 extremities, Sensation intact, CN III-XII NL, Reflexes 2+;Extremities: No cyanosis, trace pedal edema, no musculoskeletal tenderness. Current Medications: Current Medications Sig/Haven Start time Last Medication Dose Route Stop Time Status Admin Acetaminophen 1,000 MG Q6P PRN 08/10 0215 AC 08/11 IV 1614 Aspirin Buffered 81 MG DAILY 08/10 1000 AC 08/12 PO 0910 Atorvastatin Calcium 20 MG DAILY 08/10 1000 AC 08/12 PO 0911 Clopidogrel Bisulfate 75 MG DAILY 08/10 1000 AC 08/12 PO 0911 Enoxaparin Sodium 40 MG DAILY 08/10 1000 AC 08/12 SC 0911 Hydroxyzine HCl 25 MG TID PRN 08/12 1345 AC 08/12 PO 2133 Levetiracetam 1,500 MG BID 08/11 1015 AC 08/12 PO 2133 Lidocaine 1 PAT DAILY 08/11 1000 AC 08/12 EXT 1059 Lisinopril 2.5 MG DAILY 08/10 1000 AC 08/12 PO 0911 Multi-Ingred Cream/ 1 JOB Q6-PRN PRN 08/12 1345 AC Lotion/Oil/Oint EXT Nicotine 14 MG DAILY 08/10 1500 AC 08/12 TOP 1158 Omeprazole 40 MG DAILY AC 08/10 0700 AC 08/13 PO 0625 Pantoprazole Sodium 40 MG DAILY 08/10 1000 DC 08/11 IV 0913 Spironolactone 25 MG DAILY 08/10 1000 AC 08/12 PO 0910 Tramadol HCl 50 MG Q8P PRN 08/10 1015 AC 08/12 PO 1826 Last 24 Hrs of Lab/[place] Results Last 24 Hrs of Labs/Mics: Laboratory Tests 08/13/17 0649: Sodium Pending, Potassium Pending, Chloride Pending, Carbon Dioxide Pending, Anion Gap Pending, BUN Pending, Creatinine Pending, BUN/Creatinine Ratio Pending , CBC w Diff Pending, WBC Pending, RBC Pending, Hgb Pending, Hct Pending, MCV Pending, MCH Pending, MCHC Pending, RDW Pending, Plt Count Pending, MPV Pending Assessment/Plan Assessment: Ms Roth is a 56 year old man with a PMHx of CAD s/p PCI (LAD, LCx dx'ed 2016 , h/o of cardiac arrest resulting in anoxic brain injury and seizure disorder on Keppra) history of stent restenosis s/p angioplasty, frequent seizures was brought from an STR in w/ a chief concern of acute onset of left sided chest pain that started in the evening of presentation to the ED likely secondary to unstable angin, also had a witnessed seizure while in was in the ED. Problem list: 1. Seizures 2. Substance abuse 3. Rule out ACS 4. history of anoxic brain injury 5. Pruritis 6. Sclerotic lesion on the iliac crest Etiology in this case is likely unstable angina with symptoms of unstable angina w/o elevated cardiac enzymes with positive cardiac risk factors smoking,age > 35 ,HTN previous h/o of CAD. Other etiologies such as anxiety, aortic dissection, catonary artery spasm are to considered as differentials. Patients with unstable angina and seizures requiring inpatient admission to inpatient hospital. Since he has recurrent chest pains, he needs to be monitored closely given his cardiac history. In regards to his seizures, he would likely need adjustment to his dose of keppra. Other likelihood is that he has syncope, that precipitate seizures. #1 monitor on telemetry #2 continue daily aspirin and statin #4 sublingual nitroglycerin for pain control(hold for low BP) #5 IV morphine for pain relief, if needed. Currently pain medication-tramadol every 8 hourly. #6 Avoid beta ramiro given his previous history of bradycardia #7 No AC at this time. #8 discuss early intervention with cardiac catheterization, if these chest pains recurs. #9 continue Protonix #11 as per neurology, the dose of Keppra could be continued at 1500 mg twice a day. #13 Seizure prophylaxis #14 Pt will be discharged w/ a recommendation to get an MRI as an outpatient. #15 Continue atarax, and calamine prn for itching. Code: Full code Diet- heart healthy diet DVT prophylaxis-Lovenox subcutaneous. Problem List: 1. Chest pain 2. Abnormal EEG Pain Ratin Pain Location: back Pain Goal: Pain 4 or less Pain Plan: tylenol prn Tomorrow's Labs & Rationales: no labs
[2017-08-13 07:56] LABS: ABSOLUTE BASOPHIL COUNT 0 /CUMM (0.0-0.2); ABSOLUTE EOSINOPHIL COUNT 0.7 /CUMM (0.0-0.7); ABSOLUTE GRANULOCYTE CT 2.8 /CUMM (1.4-6.5); ABSOLUTE LYMPH COUNT 2.9 /CUMM (1.2-3.4); ABSOLUTE MONOCYTE COUNT 0.6 /CUMM (0.10-0.60); BASOPHIL % 0.5 % (0.0-2.0); EOSINOPHIL % 10.5 % (0-5); GRANULOCYTE % 39.7 % (42.2-75.2); HEMATOCRIT 44.9 % (42-52); MEAN CORPUSCULAR HGB 29.4 PG (27.0-31.0); MEAN CORPUSCULAR VOLUME 89.1 FL (80.0-94.0); PLATELET COUNT 274 /CUMM (130-400); RBC DISTRIBUTION WIDTH 15.7 % (11.5-14.5); RED BLOOD CELL CT 5.04 /CUMM (4.70-6.10)
[2017-08-13 08:05] VITALS: BP 120/70
--- NOTE | 2017-08-13 09:07 | Discharge Summary ---
Visit Information Visit Dates Admission Date: 08/10/17 Discharge Date: 08/13/2017 Hospital Course Course Attending Physician: Alicia WHITING,Tiffani Primary Care Physician: Kishore WHITING,Tsering Dickerson Hospital Course: Ms Roth is a 56 year old man with a PMHx of CAD s/p PCI (LAD, LCx dx'ed 2017 , h/o of cardiac arrest resulting in anoxic brain injury and seizure disorder on Keppra), [id number] smoking history, occasional use of cannabis, recent use of cocaine, history of stent restenosis s/p angioplasty, frequent seizures was brought from an [facility] in w/ a chief concern of acute onset of left sided non exertional chest pain, associated w/ diaphoresis that started in the evening of presentation to the ED. The event lasted brieftly, and was pain-free when he presented to the ER. From [facility] where he was undergoing physical therapy for deconditioning. While he was in the emergency room, he had an episode of seizure after which he received intravenous Keppra and Ativan. The episode was witnessed. At the time of admission- temperature, heart rate 90, respirations 16, blood pressure 121/70, pulse ox 97% on room air. CT scan head, neck, abdomen, chest- did not reveal any acute changes. Incidental finding of sclerotic changes in the iliac bone was found. (Detailed reports below). EKG revealed normal sinus rhythm, heart rate 78, normal axis, Q waves, slight ST elevations in V1 and V2 likely from previousseptal infarct, T-wave inversions in V4 V5 and V6. Subsequent EKG revealed normalization of T waves in V4 V5 and V6, but had persistent Q waves and ST elevations in V1 and V2. As per the automatic edger, these findings were persistent from his previous EKG findings. Pertinent Findings: WBC 8.7, hemoglobin 12.8, platelets 265, sodium 138, potassium 3.8, renal function-BUN 13, creatinine 1.0, troponin 0.01, 0.01, d-dimer less than 200, U tox was negative for cocaine, but positive for cannabis 54.2. Urinalysis was clear. Ca 9.6. At the time of admission, the etiology was thought to be due to unstable angina w/o elevated cardiac enzymes with positive cardiac risk factors. He was admitted to telemetry floor for further monitoring since there was a report of arrhythmias, and syncope by Dr Mcelroy. Another thought at that time, was that he may have had arrhythmias causing syncope leading to seizures. While he was on telemetry floor, was in normal sinus rhythm, no telemetry events were noted. Vitals remained stable. Cardiac enzymes were trended-troponin I- 0.01, 0.01, with no new EKG changes noted. He was continued on aspirin and Plavix given his cardiac history. He did not have any episodes of bradycardia while he was on the floor. In regards to his seizures, he was continued on his home dose of Keppra 1500 mg by mouth twice a day, and neurology consult was obtained, Dr. Gibbs was of the opinion that this could be seizures versus syncope. Repeat EEG was obtained that did not show any focal epileptiform abnormalities. He did not have any further seizure episodes while he was admitted to the hospital. There was an incidental finding of sclerotic change in the right iliac bone and this extends into the posterior aspect of the acetabular region; And an MRI was ordered. Since the pacemaker was placed in the mid of June 2017, an MRI could not be done as per the company's guidelines for a total of 8 weeks from the time of placement. He needs to get his MRI done as an outpatient, discussed with the patient, and they should be obtained as non-urgent MRI as an outpatient. Discussed w/ Tsering Jaquez over the phone to make sure that a test is ordered as an outpatient. He continued to have decreased ablation for which a physical therapy consultation was obtained twice. He was to be discharged to short-term rehabilitation with recommendation to follow up with his primary care physician, automatic edger, neurologist within a week of discharge. He was also advised to adhere to medications, and not miss any antiseizure medications. Problem list: 1. Unstable angina h/o CAD s/p PCI 2. Seizures ( anoxic brain injury ) 3. Substance abuse 4. Sclerotic lesion in illiac bone-?unclear etiology 4. h/o sinus bradycardia. off beta blockers Allergies: Coded Allergies: Iodinated Contrast- Oral and IV Dye (IODINATED CONTRAST MEDIA - IV DYE) (Severe, ANAPHYLAXIS 08/09/17) Sulfa (Sulfonamide Antibiotics) (Severe, HIVES 08/09/17) shellfish derived (Severe, ANAPHYLAXIS 08/09/17) blueberry (HIVES 08/09/17) mushroom (UNKNOWN 08/09/17) Pertinent Lab Results: CAT - CT ABD & PELVIS W/O IV CONTRAS; CT CHEST WO IV CONTRAST 08/09/17- CT chest FINDINGS: Coronary calcifications. No fluid centrally. Limited exam due to noncontrast. Some left basilar atelectasis or infiltrate. Upper abdomen The liver within normal limits. Spleen comparable to previous lobulated. May indicate previous injury. No free fluid in the area. Kidneys are within normal limits grossly. Grossly normal bowel pattern. There is no free fluid. The pelvis there is no free fluid. The bowel pattern is felt to be within normal limits. Review of the bone windows demonstrates limitation from motion. No convincing evidence for fracture. IMPRESSION: Limited exam. Lack of intravenous contrast and motion. There is no convincing evidence for acute visceral injury. There is a left basilar atelectasis or infiltrate. Note is made of sclerotic change in the right iliac bone and this extends into the posterior aspect of the acetabular region. Findings may suggest Paget's disease but underlying malignancy cannot be excluded. Recommend bone scan and/or MRI for further workup CAT - CT CERV SPINE WO IV CONTRAST; CT HEAD WO IV CONTRAST HEAD: No intracranial mass, hemorrhage, or midline shift is visualized. The ventricles and sulci are age-appropriate. No extra-axial collections are identified. The paranasal sinuses and mastoid air cells are well aerated. CERVICAL SPINE: There is no evidence of acute cervical spine fracture. Vertebral bodies remain normal in height. Cervical vertebrae have normal alignment. There is multilevel degenerative spondylosis of the cervical spine with disc height narrowing and endplate spurs and facet joint arthrosis which is most significant at the C5-C6 disc level. No pre- or paravertebral soft tissue abnormality is identified. Limited assessment of the lung apices is unremarkable. IMPRESSION: 1. No acute intracranial pathology. 2. No CT evidence of acute cervical spine fracture or traumatic subluxation Disposition Summary Disposition Principal Diagnosis: Rule out ACS Additional Diagnosis: Seizures Discharge Disposition: SNF Discharge Instructions General Discharge Information Code Status: Full Code Patient's Diet: heart healthy diet Patient's Activity: as tolerated Follow-Up Instructions/Appts: -Please see your primary care provider within a week of discharge -Please see your automatic edger within a week of discharge -Please take your medications as prescribed. Medications at Discharge Discharge Medications: Stop taking the following medications: Trimethobenzamide HCl (Tigan) 300 MG CAPSULE ORAL 4 TIMES LOREN Qty = 120 Continue taking these medications: Lisinopril (Lisinopril) 2.5 MG TABLET 1 Tablet ORAL DAILY Qty = 90 Comments: Last Taken: 08/13/17 Time: 0805 Atorvastatin Calcium (Atorvastatin Calcium) 20 MG TABLET 1 Tablet ORAL DAILY Qty = 90 Comments: Last Taken: 08/13/17 Time: 0805 Spironolactone (Spironolactone) 25 MG TABLET 1 Tablet ORAL DAILY Qty = 90 Comments: Last Taken: 08/13/17 Time:0806 Clopidogrel Bisulfate (Clopidogrel) 75 MG TABLET 1 Tablet ORAL DAILY Qty = 90 Comments: Last Taken: 08/13/17 Time: 0805 Aspirin (Lo-Dose Aspirin EC) 81 MG TABLET.DR 1 Tablet ORAL DAILY Qty = 30 Comments: Last Taken: 08/13/17 Time: 08 Levetiracetam (Levetiracetam) 1,000 MG TABLET 1,500 Milligram ORAL TWICE DAILY Qty = 90 Comments: Last Taken: 08/13/17 Time: 08 Omeprazole (Omeprazole) 40 MG CAPSULE.DR 1 Capsule ORAL TWICE DAILY Qty = 60 Comments: Last Taken:08/13/17 Time:0625 Naloxone HCl (Narcan) 4 MG/ACTUATION SPRAY 4 Milligram In the nose As Directed as needed for OPIOID INDUCED RESP. DEPRESSIO Comments: NOT GIVEN Nicotine (Nicotine Patch) 14 MG/24 HOUR PATCH.TD24 1 Patch On the skin DAILY Comments: Last Taken:08/13/17 Time:0805 Acetaminophen (Acephen) 650 MG SUPP.RECT 1 SUPPOSITORY RECTALLY Q6H as needed for PAIN/TEMP>101 Comments: NOT GIVEN Acetaminophen (Tylenol) 325 MG TABLET 2 Tablet ORAL Q6H as needed for PAIN/TEMP>101 Comments: NOT GIVEN Bisacodyl (Dulcolax) 10 MG SUPP.RECT 1 Suppository RECTAL DAILY as needed for CONSTIPATION Comments: NOT GIVEN Na Phos,M-B/Na Phos,Di-Ba (Fleet Enema) 19 GRAM-7 GRAM/118 ML ENEMA 1 Enema RECTAL DAILY as needed for CONSTIPATION Comments: NOT GIVEN Magnesium Hydroxide (Milk Of Magnesia) 400 MG/5 ML ORAL.SUSP 30 Milliliters ORAL Every 3 days as needed for CONSTIPATION Comments: NOT GIVEN Start taking the following new medications: Calamine (Calamine) 180 ML LOTION 1-2 Application On the skin TWICE DAILY as needed for itching Qty = 1 No Refills Comments: Last Taken:08/13/17 Time:0800 Hydroxyzine Hydrochloride (Atarax) 25 MG TAB 25 Milligram ORAL THREE TIMES DAILY as needed for ITCHING Qty = 15 No Refills Comments: Last Taken:08/12/17 Time:2132 Copies To: Kishore WHITING,Tsering Mark MD Review Statement Documenting Attending: Alicia WHITING,Tiffani
--- NOTE | 2017-08-13 09:12 | Patient Discharge Instructions ---
Discharge Instructions General Discharge Information You were seen/treated for: Seizures Chest pain Special Instructions: - Please see your PCP, [employer] and Neurologist within one week of discharge. - If you have any recurrence of symptoms, please seek medical advice immediately. - Please take medications as prescribed. - Please discuss with your PCP as soon as possible to schedule an MRI of pelvis to evaluate the bone lesions that were incidentally picked up on CT scan. Acute Coronary Syndrome Inclusion Criteria At DC or during hospital stay patient has or had the following: ACS DIAGNOSIS Yes Discharge Core Measures Meds if any: Prescribed or Continued at Discharge Meds if any: NOT Prescribed or Continued at Discharge Congestive Heart Failure Inclusion Criteria At DC or during hospital stay patient has or had the following: CHF DIAGNOSIS No Discharge Core Measures Meds if any: Prescribed or Continued at Discharge Meds if any: NOT Prescribed or Continued at Discharge Cerebrovascular accident Inclusion Criteria At DC or during hospital stay patient has or had the following: CVA/TIA Diagnosis No Discharge Core Measures Meds if any: Prescribed or Continued at Discharge Meds if any: NOT Prescribed or Continued at Discharge Venous thromboembolism Inclusion Criteria VTE Diagnosis No VTE Type NONE VTE Confirmed by (Test) NONE Discharge Core Measures - Per Current guidelines, there needs to be overlap - treatment for the first 5 days of Warfarin therapy. - If discharged on Warfarin prior to 5 days of - overlap therapy, the patient will need to be - assessed for post discharge needs including - *Post discharge parental anticoagulation - *Warfarin and/or parental anticoagulation education - *Follow up date to check INR post discharge At least 5 days overlap therapy as Inpatient No Meds if any: Prescribed or Continued at Discharge Note: Overlap Therapy is Warfarin and Anticoagulant Meds if any: NOT Prescribed or Continued at Discharge
[2017-08-13] MEDS ORDERED: CALAMINE180 ML TOP ×2 (09:14→09:16)
[2017-08-13] MEDS ORDERED: HYDROXYZINE HCL25 M2 PO (09:16)
--- NOTE | 2017-08-13 11:38 | PN- Att Addend ---
Attending Addendum Attending Brief Note Patient seen and examined. Plan of care discussed with the medical team and the patient. Available lab work and radiology test reports were reviewed. Patient is sitting in chair this morning. Patient is awake able to talk and denies any recurrent seizures. He complains of a bilateral leg weakness and states that he has not been able to ambulate. Patient reports that his pruritus is better with the Atarax and calamine lotion. As per nursing staff patient was able to transfer from bed to chair this morning. Exam: General: Patient awake alert oriented without any distress CVS: S1 plus S2 without any murmur or gallops Chest: Few scattered crepitation without any wheeze. There is no respiratory distress. Abdomen: Soft non-tender, bowel sound present, no guarding or rebound LIQUOR BLENDER: Awake alert oriented without any focal neuro deficit except hip girdle muscle weakness and follows commands appropriately Extremities: No edema; no clubbing or cyanosis noted; no rashes noted Assessment plan * CAD s/p PCI (LAD, LCx dx'ed 2017 , * h/o of cardiac arrest resulting in anoxic brain injury * History of recurrent seizure disorder on Keppra) * history of stent restenosis s/p angioplasty, * History of cocaine abuse Plan * Continue oral Keppra at current dose * MRI of the hip to evaluate sclerotic lesion can be done as outpatient. * discharge to short-term rehabilitation today * Continue Atarax when necessary for itching * Continue Calamine lotion for itching * Follow with Dr. Dr. Mcelroy for cardiology Current Medications Sig/Haven Start time Last Medication Dose Route Stop Time Status Admin Acetaminophen 1,000 MG Q6P PRN 08/10 0215 AC 08/11 IV 1614 Aspirin Buffered 81 MG DAILY 08/10 1000 AC 08/13 PO 0806 Atorvastatin Calcium 20 MG DAILY 08/10 1000 AC 08/13 PO 0805 Clopidogrel Bisulfate 75 MG DAILY 08/10 1000 AC 08/13 PO 0805 Enoxaparin Sodium 40 MG DAILY 08/10 1000 AC 08/13 SC 0806 Hydroxyzine HCl 25 MG TID PRN 08/12 1345 AC 08/12 PO 2133 Levetiracetam 1,500 MG BID 08/11 1015 AC 08/13 PO 0806 Lidocaine 1 PAT DAILY 08/11 1000 AC 08/13 EXT 0806 Lisinopril 2.5 MG DAILY 08/10 1000 AC 08/13 PO 0805 Multi-Ingred Cream/ 1 JOB Q6-PRN PRN 08/12 1345 AC Lotion/Oil/Oint EXT Nicotine 14 MG DAILY 08/10 1500 AC 08/13 TOP 0807 Omeprazole 40 MG DAILY AC 08/10 0700 AC 08/13 PO 0625 Spironolactone 25 MG DAILY 08/10 1000 AC 08/13 PO 0806 Tramadol HCl 50 MG Q8P PRN 08/10 1015 AC 08/12 PO 1826 Laboratory Tests 08/13/17 0649: Anion Gap 13, Estimated GFR > 60, BUN/Creatinine Ratio 12.2, CBC w Diff NO MAN DIFF REQ, RBC 5.04, MCV 89.1, MCH 29.4, MCHC 33.0, RDW 15.7 H, MPV 8.0, Gran % 39.7 L, Lymphocytes % 40.8, Monocytes % 8.5, Eosinophils % 10.5 H, Basophils % 0.5, Absolute Granulocytes 2.8, Absolute Lymphocytes 2.9, Absolute Monocytes 0.6 , Absolute Eosinophils 0.7, Absolute Basophils 0 Vital Signs Date Time Temp Pulse Resp B/P B/P Pulse O2 O2 Flow FiO2 Mean Ox Delivery Rate 08/13 0813 Room Air 08/13 0805 80 120/70 08/13 0633 98.0 80 20 120/70 95 Room Air 08/12 2300 97.7 84 18 124/72 96 Room Air 08/12 1425 97.5 86 18 122/74 96 Room Air Intake & Output 08/13 1600 08/13 0800 08/13 0000 Intake Total 550 Output Total 600 1100 Balance -600 -550 Intake, Oral 550 Number 0 Bowel Movements Output, Urine 600 1100 Patient 178 lb Weight Weight Bed scale Measurement Method CMR and discharge paperwork reviewed. Total time spent in preparation for discharge plan, patient education, and CMR preparation was 35 minutes.
== END 2017-08-13 16:43 | DRG 198 ==
LOC: ERH 21:49 → 1NO 08-10 00:46 → ERHI 08-10 00:46 → ENRESERV 08-10 13:42 → ENTRNSPT 08-10 14:14 → EDTRNSPTSTS 08-10 14:20 → EDTRNSPT 08-10 14:20 → CMPTRNSPT 08-10 14:36 → 1NO 08-10 14:37
PROVIDERS: Hospitalist; Pediatrics
DX: I25.110 Atherosclerotic heart disease of native coronary artery with unstable angina pectoris (principal); G40.909 Epilepsy, unspecified, not intractable, without status epilepticus; I10 Essential (primary) hypertension; K21.9 Gastro-esophageal reflux disease without esophagitis; F12.90 Cannabis use, unspecified, uncomplicated; R07.9 Chest pain, unspecified; G93.1 Anoxic brain damage, not elsewhere classified; I25.2 Old myocardial infarction; Z98.61 Coronary angioplasty status; K59.09 Other constipation; Z91.041 Radiographic dye allergy status; Z88.2 Allergy status to sulfonamides; Z91.018 Allergy to other foods; Z79.82 Long term (current) use of aspirin; Z90.81 Acquired absence of spleen; W18.30XA Fall on same level, unspecified, initial encounter; Y92.092 Bedroom in other non-institutional residence as the place of occurrence of the external cause; F17.210 Nicotine dependence, cigarettes, uncomplicated; Z95.1 Presence of aortocoronary bypass graft; R53.1 Weakness; F14.10 Cocaine abuse, uncomplicated; R94.01 Abnormal electroencephalogram [EEG]; L29.9 Pruritus, unspecified; M89.9 Disorder of bone, unspecified; R00.1 Bradycardia, unspecified
CPT/HCPCS: 1NP; 36592; 74176; 80307; 81003; 82436; 93005; 93010; 96374; 97116-GO; 97161-GP; 97530-GO; 99291; G0480; J0131; J1650; J1953

== ENCOUNTER 2017-09-20 18:37 | Emergency (ER) | payer OTHER ==
[~2017-09-20] VITALS: Ht 176.5 cm; Wt 83.0 kg
[~2017-09-20 18:37] MED LIST changes: +ACEPHEN650 M1 PR; +CALAMINE180 ML TOP; +DULCOLAX10 M1 RC; +FLEET ENEMA133 ML RC; +MILK OF MA400 MG/52 PO; +NARCAN4 MG NAS; +NICOTINE PATCH1 EAC2 TOP; +TYLENOL325 M1 PO
--- NOTE | 2017-09-20 18:48 | ED AMS/SEIZURE/WEAK/DIZZY ---
History of Present Illness General Chief Complaint: Seizure Stated Complaint: ?SEIZURE Source: patient, old records, EMS Exam Limitations: no limitations Vital Signs & Intake/Output Vital Signs & Intake/Output Vital Signs Date Time Temp Pulse Resp B/P B/P Pulse O2 O2 Flow FiO2 Mean Ox Delivery Rate 09/20 2205 81 16 126/78 98 Room Air 09/20 1849 98.3 75 20 131/78 97 Room Air ED Intake and Output 09/21 0000 09/20 1200 Intake Total 0 Output Total Balance 0 Intake, Oral 0 Patient 183 lb Weight Weight Reported by Patient Measurement Method Allergies Coded Allergies: Iodinated Contrast- Oral and IV Dye (IODINATED CONTRAST MEDIA - IV DYE) (Severe, ANAPHYLAXIS 08/09/17) Sulfa (Sulfonamide Antibiotics) (Severe, HIVES 08/09/17) shellfish derived (Severe, ANAPHYLAXIS 08/09/17) blueberry (HIVES 08/09/17) mushroom (UNKNOWN 08/09/17) Reconcile Medications Acetaminophen (Acephen) 650 MG SUPP.RECT 1 SUPP ND Q6H PRN PAIN/TEMP>101 ( Reported) Acetaminophen (Tylenol) 325 MG TABLET 2 TAB PO Q6H PRN PAIN/TEMP>101 ( Reported) Aspirin (Lo-Dose Aspirin EC) 81 MG TABLET.DR 1 TAB PO DAILY HEART/BLOOD ( Reported) Atorvastatin Calcium 20 MG TABLET 1 TAB PO DAILY CHOLESTEROL (Reported) Bisacodyl (Dulcolax) 10 MG SUPP.RECT 1 SUP RC DAILY PRN CONSTIPATION ( Reported) Calamine 180 ML LOTION 1-2 JOB TOP BID PRN itching Clopidogrel Bisulfate (Clopidogrel) 75 MG TABLET 1 TAB PO DAILY BLOOD THINNER (Reported) Lamotrigine (Lamictal) 25 MG TABLET 2 TAB PO BID MENTAL HEALTH (Reported) Levetiracetam 1,000 MG TABLET 1,500 MG PO BID SEIZURES (Reported) Lisinopril 2.5 MG TABLET 1 TAB PO DAILY BP (Reported) Magnesium Hydroxide (Milk Of Magnesia) 400 MG/5 ML ORAL.SUSP 30 ML PO Q3D PRN CONSTIPATION (Reported) Na Phos,M-B/Na Phos,Di-Ba (Fleet Enema) 19 GRAM-7 GRAM/118 ML ENEMA 1 E RC DAILY PRN CONSTIPATION (Reported) Naloxone HCl (Narcan) 4 MG/ACTUATION SPRAY 4 MG LUIS AD PRN OPIOID INDUCED RESP. DEPRESSIO (Reported) Oxycodone HCl/Acetaminophen (Oxycodone-Acetaminophen 5-325) 5 MG-325 MG TABLET 1 TAB PO Q4 HRS NEEDED PRN PAIN (Reported) Pantoprazole Sodium 40 MG TABLET.DR 1 TAB PO DAILY GI (Reported) Spironolactone 25 MG TABLET 1 TAB PO DAILY DIURETIC (Reported) Triage Note: BIBA FROM [facility] FOR ?SEIZURE. EMS STATED SNF STAFF FOUND PT ON THE FLOOR NEXT TO THIS BED AND HE WAS CONFUSED AT THAT TIME. PT A&OX3 U/A AT HOSPITAL. PT LETHARGIC BUT PER EMS THAT IS BASELINE SECONDARY TO INCREASE DOSE IN SEIZURE MEDS. Triage Nurses Notes Reviewed? yes Onset: Gradual Duration: hour(s): Timing: single episode today Injury Environment: home HPI: 57yo male with hx of seizure, previous brain injury BIBA from [facility] for possible seizure today. Patient states he was eating lunch and then he blacked out and woke up on the floor. Per EMS patient was found on the floor next to his bed in his wheelchair. Upon their arrival patient was confused, possibly postictal. Patient reports lethargy which has been increasing since changes in his seizure medication. Patient reports weakness and fatigue for the past week. Patient is unsure if he hit his head however reports frontal headache at this time. Patient denies visual disturbance, dyspnea, neck pain, chest pain, vomiting, abdominal pain, fevers. (Brittany Morales) Past History Travel History Traveled to [place] past 21 day No Medical History Any Pertinent Medical History? 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 No (Brittany Morales) Review of Systems Review of Systems Constitutional: Reports: see HPI. EENTM: Reports: no symptoms. Respiratory: Reports: no symptoms. Cardiovascular: Reports: no symptoms. GI: Reports: no symptoms. Genitourinary: Reports: no symptoms. Musculoskeletal: Reports: no symptoms. Skin: Reports: no symptoms. Neurological/Psychological: Reports: see HPI. Hematologic/Endocrine: Reports: no symptoms. Immunologic/Allergic: Reports: no symptoms. All Other Systems: Reviewed and Negative (Yakelin AVINA,Brittany Garcia) Physical Exam Physical Exam General Appearance: well developed/nourished, no apparent distress, alert, awake Head: atraumatic, normal appearance, tenderness to frontal scalp Eyes: Bilateral: normal appearance, PERRL, EOMI. Ears, Nose, Throat: normal pharynx, normal ENT inspection, hearing grossly normal, no hemotympanum Neck: normal inspection, supple, full range of motion, no midline tenderness Respiratory: normal breath sounds, chest non-tender, no respiratory distress, lungs clear Cardiovascular: regular rate/rhythm Gastrointestinal: normal bowel sounds, soft, non-tender, no organomegaly Back: normal inspection, normal range of motion Extremities: normal range of motion Neurologic/Psych: awake, alert, oriented x 3, fire tower keeper II-XII nml as tested Skin: intact, normal color, warm/dry Core Measures ACS in differential dx? Yes CVA/TIA Diagnosis No Sepsis Present: No Sepsis Focused Exam Completed? No (Yakelin AVINA,Brittany Garcia) Progress Differential Diagnosis: arrythmia, alcohol intoxication, anemia, CVA/stroke, dehydration, drug intoxication, electrolyte imbalance, hypoglycemia, intracranial mass/tumor, presyncope, sepsis, seizure disorder, subarachnoid Hem. Plan of Care: Orders Procedure Date/time Status URINE DRUG SCREEN FOR ER ONLY 09/21 1847 Complete URINALYSIS 09/21 1847 Complete TROPONIN LEVEL 09/21 1847 Complete PROLACTIN 09/21 1847 Complete ETHANOL 09/21 1847 Complete COMPREHENSIVE METABOLIC PANEL 09/21 1847 Complete CBC WITHOUT DIFFERENTIAL 09/21 1847 Complete EKG 09/21 1847 Active Laboratory Tests 09/20/172008: Serum Alcohol < 10.0 09/20/172008: Anion Gap 10, Estimated GFR > 60, BUN/Creatinine Ratio 17.1, Glucose 91, Calcium 9.5, Total Bilirubin 0.6, AST 27, ALT 29, Alkaline Phosphatase 102, Troponin I < 0.01, Total Protein 7.0, Albumin 4.2, Globulin 2.8, Albumin/Globulin Ratio 1.5, Prolactin 12.2, CBC w Diff NO MAN DIFF REQ, RBC 4.49 L, MCV 89.8, MCH 29.6, MCHC 32.9 L, RDW 15.5 H, MPV 7.3 L, Gran % 48.6, Lymphocytes % 35.7, Monocytes % 12.1 H, Eosinophils % 3.2, Basophils % 0.4, Absolute Granulocytes 3.9, Absolute Lymphocytes 2.9, Absolute Monocytes 1.0 H, Absolute Eosinophils 0.3, Absolute Basophils 0, Urine Opiates Screen 921.00, Methadone Screen < 40, Barbiturate Screen < 60, Ur Phencyclidine Scrn < 6.00, Amphetamines Screen < 100 , U Benzodiazepines Scrn < 85, Urine Cocaine Screen < 50, Urine Cannabis Screen 17.90, Urine Color YEL, Urine Clarity CLEAR, Urine pH 7.0, Ur Specific [place] 1.015, Urine Protein NEG, Urine Ketones NEG, Urine Nitrite NEG, Urine Bilirubin NEG, Urine Urobilinogen 1.0, Ur Leukocyte Esterase NEG, Ur Microscopic EXAM NOT REQUIRED, Urine Hemoglobin NEG, Urine Glucose NEG Given patient's headache and possible seizure-like activity with head trauma Will obtain head CT for further assessment. Was seen and evaluated in the ED for seizure last month and had normal head CT at that time. Patient's head CT scan is within normal limits. Blood work is stable, no acute abnormality. Patient has had no further seizure like activity while here in the emergency department. EKG in sinus rhythm, nonspecific T-wave changes. Troponin enzyme is negative. The patient feels comfortable going home, he is in no acute distress, nontoxic appearing, vital signs are stable. The patient agrees with the plan of care he was given strict return precautions and understands. The patient was discussed with Dr. Geiger who agrees with the plan of care. Diagnostic Imaging: Viewed by Me: CT Scan. Discussed w/RAD: CT Scan. Radiology Impression: PATIENT: LANA TOUSSAINT PRESENT AGE: 57 PATIENT ACCOUNT NO: [id number] : 61 LOCATION: [facility] ORDERING PHYSICIAN: Brittany AVINA SERVICE DATE: 09/20/17 EXAM TYPE: CAT - CT HEAD WO IV CONTRAST EXAMINATION: CT HEAD WITHOUT CONTRAST CLINICAL INFORMATION: Seizure with head strike and headache COMPARISON: 08/25/2017 TECHNIQUE: Contiguous axial imaging was performed from the skull base to vertex without intravenous administration of contrast. DLP: 648 mGy-cm FINDINGS: There is no evidence of acute intracranial hemorrhage or territorial infarction. No abnormal mass effect or midline shift is seen. Resendiz to white matter differentiation is well preserved. No extra-axial fluid collections are identified. The ventricles are normal in size. There is no abnormal attenuation within the brain parenchyma. The osseous structures and soft tissues are normal. Left greater than right ethmoid mucosal thickening. Right greater than left maxillary mucosal thickening. Mastoid air cells are well aerated and clear. IMPRESSION: No acute intracranial pathology. Sinus disease. DICTATED BY: Red Kendall MD DATE/TIME DICTATED:09/20/171954 SENIOR DATA ANALYST:GLORIA DATE/TIME TRANSCRIBED:09/20/171954 CONFIDENTIAL, DO NOT COPY WITHOUT APPROPRIATE AUTHORIZATION. <Electronically signed in Other Vendor System> SIGNED BY: Red Kendall MD 09/20/172009 Initial ED EKG: sinus rhythm @76bpm nonspecific t wave changes lateral leads Prior EKG: changed (08/10/17) (Yakelin AVINA,Brittany Garcia) Departure Departure Disposition: HOME OR SELF CARE Condition: Stable Clinical Impression Primary Impression: Seizure Secondary Impressions: Fall Qualifiers: Encounter type: initial encounter Qualified Code: W19.XXXA - Unspecified fall, initial encounter Referrals: Kishore WHITING,Tsering Dickerson (PCP/Family) Additional Instructions: Follow-up with your primary care doctor. Continue taking all medication as prescribed. Return with any worsening symptoms or concerns. Please note that there might be incidental findings in your evaluation that are unrelated to the current emergency department visit. Please notify your primary care doctor about this emergency department visit in order to obtain and review all of the testing performed so that these incidental findings can be monitored as needed. If you had an x-ray performed, please understand that some fractures may not be seen on the initial set of x-rays. If your symptoms persist you might need a repeat set of x-rays to check for such a fracture. If you had a laceration evaluated, please understand that foreign bodies such as glass or wood may not be visible to the naked eye or on plain x-rays. If the wound becomes red, swollen, increasingly more painful or if there is any drainage from the wound, please have it reevaluated by a physician for the possibility of a retained foreign body. If you're unable to follow up as outlined in the discharge instructions please return to the emergency department. Thank you for choosing the [facility] Emergency Department for your care. It was a pleasure to serve you today. Departure Forms: Customer Survey General Discharge Information (Yakelin AVINA,Brittany Garcia) PA/C WPF DEVELOPER Co-Sign Statement Statement: ED Attending supervision documentation- I saw and evaluated the patient. I have also reviewed all the pertinent lab results and diagnostic results. I agree with the findings and the plan of care as documented in the PA's/C WPF DEVELOPER's documentation. x I have reviewed the ED Record and agree with the PA's/C WPF DEVELOPER's documentation. [] Additions or exceptions (if any) to the PAs/C WPF DEVELOPER's note and plan are summarized below: [] (Fely WHITING,El)
--- NOTE | 2017-09-20 20:10 | CT SCAN REPORT ---
EXAMINATION: CT HEAD WITHOUT CONTRAST CLINICAL INFORMATION: Seizure with head strike and headache COMPARISON: 08/25/2017 TECHNIQUE: Contiguous axial imaging was performed from the skull base to vertex without intravenous administration of contrast. DLP: 648 mGy-cm FINDINGS: There is no evidence of acute intracranial hemorrhage or territorial infarction. No abnormal mass effect or midline shift is seen. Resendiz to white matter differentiation is well preserved. No extra-axial fluid collections are identified. The ventricles are normal in size. There is no abnormal attenuation within the brain parenchyma. The osseous structures and soft tissues are normal. Left greater than right ethmoid mucosal thickening. Right greater than left maxillary mucosal thickening. Mastoid air cells are well aerated and clear. IMPRESSION: No acute intracranial pathology. Sinus disease.
[2017-09-20 20:42] LABS: ABSOLUTE BASOPHIL COUNT 0 /CUMM (0.0-0.2); ABSOLUTE EOSINOPHIL COUNT 0.3 /CUMM (0.0-0.7); ABSOLUTE GRANULOCYTE CT 3.9 /CUMM (1.4-6.5); ABSOLUTE LYMPH COUNT 2.9 /CUMM (1.2-3.4); BASOPHIL % 0.4 % (0.0-2.0); EOSINOPHIL % 3.2 % (0-5); GRANULOCYTE % 48.6 % (42.2-75.2); HEMATOCRIT 40.3 % (42-52); MEAN CORPUSCULAR HGB 29.6 PG (27.0-31.0); MEAN CORPUSCULAR HGB CONC 32.9 G/DL (33.0-37.0); MEAN CORPUSCULAR VOLUME 89.8 FL (80.0-94.0); MEAN PLATELET VOLUME 7.3 FL (7.4-10.4); PLATELET COUNT 234 /CUMM (130-400); RBC DISTRIBUTION WIDTH 15.5 % (11.5-14.5); RED BLOOD CELL CT 4.49 /CUMM (4.70-6.10); WHITE BLOOD CELL COUNT 8.1 /CUMM (4.8-10.8)
[2017-09-20 22:05] VITALS: BP 126/78
[2017-09-21] MEDS ORDERED: LAMICTAL25 M1 PO (08:03)
[2017-09-21] MEDS ORDERED: PANTOPRAZOLE SO40 M1 PO (08:04)
[2017-09-21] MEDS ORDERED: OXYCODONE-ACET1 EACH PO (08:05)
[2017-10-11] MEDS ORDERED: VIMPAT150 M1 PO (13:03)
== END 2017-09-20 22:50 ==
LOC: ERH 18:37
PROVIDERS: Physician Assistant
DX: R56.9 Unspecified convulsions (principal)
CPT/HCPCS: 80307; 81003; 93005; 93010; 96374; G0480; J0131

== ENCOUNTER 2017-09-21 06:38 | Inpatient (IN) | payer OTHER ==
[~2017-09-21] VITALS: Ht 182.9 cm; Wt 85.5 kg
--- NOTE | 2017-09-21 07:40 | ED AMS/SEIZURE/WEAK/DIZZY ---
History of Present Illness General Chief Complaint: Seizure Stated Complaint: BIBA SEIZURE Source: patient Exam Limitations: poor historian, POOR RECALL OF EVENT Vital Signs & Intake/Output Vital Signs & Intake/Output Vital Signs Date Time Temp Pulse Resp B/P B/P Pulse O2 O2 Flow FiO2 Mean Ox Delivery Rate 09/21 1045 97.6 63 18 125/76 97 09/21 0641 98.2 59 16 130/88 97 Room Air Allergies Coded Allergies: Iodinated Contrast- Oral and IV Dye (IODINATED CONTRAST MEDIA - IV DYE) (Severe, ANAPHYLAXIS 08/09/17) Sulfa (Sulfonamide Antibiotics) (Severe, HIVES 08/09/17) shellfish derived (Severe, ANAPHYLAXIS 08/09/17) blueberry (HIVES 08/09/17) mushroom (UNKNOWN 08/09/17) Reconcile Medications Acetaminophen (Acephen) 650 MG SUPP.RECT 1 SUPP IN Q6H PRN PAIN/TEMP>101 ( Reported) Acetaminophen (Tylenol) 325 MG TABLET 2 TAB PO Q6H PRN PAIN/TEMP>101 ( Reported) Aspirin (Lo-Dose Aspirin EC) 81 MG TABLET.DR 1 TAB PO DAILY HEART/BLOOD ( Reported) Atorvastatin Calcium 20 MG TABLET 1 TAB PO DAILY CHOLESTEROL (Reported) Bisacodyl (Dulcolax) 10 MG SUPP.RECT 1 SUP RC DAILY PRN CONSTIPATION ( Reported) Calamine 180 ML LOTION 1-2 JOB TOP BID PRN itching Clopidogrel Bisulfate (Clopidogrel) 75 MG TABLET 1 TAB PO DAILY BLOOD THINNER (Reported) Lamotrigine (Lamictal) 25 MG TABLET 2 TAB PO BID MENTAL HEALTH (Reported) Levetiracetam 1,000 MG TABLET 1,500 MG PO BID SEIZURES (Reported) Lisinopril 2.5 MG TABLET 1 TAB PO DAILY BP (Reported) Magnesium Hydroxide (Milk Of Magnesia) 400 MG/5 ML ORAL.SUSP 30 ML PO Q3D PRN CONSTIPATION (Reported) Na Phos,M-B/Na Phos,Di-Ba (Fleet Enema) 19 GRAM-7 GRAM/118 ML ENEMA 1 E RC DAILY PRN CONSTIPATION (Reported) Naloxone HCl (Narcan) 4 MG/ACTUATION SPRAY 4 MG LUIS AD PRN OPIOID INDUCED RESP. DEPRESSIO (Reported) Oxycodone HCl/Acetaminophen (Oxycodone-Acetaminophen 5-325) 5 MG-325 MG TABLET 1 TAB PO Q4 HRS NEEDED PRN PAIN (Reported) Pantoprazole Sodium 40 MG TABLET.DR 1 TAB PO DAILY GI (Reported) Spironolactone 25 MG TABLET 1 TAB PO DAILY DIURETIC (Reported) Triage Note: TRIAGE: JENNIFER FROM [facility] S/P ?FALL IN BATHROOM, SEMI-RESPONSIVE W/ HX SEIZURES PER W10. PATIENT ARRIVES ALERT AND ORIENTED X3, STATES "MY SON WANTS ME TO BE ADMITTED BECAUSE I HAVE NOW HAD 2 SEIZURES IN THE LAST 2 DAYS." WHEN QUESTIONED PATIENT REGARDING ?FALL, PATIENT STATES "I DON'T KNOW. +HEADACHE THOUGH." WHEELCHAIR DEPENDENT BASEINE PER PATIENT. Triage Nurses Notes Reviewed? yes Onset: Abrupt Duration: minute(s):, gone now Timing: single episode today Severity: severe HPI: According to W 10 brought with patient, patient was found after falling in the bathroom "semi-responsive". History of seizures. Milk of magnesia given on the 11-7 shift. The patient himself states that he went to the bathroom but otherwise has no recall of the event. Patient complains of left forehead pain likely as the result of falling in the bathroom. He was in his usual state of health prior to the episode. Past History Travel History Traveled to [place] past 21 day No Medical History Any Pertinent Medical History? 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 No Review of Systems Review of Systems Constitutional: Reports: no symptoms. EENTM: Reports: no symptoms. Respiratory: Reports: no symptoms. Cardiovascular: Reports: no symptoms. GI: Reports: no symptoms. Genitourinary: Reports: no symptoms. Musculoskeletal: Reports: no symptoms. Skin: Reports: see HPI. Neurological/Psychological: Reports: see HPI. Hematologic/Endocrine: Reports: no symptoms. Immunologic/Allergic: Reports: no symptoms. All Other Systems: Reviewed and Negative Physical Exam Physical Exam General Appearance: SEE BELOW Comments: Gen.: Well-nourished, well-developed, no acute respiratory distress. Head: Normocephalic, mild tenderness over the left parietal region with very small partial-thickness abrasion Eyes: Normal inspection bilaterally, josee, EOMI Ears: Normal inspection bilaterally Nose: Normal inspection Throat/mouth : Moist mucosa Neck: Supple, full range of motion, no goiter, nontender Heart: Regular rate and rhythm, no murmurs rubs or gallops Lungs: Clear to auscultation bilaterally with normal air entry Chest: Nontender Back: Normal range of motion, nontender Abdomen: Soft, nontender, nondistended, normal bowel sounds Pelvis: Stable and nontender Extremities: Normal range of motion grossly, no tenderness, no cyanosis clubbing or edema Neurologic: Cranial nerves grossly intact, speech is clear Skin: warm and dry and without ecchymoses or soft tissue swelling or erythema Psychiatric: Calm, cooperative, no apparent delusions or hallucinations Core Measures ACS in differential dx? No CVA/TIA Diagnosis No Sepsis Present: No Sepsis Focused Exam Completed? No Progress Differential Diagnosis: SEE NOTES Plan of Care: Orders Procedure Date/time Status Heart Healthy Diet 09/21 L Active Patient Data 09/21 1644 Active Misc Message 09/21 1030 Active ED Holding Orders 09/21 1030 Active Admit to inpatient 09/21 1030 Active Vital Signs 09/21 1030 Active Code Status 09/21 1030 Active EKG 09/21 0911 Active Saline Lock 09/21 0739 Active URINALYSIS 09/21 0739 Active THYROID STIMULATING HORMONE 09/21 0739 Complete PHOSPHORUS 09/21 0739 Complete MAGNESIUM 09/21 0739 Complete COMPREHENSIVE METABOLIC PANEL 09/21 0739 Complete CBC WITHOUT DIFFERENTIAL 09/21 0739 Complete Intake & Output 09/21 0640 Active Laboratory Tests 09/21/17 0752: Anion Gap 12, Estimated GFR > 60, BUN/Creatinine Ratio 18.6, Glucose 98, Calcium 9.7, Phosphorus 4.2, Magnesium 1.8, Total Bilirubin 0.8, AST 36, ALT 37, Alkaline Phosphatase 121, Total Protein 7.5, Albumin 4.5, Globulin 3.0, Albumin/ Globulin Ratio 1.5, TSH 0.800, CBC w Diff NO MAN DIFF REQ, RBC 4.79, MCV 89.4, MCH 29.8, MCHC 33.3, RDW 15.5 H, MPV 7.3 L, Gran % 56.1, Lymphocytes % 31.1, Monocytes % 8.6, Eosinophils % 3.8, Basophils % 0.4, Absolute Granulocytes 4.4, Absolute Lymphocytes 2.5, Absolute Monocytes 0.7 H, Absolute Eosinophils 0.3, Absolute Basophils 0 Diagnostic Imaging: Discussed w/RAD: CT Scan. Radiology Impression: PATIENT: LANA TOUSSAINT PRESENT AGE: 57 PATIENT ACCOUNT NO: [id number] : 61 LOCATION: [facility] ORDERING PHYSICIAN: Rocky Virk MD SERVICE DATE: 09/21/17 EXAM TYPE: CAT - CT HEAD WO IV CONTRAST EXAMINATION: CT HEAD WITHOUT CONTRAST CLINICAL INFORMATION: Status post seizure with left parietal abrasions, soft tissue swelling, and tenderness. COMPARISON: Head CT 09/20/2017. TECHNIQUE: Contiguous axial imaging was performed from the skull base to vertex without intravenous administration of contrast. DLP: 626 mGy-cm. FINDINGS: There is mild left parietal scalp swelling but no subgaleal hematoma or calvarial fracture. There is no intracranial hemorrhage, mass, or CT evidence of large territory infarction. There is no extra-axial collection. The ventricles are normal in size and configuration without evidence of hydrocephalus. There is mild paranasal sinus mucosal thickening. The mastoids and middle ear cavities are clear. IMPRESSION: - Mild left parietal scalp swelling without subgaleal hematoma or calvarial fracture. - No acute intracranial abnormality. DICTATED BY : Connie Hunter MD DATE/TIME DICTATED:09/21/17813 METAL CRAFTS TEACHER: GLORIA DATE/TIME TRANSCRIBED:09/21/17813 CONFIDENTIAL, DO NOT COPY WITHOUT APPROPRIATE AUTHORIZATION. <Electronically signed in Other Vendor System> SIGNED BY: Connie Hunter MD 09/21/1722 Initial ED EKG: NSR, NO DIAGNOSTIC st SEGMENT CHANGES Prior EKG: unchanged Comments: 09/21/2017 9:09:59 AM patient's case discussed with Dr. bran who feels that it is not clear if this patient had a seizure versus a syncopal episode or simple trip and fall. He feels that the patient's current lamotrigine dose escalating regimen is appropriate and should be maintained as ordered. 09/21/2017 9:34:46 AM patient's case discussed with his primary care physician Dr. Novak who feels that prudent to hospitalize him for the possibility of a syncopal episode or other reason for his fall this morning. 09/21/2017 11:29:[address] Mcelroy called regarding this patient's presentation to the emergency department. He states the patient has a low cortisol level and has intended to have the patient see an assisted living home director, but this has been difficult to arrange. Dr. Mcelroy feels that this should be investigated during this patient's hospital stay. Departure Departure Disposition: STILL A PATIENT Condition: Stable Clinical Impression Primary Impression: Syncope Qualifiers: Syncope type: unspecified Qualified Code: R55 - Syncope and collapse Referrals: Tsering Novak MD (PCP/Family) Departure Forms: Customer Survey General Discharge Information Admission Note Spoke With: Mickie Cifuentes MD Documentation of Exam: Documentation of any treatments & extenuating circumstances including Concerns Regarding Discharge (functional status, medication knowledge or non-compliance, living conditions, etc.) that warrant an admission rather than observation: Patient presents for evaluation of a semi-responsive state status post fall in the bathroom prior to arrival. The event was unwitnessed and the patient has little recall of what occurred aside from the recollection of going to the bathroom. Although this patient has a history of seizures it is unclear if this was in fact a breakthrough seizure, syncopal episode or a simple trip and fall with potentially subsequent concussion. Given the unclear nature of the cause of this particular event, I feel it is prudent for him to be hospitalized for further evaluation. The patient himself is concerned that even if this were a seizure, he has never had "back the back" seizures such as this (presuming today 's episode was in fact a seizure). To this regard the patient should have a neurology consultation for evaluation of his current antiepileptic regimen. Given the possibility of a syncopal episode, cardiology consultation should be considered for the possibility of echocardiogram and orthostatic testing. Given the fall with possible head injury, patient should be evaluated for the possibility of a concussion and treated accordingly. Patient should have a physical therapy consultation considered for evaluation of a gait instability as a result of his fall. Given this patient's past history of anoxic brain injury I feel this evaluation could potentially be prolonged and somewhat complicated given the difficulty of teasing apart what is an acute versus chronic illness. I feel this patient will require a multiple day hospitalization.
[2017-09-21 07:58] LABS: ABSOLUTE BASOPHIL COUNT 0 /CUMM (0.0-0.2); ABSOLUTE EOSINOPHIL COUNT 0.3 /CUMM (0.0-0.7); ABSOLUTE GRANULOCYTE CT 4.4 /CUMM (1.4-6.5); ABSOLUTE LYMPH COUNT 2.5 /CUMM (1.2-3.4); ABSOLUTE MONOCYTE COUNT 0.7 /CUMM (0.10-0.60); BASOPHIL % 0.4 % (0.0-2.0); EOSINOPHIL % 3.8 % (0-5); GRANULOCYTE % 56.1 % (42.2-75.2); HEMATOCRIT 42.9 % (42-52); MEAN CORPUSCULAR HGB 29.8 PG (27.0-31.0); MEAN CORPUSCULAR HGB CONC 33.3 G/DL (33.0-37.0); MEAN CORPUSCULAR VOLUME 89.4 FL (80.0-94.0); MEAN PLATELET VOLUME 7.3 FL (7.4-10.4); PLATELET COUNT 243 /CUMM (130-400); RBC DISTRIBUTION WIDTH 15.5 % (11.5-14.5); RED BLOOD CELL CT 4.79 /CUMM (4.70-6.10); WHITE BLOOD CELL COUNT 7.9 /CUMM (4.8-10.8)
[2017-09-21] MEDS ORDERED: LAMICTAL25 M1 PO (08:03)
[2017-09-21] MEDS ORDERED: PANTOPRAZOLE SO40 M1 PO (08:04)
[2017-09-21] MEDS ORDERED: OXYCODONE-ACET1 EACH PO (08:05)
--- NOTE | 2017-09-21 08:22 | CT SCAN REPORT ---
EXAMINATION: CT HEAD WITHOUT CONTRAST CLINICAL INFORMATION: Status post seizure with left parietal abrasions, soft tissue swelling, and tenderness. COMPARISON: Head CT 09/20/2017. TECHNIQUE: Contiguous axial imaging was performed from the skull base to vertex without intravenous administration of contrast. DLP: 626 mGy-cm. FINDINGS: There is mild left parietal scalp swelling but no subgaleal hematoma or calvarial fracture. There is no intracranial hemorrhage, mass, or CT evidence of large territory infarction. There is no extra-axial collection. The ventricles are normal in size and configuration without evidence of hydrocephalus. There is mild paranasal sinus mucosal thickening. The mastoids and middle ear cavities are clear. IMPRESSION: - Mild left parietal scalp swelling without subgaleal hematoma or calvarial fracture. - No acute intracranial abnormality.
--- NOTE | 2017-09-21 10:52 | History & Physical ---
Quinton WHITING,[facility] 09/21/17 1051: General Information and HPI MD Statement: I have seen and personally examined LANA TOUSSAINT and documented this H&P. The patient is a 57 year old M who presented with a patient stated chief complaint of [syncope and seizure]. Source of Information: patient, old records, W10 Exam Limitations: no limitations History of Present Illness: Mr. Toussaint is 56 year old gentleman with past medical history significant for anoxic brain injury and seizure disorder as a result of cardiac arrest, CAD s/p PCI (LAD, LCx dx'ed 2017, history of stent restenosis s/p angioplasty, 30-pack- year smoking history recently quit smoking, history of bradycardia off beta ramiro, unexplained syncope (s/p Linq implant 3 weeks ago) , illicit drugs cannabis and cocaine, patient is wheelchair bound because of autonomic hypotension who presented to ED from [facility] after a syncopal episode associated with seizure. Patient is alert oriented 3, most of the history obtained from him in addition to the nurse at [facility]. Patient was discharged on August 13 after hospitalization for chest pain. Patient presented to ED yesterday 09/20 after witnessed seizure, he reported sitting on his wheelchair and all of a sudden fell down and had a tonic-clonic seizure per his roommate. Patient transferred to the ED and then transferred back to [facility]. Patient reported taking milk of magnesia early in the morning because of stomach upset, went to the bathroom for bowel movement and while the aid waiting for him outside he had a syncopal attack followed by seizure. His seizure was not witnessed but patient reported feeling shaking with saliva drooling. Denied any chest pain, palpitation, shortness of breath, weakness or numbness. Patient hit his head on the left side with fallS x 2. He had a recent medication change with lamotrigine added to his regimen on 28 August, the dose was increasing slowly from 25-50 twice daily. He started 50 twice daily does 09/19. No history of skin rash or mucous membrane lesions. History obtained from nurse at [facility], she reported being more lethargic and sleepy since he started lamotrigine. She also reported chronic use of Percocet for low back pain every 4 hours for the whole month of August and then on 09/19 he stopped asking for Percocet because he was more sleepy from the lamotrigine. Patient denied abdominal pain, nausea or vomiting however per nurse he had one time vomit over the last 2 days. Denied diarrhea. Denied excessive lacrimation. Patient reported left head pain after the fall, and blurry vision on the left eye only that started after the fall. Allergies/Medications Allergies: Coded Allergies: Iodinated Contrast- Oral and IV Dye (IODINATED CONTRAST MEDIA - IV DYE) (Severe, ANAPHYLAXIS 08/09/17) Sulfa (Sulfonamide Antibiotics) (Severe, HIVES 08/09/17) shellfish derived (Severe, ANAPHYLAXIS 08/09/17) blueberry (HIVES 08/09/17) mushroom (UNKNOWN 08/09/17) Home Med list Acetaminophen (Acephen) 650 MG SUPP.RECT 1 SUPP ID Q6H PRN PAIN/TEMP>101 ( Reported) Acetaminophen (Tylenol) 325 MG TABLET 2 TAB PO Q6H PRN PAIN/TEMP>101 ( Reported) Aspirin (Lo-Dose Aspirin EC) 81 MG TABLET.DR 1 TAB PO DAILY HEART/BLOOD ( Reported) Atorvastatin Calcium 20 MG TABLET 1 TAB PO DAILY CHOLESTEROL (Reported) Bisacodyl (Dulcolax) 10 MG SUPP.RECT 1 SUP RC DAILY PRN CONSTIPATION ( Reported) Calamine 180 ML LOTION 1-2 JOB TOP BID PRN itching Clopidogrel Bisulfate (Clopidogrel) 75 MG TABLET 1 TAB PO DAILY BLOOD THINNER (Reported) Lamotrigine (Lamictal) 25 MG TABLET 2 TAB PO BID MENTAL HEALTH (Reported) Levetiracetam 1,000 MG TABLET 1,500 MG PO BID SEIZURES (Reported) Lisinopril 2.5 MG TABLET 1 TAB PO DAILY BP (Reported) Magnesium Hydroxide (Milk Of Magnesia) 400 MG/5 ML ORAL.SUSP 30 ML PO Q3D PRN CONSTIPATION (Reported) Na Phos,M-B/Na Phos,Di-Ba (Fleet Enema) 19 GRAM-7 GRAM/118 ML ENEMA 1 E RC DAILY PRN CONSTIPATION (Reported) Naloxone HCl (Narcan) 4 MG/ACTUATION SPRAY 4 MG LUIS AD PRN OPIOID INDUCED RESP. DEPRESSIO (Reported) Oxycodone HCl/Acetaminophen (Oxycodone-Acetaminophen 5-325) 5 MG-325 MG TABLET 1 TAB PO Q4 HRS NEEDED PRN PAIN (Reported) Pantoprazole Sodium 40 MG TABLET. 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 brother and niece Primary Language: Croatian Functional Ability ADLs Independent: dressing, eating, toileting, bathing. Ambulation: independent Review of Systems Review of Systems Constitutional: Reports: see HPI, malaise, weakness. Denies: fever. EENTM: Reports: blurred vision. Denies: eye drainage, eye tearing. Cardiovascular: Denies: chest pain, palpitations. Respiratory: Denies: cough, short of breath. GI: Denies: bloating, constipation, diarrhea, nausea. Genitourinary: Denies: discharge, dysuria, frequency. Musculoskeletal: Denies: back pain, joint pain. Exam & Diagnostic Data Last 24 Hrs of Vital Signs/I&O Vital Signs Date Time Temp Pulse Resp B/P B/P Pulse O2 O2 Flow FiO2 Mean Ox Delivery Rate 09/21 1218 97.7 61 18 122/78 96 Room Air 09/21 1045 97.6 63 18 125/76 97 09/21 0641 98.2 59 16 130/88 97 Room Air Intake & Output 09/21 1600 09/21 0800 09/21 0000 Intake Total Output Total Balance Patient 84.935 kg Weight Weight Bed scale Measurement Method Physical Exam General Appearance Alert, Oriented X3, Cooperative, No Acute Distress Skin No Rashes, No Breakdown, No Significant Lesion Skin Temp/Moisture Exam: Warm/Dry HEENT Atraumatic, PERRLA, EOMI, Mucous Membr. moist/pink Neck Supple Lymphatic no cervical lymphadenopathy Cardiovascular Regular Rate, Normal S1, Normal S2, No Murmurs Lungs Clear to Auscultation, Normal Air Movement Abdomen Normal Bowel Sounds, Soft, No Tenderness Neurological Normal Speech, Strength at 5/5 X4 Ext, Normal Tone, Sensation Intact, Cranial Nerves 3-12 NL, Reflexes 2+ Extremities No Clubbing, No Cyanosis, No Edema, Normal Pulses Assessment/Plan Assessment: Mr. Toussaint is 56 year old gentleman with past medical history significant for anoxic brain injury and seizure disorder as a result of cardiac arrest, CAD s/p PCI (LAD, LCx dx'ed 2017, history of stent restenosis s/p angioplasty, hyperlipidemia, [id number] smoking history recently quit smoking, history of bradycardia off beta ramiro, unexplained syncope (s/p Linq implant 3 weeks ago) , illicit drugs cannabis and cocaine, patient is wheelchair bound because of autonomic hypotension who presented to ED from [facility] after a syncopal episode associated with seizure. Problem list #Syncopal attack #Seizure despite being on Keppra and lamotrigine #Chronic low back pain being recently on daily opioid Percocet for whole month of August that stopped on 09/19 #Significant cardiac history CAD and bradycardia Plan Admit to telemetry floor Vitals q. shift Seizure precaution Continue Keppra and will hold off lamotrigine pending neurology consultation Neurology consultation Dr. funes was placed pending callback Continue cardiac medication Orthostatic measurement Drug toxicology Tropes and EKG DVT prophylaxis Lovenox and Alps Code full Diet heart healthy As Ranked By This Provider Problem List: 1. Syncope Qualifiers Syncope type: unspecified Qualified Code: R55 - Syncope and collapse 2. Seizure Core Measures/Misc (02/04) Acute Coronary Syndrome ACS Diagnosis: No Congestive Heart Failure Congestive Heart Failure Diagnosis No Cerebrovascular Accident CVA/TIA Diagnosis: No VTE (View Protocol) VTE Risk Factors Age>40 No Mechanical VTE Prophylaxis d/t N/A MechProphylax Ordered No VTE Pharm Prophylaxis d/t NA PharmProphylax ordered Sepsis (View protocol) Sepsis Present: No Mickie Cifuentes MD 09/21/17 1215: Attending MD Review Statement Attending Statement Attending MD Statement: examined this patient, discuss w/resident/PA/MINE LABORER, agreed w/resident/PA/MINE LABORER, reviewed EMR data (avail) Attending Assessment/Plan: 57M PMH CAD s/p PCI, h/o of cardiac arrest resulting in anoxic brain injury and seizure disorder on Keppra, [id number] smoking history, history of stent restenosis s/p angioplasty, recurrent seizures, sent from [facility] after having an episode of falling earlier today. Was seen in ER for similar event the day prior, medications continued and sent back to [facility]. Was found on the ground by [facility] staff today. Patient has no memory of the event and is unsure if he had a seizure or syncopized. Unable to provide further history. He did hit his head. Neurological exam normal. CT head normal. He was started on Lamictal several weeks ago and the dose had been increased 2 days ago. He also takes Percocet for back pain. 1. Syncope vs breakthrough seizure 2. History of seizure disorder 3. History of CAD Plan - Admit to telemetry - Neurology consult - Serial troponin and EKG - Continue home medications - DVT PPx - PT evaluation
[2017-09-21 12:18] VITALS: BP 122/78
[2017-09-21 22:23] VITALS: BP 96/62
--- NOTE | 2017-09-21 22:26 | Cons- Cardiology ---
General Information and HPI Consulting Request Date of Consult: 09/21/17 Requested By: Mickie Cifuentes MD Reason for Consult: syncope Source of Information: patient, old records Exam Limitations: no limitations History of Present Illness: I was asked by to evaluate patient for syncope/seizure. 56 year old male with h/o CAD, LAD and LCX stents in [place] in 2016, s/p cardiac arrest in [place] in January,found to have ISR, s/p angioplasty, anoxic brain injury with resultant seizure.He is unable to work due seizure and anoxic brain injury. He had seizure episode in April 2017, troponin was 0.21, diagnostic cath revealed patent LAD, LCX stents, 30% distal RCA stenosis. s/p Linq monitor implant in June. He has been hospitalized at [facility] several times over the past 4 months with syncope, seizure, chest pain, nausea, cocaine use. He has been doing rehab at [facility]. He had diffiuclty doing rehab due to postural dizziness. I saw him in my office in July and he was orthostatic. I stopped spironolactone and lisinopril but he continued having postural symptoms. I ordered BmP and cortisol level and plan was to start midodrine if labs negative. In the interim, he saw neurologist and lamotrigine was added to his regimen. According to [facility] staff he has been more lethargic on Lamotrigine. He developed syncopal episode yesterday while sitting, followed by seizure. He was evaluated in ER, CT brain negative, he was discharged. He presented today with another episode of syncope/seizure (unwitnessed) while on toilet. He fell and hit his head. Siezure was again reported. Allergies/Medications Allergies: Coded Allergies: Iodinated Contrast- Oral and IV Dye (IODINATED CONTRAST MEDIA - IV DYE) (Severe, ANAPHYLAXIS 08/09/17) Sulfa (Sulfonamide Antibiotics) (Severe, HIVES 08/09/17) shellfish derived (Severe, ANAPHYLAXIS 08/09/17) blueberry (HIVES 08/09/17) mushroom (UNKNOWN 08/09/17) Home Med List: Acetaminophen (Acephen) 650 MG SUPP.RECT 1 SUPP DE Q6H PRN PAIN/TEMP>101 ( Reported) Acetaminophen (Tylenol) 325 MG TABLET 2 TAB PO Q6H PRN PAIN/TEMP>101 ( Reported) Aspirin (Lo-Dose Aspirin EC) 81 MG TABLET.DR 1 TAB PO DAILY HEART/BLOOD ( Reported) Atorvastatin Calcium 20 MG TABLET 1 TAB PO DAILY CHOLESTEROL (Reported) Bisacodyl (Dulcolax) 10 MG SUPP.RECT 1 SUP RC DAILY PRN CONSTIPATION ( Reported) Calamine 180 ML LOTION 1-2 JOB TOP BID PRN itching Clopidogrel Bisulfate (Clopidogrel) 75 MG TABLET 1 TAB PO DAILY BLOOD THINNER (Reported) Lamotrigine (Lamictal) 25 MG TABLET 2 TAB PO BID MENTAL HEALTH (Reported) Levetiracetam 1,000 MG TABLET 1,500 MG PO BID SEIZURES (Reported) Lisinopril 2.5 MG TABLET 1 TAB PO DAILY BP (Reported) Magnesium Hydroxide (Milk Of Magnesia) 400 MG/5 ML ORAL.SUSP 30 ML PO Q3D PRN CONSTIPATION (Reported) Na Phos,M-B/Na Phos,Di-Ba (Fleet Enema) 19 GRAM-7 GRAM/118 ML ENEMA 1 E RC DAILY PRN CONSTIPATION (Reported) Naloxone HCl (Narcan) 4 MG/ACTUATION SPRAY 4 MG LUIS AD PRN OPIOID INDUCED RESP. DEPRESSIO (Reported) Oxycodone HCl/Acetaminophen (Oxycodone-Acetaminophen 5-325) 5 MG-325 MG TABLET 1 TAB PO Q4 HRS NEEDED PRN PAIN (Reported) Pantoprazole Sodium 40 MG TABLET.DR 1 TAB PO DAILY GI (Reported) Spironolactone 25 MG TABLET 1 TAB PO DAILY DIURETIC (Reported) Review of Systems Review of Systems Constitutional: Reports: weakness. Denies: no symptoms, see HPI, chills, diaphoresis, fever, malaise, unexplained weight loss. EENTM: Denies: no symptoms, see HPI, blurred vision, double vision, visual changes, eye pain, eye drainage, eye tearing, icterus, ear discharge, ear pain, ear redness, hearing changes, nasal congestion, epistaxis, nasal pain, throat pain, throat swelling, mouth pain, tooth pain. Cardiovascular: Denies: no symptoms, see HPI, chest pain, edema, orthopena, palpitations, peripheral edema, syncope. Respiratory: Denies: no symptoms, see HPI, cough, hemoptysis, orthopnea, short of breath, sputum production, stridor, wheezing. GI: Denies: no symptoms, see HPI, abdominal pain, bloating, constipation, diarrhea, distention, bowel incontinence, melena, nausea, bloody stool, changes in stool, vomiting, steatorrhea. Genitourinary: Denies: no symptoms, see HPI, discharge, dysuria, frequency, hematuria, hesitation, nocturia, pain, urgency. Musculoskeletal: Denies: no symptoms, see HPI, back pain, gout, joint pain, joint swelling, muscle pain, muscle stiffness, neck pain. Skin: Denies: no symptoms, see HPI, cysts, change in skin color, change in hair/nails, dryness, erythema, jaundice, lesions, lymphangitis, lumps, moles, rash. Neurological/Psychological: Denies: no symptoms, see HPI, anxiety, ataxia, cognitive dysfunction, confusion, depressed, dementia, emotional problems, headache, numbness, paresthesia, pre- existing deficit, petit mal seizures, tingling, tremors, tonic-clonic seizures, unable to move lower ext, unable to move upper ext, weakness, other. Hematologic/Endocrine: Denies: no symptoms, see HPI, bruising, bleeding, polyuria, polydipsia, other. Immunologic/Allergic: Denies: no symptoms, see HPI, splenectomy, HIV/AIDS, lymphadenopathy, other. 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 brother and niece Primary Language: Iranian Smoking Status: Former Smoker Functional Ability ADLs Independent: dressing, eating, toileting, bathing. Ambulation: independent Exam & Diagnostic Data Vital Signs and I&O Vital Signs Date Time Temp Pulse Resp B/P B/P Pulse O2 O2 Flow FiO2 Mean Ox Delivery Rate 09/21 1218 97.7 61 18 122/78 96 Room Air 09/21 1045 97.6 63 18 125/76 97 09/21 0641 98.2 59 16 130/88 97 Room Air Intake & Output 09/21 1600 09/21 0800 09/21 0000 09/20 1600 09/20 0800 09/20 0000 Intake Total 250 Output Total 400 Balance -150 Intake, Oral 250 Number 2 Bowel Movements Output, Urine 400 Patient 187 lb Weight Weight Bed scale Measurement Method Physical Exam: No acute respiratory distress Skin-no rash HEENT-PERRLA Neck-supple, JVP normal Lungs-clear bilaterally Heart-S1S2 regular, no murmur Abdomen-soft,not tender, BS+, no organomegaly, no masses Extr-no edema, no cyanosis, 2+ pulses Vascular-no carotid bruits Neuro-slightly lethargic, AAOx3, non focal Labs/Misbah Results: Laboratory Tests 09/21 09/21 1510 1320 Chemistry Troponin I (<0.11 ng/ml) 0.02 Toxicology Urine Opiates Screen (>2000 NG/ML) 706.00 Methadone Screen (>300 NG/ML) < 40 Barbiturate Screen (>200 NG/ML) < 60 Ur Phencyclidine Scrn (>25 NG/ML) < 6.00 Amphetamines Screen (>1000 NG/ML) < 100 U Benzodiazepines Scrn (>200 NG/ML) < 85 Urine Cocaine Screen (>300 NG/ML) < 50 Urine Cannabis Screen (>50 NG/ML) 17.30 Urines Urine Color (YEL,AMB,STR) YEL Urine Clarity (CLEAR) CLEAR Urine pH (5.0 - 8.0) 6.5 Ur Specific Sherman (1.001 - 1.035) 1.025 Urine Protein (NEG,<30 MG/DL) NEG Urine Ketones (NEG) NEG Urine Nitrite (NEG) NEG Urine Bilirubin (NEG) NEG Urine Urobilinogen (0.1 - 1.0 EU/dl) 0.2 Ur Leukocyte Esterase (NEG) NEG Ur Microscopic EXAM NOT REQUIRED Urine Hemoglobin (NEG) NEG Urine Glucose (N MG/DL) NEG 09/21 0752 Chemistry Sodium (137 - 145 mmol/L) 142 Potassium (3.5 - 5.1 mmol/L) 4.2 Chloride (98 - 107 mmol/L) 104 Carbon Dioxide (22 - 30 mmol/L) 26 Anion Gap (5 - 16) 12 BUN (9 - 20 mg/dL) 13 Creatinine (0.7 - 1.2 mg/dL) 0.7 Estimated GFR (>60 ml/min) > 60 BUN/Creatinine Ratio (7 - 25 %) 18.6 Glucose (65 - 99 mg/dL) 98 Calcium (8.4 - 10.2 mg/dL) 9.7 Phosphorus (2.5 - 4.5 mg/dL) 4.2 Magnesium (1.6 - 2.3 mg/dL) 1.8 Total Bilirubin (0.2 - 1.3 mg/dL) 0.8 AST (17 - 59 U/L) 36 ALT (21 - 72 U/L) 37 Alkaline Phosphatase (< 127 U/L) 121 Troponin I (<0.11 ng/ml) < 0.01 Total Protein (6.3 - 8.2 g/dL) 7.5 Albumin (3.5 - 5.0 g/dL) 4.5 Globulin (1.9 - 4.2 gm/dL) 3.0 Albumin/Globulin Ratio (1.1 - 2.2 %) 1.5 TSH (0.270 - 4.200 uIU/mL) 0.800 Hematology CBC w Diff NO MAN DIFF REQ WBC (4.8 - 10.8 /CUMM) 7.9 RBC (4.70 - 6.10 /CUMM) 4.79 Hgb (14.0 - 18.0 G/DL) 14.3 Hct (42 - 52 %) 42.9 MCV (80.0 - 94.0 FL) 89.4 MCH (27.0 - 31.0 PG) 29.8 MCHC (33.0 - 37.0 G/DL) 33.3 RDW (11.5 - 14.5 %) 15.5 H Plt Count (130 - 400 /CUMM) 243 MPV (7.4 - 10.4 FL) 7.3 L Gran % (42.2 - 75.2 %) 56.1 Lymphocytes % (20.5 - 51.1 %) 31.1 Monocytes % (1.7 - 9.3 %) 8.6 Eosinophils % (0 - 5 %) 3.8 Basophils % (0.0 - 2.0 %) 0.4 Absolute Granulocytes (1.4 - 6.5 /CUMM) 4.4 Absolute Lymphocytes (1.2 - 3.4 /CUMM) 2.5 Absolute Monocytes (0.10 - 0.60 /CUMM) 0.7 H Absolute Eosinophils (0.0 - 0.7 /CUMM) 0.3 Absolute Basophils (0.0 - 0.2 /CUMM) 0 Diagnostic Data EKG Results SR, no acute ST abnormalitis, old septal [place] Other Results CT head-no acute abnormality Assessment/Plan Assessment/Plan 56 year old male with h/o CAD, LAD and LCX stents in [place] in 2016, s/p cardiac arrest in [place] in January,found to have ISR, s/p angioplasty, anoxic brain injury with resultant seizure.He is unable to work due seizure and anoxic brain injury. Last diagnostic cath revealed patent LAD, LCX stents, 30% distal RCA stenosis, s/p Linq implantable monitor.He presents with recurrent syncope resulting in seizure with no evidence of structural brain damage. I am not sure if syncope primary and seizure secondary. He reports severe postural dizziness. His outpatient cortisol level is low and he may have adrenal insufficiency. He is currently off BP medications with perstent symptoms. Linq monitor data reviewed yesterday-no significant tachy or bradyarrhytmia detected. Plan: Patient needs endocrinology consult and work up for adrenal insufficiency during this admission. He may need sterois supplementation. He should stay off antihypertensive or diuretic therapy Check orthostatic BP changes continue ASA, Plavix, statin if he continues to have recurrent postural symptoms, I will start him on fludrocortisone as outpatient. Consult Acknowledgment - Thank you for your consult request.
[2017-09-22 07:01] VITALS: BP 122/64
--- NOTE | 2017-09-22 08:40 | PN- Housestaff ---
Nazanin WHITING,Julio 09/22/17 0840: Subjective Follow-up For: seizure brain injury syncope Tele-Events Since Last Visit: sinus rhythm, no events Subjective: patient was complaing of a headache and had a witnessed generalized seizure rapid response was called see event note Review of Systems Constitutional: Reports: see HPI. Objective Last 24 Hrs of Vital Signs/I&O Vital Signs Date Time Temp Pulse Resp B/P B/P Pulse O2 O2 Flow FiO2 Mean Ox Delivery Rate 09/22 1005 97 Nasal 2.0L Cannula 09/22 0701 98.7 90 18 122/64 96 Room Air 09/21 2223 98.0 68 18 96/62 96 Room Air 09/21 1218 97.7 61 18 122/78 96 Room Air Intake & Output 09/22 1600 09/22 0800 09/22 0000 Intake Total 880 800 Output Total 300 500 Balance 580 300 Intake, Oral 880 800 Output, Urine 300 500 Patient 85.332 kg Weight Weight Bed scale Measurement Method Physical Exam General Appearance: Alert, Oriented X3, Cooperative, No Acute Distress Cardiovascular: Regular Rate, Normal S1, Normal S2, No Murmurs Lungs: Clear to Auscultation, Normal Air Movement Abdomen: Normal Bowel Sounds, Soft, No Tenderness, No Hepatospenomegaly, No Masses Extremities: No Clubbing, No Cyanosis, No Edema, Normal Pulses Current Medications: Current Medications Sig/Haven Start time Last Medication Dose Route Stop Time Status Admin Acetaminophen 650 MG Q6P PRN 09/21 1230 AC 09/21 PO 1540 Aspirin Buffered 81 MG DAILY 09/21 1350 AC 09/22 PO 1116 Atorvastatin Calcium 20 MG DAILY 09/22 0900 AC 09/22 PO 1117 Enoxaparin Sodium 40 MG DAILY 09/21 1230 09/22 SC 0900 Ibuprofen 400 MG ONCE ONE 09/21 2014 DC 09/21 PO 09/21 Ketorolac 15 MG ONCE ONE 09/22 0415 DC 09/22 Tromethamine IV 09/23 515 0520 Ketorolac 15 MG ONCE ONE 09/22 0145 DC 09/22 Tromethamine IV 09/22 014 0152 Lamotrigine 50 MG BID 09/22 1008 AC 09/22 PO 1116 Levetiracetam 1,500 MG BID 09/21 2100 AC 09/21 PO 2252 Lorazepam 2 MG ONE ONE 09/22 1000 DC 09/22 IV 09/22 1001 0952 Omeprazole 40 MG DAILY AC 09/21 1352 AC 09/22 PO 0520 Last 24 Hrs of Lab/Misbah Results Last 24 Hrs of Labs/Mics: Laboratory Tests 09/22/17 1015: Prolactin 11.9 09/22/17 0640: Anion Gap 9, Estimated GFR > 60, BUN/Creatinine Ratio 17.1, Magnesium 1.6 09/21/17 1510: Troponin I 0.02 09/21/17 1320: Urine Opiates Screen 706.00, Methadone Screen < 40, Barbiturate Screen < 60, Ur Phencyclidine Scrn < 6.00, Amphetamines Screen < 100, U Benzodiazepines Scrn < 85, Urine Cocaine Screen < 50, Urine Cannabis Screen 17.30, Urine Color YEL, Urine Clarity CLEAR, Urine pH 6.5, Ur Specific [place] 1.025, Urine Protein NEG, Urine Ketones NEG, Urine Nitrite NEG, Urine Bilirubin NEG, Urine Urobilinogen 0.2, Ur Leukocyte Esterase NEG, Ur Microscopic EXAM NOT REQUIRED, Urine Hemoglobin NEG, Urine Glucose NEG Assessment/Plan Assessment: 56 year old male with past medical history significant for substance abuse, anoxic brain injury and seizure disorder as a result of cardiac arrest, CAD s/p PCI (LAD, LCx dx'ed 2017, history of stent restenosis s/p angioplasty, smoking, bradycardia off beta ramiro, recurrent syncope (s/p Linq implant 3 weeks ago) presents with recurrent seizure and syncope. Seizure: On Keppra Restarted lamotrigine Had a witnessed seizures approximately 90 seconds given 2mg IV ativan today CT Head negative Seizure precautions Neurology consultation, follow up recommendations Urine toxicology was negative Check CK, 1L NS CAD and bradycardia off beta ramiro with recurrent syncope: Orthostatic vital signs were negative Monitor for arrhythmia Continue aspirin and statin Plavix was held on admission should be restarted ACEi, and aldactone were held on admission, creatinine wnl consider restarting Troponins were negative, EKG showed some lateral T wave inversion Cardiology consultation, appreciate recommendations Consider echocardiography Recommended start midodrine for syncope Low cortisol level, endocrinology outpatient work up for adrenal insufficiency Heart healthy diet DVT ppx-Lovenox Full code Problem List: 1. Syncope 2. Substance abuse 3. Seizure Pain Ratin Pain Location: headache Pain Goal: Pain 4 or less Pain Plan: prn Tomorrow's Labs & Rationales: bep, mag, ck Rehan Perez 09/22/17 0957: Attending MD Review Statement Attending Statement Attending MD Statement: examined this patient, discuss w/resident/PA/ARMED GUARD, agreed w/resident/PA/ARMED GUARD, discussed with family, reviewed EMR data (avail), discussed with nursing, discussed with case mgmt, reviewed images, amended to note Attending Assessment/Plan: 57M PMH CAD s/p PCI, h/o of cardiac arrest resulting in anoxic brain injury and seizure disorder on Keppra, [id number] smoking history, history of stent restenosis s/p angioplasty, recurrent seizures, sent from [facility] after having an episode of fall. He was started on Lamictal several weeks ago and the dose had been increased recently. He also takes Percocet for back pain. Patient had rapid response this am, Another seizure lasting few secs to min. Vitals stable. 1. Syncope or possible breakthrough seizure 2. History of seizure disorder 3. History of CAD 4. H/o anoxic brain injury Plan - Continue telemetry, cardiology consulted. Avoid diuretics. - Neurology consult pending, AED as per neurology. - Frequent neurochecks - Continue home medications - DVT PPx - PT evaluation
--- NOTE | 2017-09-22 11:02 | CT SCAN REPORT ---
EXAMINATION: CT HEAD WITHOUT CONTRAST CLINICAL INFORMATION: Seizure COMPARISON: 09/21/2017 TECHNIQUE: Contiguous axial imaging was performed from the skull base to vertex without intravenous administration of contrast. DLP: 561.97 mGy-cm FINDINGS: The meter installer demonstrates plates overlying the mandibular condyles. There is no evidence of acute intracranial hemorrhage or territorial infarction. No abnormal mass effect or midline shift is seen. Resendiz to white matter differentiation is well preserved. No extra-axial fluid collections are identified. The ventricles are normal in size. There is no abnormal attenuation within the brain parenchyma. The osseous structures and soft tissues are normal. The mastoid air cells and visualized portions of the paranasal sinuses are well aerated. IMPRESSION: No acute intracranial pathology.
--- NOTE | 2017-09-22 11:09 | Event Note ---
Event Note Event Note: Rapid response was called approximately 9:50 PM patient was having seizure activity. Based on the report, earlier he had some headache and eye pain. The patient received 2 mg IV lorazepam. Seizure activity lasted for approximately 1 minute. After that, the patient was able to communicate complained of mild headache, denied any eye pain, nausea, vomiting, chest pain, shortness of breath, abdominal pain. Going over patient's chart, it was noted that he is on lamotrigine 50 mg twice a day at home which was held during this hospital stay. Patient vital signs:blood pressure 164/86, pulse rate 130, oxygen saturation 98% , fingerstick 134 Physical exam: After seizure activity: AAO 3, NAD, HEENT: PERRLA, EOMI, normal pharynx. Neck: Supple, no JVD, no carotid bruit. CV: RRR, no murmur. Lungs: CTA BL. Neurology: Cranial nerves III-12 intact, normal sensation, normal reflexes, normal strength, normal tone, negative Babinski The patient had a BEP done this morning which did not reveal any electrolyte abnormalities. EKG reveals new T-wave inversion in lateral leads. Plan
--- NOTE | 2017-09-22 12:33 | Cons- Neurology ---
General Information and HPI Consulting Request Date of Consult: 09/22/17 Requested By: Mickie Cifuentes MD Reason for Consult: seizure vs syncope History of Present Illness: The patient is a 56 year old gentleman with past medical history significant for anoxic brain injury and seizure disorder as a result of cardiac arrest, CAD s/p PCI (LAD, LCx dx'ed 2017, history of stent restenosis s/p angioplasty, 30-pack- year smoking history recently quit smoking, history of bradycardia off beta ramiro, unexplained syncope (s/p Linq implant 3 weeks ago) , illicit drugs cannabis and cocaine, patient is wheelchair bound because of autonomic hypotension who presented to ED from [facility] after a syncopal episode associated with seizure. He had another episode early this morning. Patient was recently discharged on August 13 after hospitalization for chest pain. Patient presented to ED yesterday 09/20 after witnessed seizure, he reported sitting on his wheelchair and all of a sudden fell down and had a tonic-clonic seizure per his roommate. Patient transferred to the ED and then transferred back to [facility]. Patient reported taking milk of magnesia early in the morning because of stomach upset, went to the bathroom for bowel movement and while the aid waiting for him outside he had a syncopal attack followed by seizure. His seizure was not witnessed but patient reported feeling shaking with saliva drooling. He had a recent medication change with lamotrigine added to his regimen on 28 August, the dose was increasing slowly from 25-50 twice daily. He started 50 twice daily does 09/19. No history of skin rash or mucous membrane lesions. Patient denied abdominal pain, nausea or vomiting however per nurse he had one time vomit over the last 2 days. Allergies/Medications Allergies: Coded Allergies: Iodinated Contrast- Oral and IV Dye (IODINATED CONTRAST MEDIA - IV DYE) (Severe, ANAPHYLAXIS 08/09/17) Sulfa (Sulfonamide Antibiotics) (Severe, HIVES 08/09/17) shellfish derived (Severe, ANAPHYLAXIS 08/09/17) blueberry (HIVES 08/09/17) mushroom (UNKNOWN 08/09/17) Home Med List: Acetaminophen (Acephen) 650 MG SUPP.RECT 1 SUPP WI Q6H PRN PAIN/TEMP>101 ( Reported) Acetaminophen (Tylenol) 325 MG TABLET 2 TAB PO Q6H PRN PAIN/TEMP>101 ( Reported) Aspirin (Lo-Dose Aspirin EC) 81 MG TABLET.DR 1 TAB PO DAILY HEART/BLOOD ( Reported) Atorvastatin Calcium 20 MG TABLET 1 TAB PO DAILY CHOLESTEROL (Reported) Bisacodyl (Dulcolax) 10 MG SUPP.RECT 1 SUP RC DAILY PRN CONSTIPATION ( Reported) Calamine 180 ML LOTION 1-2 JOB TOP BID PRN itching Clopidogrel Bisulfate (Clopidogrel) 75 MG TABLET 1 TAB PO DAILY BLOOD THINNER (Reported) Lamotrigine (Lamictal) 25 MG TABLET 2 TAB PO BID MENTAL HEALTH (Reported) Levetiracetam 1,000 MG TABLET 1,500 MG PO BID SEIZURES (Reported) Lisinopril 2.5 MG TABLET 1 TAB PO DAILY BP (Reported) Magnesium Hydroxide (Milk Of Magnesia) 400 MG/5 ML ORAL.SUSP 30 ML PO Q3D PRN CONSTIPATION (Reported) Na Phos,M-B/Na Phos,Di-Ba (Fleet Enema) 19 GRAM-7 GRAM/118 ML ENEMA 1 E RC DAILY PRN CONSTIPATION (Reported) Naloxone HCl (Narcan) 4 MG/ACTUATION SPRAY 4 MG LUIS AD PRN OPIOID INDUCED RESP. DEPRESSIO (Reported) Oxycodone HCl/Acetaminophen (Oxycodone-Acetaminophen 5-325) 5 MG-325 MG TABLET 1 TAB PO Q4 HRS NEEDED PRN PAIN (Reported) Pantoprazole Sodium 40 MG TABLET.DR 1 TAB PO DAILY GI (Reported) Spironolactone 25 MG TABLET 1 TAB PO DAILY DIURETIC (Reported) Current Medications: Current Medications Sig/Haven Start time Last Medication Dose Route Stop Time Status Admin Acetaminophen 650 MG Q6P PRN 09/21 1230 AC 09/21 PO 1540 Aspirin Buffered 81 MG DAILY 09/21 1350 AC 09/22 PO 1116 Atorvastatin Calcium 20 MG DAILY 09/22 0900 AC 09/22 PO 1117 Enoxaparin Sodium 40 MG DAILY 09/21 1230 AC 09/22 SC 0900 Ibuprofen 400 MG ONCE ONE 09/21 2014 DC 09/21 PO 09/22 2015 2130 Ketorolac 15 MG ONCE ONE 09/22 0415 DC 09/22 Tromethamine IV 09/22 0416 0520 Ketorolac 15 MG ONCE ONE 09/22 0145 DC 09/22 Tromethamine IV 09/22 0146 0152 Lamotrigine 50 MG BID 09/22 1008 AC 09/22 PO 1116 Levetiracetam 1,500 MG BID 09/21 2100 AC 09/21 PO 2252 Lorazepam 2 MG ONE ONE 09/22 1000 DC 09/22 IV 09/22 1001 0952 Omeprazole 40 MG DAILY AC 09/21 1352 AC 09/22 PO 0520 Review of Systems Review of Systems: 10 point ROS was unremarkbale exceopt as noted as above Past History Travel History Traveled to [place] past 21 day No Medical History Neurological: seizure, ANOXIC BRAIN INJURY EENT: NONE Cardiovascular: myocardial infarction, CARDIAC ARREST Respiratory: NONE Gastrointestinal: NONE Hepatic: NONE Renal: NONE Musculoskeletal: WEAKNESS UNSTABLE GAIT Psychiatric: substance abuse Endocrine: NONE Blood Disorders: NONE Cancer(s): NONE 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 brother and niece Primary Language: Bahamian Smoking Status: Former Smoker Functional Ability ADLs Independent: dressing, eating, toileting, bathing. Ambulation: independent Exam & Diagnostic Data Vital Signs and I&O Vital Signs Date Time Temp Pulse Resp B/P B/P Pulse O2 O2 Flow FiO2 Mean Ox Delivery Rate 09/22 1005 97 Nasal 2.0L Cannula 09/22 0701 98.7 90 18 122/64 96 Room Air 09/21 2223 98.0 68 18 96/62 96 Room Air Intake & Output 09/22 1600 09/22 0800 09/22 0000 Intake Total 880 800 Output Total 300 500 Balance 580 300 Intake, Oral 880 800 Output, Urine 300 500 Patient 85.332 kg Weight Weight Bed scale Measurement Method Physical Exam: Keagan is sleeping but arousable A&Ox3, but wants to be left alone to sleep, able to follow commands CN2-12 intact grossly Motor: 5/5 t/o, normal tone Neg Sofia No clonus Downgoing toes Intact sensation t/o Last 48 Hours of Lab Results: Laboratory Tests 09/22 09/22 09/21 09/21 1015 0640 1510 1320 Chemistry Sodium (137 - 145 mmol/L) 140 Potassium (3.5 - 5.1 mmol/L) 3.5 Chloride (98 - 107 mmol/L) 106 Carbon Dioxide (22 - 30 mmol/L) 25 Anion Gap (5 - 16) 9 BUN (9 - 20 mg/dL) 12 Creatinine (0.7 - 1.2 mg/dL) 0.7 Estimated GFR (>60 ml/min) > 60 BUN/Creatinine Ratio (7 - 25 %) 17.1 Magnesium (1.6 - 2.3 mg/dL) 1.6 Troponin I (<0.11 ng/ml) 0.02 Prolactin (3.7 - 17.9 ng/mL) 11.9 Toxicology Urine Opiates Screen (>2000 NG/ML) 706.00 Methadone Screen (>300 NG/ML) < 40 Barbiturate Screen (>200 NG/ML) < 60 Ur Phencyclidine Scrn (>25 NG/ML) < 6.00 Amphetamines Screen (>1000 NG/ML) < 100 U Benzodiazepines Scrn (>200 NG/ML) < 85 Urine Cocaine Screen (>300 NG/ML) < 50 Urine Cannabis Screen (>50 NG/ML) 17.30 Urines Urine Color (YEL,AMB,STR) YEL Urine Clarity (CLEAR) CLEAR Urine pH (5.0 - 8.0) 6.5 Ur Specific [place] (1.001 - 1.035) 1.025 Urine Protein (NEG,<30 MG/DL) NEG Urine Ketones (NEG) NEG Urine Nitrite (NEG) NEG Urine Bilirubin (NEG) NEG Urine Urobilinogen (0.1 - 1.0 EU/dl) 0.2 Ur Leukocyte Esterase (NEG) NEG Ur Microscopic EXAM NOT REQUIRED Urine Hemoglobin (NEG) NEG Urine Glucose (N MG/DL) NEG 09/21 0752 Chemistry Sodium (137 - 145 mmol/L) 142 Potassium (3.5 - 5.1 mmol/L) 4.2 Chloride (98 - 107 mmol/L) 104 Carbon Dioxide (22 - 30 mmol/L) 26 Anion Gap (5 - 16) 12 BUN (9 - 20 mg/dL) 13 Creatinine (0.7 - 1.2 mg/dL) 0.7 Estimated GFR (>60 ml/min) > 60 BUN/Creatinine Ratio (7 - 25 %) 18.6 Glucose (65 - 99 mg/dL) 98 Calcium (8.4 - 10.2 mg/dL) 9.7 Phosphorus (2.5 - 4.5 mg/dL) 4.2 Magnesium (1.6 - 2.3 mg/dL) 1.8 Total Bilirubin (0.2 - 1.3 mg/dL) 0.8 AST (17 - 59 U/L) 36 ALT (21 - 72 U/L) 37 Alkaline Phosphatase (< 127 U/L) 121 Troponin I (<0.11 ng/ml) < 0.01 Total Protein (6.3 - 8.2 g/dL) 7.5 Albumin (3.5 - 5.0 g/dL) 4.5 Globulin (1.9 - 4.2 gm/dL) 3.0 Albumin/Globulin Ratio (1.1 - 2.2 %) 1.5 TSH (0.270 - 4.200 uIU/mL) 0.800 Hematology CBC w Diff NO MAN DIFF REQ WBC (4.8 - 10.8 /CUMM) 7.9 RBC (4.70 - 6.10 /CUMM) 4.79 Hgb (14.0 - 18.0 G/DL) 14.3 Hct (42 - 52 %) 42.9 MCV (80.0 - 94.0 FL) 89.4 MCH (27.0 - 31.0 PG) 29.8 MCHC (33.0 - 37.0 G/DL) 33.3 RDW (11.5 - 14.5 %) 15.5 H Plt Count (130 - 400 /CUMM) 243 MPV (7.4 - 10.4 FL) 7.3 L Gran % (42.2 - 75.2 %) 56.1 Lymphocytes % (20.5 - 51.1 %) 31.1 Monocytes % (1.7 - 9.3 %) 8.6 Eosinophils % (0 - 5 %) 3.8 Basophils % (0.0 - 2.0 %) 0.4 Absolute Granulocytes (1.4 - 6.5 /CUMM) 4.4 Absolute Lymphocytes (1.2 - 3.4 /CUMM) 2.5 Absolute Monocytes (0.10 - 0.60 /CUMM) 0.7 H Absolute Eosinophils (0.0 - 0.7 /CUMM) 0.3 Absolute Basophils (0.0 - 0.2 /CUMM) 0 Imaging/Other Studies: CT head: neg Assessment/Plan Assessment: The patient is a 56 year old gentleman with past medical history significant for anoxic brain injury and seizure disorder as a result of cardiac arrest, CAD s/p PCI (LAD, LCx dx'ed 2017, history of stent restenosis s/p angioplasty, 30-pack- year smoking history recently quit smoking, history of bradycardia off beta ramiro, unexplained syncope (s/p Linq implant 3 weeks ago) , illicit drugs cannabis and cocaine, patient is wheelchair bound because of autonomic hypotension who presented to ED from [facility] after a syncopal episode associated with seizure. He had another episode early this morning. The first episode could have been considered a syncope but he had another episode early this AM while being admitted. He has high risk for seizure based on his pmhx. Continue keppra 1500mg bid Continut lamictal up-titration as scheduled before Add vimpat 100 mg PO bid Obtain EEG on Sunday if he stays till then otherwise do as outpatient Sz precaution Call with questions Recommendations: see above Consult Acknowledgment - Thank you for your consult request.
[2017-09-22 14:32] VITALS: BP 104/66
[2017-09-22 23:14] VITALS: BP 108/66
[2017-09-23 06:57] VITALS: BP 108/70
--- NOTE | 2017-09-23 08:52 | PN- Housestaff ---
Osvaldo WHITING,Alvarez 09/23/17 0852: Subjective Follow-up For: Seizures Tele-Events Since Last Visit: Sinus rhythm HR 50s90s Subjective: Patient was seen and examined at bedside. He was resting comfortably. He had no acute events overnight. Yesterday patient had a seizure, but has not had any that time. He does report mild blurring of vision which she states started yesterday and a headache today. CT head done yesterday showed no intracranial pathology. He denies any chest pain, shortness breath, nausea, vomiting, fever, chills. Review of Systems Constitutional: Reports: see HPI. Objective Last 24 Hrs of Vital Signs/I&O Vital Signs Date Time Temp Pulse Resp B/P B/P Pulse O2 O2 Flow FiO2 Mean Ox Delivery Rate 09/23 0657 97.7 60 20 108/70 99 Nasal Cannula 09/22 2314 98.0 76 20 108/66 97 / 1432 98.3 74 18 104/66 96 Room Air 09/22 1005 97 Nasal 2.0L Cannula Intake & Output 09/23 1600 09/23 0800 05 0000 Intake Total 120 880 810 Output Total 175 925 375 Balance -55 -45 435 Intake, IV 150 Intake, Oral 120 880 660 Output, Urine 175 925 375 Patient 198 lb Weight Physical Exam General Appearance: Alert, Oriented X3, Cooperative, No Acute Distress Skin Temp/Moisture Exam: Warm/Dry HEENT: PERRLA, EOMI, Mucous Membr. moist/pink Cardiovascular: Regular Rate, Normal S1, Normal S2 Lungs: Clear to Auscultation, Normal Air Movement Abdomen: Normal Bowel Sounds, Soft, No Tenderness Neurological: Normal Speech, Strength at 5/5 X4 Ext, Normal Tone, Cranial Nerves 3-12 NL, visual dunlap are normal is examined Extremities: No Clubbing, No Cyanosis, No Edema Current Medications: Current Medications Sig/Haven Start time Last Medication Dose Route Stop Time Status Admin Acetaminophen 650 MG Q6P PRN 09/21 1230 AC 09/21 PO 1540 Aspirin Buffered 81 MG DAILY 09/21 1350 AC 09/22 PO 1116 Atorvastatin Calcium 20 MG DAILY 09/22 0900 AC 09/22 PO 1117 Clopidogrel Bisulfate 75 MG DAILY 09/22 1414 AC 09/22 PO 1544 Enoxaparin Sodium 40 MG DAILY 09/21 1230 AC 09/22 SC 0900 Lacosamide 100 MG BID 09/22 1245 AC 09/22 PO 2113 Lamotrigine 50 MG BID 09/22 1008 AC 09/22 PO 211 Levetiracetam 1,500 MG BID 09/21 2100 AC 09/22 PO 211 Lorazepam 2 MG ONE ONE 09/22 1000 DC 09/22 IV 09/22 1001 0952 Magnesium Oxide 400 MG ONE ONE 09/22 1830 DC 09/22 PO 09/22 1831 1854 Morphine Sulfate 2 MG Q6P PRN 09/22 1500 AC 09/23 IV 0556 Omeprazole 40 MG DAILY AC 09/21 1352 AC 09/23 PO 0555 Potassium Chloride 20 MEQ ONCE ONE 09/22 1830 DC 09/22 PO 09/22 183 1854 Sodium Chloride 500 ML Q10H 09/22 1245 DC 09/22 IV 09/22 2244 1400 Last 24 Hrs of Lab/Misbah Results Last 24 Hrs of Labs/Mics: Laboratory Tests 09/23/17 0625: Anion Gap 7, Estimated GFR > 60, BUN/Creatinine Ratio 17.1, Magnesium 1.5 L, Creatine Kinase 82, Troponin I < 0.01, Cortisol AM Sample 5.1 09/23/17 0045: Troponin I < 0.01 09/22/17 1935: Troponin I < 0.01 Assessment/Plan Assessment: 56 year old male with past medical history significant for substance abuse, anoxic brain injury and seizure disorder as a result of cardiac arrest, CAD s/p PCI (LAD, LCx dx'ed 2017, history of stent restenosis s/p angioplasty, smoking, bradycardia off beta ramiro, recurrent syncope (s/p Linq implant 3 weeks ago) presents with recurrent seizure and syncope. Seizure: On Keppra Continue lamotrigine Witnessed seizure yesterday, resolved with [address] Head negative Seizure precautions Neurology recommendations appreciated, will continue to follow Urine toxicology was negative CK was within normal limits Random cortisol was checked this morning which was also within normal limits Follow-up EEG tomorrow CAD and bradycardia off beta ramiro with recurrent syncope: Orthostatic vital signs were negative Will continue to monitor for arrhythmia Continue aspirin and statin Plavix was restarted yesterday ACEi, and aldactone were held on admission, borderline BP, will continue to hold Troponins were negative, EKG showed some lateral T wave inversion Cardiology consultation, appreciate recommendations endocrinology outpatient work up for adrenal insufficiency Hypomagnesemia Continue to monitor BEP Replete as needed Heart healthy diet DVT ppx-Lovenox Full code Problem List: 1. Seizure Pain Ratin Pain Location: head Pain Goal: Pain 4 or less Pain Plan: pain pathway Tomorrow's Labs & Rationales: cbc, bep Rehan Perez 09/23/17 1226: Attending MD Review Statement Attending Statement Attending MD Statement: examined this patient, discuss w/resident/PA/FISCAL ASSISTANT, agreed w/resident/PA/FISCAL ASSISTANT, discussed with family, reviewed EMR data (avail), discussed with nursing, discussed with case mgmt, reviewed images, amended to note Attending Assessment/Plan: 57M PMH CAD s/p PCI, h/o of cardiac arrest resulting in anoxic brain injury and seizure disorder on Keppra, [id number] smoking history, history of stent restenosis s/p angioplasty, recurrent seizures, sent from [facility] after having an episode of fall. Patient here with syncope likely orhtostasis and seizure disorder with witnessed seizure on floors yesterday. Patient seen by cardiology and neurology. Neurology recommend to continue with keppra and lamictal uptitration and added vimpat 100 on his drug regimen. Cardiology recommend check cortisol level and if abnormal consider endocrinology input. Frequent neurochecks. Check orthostasis again. DVT ppx.
[2017-09-23 15:25] VITALS: BP 124/68
[2017-09-23 15:44] VITALS: BP 112/70
[2017-09-23 22:23] VITALS: BP 110/70
[2017-09-24 06:37] VITALS: BP 114/72
--- NOTE | 2017-09-24 07:07 | PN- Housestaff ---
Osvaldo WHITING,Alvarez 09/24/17 0706: Subjective Follow-up For: Seizure disorder Tele-Events Since Last Visit: Sinus rhythm HR 50s80s Subjective: Patient was seen and examined at bedside. He was resting comfortably. He had no acute events overnight. He denies any seizure-like activity in the past 24 hours. He also reports improvement of his headache and improvement in his blurred vision. He reports that his headache is approximately 7/10 throbbing in nature. He reported mild lightheadedness on standing when being tested for orthostatic hypotension, however he was orthostatic negative. He denies any chest pain, shortness breath, nausea, vomiting, fever, chills. Review of Systems Constitutional: Reports: see HPI. Objective Last 24 Hrs of Vital Signs/I&O Vital Signs Date Time Temp Pulse Resp B/P B/P Pulse O2 O2 Flow FiO2 Mean Ox Delivery Rate 09/24 0537 97.8 71 20 114/72 96 Room Air 09/23 2223 98.8 82 20 110/70 96 Room Air 09/23 1600 97 Room Air 09/23 1544 62 112/70 / 1525 97.9 69 18 124/68 97 Room Air 09/23 0800 99 Nasal 2.0L Cannula Intake & Output 09/24 0800 05/ 0000 09/23 1600 Intake Total 250 620 Output Total 1250 Balance 250 -630 Intake, IV 50 Intake, Oral 200 620 Output, Urine 1250 Patient 190 lb Weight Physical Exam General Appearance: Alert, Oriented X3, Cooperative, No Acute Distress Skin Temp/Moisture Exam: Warm/Dry HEENT: lleft parietal skull due to trauma, no open skin wounds Cardiovascular: Regular Rate, Normal S1, Normal S2 Lungs: Clear to Auscultation, Normal Air Movement Abdomen: Normal Bowel Sounds, Soft, No Tenderness Extremities: No Clubbing, No Cyanosis, No Edema Current Medications: Current Medications Sig/Haven Start time Last Medication Dose Route Stop Time Status Admin Acetaminophen 1,000 MG ONCE ONE 09/23 1000 DC 09/23 N/A 1 UNIT IV 09/23 1014 1015 Acetaminophen 650 MG Q6P PRN 09/21 1230 AC / PO 1540 Aspirin Buffered 81 MG DAILY 09/21 1350 AC 09/23 PO 0855 Atorvastatin Calcium 20 MG DAILY 09/22 0900 AC 09/23 PO 0856 Clopidogrel Bisulfate 75 MG DAILY 09/22 1414 AC 09/23 PO 0856 Enoxaparin Sodium 40 MG DAILY 09/21 1230 AC 09/23 SC 0856 Lacosamide 100 MG BID 09/22 1245 AC 09/23 PO 210 Lamotrigine 50 MG BID 09/22 1008 AC 09/23 PO 2101 Levetiracetam 1,500 MG BID 09/21 2100 AC 09/23 PO 210 Magnesium Oxide 400 MG ONE ONE 09/23 1100 DC 09/23 PO 09/23 1101 1213 Magnesium Sulfate 1 GM ONCE ONE 09/23 1500 DC 09/23 Dextrose/Water 100 ML IV 09/23 1859 1625 Morphine Sulfate 2 MG Q6P PRN 09/22 1500 AC 09/23 IV 1919 Omeprazole 40 MG DAILY AC 09/21 1352 AC 09/24 PO 0643 Last 24 Hrs of Lab/Misbah Results Last 24 Hrs of Labs/Mics: Laboratory Tests 09/24/17 0647: Anion Gap 10, Estimated GFR > 60, BUN/Creatinine Ratio 14.3, Magnesium 1.7 Assessment/Plan Assessment: Patient is a 56-year-old male with a PMH significant for substance abuse, and anoxic brain injury, seizure disorder secondary to cardiac arrest, CAD status post PCI in 2017 with stents placed, recurrent episodes of syncope who presented after a syncopal episode likely secondary to a seizure. #Seizure Patient has not had a seizure since the morning of 09/22/17. At that time. CT head was done which was negative. Urine toxicology was negative on presentation. -Neurology recommendations appreciated -Will follow-up EEG today -Continue current regimen of Keppra, lamotrigine, Vimpat -Seizure precautions -Anticipated discharge after EEG #Hypomagnesemia Repleted yesterday, remains below 2 today -Will replete orally #Chronic medical problems -will continue rest of home medical regimen -Random cortisol was checked on this admission and was normal. Will refer to endocrinology as an outpatient for workup of potential adrenal insufficiency Diet: Heart healthy DVT prophylaxis: Lovenox, Alps CODE STATUS: Full code Problem List: 1. Head injury Pain Ratin Pain Location: frontal headache Pain Goal: Pain 4 or less Pain Plan: pain pathway Tomorrow's Labs & Rationales: none Mikcie Cifuentes MD 09/24/17 1056: Attending MD Review Statement Attending Statement Attending MD Statement: examined this patient, discuss w/resident/PA/PRESS LEADER, agreed w/resident/PA/PRESS LEADER, reviewed EMR data (avail) Attending Assessment/Plan: 57M PMH CAD s/p PCI, h/o of cardiac arrest resulting in anoxic brain injury and seizure disorder on Keppra, [id number] smoking history, history of stent restenosis s/p angioplasty, recurrent seizures, sent from ECF after having an episode of falling earlier today. Was seen in ER for similar event the day prior, medications continued and sent back to ECF. He was started on Lamictal several weeks ago and the dose had been increased 2 days ago. Over the weekend had a witnessed generalized tonic-clonic seizure and was started on Vimpat. No complaints today. No further seizure episodes. 1. Seizure 2. History of seizure disorder 3. History of CAD Plan - Continue on telemetry - Continue Keppra, Vimpat, and up-titration of Lamictal - EEG today - Cortisol to be worked up as outpatient (morning level was 5) - Neurology consult - Continue home medications - DVT PPx - Anticipated discharge today pending EEG
[2017-09-24 15:02] VITALS: BP 110/60
[2017-09-24 23:38] VITALS: BP 118/70
[2017-09-25 07:04] VITALS: BP 108/58
[2017-09-25] MEDS ORDERED: VIMPAT50 M1 PO (07:10)
--- NOTE | 2017-09-25 07:18 | PN- Housestaff ---
Osvaldo WHITING,Alvarez 09/25/17717: Subjective Follow-up For: seizure disorder Tele-Events Since Last Visit: none Subjective: Patient was seen and examined at bedside. He was resting comfortably. He had no acute events overnight. He continues to complain of a headache but it is improving each day, currently rated as 6/10. His blurry vision is associated with the headache, and improves when his headache is feeling better secondary to analgesia, however he has been normotensive. He has no other complaints and denies any chest pain, shortness breath, nausea, vomiting, fever, chills, repeat episodes of loss of consciousness. Review of Systems Constitutional: Reports: see HPI. Objective Last 24 Hrs of Vital Signs/I&O Vital Signs Date Time Temp Pulse Resp B/P B/P Pulse O2 O2 Flow FiO2 Mean Ox Delivery Rate 09/25 07 97.6 53 18 108/58 96 Room Air 09/24 2338 98.2 72 20 118/70 96 Room Air 09/24 1716 78 110/60 09/24 1502 97.4 78 18 110/60 96 Room Air Intake & Output 09/25 0800 09/25 0000 09/24 1600 Intake Total 660 440 600 Output Total 600 Balance 60 440 600 Intake, Oral 660 440 600 Output, Urine 600 Patient 188 lb Weight Physical Exam General Appearance: Alert, Oriented X3, Cooperative, No Acute Distress HEENT: persistent swelling of the L lateral parietal scalp Cardiovascular: Regular Rate, Normal S1, Normal S2 Lungs: Clear to Auscultation, Normal Air Movement Abdomen: Normal Bowel Sounds, Soft, No Tenderness Extremities: No Clubbing, No Cyanosis, No Edema Current Medications: Current Medications Sig/Haven Start time Last Medication Dose Route Stop Time Status Admin Acetaminophen 650 MG Q6P PRN 09/21 1230 AC 09/21 PO 1540 Aspirin Buffered 81 MG DAILY 09/21 1350 AC 09/24 PO 0752 Atorvastatin Calcium 20 MG DAILY 09/22 0900 AC 09/24 PO 0753 Clopidogrel Bisulfate 75 MG DAILY 09/22 1414 AC 09/24 PO 0753 Enoxaparin Sodium 40 MG DAILY 09/21 1230 AC 09/24 SC 0752 Lacosamide 100 MG BID 09/22 1245 AC 09/24 PO 205 Lamotrigine 50 MG BID 09/22 1008 AC 09/24 PO 205 Levetiracetam 1,500 MG BID 09/21 2100 AC 09/24 PO 2050 Lisinopril 2.5 MG DAILY 09/24 1511 AC PO Magnesium Oxide 400 MG DAILY 09/25 0900 AC PO Magnesium Oxide 400 MG ONE ONE 09/24 1515 DC 09/24 PO 09/24 1516 1509 Morphine Sulfate 2 MG Q6P PRN 09/22 1500 AC 09/25 IV 0514 Omeprazole 40 MG DAILY AC 09/21 1352 AC 09/25 PO 0512 Patient Medication 1 ED ONE ONE 09/24 1600 DC 09/24 Teaching ED 09/24 1601 1717 Spironolactone 25 MG DAILY 09/24 1511 AC 09/24 PO 1716 Last 24 Hrs of Lab/Misbah Results Last 24 Hrs of Labs/Mics: Laboratory Tests 09/25/17 0615: Anion Gap 9, Estimated GFR > 60, BUN/Creatinine Ratio 12.5, Magnesium 1.8 Assessment/Plan Assessment: Patient is a 56-year-old male with a PMH significant for substance abuse, and anoxic brain injury, seizure disorder secondary to cardiac arrest, CAD status post PCI in 2016 with stents placed, recurrent episodes of syncope who presented after a syncopal episode likely secondary to a seizure. #Seizure Patient has not had a seizure since the morning of 09/22/17. At that time CT head was done which was negative. Urine toxicology was negative on presentation. EEG was negative for seizure-like activity. -Neurology recommendations appreciated -Continue current regimen of Keppra, lamotrigine, Vimpat -Seizure precautions -We'll refer to endocrinology as an outpatient for workup of adrenal insufficiency as cause of syncopal events. -Patient is stable for discharge. #Hypomagnesemia Repleted yesterday, remains below 2 today -Will replete orally #Chronic medical problems -will continue rest of home medical regimen -Random cortisol was checked on this admission and was normal. Will refer to endocrinology as an outpatient for workup of potential adrenal insufficiency Diet: Heart healthy DVT prophylaxis: Lovenox, Alps CODE STATUS: Full code Problem List: 1. Syncope 2. Seizure Pain Ratin Pain Location: head, L side Pain Goal: Pain 7 or less Pain Plan: pain pathway Tomorrow's Labs & Rationales: none Mickie Cifuentes MD 09/25/17 1339: Attending MD Review Statement Attending Statement Attending MD Statement: examined this patient, discuss w/resident/PA/COLOR CHECKER ROVING OR YARN, agreed w/resident/PA/COLOR CHECKER ROVING OR YARN, reviewed EMR data (avail) Attending Assessment/Plan: 57M PMH CAD s/p PCI, h/o of cardiac arrest resulting in anoxic brain injury and seizure disorder on Keppra, [id number] smoking history, history of stent restenosis s/p angioplasty, recurrent seizures, sent from ECF after having an episode of falling earlier today. Was seen in ER for similar event the day prior, medications continued and sent back to ECF. He was started on Lamictal several weeks ago and the dose had been increased 2 days ago. Over the weekend had a witnessed generalized tonic-clonic seizure and was started on Vimpat. No complaints today. No further seizure episodes. 1. Seizure 2. History of seizure disorder 3. History of CAD Plan - Stable for discharge - Continue Keppra, Vimpat, and up-titration of Lamictal - EEG done - Cortisol to be worked up as outpatient (morning level was 5) - Neurology outpatient follow up - Continue home medications
--- NOTE | 2017-09-25 07:32 | PN- Cardiology ---
Subjective Subjective: Patient reports left temporal pounding headache. He had seizure on 09/22/17. Objective Vital Signs and I&Os Vital Signs Date Time Temp Pulse Resp B/P B/P Pulse O2 O2 Flow FiO2 Mean Ox Delivery Rate 09/25 0604 97.6 53 18 108/58 96 Room Air 09/24 2338 98.2 72 20 118/70 96 Room Air 09/24 1716 78 110/60 09/24 1502 97.4 78 18 110/60 96 Room Air Intake & Output 09/25 0809/25 0000 09/24 1600 09/24 0800 09/24 0000 09/23 1600 Intake Total 660 440 600 250 620 Output Total 600 1250 Balance 60 440 600 250 -630 Intake, IV 50 Intake, Oral 660 440 600 200 620 Output, Urine 600 1250 Patient 188 lb 190 lb Weight Physical Exam: HEENT-PERRLA Neck-JVP normal, no bruits Lungs-clear bilaterally Heart-S1S2 regular, no murmur Abdomen-soft, not tender, BS+, no organomegaly Extr-no edema, 2+ pulses,no cyanosis Neuro-non focal Current Medications: Current Medications Sig/Haven Start time Last Medication Dose Route Stop Time Status Admin Acetaminophen 650 MG Q6P PRN 09/21 1230 AC 09/21 PO 1540 Aspirin Buffered 81 MG DAILY 09/21 1350 AC 09/24 PO 0752 Atorvastatin Calcium 20 MG DAILY 09/22 0900 AC 09/24 PO 0753 Clopidogrel Bisulfate 75 MG DAILY 09/22 1414 AC 09/24 PO 0753 Enoxaparin Sodium 40 MG DAILY 09/21 1230 AC 09/24 SC 0752 Lacosamide 100 MG BID 09/22 1245 AC 09/24 PO 2050 Lamotrigine 50 MG BID 09/22 1008 AC 09/24 PO 205 Levetiracetam 1,500 MG BID 09/21 2100 AC 09/24 PO 2050 Lisinopril 2.5 MG DAILY 09/24 1511 AC PO Magnesium Oxide 400 MG DAILY 09/25 0900 AC PO Magnesium Oxide 400 MG ONE ONE 09/24 1515 DC 09/24 PO 09/24 1516 1509 Morphine Sulfate 2 MG Q6P PRN 09/22 1500 AC 09/25 IV 0514 Omeprazole 40 MG DAILY AC 09/21 1352 AC 09/25 PO 0512 Patient Medication 1 ED ONE ONE 09/24 1600 DC 09/24 Teaching ED 09/24 1601 1717 Spironolactone 25 MG DAILY 09/24 1511 AC 09/24 PO 1716 Results Last 48 Hrs of Labs/Mics: Laboratory Tests 09/25/17 0615: Sodium Pending, Potassium Pending, Chloride Pending, Carbon Dioxide Pending, Anion Gap Pending, BUN Pending, Creatinine Pending, BUN/Creatinine Ratio Pending , Magnesium Pending 09/24/17 0647: Anion Gap 10, Estimated GFR > 60, BUN/Creatinine Ratio 14.3, Magnesium 1.7 Recent Imaging Studies: Telemetry-short run of PAT yesterday morning Assessment/Plan Assessment/Plan Problems; 1. Recurrent seizure, witnessed episode in the hospital-Vimpat added 2. Paroxysmal atrial tachycardia yesterday-asymptomatic. Will not treat for now given postural dizziness. He has Linq monitor and I would start betablockers if more frequent episodes as outpatient. 3. Postural dizziness-orthostasis checked here-he was not orthostatic I will follow him up as outpatient, will try fludrocortisone or midodrine as outpatient if orthostatic. 4. low cortisol level as outpatient. Repeated cortisol level in the hospital was normal. Will repeat outpatient cortisol level. 5. CAD-stable Plan: stop spironolactone and lisinopril (I stopped these 2 weeks ago when he was orthostatic in the office) continue ASA, Plavix, statin Continue telemetry? No
--- NOTE | 2017-09-25 07:47 | Discharge Summary ---
Visit Information Visit Dates Admission Date: 09/21/17 Discharge Date: 09/25/17 Hospital Course Course Attending Physician: Mickie Cifuentes MD Primary Care Physician: Tsering Novak MD Consulting Request: 1 Consulting Specialty: Cardiology Consulting Request: 2 Consulting Specialty: Neurology Hospital Course: 56-year-old wheelchair-bound man with past medical history of anoxic brain injury secondary to cardiac arrest, seizure disorder, coronary artery disease status post PCI with BARRERA to LAD/LCx (2017), cardiac stent stenosis status post angioplasty, [id number] smoking history, bradycardia, recurrent syncope, polysubstance abuse (cannabis/cocaine), and "autonomic hypotension" brought in by ambulance from [facility] after suffering a syncopal episode with associated seizure. At time of admission patient was awake and alert and oriented 3 however most of the history was obtained from the nursing staff Rey Anderson. Patient was seen in the ED the day prior to admission after suffering from a witnessed seizure but was transferred back to his ECF. The morning of admission patient reportedly took milk of magnesia due to an upset stomach and went to the bathroom to have a bowel movement. While waiting for the aid to return he had a episode of syncope followed by seizure that was not witnessed. Patient reportedly struck the left side of his head on the ground. EMS was contacted and patient was brought to the [place] ED for further evaluation. Of note patient had multiple medication changes recently for his seizure disorder. ED course -Vitals: Temp 97.6-98.2, HR 59-63, RR 16-18, SBP 1-2-130, O2 96-97% on room air -CBC: WBC 7.9, hemoglobin 14.3, hematocrit 42.9, platelet 243 -BMP: Sodium 142, potassium 4.2, chloride 104, CO2 26, urea 13, creatinine 0.7, anion gap 12, glucose 98 -LFT: Within normal limits -Miscellaneous: Troponin I <0.01, magnesium 1.8, TSH 0.8 -Urine toxicology: Positive for opiates and cannabis -Urinalysis: Unremarkable -EKG: -CT head without IV contrast: * Mild left parietal scalp swelling without subgaleal hematoma or calvarial fracture. * No acute intracranial abnormality. Problem list on admission -Syncope with associated seizure -Mechanical fall with head strike -History of anoxic brain injury status post cardiac arrest -CAD status post PCI with BARRERA to LAD/LCx (2017) -Cardiac stent restenosis status post angioplasty -Chronic low back pain -Bradycardia status post linq device -Polysubstance abuse (cannabis/cocaine) -Tobacco dependence, 30 pack year history -Recurrent syncope -"Autonomic hypotension" Hospital course Patient was admitted to the telemetry floor and placed on seizure precautions. Keppra was continued and lamotrigine held due to his reported somnolence/ lethargy since starting this medication. Neurology consult was placed. The evening of admission patient had a rapid response called for seizure activity for which she was given intravenous lorazepam that terminated the seizure. Lamotrigine was restarted and stat CT head/EKG/prolactin level were obtained which were unremarkable. Patient was seen by neurology who recommended up titrating the lamotrigine and adding Vimpat to the antiepileptic regimen. An EEG was obtained that demonstrated no epileptiform activity and an overall normal exam. Cardiology consult was placed with patient's salad bar clerk Dr. Mcelroy for his recurrent syncope whom recommended endocrinology workup for adrenal insufficiency and holding antihypertensive/diuretic medications. Orthostatic blood pressures were negative. A.m. cortisol level was low normal at 5.1. Adrenal insufficiency workup is being deferred to as an outpatient. He may require fludrocortisone. Patient is being discharged back to [facility] for ongoing care with instruction to take his antiepileptic medications as directed and to follow-up with neurology as an outpatient. Allergies: Coded Allergies: Iodinated Contrast- Oral and IV Dye (IODINATED CONTRAST MEDIA - IV DYE) (Severe, ANAPHYLAXIS 08/09/17) Sulfa (Sulfonamide Antibiotics) (Severe, HIVES 08/09/17) shellfish derived (Severe, ANAPHYLAXIS 08/09/17) blueberry (HIVES 08/09/17) mushroom (UNKNOWN 08/09/17) Significant Procedures: SERVICE DATE: 09/21/17-738 EXAM TYPE: CAT - CT HEAD WO IV CONTRAST IMPRESSION: - Mild left parietal scalp swelling without subgaleal hematoma or calvarial fracture. - No acute intracranial abnormality. SERVICE DATE: 09/22/17-952 EXAM TYPE: CAT - CT HEAD WO IV CONTRAST IMPRESSION: No acute intracranial pathology. Electroencephalogram Results Date of service: 09/24/17 Interpretation: The waking background is 9 hertz posterior moderate amplitude alpha and anterior low amplitude beta. In drowsiness vertex waves and generalized slowing into the theta range are found. Brief episodes of sleep are notable for intermixed theta and delta and K complexes. No focal, lateralized or epileptiform abnormalities are found. Impression: Normal in the states of wakefulness, drowsiness and sleep. Disposition Summary Disposition Principal Diagnosis: Recurrent seizures with syncope Additional Diagnosis: As above Discharge Disposition: SNF Discharge Instructions General Discharge Information Code Status: Full Code Patient's Diet: Heart healthy diet Patient's Activity: Per PT assessment Follow-Up Instructions/Appts: Follow-up with your primary care physiciain within 1 week of discharge. Follow-up with Endocrinology within 1 week of discharge. We have provided you with a referral. Follow-up with Dr. Mcelroy within 1 week of discharge. Follow-up with your neurologist within 1 week of discharge. Take all medication as directed. Call your doctor or return to the ER if you should have another fall, if you continue to get lightheaded with positional change, have a seizure, have chest pain or shortness of breath. Medications at Discharge Discharge Medications: Stop taking the following medications: Lisinopril (Lisinopril) 2.5 MG TABLET ORAL DAILY Qty = 90 Spironolactone (Spironolactone) 25 MG TABLET ORAL DAILY Qty = 90 Continue taking these medications: Atorvastatin Calcium (Atorvastatin Calcium) 20 MG TABLET 1 Tablet ORAL DAILY Qty = 90 Comments: Last Taken: 08/13/17 Time: 08 Clopidogrel Bisulfate (Clopidogrel) 75 MG TABLET 1 Tablet ORAL DAILY Qty = 90 Comments: Last Taken: 08/13/17 Time: 08 Aspirin (Lo-Dose Aspirin EC) 81 MG TABLET.DR 1 Tablet ORAL DAILY Qty = 30 Comments: Last Taken: 08/13/17 Time: 08 Levetiracetam (Levetiracetam) 1,000 MG TABLET 1,500 Milligram ORAL TWICE DAILY Qty = 90 Comments: Last Taken: 08/13/17 Time: 08 Naloxone HCl (Narcan) 4 MG/ACTUATION SPRAY 4 Milligram In the nose As Directed as needed for OPIOID INDUCED RESP. DEPRESSIO Comments: NOT GIVEN Acetaminophen (Acephen) 650 MG SUPP.RECT 1 SUPPOSITORY RECTALLY Q6H as needed for PAIN/TEMP>101 Comments: NOT GIVEN Acetaminophen (Tylenol) 325 MG TABLET 2 Tablet ORAL Q6H as needed for PAIN/TEMP>101 Comments: NOT GIVEN Bisacodyl (Dulcolax) 10 MG SUPP.RECT 1 Suppository RECTAL DAILY as needed for CONSTIPATION Comments: NOT GIVEN Na Phos,M-B/Na Phos,Di-Ba (Fleet Enema) 19 GRAM-7 GRAM/118 ML ENEMA 1 Enema RECTAL DAILY as needed for CONSTIPATION Comments: NOT GIVEN Magnesium Hydroxide (Milk Of Magnesia) 400 MG/5 ML ORAL.SUSP 30 Milliliters ORAL Every 3 days as needed for CONSTIPATION Comments: NOT GIVEN Calamine (Calamine) 180 ML LOTION 1-2 Application On the skin TWICE DAILY as needed for itching Qty = 1 Comments: Last Taken:08/13/17 Time:0800 Lamotrigine (Lamictal) 25 MG TABLET 2 Tablet ORAL TWICE DAILY Pantoprazole Sodium (Pantoprazole Sodium) 40 MG TABLET.DR 1 Tablet ORAL DAILY Oxycodone HCl/Acetaminophen (Oxycodone-Acetaminophen 5-325) 5 MG-325 MG TABLET 1 Tablet ORAL EVERY 4 HOURS NEEDED as needed for PAIN Qty = 30 Start taking the following new medications: Lacosamide (Vimpat) 50 MG TABLET 100 Milligram ORAL TWICE DAILY Qty = 60 No Refills Copies To: Kishore WHITING,Tsering Dickerson; Shahana WHITING,Tommy; Gerber Mcelroy MD; Hoang WHITING,Brett
--- NOTE | 2017-09-25 08:44 | Patient Discharge Instructions ---
Discharge Instructions General Discharge Information You were seen/treated for: Seizure disorder Special Instructions: Follow-up with your primary care physiciain within 1 week of discharge. Follow-up with Endocrinology within 1 week of discharge. We have provided you with a referral. Follow-up with Dr. Mcelroy within 1 week of discharge. Follow-up with your neurologist within 1 week of discharge. Take all medication as directed. Call your doctor or return to the ER if you should have another fall, if you continue to get lightheaded with positional change, have a seizure, have chest pain or shortness of breath. Acute Coronary Syndrome Inclusion Criteria At DC or during hospital stay patient has or had the following: ACS DIAGNOSIS No Discharge Core Measures Meds if any: Prescribed or Continued at Discharge Meds if any: NOT Prescribed or Continued at Discharge Congestive Heart Failure Inclusion Criteria At DC or during hospital stay patient has or had the following: CHF DIAGNOSIS No Discharge Core Measures Meds if any: Prescribed or Continued at Discharge Meds if any: NOT Prescribed or Continued at Discharge Cerebrovascular accident Inclusion Criteria At DC or during hospital stay patient has or had the following: CVA/TIA Diagnosis No Discharge Core Measures Meds if any: Prescribed or Continued at Discharge Meds if any: NOT Prescribed or Continued at Discharge Venous thromboembolism Inclusion Criteria VTE Diagnosis No VTE Type NONE VTE Confirmed by (Test) NONE Discharge Core Measures - Per Current guidelines, there needs to be overlap - treatment for the first 5 days of Warfarin therapy. - If discharged on Warfarin prior to 5 days of - overlap therapy, the patient will need to be - assessed for post discharge needs including - *Post discharge parental anticoagulation - *Warfarin and/or parental anticoagulation education - *Follow up date to check INR post discharge At least 5 days overlap therapy as Inpatient No Meds if any: Prescribed or Continued at Discharge Note: Overlap Therapy is Warfarin and Anticoagulant Meds if any: NOT Prescribed or Continued at Discharge
--- NOTE | 2017-09-25 11:03 | ELECTROENCEPHALOGRAM REPORT ---
Electroencephalogram Report Electroencephalogram Results Date of service: 09/24/17 Attending MD: Mickie Cifuentes MD Software Tools Developer: sumaya Nelson EEG Number: [id number] Test Utilizes: 10-20 system, 21 lead 18 channel digital recording Pertinent Hx/Physical/Neuro Findings/Clin Diagnosis: Seizure disorder Inpatient Medications: Current Medications Sig/Haven Start time Last Medication Dose Route Stop Time Status Admin Acetaminophen 650 MG Q6P PRN 09/21 1230 AC 09/21 PO 1540 Aspirin Buffered 81 MG DAILY 09/21 1350 AC 09/25 PO 1000 Atorvastatin Calcium 20 MG DAILY 09/22 0900 AC 05 PO 1001 Bisacodyl 5 MG DAILY 09/25 0900 AC PO Clopidogrel Bisulfate 75 MG DAILY 09/25 0800 CAN PO Clopidogrel Bisulfate 75 MG DAILY 09/22 1414 AC 09/25 PO 1001 Enoxaparin Sodium 40 MG DAILY 09/21 1230 AC 09/25 SC 1001 Lacosamide 100 MG BID 09/22 1245 AC 09/25 PO 1003 Lamotrigine 50 MG BID 09/22 1008 AC 09/25 PO 1000 Levetiracetam 1,500 MG BID 09/21 2100 AC 09/25 PO 1000 Lisinopril 2.5 MG DAILY 09/24 1511 DC PO Magnesium Oxide 400 MG DAILY 09/25 0900 AC 09/25 PO 1001 Magnesium Oxide 400 MG ONE ONE 09/24 1515 DC 09/24 PO 09/24 1516 1509 Morphine Sulfate 2 MG Q6P PRN 09/22 1500 AC 09/25 IV 0514 Omeprazole 40 MG DAILY AC 09/21 1352 AC 09/25 PO 0512 Patient Medication 1 ED ONE ONE 09/24 1600 DC 09/24 Teaching ED 09/24 1601 1717 Senna/Docusate Sodium 2 TAB DAILY 09/25 0900 AC PO Spironolactone 25 MG DAILY 09/24 1511 DC 09/24 PO 1716 Interpretation: The waking background is 9 hertz posterior moderate amplitude alpha and anterior low amplitude beta. In drowsiness vertex waves and generalized slowing into the theta range are found. Brief episodes of sleep are notable for intermixed theta and delta and K complexes. No focal, lateralized or epileptiform abnormalities are found. Impression: Normal in the states of wakefulness, drowsiness and sleep.
[2017-09-25 12:18] VITALS: BP 108/58
[2017-10-11] MEDS ORDERED: VIMPAT150 M1 PO (13:03)
== END 2017-09-25 15:37 | DRG 53 ==
LOC: ERH 06:38 → ERHI 10:30 → 1NO 10:30 → ENRESERV 10:56 → ENTRNSPT 11:40 → EDTRNSPTSTS 11:43 → EDTRNSPT 11:43 → CMPTRNSPT 11:58 → 1NO 12:02 → ENPENDDIS 09-25 10:57 → 1NO 09-25 15:37
PROVIDERS: Emergency Medicine
DX: G40.909 Epilepsy, unspecified, not intractable, without status epilepticus (principal); R55 Syncope and collapse; Z87.820 Personal history of traumatic brain injury; F19.11 Other psychoactive substance abuse, in remission; I25.10 Atherosclerotic heart disease of native coronary artery without angina pectoris; Z95.1 Presence of aortocoronary bypass graft; Z98.61 Coronary angioplasty status; Z87.891 Personal history of nicotine dependence; F14.90 Cocaine use, unspecified, uncomplicated; F12.90 Cannabis use, unspecified, uncomplicated; Z88.2 Allergy status to sulfonamides; Z91.041 Radiographic dye allergy status; Z79.82 Long term (current) use of aspirin; Z79.891 Long term (current) use of opiate analgesic; I95.89 Other hypotension; Z99.3 Dependence on wheelchair; I47.1 Supraventricular tachycardia; E83.42 Hypomagnesemia
CPT/HCPCS: 1NSP; 36415; 36592; 80307; 81003; 82436; 93005; 93010; 95816; 96374; 97161-GP; 97530-GO; G0480; J0131; J1650; J7040